=== PATIENT | female | born 1940 | race Two or more races ===

== ENCOUNTER 2019-10-17 16:41 | Inpatient (IN) | payer MEDICARE ==
[2019-10-17] MEDS ORDERED: SODIUM CHLORIDE 0.9% 1,000 ML IV STA (16:43)
[2019-10-17] MEDS ORDERED: IPRATROPIUM-ALBUTEROL 3 ML NEB INHALATION STA ×2 (16:43→21:17)
--- NOTE | 2019-10-17 16:49 | ED ---
SOB HPI - General Stated Complaint: FALLS Time Seen by Provider: 10/17/19 16:41 Source: patient, EMS, RN notes reviewed, old records reviewed Mode of arrival: EMS - History of Present Illness Initial Comments: This is a 70-year-old female who is hard of hearing who is brought in by EMS after her fifth fall in the last 24 hours. She states her left leg gives out on her. She was seen at [facility] earlier today and diagnosed with sciatica. She also is had upper airway congestion and complains of shortness of breath. She is hard of hearing and a poor historian. She does have a history of hypertension. She denies COPD and asthma or emphysema. She denies any pain at this time. No other modifying factors MD Complaint: shortness of breath - Related Data Home Medications Medication Instructions Recorded Confirmed Metoprolol Succinate (ER) [Toprol 50 mg PO BID 10/17/19 10/17/19 Xl] amLODIPine BESYLATE/BENAZEPRIL 1 cap PO DAILY 10/17/19 10/17/19 [amLODIPine BESYLATE/BENAZEPRIL 5-20 MG] Allergies Allergy/AdvReac Type Severity Reaction Status Date / Time No Known Allergies Allergy Verified 10/17/19 17:58 Review of Systems ROS Statement: Those systems with pertinent positive or pertinent negative responses have been documented in the HPI. ROS Other: All systems not noted in ROS Statement are negative. General Exam - General Exam Comments Initial Comments: This is a well-developed sec appearing female who is awake alert oriented General appearance: alert, anxious Head exam: Present: atraumatic, normocephalic, normal inspection Eye exam: Present: normal appearance, PERRL, EOMI. Absent: scleral icterus, conjunctival injection, periorbital swelling ENT exam: Present: mucous membranes dry, other (She is edentulous) Neck exam: Present: normal inspection, full ROM, other (No stridor JVD or bruits ). Absent: tenderness, meningismus, lymphadenopathy Respiratory exam: Present: wheezes, decreased breath sounds. Absent: respiratory distress, rales, rhonchi, stridor Cardiovascular Exam: Present: regular rate, normal rhythm, normal heart sounds. Absent: systolic murmur, diastolic murmur, rubs, gallop, clicks GI/Abdominal exam: Present: soft, normal bowel sounds. Absent: distended, tenderness, guarding, rebound, rigid Rectal exam: Present: heme (+) stool, black stool Extremities exam: Present: full ROM, normal capillary refill, other (All full abrasion seen to both upper and lower extremities). Absent: tenderness, pedal edema, joint swelling, calf tenderness Back exam: Present: normal inspection Neurological exam: Present: alert, oriented X3, CN II-XII intact Psychiatric exam: Present: normal affect, normal mood Skin exam: Present: warm, dry, normal color. Absent: rash Course Vital Signs 10/17/19 10/17/19 10/17/19 16:44 17:11 17:22 Temperature 97.6 F Pulse Rate 62 61 70 Respiratory 20 Rate Blood Pressure 114/38 O2 Sat by Pulse 91 L Oximetry 10/17/19 10/17/19 17:55 18:00 Temperature Pulse Rate 69 68 Respiratory 26 H 20 Rate Blood Pressure 102/46 102/46 O2 Sat by Pulse 96 92 L Oximetry - Reevaluation(s) Reevaluation #1: 10/17/19 19:59 I did reevaluate patient multiple occasions and did discuss findings with her . Patient is a smoker and turned out she does drink at least 5 bottles of beer every day. I did discuss the findings including the anemia and heme positive stools with the patient's . She is also hyponatremic. Reevaluation #2: 10/17/19 20:02 Of note the patient's breathing did improve after the nebulizer. Medical Decision Making - Medical Decision Making I did discuss [employer] the patient and family as well as Dr. Nunn, Dr. Cox and Dr. Solano. The patient will be admitted to the intensive care unit patient will have normal saline at 75 mL an hour with a repeat sodium level at 10 PM tonight. Is as per Dr. Solano. Additionally patient will receive IV transfusion and consultation by GI. Patient is currently hemodynamically stable. - Lab Data Result diagrams: 10/17/19 16:57 10/17/19 16:57 Lab Results 10/17/19 10/17/19 10/17/19 Range/Units 16:54 16:57 16:57 WBC 14.1 H (3.8-10.6) k/uL RBC 2.10 L (3.80-5.40) m/uL Hgb 6.3 L* (11.4-16.0) gm/dL Hct 19.3 L* (34.0-46.0) % MCV 92.0 (80.0-100.0) fL MCH 29.4 (25.0-35.0) pg MCHC 32.0 (31.0-37.0) g/dL RDW 13.5 (11.5-15.5) % Plt Count 508 H (150-450) k/uL Neutrophils % (Manual) 89 % Lymphocytes % (Manual) 5 % Monocytes % (Manual) 6 % Neutrophils # (Manual) 12.55 H (1.3-7.7) k/uL Lymphocytes # (Manual) 0.71 L (1.0-4.8) k/uL Monocytes # (Manual) 0.85 (0-1.0) k/uL Nucleated RBCs 1 H (0-0) /100 WBC Manual Slide Review Performed Polychromasia Present Hypochromasia Moderate Poikilocytosis Slight PT (9.0-12.0) sec INR (<1.2) APTT (22.0-30.0) sec D-Dimer (<0.60) mg/L FEU Sodium 117 L* (137-145) mmol/L Potassium 5.2 H (3.5-5.1) mmol/L Chloride 89 L (98-107) mmol/L Carbon Dioxide 11 L (22-30) mmol/L Anion Gap 17 mmol/L BUN 21 H (7-17) mg/dL Creatinine 0.95 (0.52-1.04) mg/dL Est GFR (CKD-EPI)AfAm 67 (>60 ml/min/1.73 sqM) Est GFR (CKD-EPI)NonAf 58 (>60 ml/min/1.73 sqM) Glucose 68 L (74-99) mg/dL Calcium 8.9 (8.4-10.2) mg/dL Magnesium 2.2 (1.6-2.3) mg/dL Total Bilirubin 1.4 H (0.2-1.3) mg/dL AST 56 H (14-36) U/L ALT 20 (9-52) U/L Alkaline Phosphatase 38 (38-126) U/L Creatine Kinase 725 H (30-135) U/L Troponin I (0.000-0.034) ng/mL NT-Pro-B Natriuret Pep pg/mL Total Protein 5.7 L (6.3-8.2) g/dL Albumin 3.5 (3.5-5.0) g/dL Stool Occult Blood (Negative) Blood Type A Positive Blood Type Recheck No Previous Record Bld Type Recheck Status CABO Indicated Antibody Screen NEGATIVE Spec Expiration Date 10/20/2019235310/17/19 10/17/19 10/17/19 Range/Units 16:57 16:57 16:57 WBC (3.8-10.6) k/uL RBC (3.80-5.40) m/uL Hgb (11.4-16.0) gm/dL Hct (34.0-46.0) % MCV (80.0-100.0) fL MCH (25.0-35.0) pg MCHC (31.0-37.0) g/dL RDW (11.5-15.5) % Plt Count (150-450) k/uL Neutrophils % (Manual) % Lymphocytes % (Manual) % Monocytes % (Manual) % Neutrophils # (Manual) (1.3-7.7) k/uL Lymphocytes # (Manual) (1.0-4.8) k/uL Monocytes # (Manual) (0-1.0) k/uL Nucleated RBCs (0-0) /100 WBC Manual Slide Review Polychromasia Hypochromasia Poikilocytosis PT 13.6 H (9.0-12.0) sec INR 1.3 H (<1.2) APTT 25.2 (22.0-30.0) sec D-Dimer 0.98 H (<0.60) mg/L FEU Sodium (137-145) mmol/L Potassium (3.5-5.1) mmol/L Chloride (98-107) mmol/L Carbon Dioxide (22-30) mmol/L Anion Gap mmol/L BUN (7-17) mg/dL Creatinine (0.52-1.04) mg/dL Est GFR (CKD-EPI)AfAm (>60 ml/min/1.73 sqM) Est GFR (CKD-EPI)NonAf (>60 ml/min/1.73 sqM) Glucose (74-99) mg/dL Calcium (8.4-10.2) mg/dL Magnesium (1.6-2.3) mg/dL Total Bilirubin (0.2-1.3) mg/dL AST (14-36) U/L ALT (9-52) U/L Alkaline Phosphatase (38-126) U/L Creatine Kinase (30-135) U/L Troponin I 0.199 H* (0.000-0.034) ng/mL NT-Pro-B Natriuret Pep 8960 pg/mL Total Protein (6.3-8.2) g/dL Albumin (3.5-5.0) g/dL Stool Occult Blood (Negative) Blood Type Blood Type Recheck Bld Type Recheck Status Antibody Screen Spec Expiration Date 10/17/19 Range/Units 17:54 WBC (3.8-10.6) k/uL RBC (3.80-5.40) m/uL Hgb (11.4-16.0) gm/dL Hct (34.0-46.0) % MCV (80.0-100.0) fL MCH (25.0-35.0) pg MCHC (31.0-37.0) g/dL RDW (11.5-15.5) % Plt Count (150-450) k/uL Neutrophils % (Manual) % Lymphocytes % (Manual) % Monocytes % (Manual) % Neutrophils # (Manual) (1.3-7.7) k/uL Lymphocytes # (Manual) (1.0-4.8) k/uL Monocytes # (Manual) (0-1.0) k/uL Nucleated RBCs (0-0) /100 WBC Manual Slide Review Polychromasia Hypochromasia Poikilocytosis PT (9.0-12.0) sec INR (<1.2) APTT (22.0-30.0) sec D-Dimer (<0.60) mg/L FEU Sodium (137-145) mmol/L Potassium (3.5-5.1) mmol/L Chloride (98-107) mmol/L Carbon Dioxide (22-30) mmol/L Anion Gap mmol/L BUN (7-17) mg/dL Creatinine (0.52-1.04) mg/dL Est GFR (CKD-EPI)AfAm (>60 ml/min/1.73 sqM) Est GFR (CKD-EPI)NonAf (>60 ml/min/1.73 sqM) Glucose (74-99) mg/dL Calcium (8.4-10.2) mg/dL Magnesium (1.6-2.3) mg/dL Total Bilirubin (0.2-1.3) mg/dL AST (14-36) U/L ALT (9-52) U/L Alkaline Phosphatase (38-126) U/L Creatine Kinase (30-135) U/L Troponin I (0.000-0.034) ng/mL NT-Pro-B Natriuret Pep pg/mL Total Protein (6.3-8.2) g/dL Albumin (3.5-5.0) g/dL Stool Occult Blood Positive H (Negative) Blood Type Blood Type Recheck Bld Type Recheck Status Antibody Screen Spec Expiration Date Critical Care Time Critical Care Time: Yes Critical Care Time: 45 minutes of critical care time includes initial presentation with history physical labs x-rays review charting from [facility]. Multiple reevaluation of the patient. Discussed with the patient's and the pa tient regarding the findings discussion with multiple physicians admission orders and documentation of the above. Disposition Clinical Impression: Acute GI bleeding, Hyponatremia, Elevated troponin, Elevated brain natriuretic peptide (BNP) level, Failure to thrive Disposition: ADMITTED IP TO THIS HOSP Condition: Serious Referrals: None,Stated [REFERRING] - 1-2 days
[2019-10-17 17:19] LABS: Hypochromasia Moderate; MCH 29.4 pg (25.0-35.0); Mean Platelet Volume 6.1; Platelet Count 508 k/uL (150-450); Poikilocytosis Slight; RDW 13.5 % (11.5-15.5)
[2019-10-17 17:25] LABS: HCT 19.3 % (34.0-46.0); HGB 6.3 gm/dL (11.4-16.0)
[2019-10-17 17:27] LABS: Albumin 3.5 g/dL (3.5-5.0); Calcium 8.9 mg/dL (8.4-10.2); INR 1.3 (<1.2); Magnesium 2.2 mg/dL (1.6-2.3); Partial Thromboplastin Time 25.2 sec (22.0-30.0); Potassium 5.2 mmol/L (3.5-5.1); Prothrombin Time 13.6 sec (9.0-12.0); Total Bilirubin 1.4 mg/dL (0.2-1.3); Total Protein 5.7 g/dL (6.3-8.2)
[2019-10-17 17:32] LABS: D-Dimer 0.98 mg/L FEU (<0.60)
[2019-10-17 17:35] LABS: Lymphocytes # (M) 0.71 k/uL (1.0-4.8); Monocytes # (M) 0.85 k/uL (0-1.0); Neutrophils # (M) 12.55 k/uL (1.3-7.7); Neutrophils % (M) 89 %; Nucleated Red Blood Cells 1 /100 WBC (0-0); Polychromasia Present; Total Cells Counted 200; WBC 14.1 k/uL (3.8-10.6)
--- NOTE | 2019-10-17 17:41 | XR ---
EXAMINATION TYPE: XR chest 2V DATE OF EXAM: 10/17/2019 COMPARISON: NONE HISTORY: Pain after frequent falls. TECHNIQUE: Frontal and lateral views of the chest are obtained. FINDINGS: There is chronic parenchymal changes bilaterally and elevated left hemidiaphragm without s uspicious focal air space opacity, pleural effusion, or pneumothorax seen. The cardiac silhouette si ze is enlarged with atherosclerotic and ectatic aorta. The osseous structures are demineralized. Hi gh riding humeral heads bilaterally suggest chronic rotator cuff tears. Multilevel spurring and disc space narrowing in the thoracic spine is present. IMPRESSION: Chronic changes and cardiomegaly without acute pulmonary process.
--- NOTE | 2019-10-17 17:44 | XR ---
EXAMINATION TYPE: XR pelvis AP view DATE OF EXAM: 10/17/2019 CLINICAL HISTORY: Pain after fall. TECHNIQUE: A single AP view of the pelvis is obtained. COMPARISON: None. FINDINGS: Demineralization is present. There is no acute fracture/dislocation evident in the pelvis. The sacroiliac joints appear symmetric and felt within normal limits. [id number] axial joint s pace loss both hips greater than right hip is present. Vascular calcification iliac arteries extendin g into groin femoral branches bilaterally is present. IMPRESSION: There is no acute fracture or dislocation in the pelvis.
[2019-10-17] MEDS ORDERED: NALOXONE 0.4 MG/ML 1 ML VIAL IV PRN (20:28)
[2019-10-17] MEDS ORDERED: SODIUM CHLORIDE 0.9% 1,000 ML IV SCH (20:30)
[2019-10-17] MEDS ORDERED: NICOTINE 21MG/24HR PATCH TRANSDERM STA (20:35)
--- NOTE | 2019-10-17 20:37 | ED ---
Medical Decision Making - Lab Data Result diagrams: 10/17/19 16:57 10/17/19 16:57 Lab Results 10/17/19 10/17/19 10/17/19 Range/Units 16:54 16:57 16:57 WBC 14.1 H (3.8-10.6) k/uL RBC 2.10 L (3.80-5.40) m/uL Hgb 6.3 L* (11.4-16.0) gm/dL Hct 19.3 L* (34.0-46.0) % MCV 92.0 (80.0-100.0) fL MCH 29.4 (25.0-35.0) pg MCHC 32.0 (31.0-37.0) g/dL RDW 13.5 (11.5-15.5) % Plt Count 508 H (150-450) k/uL Neutrophils % (Manual) 89 % Lymphocytes % (Manual) 5 % Monocytes % (Manual) 6 % Neutrophils # (Manual) 12.55 H (1.3-7.7) k/uL Lymphocytes # (Manual) 0.71 L (1.0-4.8) k/uL Monocytes # (Manual) 0.85 (0-1.0) k/uL Nucleated RBCs 1 H (0-0) /100 WBC Manual Slide Review Performed Polychromasia Present Hypochromasia Moderate Poikilocytosis Slight PT (9.0-12.0) sec INR (<1.2) APTT (22.0-30.0) sec D-Dimer (<0.60) mg/L FEU Sodium 117 L* (137-145) mmol/L Potassium 5.2 H (3.5-5.1) mmol/L Chloride 89 L (98-107) mmol/L Carbon Dioxide 11 L (22-30) mmol/L Anion Gap 17 mmol/L BUN 21 H (7-17) mg/dL Creatinine 0.95 (0.52-1.04) mg/dL Est GFR (CKD-EPI)AfAm 67 (>60 ml/min/1.73 sqM) Est GFR (CKD-EPI)NonAf 58 (>60 ml/min/1.73 sqM) Glucose 68 L (74-99) mg/dL Calcium 8.9 (8.4-10.2) mg/dL Magnesium 2.2 (1.6-2.3) mg/dL Total Bilirubin 1.4 H (0.2-1.3) mg/dL AST 56 H (14-36) U/L ALT 20 (9-52) U/L Alkaline Phosphatase 38 (38-126) U/L Creatine Kinase 725 H (30-135) U/L Troponin I (0.000-0.034) ng/mL NT-Pro-B Natriuret Pep pg/mL Total Protein 5.7 L (6.3-8.2) g/dL Albumin 3.5 (3.5-5.0) g/dL Stool Occult Blood (Negative) Blood Type A Positive Blood Type Confirm Blood Type Recheck No Previous Record Bld Type Recheck Status CABO Indicated Antibody Screen NEGATIVE Crossmatch See Detail Spec Expiration Date 10/20/2019235310/17/19 10/17/19 10/17/19 Range/Units 16:57 16:57 16:57 WBC (3.8-10.6) k/uL RBC (3.80-5.40) m/uL Hgb (11.4-16.0) gm/dL Hct (34.0-46.0) % MCV (80.0-100.0) fL MCH (25.0-35.0) pg MCHC (31.0-37.0) g/dL RDW (11.5-15.5) % Plt Count (150-450) k/uL Neutrophils % (Manual) % Lymphocytes % (Manual) % Monocytes % (Manual) % Neutrophils # (Manual) (1.3-7.7) k/uL Lymphocytes # (Manual) (1.0-4.8) k/uL Monocytes # (Manual) (0-1.0) k/uL Nucleated RBCs (0-0) /100 WBC Manual Slide Review Polychromasia Hypochromasia Poikilocytosis PT 13.6 H (9.0-12.0) sec INR 1.3 H (<1.2) APTT 25.2 (22.0-30.0) sec D-Dimer 0.98 H (<0.60) mg/L FEU Sodium (137-145) mmol/L Potassium (3.5-5.1) mmol/L Chloride (98-107) mmol/L Carbon Dioxide (22-30) mmol/L Anion Gap mmol/L BUN (7-17) mg/dL Creatinine (0.52-1.04) mg/dL Est GFR (CKD-EPI)AfAm (>60 ml/min/1.73 sqM) Est GFR (CKD-EPI)NonAf (>60 ml/min/1.73 sqM) Glucose (74-99) mg/dL Calcium (8.4-10.2) mg/dL Magnesium (1.6-2.3) mg/dL Total Bilirubin (0.2-1.3) mg/dL AST (14-36) U/L ALT (9-52) U/L Alkaline Phosphatase (38-126) U/L Creatine Kinase (30-135) U/L Troponin I 0.199 H* (0.000-0.034) ng/mL NT-Pro-B Natriuret Pep 8960 pg/mL Total Protein (6.3-8.2) g/dL Albumin (3.5-5.0) g/dL Stool Occult Blood (Negative) Blood Type Blood Type Confirm Blood Type Recheck Bld Type Recheck Status Antibody Screen Crossmatch Spec Expiration Date 10/17/19 10/17/19 Range/Units 17:54 19:22 WBC (3.8-10.6) k/uL RBC (3.80-5.40) m/uL Hgb (11.4-16.0) gm/dL Hct (34.0-46.0) % MCV (80.0-100.0) fL MCH (25.0-35.0) pg MCHC (31.0-37.0) g/dL RDW (11.5-15.5) % Plt Count (150-450) k/uL Neutrophils % (Manual) % Lymphocytes % (Manual) % Monocytes % (Manual) % Neutrophils # (Manual) (1.3-7.7) k/uL Lymphocytes # (Manual) (1.0-4.8) k/uL Monocytes # (Manual) (0-1.0) k/uL Nucleated RBCs (0-0) /100 WBC Manual Slide Review Polychromasia Hypochromasia Poikilocytosis PT (9.0-12.0) sec INR (<1.2) APTT (22.0-30.0) sec D-Dimer (<0.60) mg/L FEU Sodium (137-145) mmol/L Potassium (3.5-5.1) mmol/L Chloride (98-107) mmol/L Carbon Dioxide (22-30) mmol/L Anion Gap mmol/L BUN (7-17) mg/dL Creatinine (0.52-1.04) mg/dL Est GFR (CKD-EPI)AfAm (>60 ml/min/1.73 sqM) Est GFR (CKD-EPI)NonAf (>60 ml/min/1.73 sqM) Glucose (74-99) mg/dL Calcium (8.4-10.2) mg/dL Magnesium (1.6-2.3) mg/dL Total Bilirubin (0.2-1.3) mg/dL AST (14-36) U/L ALT (9-52) U/L Alkaline Phosphatase (38-126) U/L Creatine Kinase (30-135) U/L Troponin I (0.000-0.034) ng/mL NT-Pro-B Natriuret Pep pg/mL Total Protein (6.3-8.2) g/dL Albumin (3.5-5.0) g/dL Stool Occult Blood Positive H (Negative) Blood Type Blood Type Confirm A Positive Blood Type Recheck Bld Type Recheck Status Antibody Screen Crossmatch Spec Expiration Date Disposition Clinical Impression: Acute GI bleeding, Hyponatremia, Elevated troponin, Elevated brain natriuretic peptide (BNP) level, Failure to thrive, Bronchospasm, Tobacco abuse, Alcohol abuse Disposition: ADMITTED IP TO THIS [facility] Condition: Serious Referrals: None,Stated [REFERRING] - 1-2 days Procedures - [place] Protocol (Time Out) Nurse: Betsy Avery
[2019-10-17] MEDS ORDERED: ACETAMINOPHEN TAB 325 MG TAB PO STA (20:43)
[2019-10-17] MEDS ORDERED: THIAMINE 100 MG/ML 2 ML VIAL IM STA (20:45)
[2019-10-17] MEDS ORDERED: SODIUM CHLORIDE 0.9% 1,000 ML with MVI, ADULT NO.4 WITH VIT K 10 ML, THIAMINE 100 MG, F... IV ONE ×4 (21:00)
[2019-10-17] MEDS ORDERED: FUROSEMIDE 10 MG/ML 4 ML VIAL IV STA (21:21)
[2019-10-17 21:34] LABS: Glucose,Whole Blood 70 mg/dL (75-99)
[2019-10-17 21:49] LABS: Appearance,Urine Cloudy (Clear); Bacteria,Urine Occasional /hpf; Bilirubin,Urine Negative (Negative); Blood,Urine Small (Negative); Color,Urine Yellow; Glucose,Urine (UA) Negative (Negative); Hyaline Casts,Urine 14 /lpf (0-2); Ketones,Urine Trace (Negative); Leukocyte Esterase,Urine Large (Negative); Mucus,Urine Rare /hpf; Nitrite,Urine Negative (Negative); PH, Urine 5.5 (5.0-8.0); Protein,Urine Trace (Negative); RBC,Urine 9 /hpf (0-5); Squamous Epithelial Cell,Urine 10 /hpf (0-4); Urobilinogen,Urine <2.0 mg/dL (<2.0); WBC,Urine 151 /hpf (0-5)
[2019-10-17 22:06] LABS: Glucose,Whole Blood 68 mg/dL (75-99)
[2019-10-17] MEDS ORDERED: DEXTROSE 10 % IN WATER 250 ML IV ONE (22:28)
[2019-10-17] MEDS: INSULIN ASPART (NovoLOG) 100 UNIT/ML VIAL SQ SCH (22:31)
[2019-10-17] MEDS: PANTOPRAZOLE 40 MG/10 ML VIAL IV SCH (23:01)
[2019-10-17 23:24] LABS: Glucose,Whole Blood 147 mg/dL (75-99)
[2019-10-17] MEDS: IPRATROPIUM-ALBUTEROL 3 ML NEB INHALATION SCH (23:34)
[2019-10-18] MEDS: IPRATROPIUM-ALBUTEROL 3 ML NEB INHALATION SCH ×5 (03:18→20:03)
[2019-10-18] MEDS: LORazepam 2 MG/ML INJ IV PRN ×5 (04:19→19:47)
[2019-10-18 04:50] LABS: Basophils % (A) 0 %; Eosinophils # (A) 0.1 k/uL (0-0.7); Eosinophils % (A) 1 %; HCT 26.1 % (34.0-46.0); Hypochromasia Slight; Lymphocytes # (A) 0.9 k/uL (1.0-4.8); Lymphocytes % (A) 7 %; MCH 30.6 pg (25.0-35.0); MCHC 34.2 g/dL (31.0-37.0); MCV 89.3 fL (80.0-100.0); Mean Platelet Volume 6.6; Monocytes # (A) 0.9 k/uL (0-1.0); Monocytes % (A) 8 %; Neutrophils % (A) 83 %; Platelet Count 360 k/uL (150-450); Poikilocytosis Slight; RBC 2.92 m/uL (3.80-5.40); RDW 13.5 % (11.5-15.5); WBC 12.1 k/uL (3.8-10.6)
[2019-10-18 05:05] LABS: African American GFR (CKD) >90 (>60 ml/min/1.73 sqM); Anion Gap 10 mmol/L; Blood Urea Nitrogen 19 mg/dL (7-17); Carbon Dioxide 15 mmol/L (22-30); Chloride 95 mmol/L (98-107); Glucose 77 mg/dL (74-99); Non-African American GFR(CKD) 79 (>60 ml/min/1.73 sqM); Potassium 4.1 mmol/L (3.5-5.1); Sodium 120 mmol/L (137-145)
[2019-10-18 05:41] LABS: HGB 8.9 gm/dL (11.4-16.0)
[2019-10-18] MEDS ORDERED: DEXTROSE 10 % IN WATER 250 ML IV ONE ×2 (06:55→07:57)
[2019-10-18] MEDS: INSULIN ASPART (NovoLOG) 100 UNIT/ML VIAL SQ SCH ×4 (07:08→20:20)
[2019-10-18 08:08] LABS: Glucose,Whole Blood 67 mg/dL (75-99)
[2019-10-18] MEDS: PANTOPRAZOLE 40 MG/10 ML VIAL IV SCH ×2 (08:46→19:47)
[2019-10-18] MEDS ORDERED: RX INFO: IV CONTRAST WAS GIVEN 1 EACH MISC MISCELLANE PRN (09:26)
[2019-10-18] MEDS ORDERED: HEPARIN SODIUM,PORCINE 5,000 UNIT/ML 1 ML VIAL SQ SCH (09:45)
--- NOTE | 2019-10-18 09:45 | P.CNPUL ---
History of Present Illness Consult date: 10/18/19 Chief complaint: Altered mentation, frequent falls History of present illness: Is a 70-year-old female patient who is currently confused. The patient came in to the emergency department yesterday because of altered mentation and recurrent falls. Apparently she has been falling and she fell at least 5 times yesterday. She initially went to [facility] and she was discharged home without having any labs done. HIDA time she came to our emergency department, the labs are quite abnormal and she had a sodium level of 117 with a potassium level of 5.2 and a chloride of 89 and a serum bicarb of 17 with an anion gap of 17. Creatinine was stable at 0.9. Her initial hemoglobin was at 6.3 and she had guaiac positive stool. Her coags showed an INR of 1.3 with a PT of 15.6. The patient had a chest x-ray that showed some tortuous aorta yet by radiologist opinion and interpretation, the findings were negative and no further workup was done and the patient was admitted to the intensive care unit. Currently she is awake and she is restless in bed. She is moving all 4 extremities. She seems to be poorly maintained. She is on a normal saline infusion at the rate of 75 an hour. She received a total of 2 units of packed RBC and the sodium level is up to 120. She admits to drink beer and order of 5 bottles on a daily basis. There may be a history of alcoholism. She is a smoker and she smokes 5-10 cigarettes a day. On examination she is quite bronchospastic and wheezy and she has a congested cough. She is currently on oxygen at 6 L per minute nasal cannula with a pulse ox of 94%. Cardiac rhythm is sinus. EKG showed a normal sinus rhythm and some ST segment changes limited and T-wave inversions over the lateral leads. Troponins were slightly abnormal with one lives of 0.19, 0.3 and 0.5 respectively 3. CPK level was at 725 at a time of admission. She has a Jarquin catheter in place. Urine output is in order of 100 mL an hour. On examination, the patient has multiple abrasions of the skin in various parts of her body. She also has a surgical scar over the lip probably related to a previous resection of a skin cancer. The past medical history is not known. The past surgical is not known. She is on a blood pressure medication including metoprolol and amlodipine on outpatient basis. Review of Systems ROS unobtainable: due to mental status Past Medical History Past Medical History: Hypertension History of Any Multi-Drug Resistant Organisms: None Reported Past Surgical History: No Surgical Hx Reported Past Anesthesia/Blood Transfusion Reactions: No Reported Reaction Past Psychological History: No Psychological Hx Reported Smoking Status: Current every day smoker Past Alcohol Use History: Daily Past Drug Use History: None Reported Additional History: Unable to obtain any family history Medications and Allergies Home Medications Medication Instructions Recorded Confirmed Type Metoprolol Succinate (ER) [Toprol 50 mg PO BID 10/17/19 10/17/19 History Xl] amLODIPine BESYLATE/BENAZEPRIL 1 cap PO DAILY 10/17/19 10/17/19 History [amLODIPine BESYLATE/BENAZEPRIL 5-20 MG] Allergies Allergy/AdvReac Type Severity Reaction Status Date / Time No Known Allergies Allergy Verified 10/17/19 17:58 Physical Exam Vitals: Vital Signs Temp Pulse Resp BP Pulse Ox 10/18/19 09:00 90 17 135/66 10/18/19 08:00 97.8 F 77 23 96/61 92 L 10/18/19 07:35 72 10/18/19 07:27 66 10/18/19 07:00 70 16 103/65 96 10/18/19 06:00 68 14 107/80 94 L 10/18/19 05:00 70 19 98/45 95 10/18/19 04:00 98.0 F 75 18 99/60 98 10/18/19 03:35 72 10/18/19 03:19 63 10/18/19 03:00 68 18 90/53 95 10/18/19 02:00 60 16 94/68 96 10/18/19 01:00 70 20 101/48 96 10/18/19 00:47 97.8 F 70 18 101/48 98 10/18/19 00:00 98.0 F 67 18 99/79 96 10/17/19 23:49 61 10/17/19 23:35 98.0 F 66 18 99/79 10/17/19 23:34 64 10/17/19 23:05 98.3 F 64 18 97/46 99 10/17/19 23:00 98.3 F 67 20 97/46 99 10/17/19 22:55 98.3 F 64 20 80/55 10/17/19 22:47 98.3 F 66 20 80/55 10/17/19 22:38 98.0 F 68 20 107/53 95 10/17/19 22:00 98.0 F 68 20 107/50 98 10/17/19 21:14 98.2 F 69 22 107/70 97 10/17/19 20:44 98.4 F 66 20 96/48 94 L 10/17/19 20:34 99.1 F 75 20 87/51 92 L 10/17/19 18:00 68 20 102/46 92 L 10/17/19 17:55 69 26 H 102/46 96 10/17/19 17:22 70 10/17/19 17:11 61 10/17/19 16:44 97.6 F 62 20 114/38 91 L Intake and Output 10/17/19 10/18/19 10/18/19 22:59 06:59 14:59 Intake Total 310 1255 110 Output Total 50 575 500 Balance 260 680 -390 Intake: IV 40 0.9 normal saline at KVO 40 Intake, IV Titration 945 70 Amount Dextrose 10 % in Water 250 250 ml @ 999 mls/hr IV ONCE ONE Rx#:[id number] Sodium Chloride 0.9% 1, 620 70 000 ml @ 70 mls/hr IV . [id number] ONE with Mvi, Adult No.4 with Vit K 10 ml with Thiamine 100 mg with Folic Acid 1 mg Rx#: [id number] Sodium Chloride 0.9% 1, 75 000 ml @ 75 mls/hr IV . [id number] [facility] Rx#:[id number] Blood Product 310 310 As-1 Unit 310 [id number] As-1 Unit 0 310 [id number] Output: Urine 50 575 500 Other: Voiding Method Bedpan # Voids 1 Weight 53.524 kg 55.3 kg Gen. appearance she is a bit lethargic restless in bed, follows some simple commands. She is unable to hold a conversation and she is able to say a few sentences. She is obviously confused and encephalopathic at this point in time. Head exam was generally normal. There was no scleral icterus or corneal arcus. Mucous membranes were moist. Neck was supple and positive jugular venous distension, thyromegaly, or carotid bruits. Carotids were easily palpable bilaterally. There was no adenopathy. The patient has a scar over her lower lip related to a previous surgical resection of skin cancer. Lung sounds are diminished and the patient has scattered expiratory wheezing throughout the lung ramirez and prolongation of expiration phase of breathing. Cardiac exam revealed the PMI to be normally situated and sized. The rhythm was regular and no extrasystoles were noted during several minutes of auscultation. The first and second heart sounds were normal and physiologic splitting of the second heart sound was noted. There were no murmurs, rubs, clicks, or gallops. Abdominal exam revealed normal bowel sounds. The abdomen was soft, non-tender, and without masses, organomegaly, or appreciable enlargement of the abdominal aorta. Extremities show dry skin. She has obvious arthritic changes in her fingers. She has skin abrasions yet here no 1 or sores or lesions and there is no evidence of any cellulitis in lower extremities bilaterally. Neurologically, the patient is encephalopathic. No focal neurological deficits. Pupils around 4 mm in size and they are reactive to light. No facial asymmetry. She is withdrawing to painful stimulation. She follows simple commands. She is unable to do more Activity. She is alert and oriented 1. Results - Laboratory Findings CBC and BMP: 10/18/19 04:35 10/18/19 04:39 PT/INR, D-dimer PT 13.6 sec (9.0-12.0) H 10/17/19 16:57 INR 1.3 (<1.2) H 10/17/19 16:57 D-Dimer 0.98 mg/L FEU (<0.60) H 10/17/19 16:57 Abnormal lab findings: Abnormal Labs 10/17/19 10/17/19 10/17/19 16:54 16:57 16:57 WBC 14.1 H RBC 2.10 L Hgb 6.3 L* Hct 19.3 L* Plt Count 508 H Neutrophils # Neutrophils # (Manual) 12.55 H Lymphocytes # Lymphocytes # (Manual) 0.71 L Nucleated RBCs 1 H PT INR D-Dimer Sodium 117 L* Potassium 5.2 H Chloride 89 L Carbon Dioxide 11 L BUN 21 H Glucose 68 L POC Glucose (mg/dL) Calcium Total Bilirubin 1.4 H AST 56 H Creatine Kinase 725 H Troponin I Total Protein 5.7 L Urine Appearance Urine Protein Urine Ketones Urine Blood Ur Leukocyte Esterase Urine RBC Urine WBC Urine WBC Clumps Ur Squamous Epith Cells Urine Bacteria Hyaline Casts Urine Mucus Stool Occult Blood Crossmatch See Detail 10/17/19 10/17/19 10/17/19 16:57 16:57 17:54 WBC RBC Hgb Hct Plt Count Neutrophils # Neutrophils # (Manual) Lymphocytes # Lymphocytes # (Manual) Nucleated RBCs PT 13.6 H INR 1.3 H D-Dimer 0.98 H Sodium Potassium Chloride Carbon Dioxide BUN Glucose POC Glucose (mg/dL) Calcium Total Bilirubin AST Creatine Kinase Troponin I 0.199 H* Total Protein Urine Appearance Urine Protein Urine Ketones Urine Blood Ur Leukocyte Esterase Urine RBC Urine WBC Urine WBC Clumps Ur Squamous Epith Cells Urine Bacteria Hyaline Casts Urine Mucus Stool Occult Blood Positive H Crossmatch 10/17/19 10/17/19 10/17/19 21:07 21:33 21:54 WBC RBC Hgb Hct Plt Count Neutrophils # Neutrophils # (Manual) Lymphocytes # Lymphocytes # (Manual) Nucleated RBCs PT INR D-Dimer Sodium Potassium Chloride Carbon Dioxide BUN Glucose POC Glucose (mg/dL) 70 L 68 L Calcium Total Bilirubin AST Creatine Kinase Troponin I Total Protein Urine Appearance Cloudy H Urine Protein Trace H Urine Ketones Trace H Urine Blood Small H Ur Leukocyte Esterase Large H Urine RBC 9 H Urine WBC 151 H Urine WBC Clumps Moderate H Ur Squamous Epith Cells 10 H Urine Bacteria Occasional H Hyaline Casts 14 H Urine Mucus Rare H Stool Occult Blood Crossmatch 10/17/19 10/17/19 10/17/19 23:00 23:47 23:47 WBC RBC Hgb Hct Plt Count Neutrophils # Neutrophils # (Manual) Lymphocytes # Lymphocytes # (Manual) Nucleated RBCs PT INR D-Dimer Sodium 118 L* Potassium Chloride Carbon Dioxide BUN Glucose POC Glucose (mg/dL) 147 H Calcium Total Bilirubin AST Creatine Kinase Troponin I 0.320 H* Total Protein Urine Appearance Urine Protein Urine Ketones Urine Blood Ur Leukocyte Esterase Urine RBC Urine WBC Urine WBC Clumps Ur Squamous Epith Cells Urine Bacteria Hyaline Casts Urine Mucus Stool Occult Blood Crossmatch 10/18/19 10/18/19 10/18/19 04:35 04:39 04:39 WBC 12.1 H RBC 2.92 L Hgb 8.9 L D Hct 26.1 L Plt Count Neutrophils # 10.0 H Neutrophils # (Manual) Lymphocytes # 0.9 L Lymphocytes # (Manual) Nucleated RBCs PT INR D-Dimer Sodium 120 L Potassium Chloride 95 L Carbon Dioxide 15 L BUN 19 H Glucose POC Glucose (mg/dL) Calcium 8.0 L Total Bilirubin AST Creatine Kinase Troponin I 0.573 H* Total Protein Urine Appearance Urine Protein Urine Ketones Urine Blood Ur Leukocyte Esterase Urine RBC Urine WBC Urine WBC Clumps Ur Squamous Epith Cells Urine Bacteria Hyaline Casts Urine Mucus Stool Occult Blood Crossmatch 10/18/19 07:55 WBC RBC Hgb Hct Plt Count Neutrophils # Neutrophils # (Manual) Lymphocytes # Lymphocytes # (Manual) Nucleated RBCs PT INR D-Dimer Sodium Potassium Chloride Carbon Dioxide BUN Glucose POC Glucose (mg/dL) 67 L Calcium Total Bilirubin AST Creatine Kinase Troponin I Total Protein Urine Appearance Urine Protein Urine Ketones Urine Blood Ur Leukocyte Esterase Urine RBC Urine WBC Urine WBC Clumps Ur Squamous Epith Cells Urine Bacteria Hyaline Casts Urine Mucus Stool Occult Blood Crossmatch - Diagnostic Findings Chest x-ray: image reviewed Assessment and Plan Plan: 1 altered mentation currently under investigation. The patient has presented emergency department with frequent falls and hyponatremia and severe anemia. The patient currently is hemodynamically stable. Sodium level is improved and and it's up to 120. Nevertheless, she remains to be altered and encephalopathic. Rule out underlying hepatitic encephalopathy. Rule out delirium tremens/alcohol withdrawal syndrome. A computed tomography scan of the brain will be needed further to investigate and workup for altered mentation 2 hyponatremia, likely acute. This is a hypochloremic hyponatremia. Consider due to excessive beer drinking. SIDH is felt to be less likely. This needs to be further investigated. The findings on the case. Currently on normal saline at the rate of 75 mL's an hour 3 recurrent falls 4 GI bleeding with a drop in hemoglobin down to 6.3 with positive occult stool. Correlation profile is within normal. Platelet count is within normal limits. Consider an upper GI bleeding and this is to be further investigated. The patient got transferred into the left units of packed RBCs. 5 troponin leak with some nonspecific EKG changes involving the lateral leads, considered underlying coronary artery disease 6 consider congestion heart failure with an elevated proBNP level and positive JVDs 7 COPD 8 alcoholism 9 skin chronic smoking 10 poor performance and functional status and poor medical follow-up without any much medical information available at this point in time Plan Seen IV fluids at 75 mL an hour. Obtain serum osmolality. Urine osmolality. Urine sodium. Further workup with CAT scan images will be needed regarding her recurrent falls. We'll obtain a CAT scan of the head no contrast, CAT scan of the chest abdomen and pelvis with contrast. She is a bit restless and she may need some Ativan if she becomes agitated during these imaging. The patient will need monitoring of her hemoglobin. She got transfused with a total of 2 units of packed RBC. Consult GI. Correlation profile is within normal. The put the patient IV Protonix. Monitor for any further signs of GI bleeding. The patient will also need a cardiac evaluation regarding her abnormal EKG and troponin. Obtain an echocardiogram, consider underlying CHF. She has history of alcoholism. Put the patient on CIWA protocol with Ativan. Put the patient underwent a right seems [id number] regarding her COPD. Heparin subcu for DVT prophylaxis. Aspiration precautions. Cardiology consultation. GI consultation. Nephrology consultation. Keep in ICU for now. Obtain further information from the family in the hospital once they arrived to the hospital. Obtain records from her primary care physician. We'll continue to follow. She'll be kept in ICU for now.
[2019-10-18 10:12] LABS: Ammonia <9 umol/L (<30); Lactic Acid, Venous 1.4 mmol/L (0.7-2.0)
[2019-10-18] MEDS: SODIUM CHLORIDE 0.9% 1,000 ML IV SCH (10:57)
--- NOTE | 2019-10-18 11:01 | CT ---
EXAMINATION TYPE: CT brain wo con DATE OF EXAM: 10/18/2019 COMPARISON: None HISTORY: altered mental status CT DLP: [address] of the brain was performed. The ventricles, basal cisterns and sulci overlying the cerebral convexities demonstrate mild enlargem ent. There is no evidence for intracranial hemorrhage or sulcal effacement. There is decreased attenuation about the periventricular white matter and deep white matter of both c erebral hemispheres, compatible with chronic small vessel ischemia. Differential diagnosis does inclu de demyelination. No mass effects are seen.No midline shift. Osseous calvarium is intact. If symptoms persist consider MRI. IMPRESSION: 1. Age related atrophic and chronic small vessel ischemic change without acute intracranial process s een at this time.
--- NOTE | 2019-10-18 11:17 | CT ---
EXAMINATION TYPE: CT ChestAbdPelvis w con DATE OF EXAM: 10/18/2019 COMPARISON: None HISTORY: mass?, falls CT DLP: 972.4 mGycm CONTRAST: CT scan of the chest, abdomen and pelvis is performed without Oral Contrast and with IV Contrast, pat ient injected with 100 mL of Isovue 300. CT Chest: LUNGS: The lungs are clear and free of infiltrate or atelectasis. No pulmonary nodule or mass is det ected. Small left-sided pleural effusion and mild upper lobe emphysematous change. MEDIASTINUM: Thoracic aorta is of normal caliber. The heart is not enlarged. No evidence for media stinal mass or adenopathy. HILAR STRUCTURES: No evidence for mass. No hilar adenopathy is appreciated. OTHER: Bilateral shoulder joint effusions noted. CONTRAST CT ABDOMEN AND PELVIS FINDINGS: LIVER/GB: No calcified gallstones. No space occupying hepatic lesion. Biliary tree is of normal ca liber. PANCREAS: No inflammation. No distinct mass. SPLEEN: No splenic enlargement. No lesion seen. ADRENALS: No nodule. No thickening. KIDNEYS/BLADDER: No hydronephrosis. No nephrolithiasis. Bilateral renal cystic changes seen. BOWEL: Normal appendix. Normal bowel caliber. No inflammation. GENITAL ORGANS: No gross abnormality. LYMPH NODES: No greater than 1cm abdominal or pelvic lymph nodes are appreciated. AORTA: No significant abnormality. OSSEOUS STRUCTURES: No significant abnormality is seen. OTHER: Anasarca changes identified. IMPRESSION: 1. Anasarca changes identified with Subcutaneous fluid noted. 2.Small left-sided pleural effusion and mild upper lobe emphysematous change.
[2019-10-18 11:40] LABS: African American GFR (CKD) >90 (>60 ml/min/1.73 sqM); Anion Gap 9 mmol/L; Blood Urea Nitrogen 16 mg/dL (7-17); Calcium 7.8 mg/dL (8.4-10.2); Carbon Dioxide 17 mmol/L (22-30); Chloride 95 mmol/L (98-107); Glucose 86 mg/dL (74-99); Non-African American GFR(CKD) 84 (>60 ml/min/1.73 sqM); Potassium 3.5 mmol/L (3.5-5.1); Sodium 121 mmol/L (137-145)
[2019-10-18] MEDS ORDERED: Potassium Replacement Protocol 1 EACH MISC MISCELLANE PRN (11:46)
--- NOTE | 2019-10-18 12:11 | P.NPCON ---
History of Present Illness - Reason for Consult hyponatremia - History of Present Illness Reason for consultation: Hyponatremia History of present illness: Patient is a 78-year-old female seen in renal consultation for hyponatremia. Patient's currently resting in bed and is quite lethargic. Patient's is present at bedside. Patient presented to the hospital due to frequent falls. According to the she never lost consciousness. Patient fell as her legs gave out. According to the oral intake has been fair. She is not on any thiazide diuretics. Patient does drink about 4 cans of beer daily. No vomiting or diarrhea. Hemodynamically she has been stable. Not on any vasop ressors. Patient's hemoglobin was noted to be low at 6.3 and she did receive blood transmission. Her sodium level was 117 for which she does receive normal saline bolus and is currently maintained on normal saline at 75 mL an hour. Sodium level has been gradually coming up. Most recent from 11 AM this morning was 121. Urine output is good. GFR is at baseline. Brain CT revealed chronic changes without any acute process. Vital signs are stable. General: The patient appeared well nourished and normally developed. Lethargic. HEENT: Head exam is unremarkable. Neck is without jugular venous distension. LUNGS: Lungs are clear to auscultation and percussion. Breath sounds decreased. HEART: Rate and Rhythm are regular. First and second heart sounds normal. No murmurs, rubs or gallops. ABDOMEN: Abdominal exam reveals normal bowel sounds. Non-tender and non- distended. No evidence of peritonitis. EXTREMITITES: No clubbing, cyanosis, or edema. Past Medical History Past Medical History: Hypertension History of Any Multi-Drug Resistant Organisms: None Reported Past Surgical History: No Surgical Hx Reported Past Anesthesia/Blood Transfusion Reactions: No Reported Reaction Past Psychological History: No Psychological Hx Reported Smoking Status: Current every day smoker Past Alcohol Use History: Daily Past Drug Use History: None Reported Medications and Allergies Home Medications Medication Instructions Recorded Confirmed Type Metoprolol Succinate (ER) [Toprol 50 mg PO BID 10/17/19 10/17/19 History Xl] amLODIPine BESYLATE/BENAZEPRIL 1 cap PO DAILY 10/17/19 10/17/19 History [amLODIPine BESYLATE/BENAZEPRIL 5-20 MG] Allergies Allergy/AdvReac Type Severity Reaction Status Date / Time No Known Allergies Allergy Verified 10/17/19 17:58 Physical Exam Vitals: Vital Signs Temp Pulse Resp BP Pulse Ox 10/18/19 11:21 88 10/18/19 11:09 88 10/18/19 11:00 88 16 106/39 93 L 10/18/19 10:00 92 17 101/54 92 L 10/18/19 09:00 90 17 135/66 10/18/19 08:00 97.8 F 77 23 96/61 92 L 10/18/19 07:35 72 10/18/19 07:27 66 10/18/19 07:00 70 16 103/65 96 10/18/19 06:00 68 14 107/80 94 L 10/18/19 05:00 70 19 98/45 95 10/18/19 04:00 98.0 F 75 18 99/60 98 10/18/19 03:35 72 10/18/19 03:19 63 10/18/19 03:00 68 18 90/53 95 10/18/19 02:00 60 16 94/68 96 10/18/19 01:00 70 20 101/48 96 10/18/19 00:47 97.8 F 70 18 101/48 98 10/18/19 00:00 98.0 F 67 18 99/79 96 10/17/19 23:49 61 10/17/19 23:35 98.0 F 66 18 99/79 10/17/19 23:34 64 10/17/19 23:05 98.3 F 64 18 97/46 99 10/17/19 23:00 98.3 F 67 20 97/46 99 10/17/19 22:55 98.3 F 64 20 80/55 10/17/19 22:47 98.3 F 66 20 80/55 10/17/19 22:38 98.0 F 68 20 107/53 95 10/17/19 22:00 98.0 F 68 20 107/50 98 10/17/19 21:14 98.2 F 69 22 107/70 97 10/17/19 20:44 98.4 F 66 20 96/48 94 L 10/17/19 20:34 99.1 F 75 20 87/51 92 L 10/17/19 18:00 68 20 102/46 92 L 10/17/19 17:55 69 26 H 102/46 96 10/17/19 17:22 70 10/17/19 17:11 61 10/17/19 16:44 97.6 F 62 20 114/38 91 L Intake and Output 10/17/19 10/18/19 10/18/19 22:59 06:59 14:59 Intake Total 310 1255 260 Output Total 50 575 700 Balance 260 680 -440 Intake: IV 190 0.9 normal saline at KVO 40 Sodium Chloride 0.9% 1, 150 000 ml @ 75 mls/hr IV . [id number] [facility] Rx#:[id number] Intake, IV Titration 945 70 Amount Dextrose 10 % in Water 250 250 ml @ 999 mls/hr IV ONCE ONE Rx#:[id number] Sodium Chloride 0.9% 1, 620 70 000 ml @ 70 mls/hr IV . [id number] ONE with Mvi, Adult No.4 with Vit K 10 ml with Thiamine 100 mg with Folic Acid 1 mg Rx#: [id number] Sodium Chloride 0.9% 1, 75 000 ml @ 75 mls/hr IV . [id number] [facility] Rx#:[id number] Blood Product 310 310 Rc As-1 Unit 310 [id number] Rc As-1 Unit 0 310 [id number] Output: Urine 50 575 700 Other: Voiding Method Bedpan Indwelling Catheter # Voids 1 Weight 53.524 kg 55.3 kg Results - Lab Results Most recent lab results Calcium 7.8 mg/dL (8.4-10.2) L 10/18/19 11:09 Magnesium 2.2 mg/dL (1.6-2.3) 10/17/19 16:57 10/18/19 04:35 10/18/19 11:09 Assessment and Plan Plan: Assessment: 1. Hypovolemic hyponatremia improving with normal saline. Also underlying poor solute intake and beer potomania. Urine osmolality 388. Gradually improving with normal saline. 2. Metabolic acidosis, initially with high anion gap. Improving. This can be from ketoacidosis due to chronic alcohol use. 3. Acute GI bleed status post blood transfusion. Hemoglobin 8.9 this morning. GI consulted. 4. Frequent falls which can be from hyponatremia. Further workup pending. 5. Benign hypertension. Currently on the lower side. 6. Mild hypokalemia from poor oral intake. Magnesium normal. Being replaced. Plan: Maintain normal saline at 75 mL an hour. Follow-up urine sodium. Follow-up echocardiogram. Check TSH and cortisol level. Repeat sodium level at 5 PM today. Avoid rapid correction of hyponatremia. Thank you for the consultation. I will continue to follow patient with you during her hospital stay.
[2019-10-18 12:14] LABS: Glucose,Whole Blood 67 mg/dL (75-99)
--- NOTE | 2019-10-18 13:01 | ECHOF ---
Referral Reason:chf MEASUREMENTS -------- HEIGHT: 160.0 cm WEIGHT: 54.9 kg BP: 106/39 IVSd: 1.7 cm (0.6 - 1.1) LVIDd: 3.2 cm (3.9 - 5.3) LVPWd: 1.5 cm (0.6 - 1.1) EDV(Teich): 40 ml IVSs: 2.0 cm LVIDs: 2.2 cm LVPWs: 1.7 cm %IVS Thck: 20 % ESV(Teich): 16 ml EF(Teich): 60 % %FS: 31 % SV(Teich): 24 ml RVIDd: 3.5 cm (< 3.3) RA Diam: 3.4 cm LALs A4C: 5.4 cm LAAs A4C: 19.8 cm LAESV A-L A4C: 62 ml LAESV MOD A4C: 58 ml LALs A2C: 5.6 cm LAAs A2C: 19.8 cm LAESV A-L A2C: 59 ml LAESV MOD A2C: 56 ml LAESV(A-L): 62 ml LAESV Index (A-L): 39.46 ml/m MV E Romulo: 1.21 m/s MV DecT: 101 ms MV Dec [place]: 11.9 m/s MV A Romulo: 1.38 m/s MV E/A Ratio: 0.88 MV PHT: 29 ms MV PHT: 46 ms MVA By PHT: 4.8 cm MV Vmax: 1.74 m/s MV Vmean: 1.33 m/s MV maxP.17 mmHg MV meanP.58 mmHg MV VTI: 33.2 cm LVOT Vmax: 1.42 m/s LVOT maxP.09 mmHg AV Vmax: 2.40 m/s AV maxP.17 mmHg AV Vmax: 2.70 m/s AV Vmean: 1.94 m/s AV maxP.20 mmHg AV meanP.44 mmHg AV Env.Ti: 291 ms AV VTI: 56.3 cm AR Vmax: 4.03 m/s AR maxP.85 mmHg AR PHT: 401 ms AR Dec Time: 1383 ms AR Dec [place]: 2.9 m/s FINDINGS -------- Sinus rhythm. This was a technically difficult study with suboptimal parasternal views. Pt. not compliant. The left ventricular size is normal. There is moderate concentric left ventricular hypertrophy. T here is normal global left ventricular contractility. Overall left ventricular systolic function is normal with, an EF between 55 - 60 %. Left ventricular fillimg pressure cannot be estimated due to severe mitral annular calcification. The right ventricle is mildly enlarged. LA is moderately dilated 34-39 ml/m2 The right atrial size is normal. Interatrial and interventricular septum intact. The aortic valve was not well visualized. There is moderate aortic regurgitation. There is mild a ortic stenosis present. Peak/mean gradient across the Aortic Valve is 29.20mmHg / 16.44mmHg. Severe mitral annular calcification present. Mild mitral stenosis. The tricuspid valve was not well visualized. Unable to estimate RVSP due to inadequate TR jet spect ral doppler profile. The pulmonic valve was not well visualized. Aortic root not visualized IVC Not well visulized. There is no pericardial effusion. CONCLUSIONS -------- 1. Sinus rhythm. 2. This was a technically difficult study with suboptimal parasternal views. 3. Pt. not compliant. 4. The left ventricular size is normal. 5. There is moderate concentric left ventricular hypertrophy. 6. There is normal global left ventricular contractility. 7. Overall left ventricular systolic function is normal with, an EF between 55 - 60 %. 8. Left ventricular fillimg pressure cannot be estimated due to severe mitral annular calcification. 9. The right ventricle is mildly enlarged. 10. LA is moderately dilated 34-39 ml/m2 11. The right atrial size is normal. 12. Interatrial and interventricular septum intact. 13. The aortic valve was not well visualized. 14. There is moderate aortic regurgitation. 15. There is mild aortic stenosis present. 16. Peak/mean gradient across the Aortic Valve is 29.20mmHg / 16.44mmHg. 17. Severe mitral annular calcification present. 18. Mild mitral stenosis. 19. The tricuspid valve was not well visualized. 20. Unable to estimate RVSP due to inadequate TR jet spectral doppler profile. 21. The pulmonic valve was not well visualized. 22. Aortic root not visualized 23. IVC Not well visulized. 24. There is no pericardial effusion. AIRPLANE NAVIGATOR: Steff Rodriguez, EBENCS
[2019-10-18] MEDS: POTASSIUM CHLORIDE 10 MEQ in WATER FOR INJECTION 1 100ML.BAG IVPB SCH ×4 (14:48→19:23)
[2019-10-18 16:47] LABS: Glucose,Whole Blood 88 mg/dL (75-99)
[2019-10-18] MEDS ORDERED: THIAMINE 100 MG TAB PO SCH (17:30)
[2019-10-18 17:37] LABS: African American GFR (CKD) >90 (>60 ml/min/1.73 sqM); Anion Gap 9 mmol/L; Blood Urea Nitrogen 13 mg/dL (7-17); Calcium 8.2 mg/dL (8.4-10.2); Carbon Dioxide 16 mmol/L (22-30); Chloride 97 mmol/L (98-107); Glucose 87 mg/dL (74-99); Non-African American GFR(CKD) 87 (>60 ml/min/1.73 sqM); Sodium 122 mmol/L (137-145)
--- NOTE | 2019-10-18 18:10 | P.HPIM ---
History of Present Illness H&P Date: 10/18/19 Chief Complaint: Frequent falls and altered mental status changes Mrs. Millan is a 78-year-old female with a past medical history of hypertension brought into the emergency department for frequent falls and altered mental status changes. Currently the patient is in the ICU and is confused so most of the history is taken from the family members were at the bedside. Patient has been having frequent falls at least 5-6 times in the past 4 days. Initially she was taken to [facility] few days back and she was discharged home. Her noticed that she has been having frequent falls and also feeling fatigued so he called the EMS who brought her to the hospital. In the ER patient had blood work done showing hemoglobin of 6.3 and sodium of 118. Her troponins are elevated at 0.320 and her urine analysis was positive for large leukocyte esterase and WBC clumps. She also had a chest x-ray and an x-ray of the pelvis- no acute changes and no fracture. Patient was started on IV fluids given 2 units of PRBCs and admitted to the ICU. In the ICU patient had CT of the brain - no acute cranial process and also CT of the chest and abdomen- anasarca and small left-sided pleural effusion and mild upper lobe emphysematous changes. Patient's past medical history significant for hypertension and is a current smoker. She also drinks 3-4 beers every day. The only outpatient medications that she takes her metoprolol and amlodipine. Review of Systems REVIEW OF SYSTEMS: Could not be done as the patient is confused. Past Medical History Past Medical History: Hypertension History of Any Multi-Drug Resistant Organisms: None Reported Past Surgical History: No Surgical Hx Reported Past Anesthesia/Blood Transfusion Reactions: No Reported Reaction Past Psychological History: No Psychological Hx Reported Smoking Status: Current every day smoker Past Alcohol Use History: Daily Past Drug Use History: None Reported Medications and Allergies Home Medications Medication Instructions Recorded Confirmed Type Metoprolol Succinate (ER) [Toprol 50 mg PO BID 10/17/19 10/17/19 History Xl] amLODIPine BESYLATE/BENAZEPRIL 1 cap PO DAILY 10/17/19 10/17/19 History [amLODIPine BESYLATE/BENAZEPRIL 5-20 MG] Allergies Allergy/AdvReac Type Severity Reaction Status Date / Time No Known Allergies Allergy Verified 10/17/19 17:58 Physical Exam Vitals: Vital Signs Temp Pulse Resp BP Pulse Ox 10/18/19 16:00 97.6 F 88 19 98/52 91 L 10/18/19 15:11 88 10/18/19 15:00 93 20 106/58 92 L 10/18/19 14:59 86 10/18/19 14:00 86 18 95/38 92 L 10/18/19 13:00 101 H 21 98/56 93 L 10/18/19 12:00 97.7 F 99 22 110/70 90 L 10/18/19 11:21 88 10/18/19 11:09 88 10/18/19 11:00 88 16 106/39 93 L 10/18/19 10:00 92 17 101/54 92 L 10/18/19 09:00 90 17 135/66 10/18/19 08:00 97.8 F 77 23 96/61 92 L 10/18/19 07:35 72 10/18/19 07:27 66 10/18/19 07:00 70 16 103/65 96 10/18/19 06:00 68 14 107/80 94 L 10/18/19 05:00 70 19 98/45 95 10/18/19 04:00 98.0 F 75 18 99/60 98 10/18/19 03:35 72 10/18/19 03:19 63 10/18/19 03:00 68 18 90/53 95 10/18/19 02:00 60 16 94/68 96 10/18/19 01:00 70 20 101/48 96 10/18/19 00:47 97.8 F 70 18 101/48 98 10/18/19 00:00 98.0 F 67 18 99/79 96 10/17/19 23:49 61 10/17/19 23:35 98.0 F 66 18 99/79 10/17/19 23:34 64 10/17/19 23:05 98.3 F 64 18 97/46 99 10/17/19 23:00 98.3 F 67 20 97/46 99 10/17/19 22:55 98.3 F 64 20 80/55 10/17/19 22:47 98.3 F 66 20 80/55 10/17/19 22:38 98.0 F 68 20 107/53 95 10/17/19 22:00 98.0 F 68 20 107/50 98 10/17/19 21:14 98.2 F 69 22 107/70 97 10/17/19 20:44 98.4 F 66 20 96/48 94 L 10/17/19 20:34 99.1 F 75 20 87/51 92 L 10/17/19 18:00 68 20 102/46 92 L 10/17/19 17:55 69 26 H 102/46 96 Intake and Output 10/18/19 10/18/19 10/18/19 06:59 14:59 22:59 Intake Total 1255 485 350 Output Total 575 890 120 Balance 680 -405 230 Intake: IV 415 350 0.9 normal saline at KVO 40 Potassium Chloride 10 meq 200 In Water For Injection 1 100ml.bag @ 100 mls/hr IVPB Q1HR [facility] Rx#: [id number] Sodium Chloride 0.9% 1, 375 150 000 ml @ 75 mls/hr IV . [id number] [facility] Rx#:[id number] Intake, IV Titration 945 70 Amount Dextrose 10 % in Water 250 250 ml @ 999 mls/hr IV ONCE ONE Rx#:[id number] Sodium Chloride 0.9% 1, 620 70 000 ml @ 70 mls/hr IV . [id number] ONE with Mvi, Adult No.4 with Vit K 10 ml with Thiamine 100 mg with Folic Acid 1 mg Rx#: [id number] Sodium Chloride 0.9% 1, 75 000 ml @ 75 mls/hr IV . [id number] [facility] Rx#:[id number] Blood Product 310 Rc As-1 Unit 310 [id number] Output: Urine 575 890 120 Other: Voiding Method Bedpan Indwelling Catheter # Voids 1 Weight 55.3 kg GEN. APPEARANCE: No acute distress. But confused and trying to get out of the bed. HEAD EXAM: atraumatic, normocephalic, normal inspection EYE EXAM: Mild pallor. No icterus. ENT EXAM: Oral mucosa is dry NECK EXAM: Neck is supple. RESPIRATORY EXAM: Decreased breath sounds in all lung ramirez. Few crackles at the lower lung bases. CARDIOVASCULAR EXAM: Tachycardia. S1-S2 heard. GI/ABDOMINAL EXAM: soft, normal bowel sounds. Nontender. No guarding or rigidity. EXTREMITIES EXAM: No edema. NEUROLOGICAL EXAM: Patient is awake. She is confused. Moving all 4 extremitie s. PSYCHIATRIC EXAM: Agitated SKIN EXAM: Multiple operations seen all over body Results CBC & Chem 7: 10/18/19 04:35 10/18/19 16:54 Labs: Abnormal Lab Results - Last 24 Hours (Table) 10/17/19 10/17/19 10/17/19 Range/Units 16:54 16:57 16:57 WBC (3.8-10.6) k/uL RBC (3.80-5.40) m/uL Hgb 6.3 L* (11.4-16.0) gm/dL Hct 19.3 L* (34.0-46.0) % Neutrophils # (1.3-7.7) k/uL Lymphocytes # (1.0-4.8) k/uL Sodium 117 L* (137-145) mmol/L Potassium 5.2 H (3.5-5.1) mmol/L Chloride 89 L (98-107) mmol/L Carbon Dioxide 11 L (22-30) mmol/L BUN 21 H (7-17) mg/dL Glucose 68 L (74-99) mg/dL POC Glucose (mg/dL) (75-99) mg/dL Osmolality (280-301) mosm/kg Calcium (8.4-10.2) mg/dL Total Bilirubin 1.4 H (0.2-1.3) mg/dL AST 56 H (14-36) U/L Creatine Kinase 725 H (30-135) U/L Troponin I (0.000-0.034) ng/mL Total Protein 5.7 L (6.3-8.2) g/dL Urine Appearance (Clear) Urine Protein (Negative) Urine Ketones (Negative) Urine Blood (Negative) Ur Leukocyte Esterase (Negative) Urine RBC (0-5) /hpf Urine WBC (0-5) /hpf Urine WBC Clumps (None) /hpf Ur Squamous Epith Cells (0-4) /hpf Urine Bacteria (None) /hpf Hyaline Casts (0-2) /lpf Urine Mucus (None) /hpf Stool Occult Blood (Negative) Crossmatch See Detail 10/17/19 10/17/19 10/17/19 Range/Units 16:57 17:54 21:07 WBC (3.8-10.6) k/uL RBC (3.80-5.40) m/uL Hgb (11.4-16.0) gm/dL Hct (34.0-46.0) % Neutrophils # (1.3-7.7) k/uL Lymphocytes # (1.0-4.8) k/uL Sodium (137-145) mmol/L Potassium (3.5-5.1) mmol/L Chloride (98-107) mmol/L Carbon Dioxide (22-30) mmol/L BUN (7-17) mg/dL Glucose (74-99) mg/dL POC Glucose (mg/dL) (75-99) mg/dL Osmolality (280-301) mosm/kg Calcium (8.4-10.2) mg/dL Total Bilirubin (0.2-1.3) mg/dL AST (14-36) U/L Creatine Kinase (30-135) U/L Troponin I 0.199 H* (0.000-0.034) ng/mL Total Protein (6.3-8.2) g/dL Urine Appearance Cloudy H (Clear) Urine Protein Trace H (Negative) Urine Ketones Trace H (Negative) Urine Blood Small H (Negative) Ur Leukocyte Esterase Large H (Negative) Urine RBC 9 H (0-5) /hpf Urine WBC 151 H (0-5) /hpf Urine WBC Clumps Moderate H (None) /hpf Ur Squamous Epith Cells 10 H (0-4) /hpf Urine Bacteria Occasional H (None) /hpf Hyaline Casts 14 H (0-2) /lpf Urine Mucus Rare H (None) /hpf Stool Occult Blood Positive H (Negative) Crossmatch 10/17/19 10/17/19 10/17/19 Range/Units 21:33 21:54 23:00 WBC (3.8-10.6) k/uL RBC (3.80-5.40) m/uL Hgb (11.4-16.0) gm/dL Hct (34.0-46.0) % Neutrophils # (1.3-7.7) k/uL Lymphocytes # (1.0-4.8) k/uL Sodium (137-145) mmol/L Potassium (3.5-5.1) mmol/L Chloride (98-107) mmol/L Carbon Dioxide (22-30) mmol/L BUN (7-17) mg/dL Glucose (74-99) mg/dL POC Glucose (mg/dL) 70 L 68 L 147 H (75-99) mg/dL Osmolality (280-301) mosm/kg Calcium (8.4-10.2) mg/dL Total Bilirubin (0.2-1.3) mg/dL AST (14-36) U/L Creatine Kinase (30-135) U/L Troponin I (0.000-0.034) ng/mL Total Protein (6.3-8.2) g/dL Urine Appearance (Clear) Urine Protein (Negative) Urine Ketones (Negative) Urine Blood (Negative) Ur Leukocyte Esterase (Negative) Urine RBC (0-5) /hpf Urine WBC (0-5) /hpf Urine WBC Clumps (None) /hpf Ur Squamous Epith Cells (0-4) /hpf Urine Bacteria (None) /hpf Hyaline Casts (0-2) /lpf Urine Mucus (None) /hpf Stool Occult Blood (Negative) Crossmatch 10/17/19 10/17/19 10/18/19 Range/Units 23:47 23:47 04:35 WBC 12.1 H (3.8-10.6) k/uL RBC 2.92 L (3.80-5.40) m/uL Hgb 8.9 L D (11.4-16.0) gm/dL Hct 26.1 L (34.0-46.0) % Neutrophils # 10.0 H (1.3-7.7) k/uL Lymphocytes # 0.9 L (1.0-4.8) k/uL Sodium 118 L* (137-145) mmol/L Potassium (3.5-5.1) mmol/L Chloride (98-107) mmol/L Carbon Dioxide (22-30) mmol/L BUN (7-17) mg/dL Glucose (74-99) mg/dL POC Glucose (mg/dL) (75-99) mg/dL Osmolality (280-301) mosm/kg Calcium (8.4-10.2) mg/dL Total Bilirubin (0.2-1.3) mg/dL AST (14-36) U/L Creatine Kinase (30-135) U/L Troponin I 0.320 H* (0.000-0.034) ng/mL Total Protein (6.3-8.2) g/dL Urine Appearance (Clear) Urine Protein (Negative) Urine Ketones (Negative) Urine Blood (Negative) Ur Leukocyte Esterase (Negative) Urine RBC (0-5) /hpf Urine WBC (0-5) /hpf Urine WBC Clumps (None) /hpf Ur Squamous Epith Cells (0-4) /hpf Urine Bacteria (None) /hpf Hyaline Casts (0-2) /lpf Urine Mucus (None) /hpf Stool Occult Blood (Negative) Crossmatch 10/18/19 10/18/19 10/18/19 Range/Units 04:39 04:39 04:39 WBC (3.8-10.6) k/uL RBC (3.80-5.40) m/uL Hgb (11.4-16.0) gm/dL Hct (34.0-46.0) % Neutrophils # (1.3-7.7) k/uL Lymphocytes # (1.0-4.8) k/uL Sodium 120 L (137-145) mmol/L Potassium (3.5-5.1) mmol/L Chloride 95 L (98-107) mmol/L Carbon Dioxide 15 L (22-30) mmol/L BUN 19 H (7-17) mg/dL Glucose (74-99) mg/dL POC Glucose (mg/dL) (75-99) mg/dL Osmolality 256 L (280-301) mosm/kg Calcium 8.0 L (8.4-10.2) mg/dL Total Bilirubin (0.2-1.3) mg/dL AST (14-36) U/L Creatine Kinase (30-135) U/L Troponin I 0.573 H* (0.000-0.034) ng/mL Total Protein (6.3-8.2) g/dL Urine Appearance (Clear) Urine Protein (Negative) Urine Ketones (Negative) Urine Blood (Negative) Ur Leukocyte Esterase (Negative) Urine RBC (0-5) /hpf Urine WBC (0-5) /hpf Urine WBC Clumps (None) /hpf Ur Squamous Epith Cells (0-4) /hpf Urine Bacteria (None) /hpf Hyaline Casts (0-2) /lpf Urine Mucus (None) /hpf Stool Occult Blood (Negative) Crossmatch 10/18/19 10/18/19 10/18/19 Range/Units 07:55 11:09 12:02 WBC (3.8-10.6) k/uL RBC (3.80-5.40) m/uL Hgb (11.4-16.0) gm/dL Hct (34.0-46.0) % Neutrophils # (1.3-7.7) k/uL Lymphocytes # (1.0-4.8) k/uL Sodium 121 L (137-145) mmol/L Potassium (3.5-5.1) mmol/L Chloride 95 L (98-107) mmol/L Carbon Dioxide 17 L (22-30) mmol/L BUN (7-17) mg/dL Glucose (74-99) mg/dL POC Glucose (mg/dL) 67 L 67 L (75-99) mg/dL Osmolality (280-301) mosm/kg Calcium 7.8 L (8.4-10.2) mg/dL Total Bilirubin (0.2-1.3) mg/dL AST (14-36) U/L Creatine Kinase (30-135) U/L Troponin I (0.000-0.034) ng/mL Total Protein (6.3-8.2) g/dL Urine Appearance (Clear) Urine Protein (Negative) Urine Ketones (Negative) Urine Blood (Negative) Ur Leukocyte Esterase (Negative) Urine RBC (0-5) /hpf Urine WBC (0-5) /hpf Urine WBC Clumps (None) /hpf Ur Squamous Epith Cells (0-4) /hpf Urine Bacteria (None) /hpf Hyaline Casts (0-2) /lpf Urine Mucus (None) /hpf Stool Occult Blood (Negative) Crossmatch 10/18/19 Range/Units 16:54 WBC (3.8-10.6) k/uL RBC (3.80-5.40) m/uL Hgb (11.4-16.0) gm/dL Hct (34.0-46.0) % Neutrophils # (1.3-7.7) k/uL Lymphocytes # (1.0-4.8) k/uL Sodium 122 L (137-145) mmol/L Potassium (3.5-5.1) mmol/L Chloride 97 L (98-107) mmol/L Carbon Dioxide 16 L (22-30) mmol/L BUN (7-17) mg/dL Glucose (74-99) mg/dL POC Glucose (mg/dL) (75-99) mg/dL Osmolality (280-301) mosm/kg Calcium 8.2 L (8.4-10.2) mg/dL Total Bilirubin (0.2-1.3) mg/dL AST (14-36) U/L Creatine Kinase (30-135) U/L Troponin I (0.000-0.034) ng/mL Total Protein (6.3-8.2) g/dL Urine Appearance (Clear) Urine Protein (Negative) Urine Ketones (Negative) Urine Blood (Negative) Ur Leukocyte Esterase (Negative) Urine RBC (0-5) /hpf Urine WBC (0-5) /hpf Urine WBC Clumps (None) /hpf Ur Squamous Epith Cells (0-4) /hpf Urine Bacteria (None) /hpf Hyaline Casts (0-2) /lpf Urine Mucus (None) /hpf Stool Occult Blood (Negative) Crossmatch Microbiology - Last 24 Hours (Table) 10/17/19 21:07 Urine Culture - Preliminary Urine,Voided Thrombosis Risk Factor Assmnt - Choose All That Apply Any of the Below Risk Factors Present?: No Other Risk Factors: No Thrombosis Risk Factor Assessment Level: Very Low Risk Assessment and Plan Assessment: ASSESSMENT Metabolic Encephalopathy Hypovolemic hyponatremia Possible UTI Elevated troponins Anemia-? GI bleed Frequent falls ? CHF COPD Alcohol abuse Hypertension PLAN: Patient has been getting IV fluids at 75 mL/h and her sodium is slowly trending up. Could be hypovolemic hyponatremia. Patient received a dose of ceftriaxone in the ED for possible UTI. Urine cultures are pending currently. Patient received 2 units of PRBCs and hemoglobin is 8.9. Patient is put on CIWA scale for history of alcohol dependence. Patient has FOBT positive, possible GI. She is on IV Protonix. Patient has mildly elevated troponins, will order an echocardiogram. Multiple consultants including pulmonary, nephrology, GI and cardiology have been consulted. Overall prognosis is poor. Further recommendations to follow depending on the progress of the patient.
--- NOTE | 2019-10-18 19:23 | CONS ---
CONSULTATION Ayde is a 78-year-old lady with history of hypertension who is brought to the hospital with symptoms of not feeling well and recurrent falls at home. She was. She is also quite confused. The symptoms started on Saturday, the day after Thanksgiving. She had an initial fall and had laceration of the head and apparently was evaluated in the emergency room at [facility]. She has had further falls at home and the ended up bringing the patient to the hospital here and she got admitted. The patient did not have any chest pain or difficulty in breathing. She had troponins that were mildly elevated. We have been consulted for the same. An EKG shows sinus rhythm with inferolateral ST-T wave changes suggestive of ischemia. The patient has profound hyponatremia and was also anemic with a hemoglobin of 6.3 on her initial presentation and has since been transfused. PAST MEDICAL HISTORY: Significant for hypertension. MEDICATIONS: Include Lotrel and Toprol-XL. ALLERGIES: There are no known drug allergies. FAMILY HISTORY: Negative for premature coronary artery disease. SOCIAL HISTORY: Negative for smoking. REVIEW OF SYSTEMS: I am unable to obtain from the patient who appears confused. EXAM: Heart rate is 88 beats, blood pressure is 106/39 and respiratory rate is 18. Chest exam reveals diminished air entry with occasional rhonchi. Heart exam reveals first and second heart sounds. No gallop. No murmur. Abdomen is soft. Exam of the extremities did not reveal any edema. Peripheral pulses are palpable. An echocardiogram shows preserved LV systolic function. ASSESSMENT: 1. Elevated troponin probably related to supply demand mismatch in a patient with gastrointestinal bleed. 2. Hyponatremia. 3. Gastrointestinal bleed. 4. History of alcoholism. PLAN: Patient does not require any further evaluation for the elevated troponin. We will follow her through this hospitalization. When medically she is better we will consider an outpatient stress test. MMODL / IJN: [id number] /
[2019-10-18] MEDS: methylPREDNISolone SOD SUCCI 125 MG/2 ML VIAL IV SCH (19:49)
[2019-10-18 20:16] LABS: Glucose,Whole Blood 103 mg/dL (75-99)
--- NOTE | 2019-10-18 20:22 | P.CONS ---
History of Present Illness - Reason for Consult Consult date: 10/18/19 Anemia Requesting physician: Gilda Matson - Chief Complaint Altered mental status - History of Present Illness 78-year-old female with medical history significant for hypertension, daily alcohol use, nicotine abuse who presented to the hospital due to altered mental status. The patient is seen lying in bed with her bedside and history has been taken in conversation with the patient and her and on review of the electronic medical record. The patient has been having frequent falls and was brought to the emergency department for further evaluation. The patient had multiple laboratory abnormalities including severe hyponatremia with a sodium of 118, elevated troponins and lactic acid and a positive urinalysis for WBCs and leukocyte esterase. Currently she is seen in the ICU. The patient was also found to be anemic on presentation with a hemoglobin of 6.3 with stool positive for occult blood. The patient and the there've been no signs or symptoms of GI bleeding. There denying any nausea, vomiting, hematemesis, coffee-ground emesis, constipation, diarrhea, or blood per rectum. The patient's is unsure about prior endoscopic evaluations. The patient does drink approximately 3-4 beers per day. Review of Systems ROS unobtainable: due to mental status (Majority of history is taken from the patient has been and review of system could not be obtained due to her current mental status.) Past Medical History Past Medical History: Hypertension History of Any Multi-Drug Resistant Organisms: None Reported Past Surgical History: No Surgical Hx Reported Past Anesthesia/Blood Transfusion Reactions: No Reported Reaction Past Psychological History: No Psychological Hx Reported Smoking Status: Current every day smoker Past Alcohol Use History: Daily Past Drug Use History: None Reported Additional History: Family history: Reviewed and noncontributory to current medical presentation. Medications and Allergies Home Medications Medication Instructions Recorded Confirmed Type Metoprolol Succinate (ER) [Toprol 50 mg PO BID 10/17/19 10/17/19 History Xl] amLODIPine BESYLATE/BENAZEPRIL 1 cap PO DAILY 10/17/19 10/17/19 History [amLODIPine BESYLATE/BENAZEPRIL 5-20 MG] Allergies Allergy/AdvReac Type Severity Reaction Status Date / Time No Known Allergies Allergy Verified 10/17/19 17:58 Physical Exam Vitals: Vital Signs Temp Pulse Resp BP Pulse Ox 10/18/19 09:00 90 17 135/66 10/18/19 08:00 97.8 F 77 23 96/61 92 L 10/18/19 07:35 72 10/18/19 07:27 66 10/18/19 07:00 70 16 103/65 96 10/18/19 06:00 68 14 107/80 94 L 10/18/19 05:00 70 19 98/45 95 10/18/19 04:00 98.0 F 75 18 99/60 98 10/18/19 03:35 72 10/18/19 03:19 63 10/18/19 03:00 68 18 90/53 95 10/18/19 02:00 60 16 94/68 96 10/18/19 01:00 70 20 101/48 96 10/18/19 00:47 97.8 F 70 18 101/48 98 10/18/19 00:00 98.0 F 67 18 99/79 96 10/17/19 23:49 61 10/17/19 23:35 98.0 F 66 18 99/79 10/17/19 23:34 64 10/17/19 23:05 98.3 F 64 18 97/46 99 10/17/19 23:00 98.3 F 67 20 97/46 99 10/17/19 22:55 98.3 F 64 20 80/55 10/17/19 22:47 98.3 F 66 20 80/55 10/17/19 22:38 98.0 F 68 20 107/53 95 10/17/19 22:00 98.0 F 68 20 107/50 98 10/17/19 21:14 98.2 F 69 22 107/70 97 10/17/19 20:44 98.4 F 66 20 96/48 94 L 10/17/19 20:34 99.1 F 75 20 87/51 92 L 10/17/19 18:00 68 20 102/46 92 L 10/17/19 17:55 69 26 H 102/46 96 10/17/19 17:22 70 10/17/19 17:11 61 10/17/19 16:44 97.6 F 62 20 114/38 91 L Intake and Output 10/17/19 10/18/19 10/18/19 22:59 06:59 14:59 Intake Total 310 1255 110 Output Total 50 575 500 Balance 260 680 -390 Intake: IV 40 0.9 normal saline at KVO 40 Intake, IV Titration 945 70 Amount Dextrose 10 % in Water 250 250 ml @ 999 mls/hr IV ONCE ONE Rx#:[id number] Sodium Chloride 0.9% 1, 620 70 000 ml @ 70 mls/hr IV . [id number] ONE with Mvi, Adult No.4 with Vit K 10 ml with Thiamine 100 mg with Folic Acid 1 mg Rx#: [id number] Sodium Chloride 0.9% 1, 75 000 ml @ 75 mls/hr IV . [id number] [facility] Rx#:[id number] Blood Product 310 310 Rc As-1 Unit 310 [id number] Rc As-1 Unit 0 310 [id number] Output: Urine 50 575 500 Other: Voiding Method Bedpan # Voids 1 Weight 53.524 kg 55.3 kg On physical examination, patient appears comfortable in no apparent distress. HEAD: Normocephalic, atraumatic. EYES: No scleral icterus. No conjunctival injection. MOUTH: No lesions, tongue midline. NECK: Trachea midline, no gross abnormalities. CHEST: Decreased air entry in all lung ramirez. HEART: Regular rate and rhythm. ABDOMEN: Soft. Bowel sounds are positive. No organomegaly. No guarding or rigidity. EXTREMITIES: No pedal edema. SKIN: No rashes, no jaundice. NEUROLOGIC: Arousable but not oriented. Results CBC & Chem 7: 10/18/19 04:35 10/18/19 16:54 Labs: Abnormal Lab Results - Last 24 Hours (Table) 10/17/19 10/17/19 10/17/19 Range/Units 16:54 16:57 16:57 WBC 14.1 H (3.8-10.6) k/uL RBC 2.10 L (3.80-5.40) m/uL Hgb 6.3 L* (11.4-16.0) gm/dL Hct 19.3 L* (34.0-46.0) % Plt Count 508 H (150-450) k/uL Neutrophils # (1.3-7.7) k/uL Neutrophils # (Manual) 12.55 H (1.3-7.7) k/uL Lymphocytes # (1.0-4.8) k/uL Lymphocytes # (Manual) 0.71 L (1.0-4.8) k/uL Nucleated RBCs 1 H (0-0) /100 WBC PT (9.0-12.0) sec INR (<1.2) D-Dimer (<0.60) mg/L FEU Sodium 117 L* (137-145) mmol/L Potassium 5.2 H (3.5-5.1) mmol/L Chloride 89 L (98-107) mmol/L Carbon Dioxide 11 L (22-30) mmol/L BUN 21 H (7-17) mg/dL Glucose 68 L (74-99) mg/dL POC Glucose (mg/dL) (75-99) mg/dL Calcium (8.4-10.2) mg/dL Total Bilirubin 1.4 H (0.2-1.3) mg/dL AST 56 H (14-36) U/L Creatine Kinase 725 H (30-135) U/L Troponin I (0.000-0.034) ng/mL Total Protein 5.7 L (6.3-8.2) g/dL Urine Appearance (Clear) Urine Protein (Negative) Urine Ketones (Negative) Urine Blood (Negative) Ur Leukocyte Esterase (Negative) Urine RBC (0-5) /hpf Urine WBC (0-5) /hpf Urine WBC Clumps (None) /hpf Ur Squamous Epith Cells (0-4) /hpf Urine Bacteria (None) /hpf Hyaline Casts (0-2) /lpf Urine Mucus (None) /hpf Stool Occult Blood (Negative) Crossmatch See Detail 10/17/19 10/17/19 10/17/19 Range/Units 16:57 16:57 17:54 WBC (3.8-10.6) k/uL RBC (3.80-5.40) m/uL Hgb (11.4-16.0) gm/dL Hct (34.0-46.0) % Plt Count (150-450) k/uL Neutrophils # (1.3-7.7) k/uL Neutrophils # (Manual) (1.3-7.7) k/uL Lymphocytes # (1.0-4.8) k/uL Lymphocytes # (Manual) (1.0-4.8) k/uL Nucleated RBCs (0-0) /100 WBC PT 13.6 H (9.0-12.0) sec INR 1.3 H (<1.2) D-Dimer 0.98 H (<0.60) mg/L FEU Sodium (137-145) mmol/L Potassium (3.5-5.1) mmol/L Chloride (98-107) mmol/L Carbon Dioxide (22-30) mmol/L BUN (7-17) mg/dL Glucose (74-99) mg/dL POC Glucose (mg/dL) (75-99) mg/dL Calcium (8.4-10.2) mg/dL Total Bilirubin (0.2-1.3) mg/dL AST (14-36) U/L Creatine Kinase (30-135) U/L Troponin I 0.199 H* (0.000-0.034) ng/mL Total Protein (6.3-8.2) g/dL Urine Appearance (Clear) Urine Protein (Negative) Urine Ketones (Negative) Urine Blood (Negative) Ur Leukocyte Esterase (Negative) Urine RBC (0-5) /hpf Urine WBC (0-5) /hpf Urine WBC Clumps (None) /hpf Ur Squamous Epith Cells (0-4) /hpf Urine Bacteria (None) /hpf Hyaline Casts (0-2) /lpf Urine Mucus (None) /hpf Stool Occult Blood Positive H (Negative) Crossmatch 10/17/19 10/17/19 10/17/19 Range/Units 21:07 21:33 21:54 WBC (3.8-10.6) k/uL RBC (3.80-5.40) m/uL Hgb (11.4-16.0) gm/dL Hct (34.0-46.0) % Plt Count (150-450) k/uL Neutrophils # (1.3-7.7) k/uL Neutrophils # (Manual) (1.3-7.7) k/uL Lymphocytes # (1.0-4.8) k/uL Lymphocytes # (Manual) (1.0-4.8) k/uL Nucleated RBCs (0-0) /100 WBC PT (9.0-12.0) sec INR (<1.2) D-Dimer (<0.60) mg/L FEU Sodium (137-145) mmol/L Potassium (3.5-5.1) mmol/L Chloride (98-107) mmol/L Carbon Dioxide (22-30) mmol/L BUN (7-17) mg/dL Glucose (74-99) mg/dL POC Glucose (mg/dL) 70 L 68 L (75-99) mg/dL Calcium (8.4-10.2) mg/dL Total Bilirubin (0.2-1.3) mg/dL AST (14-36) U/L Creatine Kinase (30-135) U/L Troponin I (0.000-0.034) ng/mL Total Protein (6.3-8.2) g/dL Urine Appearance Cloudy H (Clear) Urine Protein Trace H (Negative) Urine Ketones Trace H (Negative) Urine Blood Small H (Negative) Ur Leukocyte Esterase Large H (Negative) Urine RBC 9 H (0-5) /hpf Urine WBC 151 H (0-5) /hpf Urine WBC Clumps Moderate H (None) /hpf Ur Squamous Epith Cells 10 H (0-4) /hpf Urine Bacteria Occasional H (None) /hpf Hyaline Casts 14 H (0-2) /lpf Urine Mucus Rare H (None) /hpf Stool Occult Blood (Negative) Crossmatch 10/17/19 10/17/19 10/17/19 Range/Units 23:00 23:47 23:47 WBC (3.8-10.6) k/uL RBC (3.80-5.40) m/uL Hgb (11.4-16.0) gm/dL Hct (34.0-46.0) % Plt Count (150-450) k/uL Neutrophils # (1.3-7.7) k/uL Neutrophils # (Manual) (1.3-7.7) k/uL Lymphocytes # (1.0-4.8) k/uL Lymphocytes # (Manual) (1.0-4.8) k/uL Nucleated RBCs (0-0) /100 WBC PT (9.0-12.0) sec INR (<1.2) D-Dimer (<0.60) mg/L FEU Sodium 118 L* (137-145) mmol/L Potassium (3.5-5.1) mmol/L Chloride (98-107) mmol/L Carbon Dioxide (22-30) mmol/L BUN (7-17) mg/dL Glucose (74-99) mg/dL POC Glucose (mg/dL) 147 H (75-99) mg/dL Calcium (8.4-10.2) mg/dL Total Bilirubin (0.2-1.3) mg/dL AST (14-36) U/L Creatine Kinase (30-135) U/L Troponin I 0.320 H* (0.000-0.034) ng/mL Total Protein (6.3-8.2) g/dL Urine Appearance (Clear) Urine Protein (Negative) Urine Ketones (Negative) Urine Blood (Negative) Ur Leukocyte Esterase (Negative) Urine RBC (0-5) /hpf Urine WBC (0-5) /hpf Urine WBC Clumps (None) /hpf Ur Squamous Epith Cells (0-4) /hpf Urine Bacteria (None) /hpf Hyaline Casts (0-2) /lpf Urine Mucus (None) /hpf Stool Occult Blood (Negative) Crossmatch 10/18/19 10/18/19 10/18/19 Range/Units 04:35 04:39 04:39 WBC 12.1 H (3.8-10.6) k/uL RBC 2.92 L (3.80-5.40) m/uL Hgb 8.9 L D (11.4-16.0) gm/dL Hct 26.1 L (34.0-46.0) % Plt Count (150-450) k/uL Neutrophils # 10.0 H (1.3-7.7) k/uL Neutrophils # (Manual) (1.3-7.7) k/uL Lymphocytes # 0.9 L (1.0-4.8) k/uL Lymphocytes # (Manual) (1.0-4.8) k/uL Nucleated RBCs (0-0) /100 WBC PT (9.0-12.0) sec INR (<1.2) D-Dimer (<0.60) mg/L FEU Sodium 120 L (137-145) mmol/L Potassium (3.5-5.1) mmol/L Chloride 95 L (98-107) mmol/L Carbon Dioxide 15 L (22-30) mmol/L BUN 19 H (7-17) mg/dL Glucose (74-99) mg/dL POC Glucose (mg/dL) (75-99) mg/dL Calcium 8.0 L (8.4-10.2) mg/dL Total Bilirubin (0.2-1.3) mg/dL AST (14-36) U/L Creatine Kinase (30-135) U/L Troponin I 0.573 H* (0.000-0.034) ng/mL Total Protein (6.3-8.2) g/dL Urine Appearance (Clear) Urine Protein (Negative) Urine Ketones (Negative) Urine Blood (Negative) Ur Leukocyte Esterase (Negative) Urine RBC (0-5) /hpf Urine WBC (0-5) /hpf Urine WBC Clumps (None) /hpf Ur Squamous Epith Cells (0-4) /hpf Urine Bacteria (None) /hpf Hyaline Casts (0-2) /lpf Urine Mucus (None) /hpf Stool Occult Blood (Negative) Crossmatch 10/18/19 Range/Units 07:55 WBC (3.8-10.6) k/uL RBC (3.80-5.40) m/uL Hgb (11.4-16.0) gm/dL Hct (34.0-46.0) % Plt Count (150-450) k/uL Neutrophils # (1.3-7.7) k/uL Neutrophils # (Manual) (1.3-7.7) k/uL Lymphocytes # (1.0-4.8) k/uL Lymphocytes # (Manual) (1.0-4.8) k/uL Nucleated RBCs (0-0) /100 WBC PT (9.0-12.0) sec INR (<1.2) D-Dimer (<0.60) mg/L FEU Sodium (137-145) mmol/L Potassium (3.5-5.1) mmol/L Chloride (98-107) mmol/L Carbon Dioxide (22-30) mmol/L BUN (7-17) mg/dL Glucose (74-99) mg/dL POC Glucose (mg/dL) 67 L (75-99) mg/dL Calcium (8.4-10.2) mg/dL Total Bilirubin (0.2-1.3) mg/dL AST (14-36) U/L Creatine Kinase (30-135) U/L Troponin I (0.000-0.034) ng/mL Total Protein (6.3-8.2) g/dL Urine Appearance (Clear) Urine Protein (Negative) Urine Ketones (Negative) Urine Blood (Negative) Ur Leukocyte Esterase (Negative) Urine RBC (0-5) /hpf Urine WBC (0-5) /hpf Urine WBC Clumps (None) /hpf Ur Squamous Epith Cells (0-4) /hpf Urine Bacteria (None) /hpf Hyaline Casts (0-2) /lpf Urine Mucus (None) /hpf Stool Occult Blood (Negative) Crossmatch CT scan - abdomen: report reviewed (Computed tomography scan of the abdomen with findings of anasarca and emphysematous changes of the lungs.) Assessment and Plan (1) Normocytic anemia Narrative/Plan: 78-year-old female presenting for evaluation of altered mental status and mechanical falls. Patient was found to have a normocytic anemia with stool positive for occult blood. History from the patient's is significant for no evidence of GI bleeding prior to presentation with no melena, hematemesis, coffee-ground emesis or change in bowel habits. The patient has been is unsure of her prior endoscopic history. Patient does have a significant history of alcohol use. Anemia likely multifactorial secondary to toxic effects of alcohol, chronic disease however cannot rule out a component of GI bleeding with differential including peptic ulcer disease, gastritis, esophagitis, AVM or other etiology. Current Visit: Yes Status: Acute Code(s): D64.9 - ANEMIA, UNSPECIFIED SNOMED Code(s): 651112029 (2) Positive occult stool blood test Current Visit: Yes Status: Acute Code(s): R19.5 - OTHER FECAL ABNORMALITIES SNOMED Code(s): 55917718 (3) Alcohol abuse Current Visit: Yes Status: Acute Code(s): F10.10 - ALCOHOL ABUSE, UNCOMPLICATED SNOMED Code(s): 71666577 (4) Hyponatremia Current Visit: Yes Status: Acute Code(s): E87.1 - HYPO-OSMOLALITY AND HYPONATREMIA SNOMED Code(s): 61886828 (5) Tobacco abuse Current Visit: Yes Status: Acute Code(s): Z72.0 - TOBACCO USE SNOMED Code(s): 320755795 Plan: Supportive care Okay for diet Continue Protonix 40 mg twice daily Continue to monitor for signs or symptoms GI bleeding Continue to monitor CBC and transfuse as needed Iron studies, folate, vitamin B12 and reticulocyte count ordered Appreciate recommendations from nephrology, supervisor labor gang and medical team Continue correction of sodium No plans for endoscopic evaluation at this time, we'll plan on further evaluation when the patient is stable or if any signs or symptoms of GI bleeding develop Thank you for allowing us to participate in care of the patient we will continue to follow
[2019-10-18] MEDS: THIAMINE 100 MG in SODIUM CHLORIDE 0.9% 50 ML IVPB SCH (20:41)
[2019-10-18] MEDS ORDERED: METOPROLOL TARTRATE 12.5 MG TAB PO SCH (22:45)
[2019-10-18] MEDS ORDERED: HEPARIN SODIUM,PORCINE 5,000 UNIT/ML 1 ML VIAL IV ONE (22:46)
[2019-10-18] MEDS ORDERED: ASPIRIN 300 MG SUPP RECTAL ONE (23:00)
[2019-10-18 23:27] LABS: Basophils % (A) 0 %; Eosinophils # (A) 0.1 k/uL (0-0.7); Eosinophils % (A) 1 %; HCT 26.5 % (34.0-46.0); HGB 8.7 gm/dL (11.4-16.0); Hypochromasia Slight; Lymphocytes # (A) 0.3 k/uL (1.0-4.8); Lymphocytes % (A) 2 %; MCH 29.7 pg (25.0-35.0); MCV 90.1 fL (80.0-100.0); Mean Platelet Volume 6.6; Monocytes # (A) 0.4 k/uL (0-1.0); Monocytes % (A) 3 %; Neutrophils # (A) 11.3 k/uL (1.3-7.7); Neutrophils % (A) 94 %; Platelet Count 407 k/uL (150-450); Poikilocytosis Moderate; RBC 2.94 m/uL (3.80-5.40); RDW 14.2 % (11.5-15.5)
[2019-10-18 23:47] LABS: INR 1.1 (<1.2); Partial Thromboplastin Time 25.5 sec (22.0-30.0); Prothrombin Time 11.7 sec (9.0-12.0)
[2019-10-18 23:51] LABS: Allen Test Performed? Yes
[2019-10-18 23:59] LABS: ABG Base Excess -9.9 mmol/L; ABG HCO3 15 mmol/L (21-25); ABG Oxygen Saturation 97.2 % (94-97); ABG PCO2 23 mmHg (35-45); ABG PH 7.41 (7.35-7.45); ABG PO2 119 mmHg (83-108); ABG TCO2 15 mmol/L (19-24)
[2019-10-19] MEDS: SODIUM CHLORIDE 0.9% 1,000 ML IV SCH ×2 (00:11→12:36)
[2019-10-19] MEDS: IPRATROPIUM-ALBUTEROL 3 ML NEB INHALATION SCH ×7 (00:37→23:29)
[2019-10-19 00:47] LABS: Glucose,Whole Blood 94 mg/dL (75-99)
[2019-10-19] MEDS: methylPREDNISolone SOD SUCCI 125 MG/2 ML VIAL IV SCH ×4 (00:54→17:02)
[2019-10-19] MEDS: INSULIN ASPART (NovoLOG) 100 UNIT/ML VIAL SQ SCH ×6 (00:54→20:16)
[2019-10-19 03:50] LABS: Glucose,Whole Blood 142 mg/dL (75-99)
[2019-10-19 05:26] LABS: Basophils % (A) 0 %; Eosinophils # (A) 0.1 k/uL (0-0.7); Eosinophils % (A) 1 %; HCT 24.7 % (34.0-46.0); HGB 8.3 gm/dL (11.4-16.0); Hypochromasia Moderate; Lymphocytes # (A) 0.3 k/uL (1.0-4.8); Lymphocytes % (A) 2 %; MCH 30.1 pg (25.0-35.0); MCHC 33.6 g/dL (31.0-37.0); MCV 89.7 fL (80.0-100.0); Mean Platelet Volume 6.3; Monocytes # (A) 0.2 k/uL (0-1.0); Monocytes % (A) 2 %; Neutrophils # (A) 11.3 k/uL (1.3-7.7); Neutrophils % (A) 95 %; Platelet Count 402 k/uL (150-450); Poikilocytosis Moderate; RBC 2.75 m/uL (3.80-5.40); RDW 14.3 % (11.5-15.5); WBC 11.9 k/uL (3.8-10.6)
[2019-10-19] MEDS: HEPARIN SODIUM,PORCINE 5,000 UNIT/ML 1 ML VIAL IV PRN (05:48)
[2019-10-19 06:36] LABS: ALT 42 U/L (9-52); AST 100 U/L (14-36); African American GFR (CKD) >90 (>60 ml/min/1.73 sqM); Albumin 2.9 g/dL (3.5-5.0); Alkaline Phosphatase 70 U/L (38-126); Anion Gap 12 mmol/L; Blood Urea Nitrogen 11 mg/dL (7-17); Calcium 8.4 mg/dL (8.4-10.2); Carbon Dioxide 15 mmol/L (22-30); Chloride 99 mmol/L (98-107); Glucose 124 mg/dL (74-99); Non-African American GFR(CKD) 87 (>60 ml/min/1.73 sqM); Potassium 4.3 mmol/L (3.5-5.1); Sodium 126 mmol/L (137-145); Total Bilirubin 1.7 mg/dL (0.2-1.3); Total Protein 5.1 g/dL (6.3-8.2)
[2019-10-19 06:53] LABS: Glucose,Whole Blood 46 mg/dL (75-99)
[2019-10-19 06:53] LABS: Glucose,Whole Blood 42 mg/dL (75-99)
[2019-10-19 08:07] LABS: Glucose,Whole Blood 134 mg/dL (75-99)
[2019-10-19] MEDS: ATORVASTATIN 40 MG TAB PO SCH (08:34)
[2019-10-19] MEDS: METOPROLOL TARTRATE 5 MG/5 ML VIAL IVP SCH ×2 (08:37→20:58)
[2019-10-19] MEDS: LORazepam 2 MG/ML INJ IV PRN ×2 (08:37→20:58)
[2019-10-19] MEDS: ASPIRIN 300 MG SUPP RECTAL SCH (08:38)
[2019-10-19] MEDS: PANTOPRAZOLE 40 MG/10 ML VIAL IV SCH ×2 (08:38→20:57)
[2019-10-19] MEDS: THIAMINE 100 MG in SODIUM CHLORIDE 0.9% 50 ML IVPB SCH ×2 (09:07→20:57)
--- NOTE | 2019-10-19 09:12 | XR ---
EXAMINATION TYPE: XR chest 1V portable DATE OF EXAM: 10/19/2019 CLINICAL HISTORY: Difficulty breathing progress study. Abnormal lung sounds. TECHNIQUE: Single AP portable semiupright view of the chest is obtained. COMPARISON: Chest x-ray from [address] from one day earlier. FINDINGS: There is chronic emphysematous and parenchymal changes bilaterally with increasing or deve loping right basilar opacity. Patient remains rotated to right of midline. Underlying scoliosis is ag ain seen. Cardiac silhouette size remains mildly enlarged with atherosclerotic and ectatic thoracic a akshat. IMPRESSION: Chronic emphysematous and parenchymal changes and cardiomegaly with developing right basi lar acute infiltrate and/or atelectasis noted.
--- NOTE | 2019-10-19 09:13 | PN ---
PROGRESS NOTE Mrs. Millan is a 78-year-old female who presented with evidence of progressive fatigue, change in mental status, falling down and was noted to be severely anemic. She had mild elevation of troponin and her EKG changes yesterday were consistent with an acute inferior myocardial infarction. She remains confused. Hemodynamically, her blood pressure is stable. There is no evidence of tachycardia or bradycardia. She has history of chronic alcoholism and hyponatremia. She was started yesterday on IV heparin because of the EKG changes. Her echocardiogram performed on presentation revealed ejection fraction 55%-60% with mild aortic stenosis and moderate aortic regurgitation. She continues to be at this time on the IV heparin, aspirin 81 mg daily, metoprolol tartrate 12.5 mg twice a day. PHYSICAL EXAMINATION: Blood pressure running in the high 90s to low 100s with a heart rate in the 90s, lungs decreased air exchange, no wheezes. HEART: Regular rate and rhythm, S1, S2. No S3 with systolic ejection murmur, 2/6 at the base. ABDOMEN: Soft, nontender. EXTREMITIES: No significant edema. LAB DATA: Revealed hemoglobin of 8.3, white blood cell of 11.9, BUN and creatinine 11 and 0.62, potassium 4.3. Her sodium is up to 126, it was 117 on presentation. Her EKG is consistent with an acute inferior myocardial infarction with ST-segment depression on the lateral precordial leads. Her chest x-ray shows no acute infiltrate. IMPRESSION: 1. Acute coronary artery syndrome with evidence of inferior myocardial infarction. 2. Severe anemia with gastrointestinal bleeding. 3. Hyponatremia. 4. Alcoholism. 5. Chronic obstructive lung disease. RECOMMENDATION: From the cardiac standpoint, patient is not a candidate for aggressive cardiac workup at this time in view of her overall status. I will continue her dose of beta yoli. Will follow blood pressure. I will add statin to her regimen. The prognosis remains guarded. Will follow her renal function and hemoglobin very closely in view of the IV heparin. Depending on her progress, further recommendation will be made. MMODL / IJN: [id number] /
--- NOTE | 2019-10-19 10:28 | P.PN ---
Subjective Progress Note Date: 10/19/19 Principal diagnosis: altered mental status and possible acute metabolic encephalopathy Is a 70-year-old female patient who is currently confused. The patient came in to the emergency department yesterday because of altered mentation and recurrent falls. Apparently she has been falling and she fell at least 5 times yesterday. She initially went to [facility] and she was discharged home without having any labs done. HIDA time she came to our emergency department, the labs are quite abnormal and she had a sodium level of 117 with a potassium level of 5.2 and a chloride of 89 and a serum bicarb of 17 with an anion gap of 17. Creatinine was stable at 0.9. Her initial hemoglobin was at 6.3 and she had guaiac positive stool. Her coags showed an INR of 1.3 with a PT of 15.6. The patient had a chest x-ray that showed some tortuous aorta yet by radiologist opinion and interpretation, the findings were negative and no further workup was done and the patient was admitted to the intensive care unit. Currently she is awake and she is restless in bed. She is moving all 4 extremities. She seems to be poorly maintained. She is on a normal saline infusion at the rate of 75 an hour. She received a total of 2 units of packed RBC and the sodium level is up to 120. She admits to drink beer and order of 5 bottles on a daily basis. There may be a history of alcoholism. She is a smoker and she smokes 5-10 cigarettes a day. On examination she is quite bronchospastic and wheezy and she has a congested cough. She is currently on oxygen at 6 L per minute nasal cannula with a pulse ox of 94%. Cardiac rhythm is sinus. EKG showed a normal sinus rhythm and some ST segment changes limited and T-wave inversions over the lateral leads. Troponins were slightly abnormal with one lives of 0.19, 0.3 and 0.5 respectively 3. CPK level was at 725 at a time of admission. She has a Jarquin catheter in place. Urine output is in order of 100 mL an hour. On examination, the patient has multiple abrasions of the skin in various parts of her body. She also has a surgical scar over the lip probably related to a previous resection of a skin cancer. The past medical history is not known. The past surgical is not known. She is on a blood pressure medication including metoprolol and amlodipine on outpatient basis. Patient was reevaluated today on 10/19/2019, patient remains in the ICU, still quite lethargic, arousable only with deep painful stimuli, she had intermittent episodes of agitations and restlessness requiring Ativan. She just received a dose of Ativan earlier just before I came in to evaluate the patient.her sodium is up to 126. Her CBC showed a hemoglobin of 8.3.bicarb remains a bit low at 15 however her renal profile is normal.yesterday, patient had some EKG changes suggestive of acute coronary syndrome, and she was placed on heparin. Cardiology did not feel that the patient was a candidate for cardiac catheterization. Hence I recommended mostly maximal medical therapy. Her echocardiogram showed good LV function but it also showed moderate aortic regurgitation and mild aortic stenosis.chest x-ray this morning showed mostly right basilar atelectasis,chronic parenchymal changes, cardiomegaly, cannot totally rule out possible early right lower lobe infiltrate, but felt to be less likely. Objective - Vital Signs Vital signs: Vital Signs Temp 97.4 F L 10/19/19 08:00 Pulse 75 10/19/19 10:00 Resp 16 10/19/19 10:00 BP 86/50 10/19/19 10:00 Pulse Ox 97 10/19/19 10:00 Intake & Output 10/18/19 10/19/19 10/19/19 18:59 06:59 18:59 Intake Total 1085 1563.268 275 Output Total 1085 438 80 Balance 0 1125.268 195 Weight 57.2 kg Intake: IV 1015 1525 275 0.9 normal saline at KVO 40 Potassium Chloride 10 meq 300 In Water For Injection 1 100ml.bag @ 100 mls/hr IVPB Q1HR [facility] Rx#: [id number] Sodium Chloride 0.9% 1, 675 1375 225 000 ml @ 75 mls/hr IV . [id number] [facility] Rx#:[id number] Thiamine 100 mg In Sodium 100 50 Chloride 0.9% 50 ml @ 100 mls/hr IVPB Q12HR [facility] Rx#:[id number] cefTRIAXone 1 gm In 50 Sodium Chloride 0.9% 50 ml @ 100 mls/hr IVPB Q24H [facility] Rx#:[id number] Intake, IV Titration 70 38.268 Amount Heparin Sod,Pork in 0.45% 38.268 NaCl 25,000 unit In 0.45 % NaCl 1 250ml.bag @ 12 UNITS/KG/HR 6.636 mls/hr IV .Q24H [facility] Rx#: [id number] Sodium Chloride 0.9% 1, 70 000 ml @ 70 mls/hr IV . [id number] ONE with Mvi, Adult No.4 with Vit K 10 ml with Thiamine 100 mg with Folic Acid 1 mg Rx#: [id number] Output: Urine 1085 438 80 Other: Voiding Method Indwelling Catheter Indwelling Catheter Indwelling Catheter # Voids 1 - Exam Physical Exam: Revealed a 78-year-old female, in no distress, comfortable, sedated, lethargic,opens eyes with deep painful stimuli Obviously encephalopathic head: Atraumatic, normocephalic, patient is on oxygen at 6 L/m. HEENT:[Neck is supple.] [No neck masses.] [No thyromegaly.] [No JVD.]PERRLA, EOMI, moist mucous membranes. No icterus. Scar over left lower lip, related to old surgical resection of skin cancer. Chest: [diminished breath sounds at the bases, minimal crackles at the bases, wheezing noted on forced expiratory maneuver.] Cardiac Exam: [Normal S1 and S2, no S3 gallop, 2/6 systolic murmur thought the precordium. Abdomen: [Soft, nontender, no megaly, no rebound, no guarding, normal bowel sounds.] Extremities: [No clubbing, no edema, no cyanosis.] Neurological Exam:lethargic, arousable but encephalopathic, patient responds only to deep painful stimuli. Pupils equally reactive to light. No facial asymmetry. Withdraws to painful stimuli. Does not follow any simple instructions. Psychiatric: Cannot be assessed, Skin: No rashes. Lymphatics: No lymphadenopathy. - Labs CBC & Chem 7: 10/19/19 04:46 10/19/19 04:46 Labs: Abnormal Lab Results - Last 24 Hours (Table) 10/18/19 10/18/19 10/18/19 Range/Units 04:39 06:52 06:53 WBC (3.8-10.6) k/uL RBC (3.80-5.40) m/uL Hgb (11.4-16.0) gm/dL Hct (34.0-46.0) % Neutrophils # (1.3-7.7) k/uL Lymphocytes # (1.0-4.8) k/uL Retic Count (0.5-2.0) % APTT (22.0-30.0) sec ABG pCO2 (35-45) mmHg ABG pO2 (83-108) mmHg ABG HCO3 (21-25) mmol/L ABG Total CO2 (19-24) mmol/L ABG O2 Saturation (94-97) % Sodium (137-145) mmol/L Chloride (98-107) mmol/L Carbon Dioxide (22-30) mmol/L Glucose (74-99) mg/dL POC Glucose (mg/dL) 42 L 46 L (75-99) mg/dL Osmolality 256 L (280-301) mosm/kg Calcium (8.4-10.2) mg/dL Total Bilirubin (0.2-1.3) mg/dL AST (14-36) U/L Total Protein (6.3-8.2) g/dL Albumin (3.5-5.0) g/dL 10/18/19 10/18/19 10/18/19 Range/Units 11:09 12:02 16:54 WBC (3.8-10.6) k/uL RBC (3.80-5.40) m/uL Hgb (11.4-16.0) gm/dL Hct (34.0-46.0) % Neutrophils # (1.3-7.7) k/uL Lymphocytes # (1.0-4.8) k/uL Retic Count (0.5-2.0) % APTT (22.0-30.0) sec ABG pCO2 (35-45) mmHg ABG pO2 (83-108) mmHg ABG HCO3 (21-25) mmol/L ABG Total CO2 (19-24) mmol/L ABG O2 Saturation (94-97) % Sodium 121 L 122 L (137-145) mmol/L Chloride 95 L 97 L (98-107) mmol/L Carbon Dioxide 17 L 16 L (22-30) mmol/L Glucose (74-99) mg/dL POC Glucose (mg/dL) 67 L (75-99) mg/dL Osmolality (280-301) mosm/kg Calcium 7.8 L 8.2 L (8.4-10.2) mg/dL Total Bilirubin (0.2-1.3) mg/dL AST (14-36) U/L Total Protein (6.3-8.2) g/dL Albumin (3.5-5.0) g/dL 10/18/19 10/18/19 10/18/19 Range/Units 20:05 23:04 23:49 WBC 12.0 H (3.8-10.6) k/uL RBC 2.94 L (3.80-5.40) m/uL Hgb 8.7 L (11.4-16.0) gm/dL Hct 26.5 L (34.0-46.0) % Neutrophils # 11.3 H (1.3-7.7) k/uL Lymphocytes # 0.3 L (1.0-4.8) k/uL Retic Count (0.5-2.0) % APTT (22.0-30.0) sec ABG pCO2 23 L (35-45) mmHg ABG pO2 119 H (83-108) mmHg ABG HCO3 15 L (21-25) mmol/L ABG Total CO2 15 L (19-24) mmol/L ABG O2 Saturation 97.2 H (94-97) % Sodium (137-145) mmol/L Chloride (98-107) mmol/L Carbon Dioxide (22-30) mmol/L Glucose (74-99) mg/dL POC Glucose (mg/dL) 103 H (75-99) mg/dL Osmolality (280-301) mosm/kg Calcium (8.4-10.2) mg/dL Total Bilirubin (0.2-1.3) mg/dL AST (14-36) U/L Total Protein (6.3-8.2) g/dL Albumin (3.5-5.0) g/dL 10/19/19 10/19/19 10/19/19 Range/Units 03:38 04:46 04:46 WBC 11.9 H (3.8-10.6) k/uL RBC 2.75 L (3.80-5.40) m/uL Hgb 8.3 L (11.4-16.0) gm/dL Hct 24.7 L (34.0-46.0) % Neutrophils # 11.3 H (1.3-7.7) k/uL Lymphocytes # 0.3 L (1.0-4.8) k/uL Retic Count 5.0 H (0.5-2.0) % APTT (22.0-30.0) sec ABG pCO2 (35-45) mmHg ABG pO2 (83-108) mmHg ABG HCO3 (21-25) mmol/L ABG Total CO2 (19-24) mmol/L ABG O2 Saturation (94-97) % Sodium 126 L (137-145) mmol/L Chloride (98-107) mmol/L Carbon Dioxide 15 L (22-30) mmol/L Glucose 124 H (74-99) mg/dL POC Glucose (mg/dL) 142 H (75-99) mg/dL Osmolality (280-301) mosm/kg Calcium (8.4-10.2) mg/dL Total Bilirubin 1.7 H (0.2-1.3) mg/dL AST 100 H (14-36) U/L Total Protein 5.1 L (6.3-8.2) g/dL Albumin 2.9 L (3.5-5.0) g/dL 10/19/19 10/19/19 Range/Units 04:46 07:51 WBC (3.8-10.6) k/uL RBC (3.80-5.40) m/uL Hgb (11.4-16.0) gm/dL Hct (34.0-46.0) % Neutrophils # (1.3-7.7) k/uL Lymphocytes # (1.0-4.8) k/uL Retic Count (0.5-2.0) % APTT 41.0 H (22.0-30.0) sec ABG pCO2 (35-45) mmHg ABG pO2 (83-108) mmHg ABG HCO3 (21-25) mmol/L ABG Total CO2 (19-24) mmol/L ABG O2 Saturation (94-97) % Sodium (137-145) mmol/L Chloride (98-107) mmol/L Carbon Dioxide (22-30) mmol/L Glucose (74-99) mg/dL POC Glucose (mg/dL) 134 H (75-99) mg/dL Osmolality (280-301) mosm/kg Calcium (8.4-10.2) mg/dL Total Bilirubin (0.2-1.3) mg/dL AST (14-36) U/L Total Protein (6.3-8.2) g/dL Albumin (3.5-5.0) g/dL Microbiology - Last 24 Hours (Table) 10/17/19 21:07 Urine Culture - Preliminary Urine,Voided Assessment and Plan Assessment: impression: 1 altered mental status most likely secondary to acute metabolic encephalopathy. Her sodium is improving, but her mental status is basically the same. Patient did present with low sodium, possible hepatic encephalopathy, positive alcohol withdrawal syndrome. CT of the brain was nondiagnostic/negative. 2 acute hyponatremia, most likely secondary to excessive beer drinking, doubt SIADH. Continue normal saline at 75 ML's per hour. 3 acute GI bleeding, most likely upper GI in nature, this will eventually require further investigation. Patient received a total of 2 units of packed RBCs since admission, her hemoglobin today is 8.3. 4 acute coronary syndrome, patient will remain on heparin, agree with cardiology patient is not a candidate for cardiac catheterization or aggressive cardiac management. 5 history of alcoholism 6 acute exacerbation of COPD 7 poor performance and functional status secondary to her multiple medical problems as noted above. 8 recurrent falls secondary to metabolic encephalopathy. Recommendation: Continue to monitor the patient in the ICU Continue IV fluid at 75 ML per hour using 0.9 normal saline. Continue to monitor daily electrolytes and monitor sodium. Continue bronchodilators. Continue to monitor hemoglobin and transfuse for hemoglobin below 7. And the GI to follow. Continue IV Protonix. Continue heparin for her acute coronary syndrome. Continue aspiration precautions. Patient remains critically ill, and no plans to transfer the patient out of the ICU at this point. Continue alcohol withdrawal protocol. We'll continue to follow closely. Time with Patient: Less than 30
[2019-10-19 12:03] LABS: Glucose,Whole Blood 123 mg/dL (75-99)
[2019-10-19 13:01] LABS: Ferritin 70.6 ng/mL (10.0-291.0)
[2019-10-19 13:03] LABS: Folate, Serum 9.5 ng/mL
[2019-10-19 13:09] LABS: % Iron Saturation 3.78 (12.00-45.00); Iron 11 ug/dL (50-170); Total Iron Binding Capacity 291 ug/dL (228-460)
--- NOTE | 2019-10-19 13:37 | P.PN ---
Subjective Patient is seen in follow-up for hyponatremia. Sodium level is gradually improving. It is up to 126 this morning. Patient's currently sleeping. She just received a dose of Ativan. She's been quite agitated. Vital signs are stable. General: The patient appeared well nourished and normally developed. Lethargic. HEENT: Head exam is unremarkable. Neck is without jugular venous distension. LUNGS: Lungs are clear to auscultation and percussion. Breath sounds decreased. HEART: Rate and Rhythm are regular. First and second heart sounds normal. No murmurs, rubs or gallops. ABDOMEN: Abdominal exam reveals normal bowel sounds. Non-tender and non- distended. No evidence of peritonitis. EXTREMITITES: No clubbing, cyanosis, or edema. Objective - Vital Signs Vital signs: Vital Signs Temp 97.5 F L 10/19/19 12:00 Pulse 104 H 10/19/19 13:00 Resp 14 10/19/19 13:00 BP 99/76 10/19/19 13:00 Pulse Ox 97 10/19/19 13:00 Intake & Output 10/18/19 10/19/19 10/19/19 18:59 06:59 18:59 Intake Total 1085 1563.268 556.775 Output Total 1085 438 182 Balance 0 1125.268 374.775 Weight 57.2 kg Intake: IV 1015 1525 500 0.9 normal saline at KVO 40 Potassium Chloride 10 meq 300 In Water For Injection 1 100ml.bag @ 100 mls/hr IVPB Q1HR [facility] Rx#: [id number] Sodium Chloride 0.9% 1, 675 1375 450 000 ml @ 75 mls/hr IV . [id number] [facility] Rx#:[id number] Thiamine 100 mg In Sodium 100 50 Chloride 0.9% 50 ml @ 100 mls/hr IVPB Q12HR [facility] Rx#:[id number] cefTRIAXone 1 gm In 50 Sodium Chloride 0.9% 50 ml @ 100 mls/hr IVPB Q24H [facility] Rx#:[id number] Intake, IV Titration 70 38.268 56.775 Amount Heparin Sod,Pork in 0.45% 38.268 56.775 NaCl 25,000 unit In 0.45 % NaCl 1 250ml.bag @ 12 UNITS/KG/HR 6.636 mls/hr IV .Q24H [facility] Rx#: [id number] Sodium Chloride 0.9% 1, 70 000 ml @ 70 mls/hr IV . [id number] ONE with Mvi, Adult No.4 with Vit K 10 ml with Thiamine 100 mg with Folic Acid 1 mg Rx#: [id number] Output: Urine 1085 438 182 Other: Voiding Method Indwelling Catheter Indwelling Catheter Indwelling Catheter # Voids 1 - Labs CBC & Chem 7: 10/19/19 04:46 10/19/19 04:46 Labs: Abnormal Lab Results - Last 24 Hours (Table) 10/18/19 10/18/19 10/18/19 Range/Units 06:52 06:53 16:54 WBC (3.8-10.6) k/uL RBC (3.80-5.40) m/uL Hgb (11.4-16.0) gm/dL Hct (34.0-46.0) % Neutrophils # (1.3-7.7) k/uL Lymphocytes # (1.0-4.8) k/uL Retic Count (0.5-2.0) % APTT (22.0-30.0) sec ABG pCO2 (35-45) mmHg ABG pO2 (83-108) mmHg ABG HCO3 (21-25) mmol/L ABG Total CO2 (19-24) mmol/L ABG O2 Saturation (94-97) % Sodium 122 L (137-145) mmol/L Chloride 97 L (98-107) mmol/L Carbon Dioxide 16 L (22-30) mmol/L Glucose (74-99) mg/dL POC Glucose (mg/dL) 42 L 46 L (75-99) mg/dL Calcium 8.2 L (8.4-10.2) mg/dL Iron (50-170) ug/dL % Saturation (12.00-45.00) Total Bilirubin (0.2-1.3) mg/dL AST (14-36) U/L Total Protein (6.3-8.2) g/dL Albumin (3.5-5.0) g/dL 10/18/19 10/18/19 10/18/19 Range/Units 20:05 23:04 23:49 WBC 12.0 H (3.8-10.6) k/uL RBC 2.94 L (3.80-5.40) m/uL Hgb 8.7 L (11.4-16.0) gm/dL Hct 26.5 L (34.0-46.0) % Neutrophils # 11.3 H (1.3-7.7) k/uL Lymphocytes # 0.3 L (1.0-4.8) k/uL Retic Count (0.5-2.0) % APTT (22.0-30.0) sec ABG pCO2 23 L (35-45) mmHg ABG pO2 119 H (83-108) mmHg ABG HCO3 15 L (21-25) mmol/L ABG Total CO2 15 L (19-24) mmol/L ABG O2 Saturation 97.2 H (94-97) % Sodium (137-145) mmol/L Chloride (98-107) mmol/L Carbon Dioxide (22-30) mmol/L Glucose (74-99) mg/dL POC Glucose (mg/dL) 103 H (75-99) mg/dL Calcium (8.4-10.2) mg/dL Iron (50-170) ug/dL % Saturation (12.00-45.00) Total Bilirubin (0.2-1.3) mg/dL AST (14-36) U/L Total Protein (6.3-8.2) g/dL Albumin (3.5-5.0) g/dL 10/19/19 10/19/19 10/19/19 Range/Units 03:38 04:46 04:46 WBC 11.9 H (3.8-10.6) k/uL RBC 2.75 L (3.80-5.40) m/uL Hgb 8.3 L (11.4-16.0) gm/dL Hct 24.7 L (34.0-46.0) % Neutrophils # 11.3 H (1.3-7.7) k/uL Lymphocytes # 0.3 L (1.0-4.8) k/uL Retic Count 5.0 H (0.5-2.0) % APTT (22.0-30.0) sec ABG pCO2 (35-45) mmHg ABG pO2 (83-108) mmHg ABG HCO3 (21-25) mmol/L ABG Total CO2 (19-24) mmol/L ABG O2 Saturation (94-97) % Sodium 126 L (137-145) mmol/L Chloride (98-107) mmol/L Carbon Dioxide 15 L (22-30) mmol/L Glucose 124 H (74-99) mg/dL POC Glucose (mg/dL) 142 H (75-99) mg/dL Calcium (8.4-10.2) mg/dL Iron 11 L (50-170) ug/dL % Saturation 3.78 L (12.00-45.00) Total Bilirubin 1.7 H (0.2-1.3) mg/dL AST 100 H (14-36) U/L Total Protein 5.1 L (6.3-8.2) g/dL Albumin 2.9 L (3.5-5.0) g/dL 10/19/19 10/19/19 10/19/19 Range/Units 04:46 07:51 11:52 WBC (3.8-10.6) k/uL RBC (3.80-5.40) m/uL Hgb (11.4-16.0) gm/dL Hct (34.0-46.0) % Neutrophils # (1.3-7.7) k/uL Lymphocytes # (1.0-4.8) k/uL Retic Count (0.5-2.0) % APTT 41.0 H (22.0-30.0) sec ABG pCO2 (35-45) mmHg ABG pO2 (83-108) mmHg ABG HCO3 (21-25) mmol/L ABG Total CO2 (19-24) mmol/L ABG O2 Saturation (94-97) % Sodium (137-145) mmol/L Chloride (98-107) mmol/L Carbon Dioxide (22-30) mmol/L Glucose (74-99) mg/dL POC Glucose (mg/dL) 134 H 123 H (75-99) mg/dL Calcium (8.4-10.2) mg/dL Iron (50-170) ug/dL % Saturation (12.00-45.00) Total Bilirubin (0.2-1.3) mg/dL AST (14-36) U/L Total Protein (6.3-8.2) g/dL Albumin (3.5-5.0) g/dL 10/19/19 Range/Units 12:18 WBC (3.8-10.6) k/uL RBC (3.80-5.40) m/uL Hgb (11.4-16.0) gm/dL Hct (34.0-46.0) % Neutrophils # (1.3-7.7) k/uL Lymphocytes # (1.0-4.8) k/uL Retic Count (0.5-2.0) % APTT 119.8 H* (22.0-30.0) sec ABG pCO2 (35-45) mmHg ABG pO2 (83-108) mmHg ABG HCO3 (21-25) mmol/L ABG Total CO2 (19-24) mmol/L ABG O2 Saturation (94-97) % Sodium (137-145) mmol/L Chloride (98-107) mmol/L Carbon Dioxide (22-30) mmol/L Glucose (74-99) mg/dL POC Glucose (mg/dL) (75-99) mg/dL Calcium (8.4-10.2) mg/dL Iron (50-170) ug/dL % Saturation (12.00-45.00) Total Bilirubin (0.2-1.3) mg/dL AST (14-36) U/L Total Protein (6.3-8.2) g/dL Albumin (3.5-5.0) g/dL Microbiology - Last 24 Hours (Table) 10/17/19 21:07 Urine Culture - Preliminary Urine,Voided Assessment and Plan Plan: Assessment: 1. Hypovolemic hyponatremia improving with normal saline. Also underlying poor solute intake and beer potomania. Urine osmolality 388. Gradually improving with normal saline. TSH and cortisol normal. 2. Metabolic acidosis, initially with high anion gap. This can be from ketoacidosis due to chronic alcohol use. Also component of non-gap acidosis from IV fluids. 3. Acute GI bleed status post blood transfusion. Hemoglobin 8.3 this morning. GI following. Severe iron deficiency noted. 4. Frequent falls which can be from hyponatremia. 5. Benign hypertension. Currently on the lower side. 6. Mild hypokalemia from poor oral intake. Magnesium normal. Status post replacement. Better. 7. Moderate aortic regurgitation. 8. Chronic alcohol abuse. 9. Acute coronary syndrome maintained on heparin drip. Cardiology following. Plan: Switch IV fluids to bicarb drip at 75 mL an hour for 24 hours. Maintain CIWA protocol. Repeat electrolytes in the morning. IV iron 3 doses. First dose today.
[2019-10-19] MEDS ORDERED: SODIUM FERRIC GLUCONAT-SUCROSE 125 MG in SODIUM CHLORIDE 0.9% 100 ML IVPB SCH (14:00)
[2019-10-19] MEDS: DEXTROSE 5% IN WATER 1,000 ML with SODIUM BICARB (1 MEQ/ML) 150 ML IV SCH (14:20)
[2019-10-19 15:35] LABS: Glucose,Whole Blood 127 mg/dL (75-99)
--- NOTE | 2019-10-19 15:56 | PN ---
PROGRESS NOTE DATE OF DICTATION: 10/19/2019 The patient is a 78-year-old pleasant white female admitted to the hospital with altered mental status and hyponatremia. Also she was noted to have a hemoglobin of 6.3 g/dL and hence was seen by Dr. Izaguirre in consultation yesterday. She received 2 units of blood transfusion. Hemoglobin today is 8.3 g/dL. Last night she was noted to have some chest pain and EKG changes consistent with acute LA. Cardiology is following the patient closely. She was started on IV heparin. No signs of active GI bleed as per the nursing staff. The patient is somewhat lethargic. On physical examination, she appears comfortable. VITAL SIGNS: Blood pressure 94/66, pulse rate 99, temperature 97.5. HEENT EXAMINATION: Unremarkable. Conjunctivae pink. Sclerae anicteric. Oral cavity no lesions. NECK: No JVD or lymph node enlargement. CHEST: Clear to auscultation. HEART: Regular rate and rhythm. ABDOMEN: Soft. Bowel sounds are positive. No organomegaly. EXTREMITIES: No pedal edema. SKIN: No rashes. NEUROLOGIC: She is very confused and lethargic. Labs from today show WBC 11.9, hemoglobin 8.3, platelets normal. APTT is 119. Sodium is 128. BUN is 11, creatinine 0.62. Iron 11, TIBC 291, iron saturation 3.7% and ferritin is 70. Stool occult blood was positive. IMPRESSION: 1. Acute myocardial infarction, on IV heparin. Cardiology is following the patient. 2. Severe symptomatic anemia with a hemoglobin of 6.3, consistent with iron deficiency anemia. Clinically no evidence of active bleeding. No prior history of EGD or colonoscopy as per the patient's family who is at the bedside. 3. Severe hyponatremia with altered mental status. Nephrology is following the patient. Sodium is gradually improving. Today is 127. RECOMMENDATIONS: 1. Continue with symptomatic and supportive care. 2. Monitor CBC on a daily basis. 3. Continue with IV heparin. 4. Will consider EGD and colonoscopy either during this hospitalization or on an outpatient basis based on the clinical course over the next few days. 5. Continue with IV Protonix 40 mg daily. We will follow with you closely. Thank you for this consultation. MMODL / IJN: [id number] /
[2019-10-19] MEDS ORDERED: SODIUM CHLORIDE 0.9% 1,000 ML IV ONE ×2 (16:56→21:57)
--- NOTE | 2019-10-19 17:54 | P.PN ---
Subjective Progress Note Date: 10/19/19 Chief Complaint: Frequent falls and altered mental status changes Mrs. Millan is a 78-year-old female with a past medical history of hypertension brought into the emergency department for frequent falls and altered mental status changes. Currently the patient is in the ICU and is confused so most of the history is taken from the family members were at the bedside. Patient has been having frequent falls at least 5-6 times in the past 4 days. Initially she was taken to [facility] few days back and she was discharged home. Her noticed that she has been having frequent falls and also feeling fatigued so he called the EMS who brought her to the hospital. In the ER patient had blood work done showing hemoglobin of 6.3 and sodium of 118. Her troponins are elevated at 0.320 and her urine analysis was positive for large leukocyte esterase and WBC clumps. She also had a chest x-ray and an x-ray of the pelvis- no acute changes and no fracture. Patient was started on IV fluids given 2 units of PRBCs and admitted to the ICU. In the ICU patient had CT of the brain - no acute cranial process and also CT of the chest and abdomen- anasarca and small left-sided pleural effusion and mild upper lobe emphysematous changes. Patient's past medical history significant for hypertension and is a current smoker. She also drinks 3-4 beers every day. The only outpatient medications that she takes her metoprolol and amlodipine. 10/19/2019 recently received Ativan for agitation, currently sleeping. Sodium improving, 126.Bicarb 15,IV fluids changed to bicarb drip as per nephrology. Status post 2 units of packed RBCs yesterday with current hemoglobin 8.3.no signs of active bleeding reported.receiving IV iron. Last night patient developed chest pain accompanied by EKG changes. Patient is not a candidate for cardiac catheterization/maintained on IV heparin drip as per cardiology.Echo reporting normal LV function, EF 55-60%,moderately dilated LA, moderate aortic regurgitation.vital signs stable, maintaining O2 sats in the high 90s on 3 L na baljit cannula. Chest x-ray reporting chronic emphysematous and parenchymal changes,cardiomegaly with developing right basilar acute infiltrate and/or atelectasis. Objective - Vital Signs Vital signs: Vital Signs Temp 97.4 F L 10/19/19 08:00 Pulse 92 10/19/19 11:00 Resp 12 10/19/19 11:00 BP 98/74 10/19/19 11:00 Pulse Ox 96 10/19/19 11:00 Intake & Output 10/18/19 10/19/19 10/19/19 18:59 06:59 18:59 Intake Total 1085 1563.268 350 Output Total 1085 438 107 Balance 0 1125.268 243 Weight 57.2 kg Intake: IV 1015 1525 350 0.9 normal saline at KVO 40 Potassium Chloride 10 meq 300 In Water For Injection 1 100ml.bag @ 100 mls/hr IVPB Q1HR [facility] Rx#: [id number] Sodium Chloride 0.9% 1, 675 1375 300 000 ml @ 75 mls/hr IV . [id number] [facility] Rx#:[id number] Thiamine 100 mg In Sodium 100 50 Chloride 0.9% 50 ml @ 100 mls/hr IVPB Q12HR [facility] Rx#:[id number] cefTRIAXone 1 gm In 50 Sodium Chloride 0.9% 50 ml @ 100 mls/hr IVPB Q24H [facility] Rx#:[id number] Intake, IV Titration 70 38.268 Amount Heparin Sod,Pork in 0.45% 38.268 NaCl 25,000 unit In 0.45 % NaCl 1 250ml.bag @ 12 UNITS/KG/HR 6.636 mls/hr IV .Q24H [facility] Rx#: [id number] Sodium Chloride 0.9% 1, 70 000 ml @ 70 mls/hr IV . [id number] ONE with Mvi, Adult No.4 with Vit K 10 ml with Thiamine 100 mg with Folic Acid 1 mg Rx#: [id number] Output: Urine 1085 438 107 Other: Voiding Method Indwelling Catheter Indwelling Catheter Indwelling Catheter # Voids 1 - Exam GEN. APPEARANCE: recently received Ativan, sedated, HEAD EXAM: atraumatic, normocephalic, normal inspection EYE EXAM: Mild pallor. No icterus. ENT EXAM: Oral mucosa is dry NECK EXAM: Neck is supple. RESPIRATORY EXAM: Decreased breath sounds in all lung ramirez. Few crackles at the lower lung bases.expiratory wheezing CARDIOVASCULAR EXAM: Tachycardia. S1-S2 heard.systolic murmur GI/ABDOMINAL EXAM: soft, normal bowel sounds. Nontender. No guarding or rigidity. EXTREMITIES EXAM: No edema. NEUROLOGICAL EXAM: unable to assess at this time as patient recently sedated on Ativan,withdrawals to noxious stimuli PSYCHIATRIC EXAM: unable to assess SKIN EXAM: Multiple operations seen all over body - Labs CBC & Chem 7: 10/19/19 04:46 10/19/19 04:46 Labs: Abnormal Lab Results - Last 24 Hours (Table) 10/18/19 10/18/19 10/18/19 Range/Units 06:52 06:53 11:09 WBC (3.8-10.6) k/uL RBC (3.80-5.40) m/uL Hgb (11.4-16.0) gm/dL Hct (34.0-46.0) % Neutrophils # (1.3-7.7) k/uL Lymphocytes # (1.0-4.8) k/uL Retic Count (0.5-2.0) % APTT (22.0-30.0) sec ABG pCO2 (35-45) mmHg ABG pO2 (83-108) mmHg ABG HCO3 (21-25) mmol/L ABG Total CO2 (19-24) mmol/L ABG O2 Saturation (94-97) % Sodium 121 L (137-145) mmol/L Chloride 95 L (98-107) mmol/L Carbon Dioxide 17 L (22-30) mmol/L Glucose (74-99) mg/dL POC Glucose (mg/dL) 42 L 46 L (75-99) mg/dL Calcium 7.8 L (8.4-10.2) mg/dL Total Bilirubin (0.2-1.3) mg/dL AST (14-36) U/L Total Protein (6.3-8.2) g/dL Albumin (3.5-5.0) g/dL 10/18/19 10/18/19 10/18/19 Range/Units 12:02 16:54 20:05 WBC (3.8-10.6) k/uL RBC (3.80-5.40) m/uL Hgb (11.4-16.0) gm/dL Hct (34.0-46.0) % Neutrophils # (1.3-7.7) k/uL Lymphocytes # (1.0-4.8) k/uL Retic Count (0.5-2.0) % APTT (22.0-30.0) sec ABG pCO2 (35-45) mmHg ABG pO2 (83-108) mmHg ABG HCO3 (21-25) mmol/L ABG Total CO2 (19-24) mmol/L ABG O2 Saturation (94-97) % Sodium 122 L (137-145) mmol/L Chloride 97 L (98-107) mmol/L Carbon Dioxide 16 L (22-30) mmol/L Glucose (74-99) mg/dL POC Glucose (mg/dL) 67 L 103 H (75-99) mg/dL Calcium 8.2 L (8.4-10.2) mg/dL Total Bilirubin (0.2-1.3) mg/dL AST (14-36) U/L Total Protein (6.3-8.2) g/dL Albumin (3.5-5.0) g/dL 10/18/19 10/18/19 10/19/19 Range/Units 23:04 23:49 03:38 WBC 12.0 H (3.8-10.6) k/uL RBC 2.94 L (3.80-5.40) m/uL Hgb 8.7 L (11.4-16.0) gm/dL Hct 26.5 L (34.0-46.0) % Neutrophils # 11.3 H (1.3-7.7) k/uL Lymphocytes # 0.3 L (1.0-4.8) k/uL Retic Count (0.5-2.0) % APTT (22.0-30.0) sec ABG pCO2 23 L (35-45) mmHg ABG pO2 119 H (83-108) mmHg ABG HCO3 15 L (21-25) mmol/L ABG Total CO2 15 L (19-24) mmol/L ABG O2 Saturation 97.2 H (94-97) % Sodium (137-145) mmol/L Chloride (98-107) mmol/L Carbon Dioxide (22-30) mmol/L Glucose (74-99) mg/dL POC Glucose (mg/dL) 142 H (75-99) mg/dL Calcium (8.4-10.2) mg/dL Total Bilirubin (0.2-1.3) mg/dL AST (14-36) U/L Total Protein (6.3-8.2) g/dL Albumin (3.5-5.0) g/dL 10/19/19 10/19/19 10/19/19 Range/Units 04:46 04:46 04:46 WBC 11.9 H (3.8-10.6) k/uL RBC 2.75 L (3.80-5.40) m/uL Hgb 8.3 L (11.4-16.0) gm/dL Hct 24.7 L (34.0-46.0) % Neutrophils # 11.3 H (1.3-7.7) k/uL Lymphocytes # 0.3 L (1.0-4.8) k/uL Retic Count 5.0 H (0.5-2.0) % APTT 41.0 H (22.0-30.0) sec ABG pCO2 (35-45) mmHg ABG pO2 (83-108) mmHg ABG HCO3 (21-25) mmol/L ABG Total CO2 (19-24) mmol/L ABG O2 Saturation (94-97) % Sodium 126 L (137-145) mmol/L Chloride (98-107) mmol/L Carbon Dioxide 15 L (22-30) mmol/L Glucose 124 H (74-99) mg/dL POC Glucose (mg/dL) (75-99) mg/dL Calcium (8.4-10.2) mg/dL Total Bilirubin 1.7 H (0.2-1.3) mg/dL AST 100 H (14-36) U/L Total Protein 5.1 L (6.3-8.2) g/dL Albumin 2.9 L (3.5-5.0) g/dL 10/19/19 Range/Units 07:51 WBC (3.8-10.6) k/uL RBC (3.80-5.40) m/uL Hgb (11.4-16.0) gm/dL Hct (34.0-46.0) % Neutrophils # (1.3-7.7) k/uL Lymphocytes # (1.0-4.8) k/uL Retic Count (0.5-2.0) % APTT (22.0-30.0) sec ABG pCO2 (35-45) mmHg ABG pO2 (83-108) mmHg ABG HCO3 (21-25) mmol/L ABG Total CO2 (19-24) mmol/L ABG O2 Saturation (94-97) % Sodium (137-145) mmol/L Chloride (98-107) mmol/L Carbon Dioxide (22-30) mmol/L Glucose (74-99) mg/dL POC Glucose (mg/dL) 134 H (75-99) mg/dL Calcium (8.4-10.2) mg/dL Total Bilirubin (0.2-1.3) mg/dL AST (14-36) U/L Total Protein (6.3-8.2) g/dL Albumin (3.5-5.0) g/dL Microbiology - Last 24 Hours (Table) 10/17/19 21:07 Urine Culture - Preliminary Urine,Voided Assessment and Plan Assessment: Acute MO acute Metabolic Encephalopathy,multifactorial secondary to infection,electrolyte imbalance, EtOH abuse,possible alcohol withdrawal,possiblehepatic encephalopa thy. Hypovolemic hyponatremiasecondary to alcohol abuse acute UTI with gram-negative bacilli Elevated troponins acute GI bleed suspect upper GI,status post 2 units packed RBCs,further workup pending Frequent falls acute COPD exacerbation chronic Alcohol abuse Hypertension plan: Continue on current medication regime ,monitoring and symptomatic treatment. Maintain CIWA protocol,PPI,nebulized bronchodilators. strict aspiration precautions.Continue on Heparin drip as per cardiology.further GI workup pending.close monitoring of hemoglobin with repeat labs ordered for a.m. follow closely with multiple consults.prognosis guarded given multiple complex medical issues. The impression and plan of care has been dictated as directed. : I performed a history and examination of this patient, discussed the same with the dictator. I agree with the dictator's note ,documented as a scribe. Any additional findings or plans will be noted.
[2019-10-19] MEDS: NOREPINEPHRINE 4 MG in SODIUM CHLORIDE 0.9% 250 ML IV SCH (17:58)
--- NOTE | 2019-10-19 18:54 | XR ---
EXAMINATION TYPE: XR chest 1V portable DATE OF EXAM: 10/19/2019 COMPARISON: 10/19/2019 HISTORY: Shortness of breath TECHNIQUE: Single frontal view of the chest is obtained. FINDINGS: Skinfold overlies the right hemithorax. Lung markings are seen beyond the skinfold. Patchy right infrahilar airspace disease is seen. There is no focal air space opacity, pleural effusion, or pneumothorax seen. The cardiac silhouette size is upper limits of normal. The osseous structures are intact. Diffuse osseous demineralization noted. IMPRESSION: Similar right infrahilar airspace disease that may represent developing pneumonia or ate lectasis.
[2019-10-19 20:16] LABS: Glucose,Whole Blood 132 mg/dL (75-99)
[2019-10-19 20:20] LABS: African American GFR (CKD) >90 (>60 ml/min/1.73 sqM); Anion Gap 13 mmol/L; Basophils % (A) 0 %; Blood Urea Nitrogen 11 mg/dL (7-17); Calcium 8.1 mg/dL (8.4-10.2); Carbon Dioxide 12 mmol/L (22-30); Chloride 103 mmol/L (98-107); Eosinophils # (A) 0.1 k/uL (0-0.7); Eosinophils % (A) 1 %; Glucose 145 mg/dL (74-99); HCT 36.9 % (34.0-46.0); Hypochromasia Marked; Lymphocytes # (A) 0.6 k/uL (1.0-4.8); Lymphocytes % (A) 3 %; MCH 29.4 pg (25.0-35.0); MCHC 31.5 g/dL (31.0-37.0); MCV 93.5 fL (80.0-100.0); Mean Platelet Volume 6.2; Monocytes # (A) 0.8 k/uL (0-1.0); Monocytes % (A) 4 %; Neutrophils % (A) 93 %; Non-African American GFR(CKD) 87 (>60 ml/min/1.73 sqM); Platelet Count 546 k/uL (150-450); Poikilocytosis Moderate; Potassium 4.7 mmol/L (3.5-5.1); RBC 3.94 m/uL (3.80-5.40); RDW 14.6 % (11.5-15.5); Sodium 128 mmol/L (137-145); WBC 21.5 k/uL (3.8-10.6)
[2019-10-19 20:21] LABS: HGB 11.6 gm/dL (11.4-16.0)
[2019-10-19] MEDS: HEPARIN SOD,PORK IN 0.45% NACL 25,000 UNIT in 0.45% NACL 1 250ML.BAG IV SCH ×2 (23:00)
[2019-10-20] MEDS: INSULIN ASPART (NovoLOG) 100 UNIT/ML VIAL SQ SCH ×6 (00:06→20:00)
[2019-10-20 00:07] LABS: Glucose,Whole Blood 92 mg/dL (75-99)
[2019-10-20] MEDS: methylPREDNISolone SOD SUCCI 125 MG/2 ML VIAL IV SCH ×4 (00:10→18:20)
[2019-10-20] MEDS: NOREPINEPHRINE 4 MG in SODIUM CHLORIDE 0.9% 250 ML IV SCH ×2 (00:31→07:01)
[2019-10-20] MEDS: IPRATROPIUM-ALBUTEROL 3 ML NEB INHALATION SCH ×6 (03:22→23:28)
[2019-10-20 04:11] LABS: Glucose,Whole Blood 149 mg/dL (75-99)
[2019-10-20 05:07] LABS: HCT 34.2 % (34.0-46.0); HGB 11.2 gm/dL (11.4-16.0); Hypochromasia Moderate; MCH 29.9 pg (25.0-35.0); MCHC 32.8 g/dL (31.0-37.0); MCV 91.2 fL (80.0-100.0); Mean Platelet Volume 7.4; Platelet Count 524 k/uL (150-450); Poikilocytosis Moderate; RBC 3.75 m/uL (3.80-5.40); RDW 14.7 % (11.5-15.5)
[2019-10-20 05:19] LABS: ALT 44 U/L (9-52); AST 109 U/L (14-36); African American GFR (CKD) >90 (>60 ml/min/1.73 sqM); Albumin 2.7 g/dL (3.5-5.0); Alkaline Phosphatase 56 U/L (38-126); Anion Gap 13 mmol/L; Blood Urea Nitrogen 12 mg/dL (7-17); Calcium 8.1 mg/dL (8.4-10.2); Carbon Dioxide 15 mmol/L (22-30); Chloride 105 mmol/L (98-107); Glucose 163 mg/dL (74-99); Non-African American GFR(CKD) 86 (>60 ml/min/1.73 sqM); Potassium 3.7 mmol/L (3.5-5.1); Sodium 133 mmol/L (137-145); Total Bilirubin 0.9 mg/dL (0.2-1.3); Total Protein 4.9 g/dL (6.3-8.2)
[2019-10-20 05:47] LABS: Anisocytosis (M) Present; Band Neutrophils % 7 %; Lymphocytes # (M) 0.52 k/uL (1.0-4.8); Monocytes # (M) 0.78 k/uL (0-1.0); Neutrophils % (M) 89 %; Nucleated Red Blood Cells 1 /100 WBC (0-0); Total Cells Counted 200
[2019-10-20 05:48] LABS: Large Platelets Present; Polychromasia Present
[2019-10-20] MEDS: HEPARIN SODIUM,PORCINE 5,000 UNIT/ML 1 ML VIAL IV PRN (05:51)
[2019-10-20] MEDS: DEXTROSE 5% IN WATER 1,000 ML with SODIUM BICARB (1 MEQ/ML) 150 ML IV SCH ×2 (05:58→21:03)
[2019-10-20] MEDS: POTASSIUM CHLORIDE 10 MEQ in WATER FOR INJECTION 1 100ML.BAG IVPB SCH ×2 (06:00→07:04)
[2019-10-20] MEDS: SODIUM CHLORIDE 0.9% 150 ML with VASOPRESSIN 60 UNIT IV SCH ×2 (08:16)
[2019-10-20] MEDS: PANTOPRAZOLE 40 MG/10 ML VIAL IV SCH ×2 (08:17→21:03)
[2019-10-20] MEDS: ASPIRIN 300 MG SUPP RECTAL SCH (08:18)
[2019-10-20] MEDS: ATORVASTATIN 40 MG TAB PO SCH (08:19)
[2019-10-20] MEDS: METOPROLOL TARTRATE 5 MG/5 ML VIAL IVP SCH ×2 (08:19→21:03)
[2019-10-20 08:21] LABS: Glucose,Whole Blood 225 mg/dL (75-99)
[2019-10-20] MEDS: SODIUM FERRIC GLUCONAT-SUCROSE 125 MG in SODIUM CHLORIDE 0.9% 100 ML IVPB SCH (08:21)
--- NOTE | 2019-10-20 08:47 | PN ---
PROGRESS NOTE Mrs. Millan is a 78-year-old female who presented with GI bleeding and evidence of acute coronary syndrome. She had evidence of myocardial infarction with ST-segment elevation inferiorly. She is confused, not following verbal command. Unable to take p.o. If her blood pressure is stable. She continues to be on her IV heparin. She is receiving IV metoprolol. She has no evidence of ventricular ectopic activity. PHYSICAL EXAMINATION: Blood pressure is 112/60 with a heart in the 80s. LUNGS: Clear anteriorly. HEART: Regular rate and rhythm, S1, S2. No S3 with a systolic ejection murmur, no diastolic murmur, no rub. ABDOMEN: Soft, nontender, positive bowel sounds. EXTREMITIES: No edema. Chest x-ray shows possible infiltrate in the right lower lobe. If versus recollect this. LAB DATA: Labs data revealed a hemoglobin of 11.2, BUN and creatinine 12 and 0.65, potassium 3.7. Her sodium is up to 133. White blood cell of 26,000. On presentation her hemoglobin was 6.3. IMPRESSION: 1. Acute gastrointestinal bleeding, stabilizing. No acute bleeding at this time. 2. Evidence of acute myocardial infarction, not a candidate for aggressive workup in view of her overall status. 3. History of chronic alcoholism and hyponatremia, improving. 4. History of chronic obstructive lung disease. RECOMMENDATION: From the cardiac standpoint, I will continue the heparin for 24 hours and stop it tomorrow. The patient's nutritional status will be addressed by Dr. Hahn. The prognosis remains guarded. The patient is not a good candidate for aggressive cardiac workup in view of her overall status. When she is able to take p.o., I will switch her to oral beta yoli. MMODL / IJN: [id number] /
--- NOTE | 2019-10-20 08:55 | XR ---
EXAMINATION TYPE: XR chest 1V DATE OF EXAM: 10/20/2019 CLINICAL HISTORY: Difficulty breathing progress study. TECHNIQUE: Single AP portable semiupright view of the chest is obtained. COMPARISON: Chest x-ray from one day earlier and older studies. FINDINGS: There is chronic emphysematous and parenchymal changes bilaterally with persistent worseni ng right basilar opacity. Patient remains rotated to right of midline. Underlying scoliosis is again seen. Cardiac silhouette size remains mildly enlarged with atherosclerotic and ectatic thoracic aorta . Advanced bilateral shoulder degenerative change redemonstrated. IMPRESSION: Overall stable findings, mild cardiomegaly with worsening right lower lung acute infilt rate and/or atelectasis and suspected new small right pleural effusion.
[2019-10-20] MEDS ORDERED: FUROSEMIDE 10 MG/ML 4 ML VIAL IV STA (10:29)
[2019-10-20] MEDS: THIAMINE 100 MG in SODIUM CHLORIDE 0.9% 50 ML IVPB SCH ×2 (11:16→21:03)
--- NOTE | 2019-10-20 11:24 | P.PN ---
Subjective Progress Note Date: 10/20/19 Principal diagnosis: altered mental status and possible acute metabolic encephalopathy Is a 70-year-old female patient who is currently confused. The patient came in to the emergency department yesterday because of altered mentation and recurrent falls. Apparently she has been falling and she fell at least 5 times yesterday. She initially went to [facility] and she was discharged home without having any labs done. HIDA time she came to our emergency department, the labs are quite abnormal and she had a sodium level of 117 with a potassium level of 5.2 and a chloride of 89 and a serum bicarb of 17 with an anion gap of 17. Creatinine was stable at 0.9. Her initial hemoglobin was at 6.3 and she had guaiac positive stool. Her coags showed an INR of 1.3 with a PT of 15.6. The patient had a chest x-ray that showed some tortuous aorta yet by radiologist opinion and interpretation, the findings were negative and no further workup was done and the patient was admitted to the intensive care unit. Currently she is awake and she is restless in bed. She is moving all 4 extremities. She seems to be poorly maintained. She is on a normal saline infusion at the rate of 75 an hour. She received a total of 2 units of packed RBC and the sodium level is up to 120. She admits to drink beer and order of 5 bottles on a daily basis. There may be a history of alcoholism. She is a smoker and she smokes 5-10 cigarettes a day. On examination she is quite bronchospastic and wheezy and she has a congested cough. She is currently on oxygen at 6 L per minute nasal cannula with a pulse ox of 94%. Cardiac rhythm is sinus. EKG showed a normal sinus rhythm and some ST segment changes limited and T-wave inversions over the lateral leads. Troponins were slightly abnormal with one lives of 0.19, 0.3 and 0.5 respectively 3. CPK level was at 725 at a time of admission. She has a Jarquin catheter in place. Urine output is in order of 100 mL an hour. On examination, the patient has multiple abrasions of the skin in various parts of her body. She also has a surgical scar over the lip probably related to a previous resection of a skin cancer. The past medical history is not known. The past surgical is not known. She is on a blood pressure medication including metoprolol and amlodipine on outpatient basis. Patient was reevaluated today on 10/19/2019, patient remains in the ICU, still quite lethargic, arousable only with deep painful stimuli, she had intermittent episodes of agitations and restlessness requiring Ativan. She just received a dose of Ativan earlier just before I came in to evaluate the patient.her sodium is up to 126. Her CBC showed a hemoglobin of 8.3.bicarb remains a bit low at 15 however her renal profile is normal.yesterday, patient had some EKG changes suggestive of acute coronary syndrome, and she was placed on heparin. Cardiology did not feel that the patient was a candidate for cardiac catheterization. Hence I recommended mostly maximal medical therapy. Her echocardiogram showed good LV function but it also showed moderate aortic regurgitation and mild aortic stenosis.chest x-ray this morning showed mostly right basilar atelectasis,chronic parenchymal changes, cardiomegaly, cannot totally rule out possible early right lower lobe infiltrate, but felt to be less likely. Reevaluated today on 10/20/2019, patient remains in the ICU, her urine output is extremely poor, anywhere between 5-20 mL per hour. Patient received significant amount of fluid boluses last night. And her urine output is still poor. Hence I have recommended Lasix to be given today. Patient remains lethargic, extremely difficult to arouse. Patient received Ativan 1 last night. She remains on norepinephrine at 0.14 mcg/kg/m, remains on bicarb drip, remains on heparin drip, she is on 3 L of oxygen via nasal cannula. Blood pressure remains marginal requiring norepinephrine. Chest x-ray showed cardiomegaly, large right lower lobe atelectasis and possibly some small right-sided pleural effusion. Doubt pneumonia. WBC count today is 26 hemoglobin is 11.2. PTT is not therapeutic. Electrolytes were noted bicarb remains low at 15 BUN is 12 creatinine 0.65. Objective - Vital Signs Vital signs: Vital Signs Temp 97.8 F 10/20/19 08:00 Pulse 105 H 10/20/19 10:15 Resp 13 10/20/19 10:15 BP 108/49 10/20/19 10:15 Pulse Ox 96 10/20/19 09:30 Intake & Output 10/19/19 10/20/19 10/20/19 18:59 06:59 18:59 Intake Total 2050.809 1756.074 440 Output Total 317 170 68 Balance 2987.800 6114.074 372 Weight 60.2 kg Intake: IV 1975 1210 440 0.9 normal saline at KVO 110 40 Dextrose 5% in Water 1, 150 900 300 000 ml @ 75 mls/hr IV . [id number] [facility] with Sodium Bicarb (1 Meq/ml) 150 ml Rx#:[id number] Potassium Chloride 10 meq 100 100 In Water For Injection 1 100ml.bag @ 100 mls/hr IVPB Q1HR [facility] Rx#: [id number] Sodium Chloride 0.9% 1, 675 000 ml @ 75 mls/hr IV . [id number] [facility] Rx#:[id number] Sodium Chloride 0.9% 1, 1000 000 ml @ 999 mls/hr IV . Q1H1M [facility] Rx#:[id number] Sodium Ferric Gluconat- 100 Sucrose 125 mg In Sodium Chloride 0.9% 100 ml @ 100 mls/hr IVPB Q24H [facility] Rx#:[id number] Thiamine 100 mg In Sodium 50 50 Chloride 0.9% 50 ml @ 100 mls/hr IVPB Q12HR [facility] Rx#:[id number] cefTRIAXone 1 gm In 50 Sodium Chloride 0.9% 50 ml @ 100 mls/hr IVPB Q24H [facility] Rx#:[id number] Intake, IV Titration 75.809 546.074 Amount Heparin Sod,Pork in 0.45% 56.775 74.176 NaCl 25,000 unit In 0.45 % NaCl 1 250ml.bag @ 12 UNITS/KG/HR 6.636 mls/hr IV .Q24H [facility] Rx#: [id number] Norepinephrine 4 mg In 19.034 471.898 Sodium Chloride 0.9% 250 ml @ 0.05 MCG/KG/MIN 10. 897 mls/hr IV .[id number] [facility] Rx#:[id number] Output: Urine 317 170 68 Other: Voiding Method Indwelling Catheter Indwelling Catheter Indwelling Catheter - Exam Physical Exam: Revealed a 78-year-old female, lethargic,opens eyes with deep painful stimuli head: Atraumatic, normocephalic, patient is on oxygen at 4 L/m. HEENT:[Neck is supple.] [No neck masses.] [No thyromegaly.] [No JVD.]PERRLA, E MARGARET, moist mucous membranes. No icterus. Scar over left lower lip, related to old surgical resection of skin cancer. Chest: [diminished breath sounds at the bases, minimal crackles at the bases, wheezing noted on forced expiratory maneuver.] Cardiac Exam: [Normal S1 and S2, no S3 gallop, 2/6 systolic murmur thought the precordium. Abdomen: [Soft, nontender, no megaly, no rebound, no guarding, normal bowel sounds.] Extremities: [No clubbing, no edema, no cyanosis.] Neurological Exam:lethargic, arousable but encephalopathic, patient responds only to deep painful stimuli. Pupils equally reactive to light. No facial asymmetry. Withdraws to painful stimuli. Does not follow any simple instr uctions. Psychiatric: Cannot be assessed, Skin: No rashes. Lymphatics: No lymphadenopathy. - Labs CBC & Chem 7: 10/20/19 04:17 10/20/19 04:17 Labs: Abnormal Lab Results - Last 24 Hours (Table) 10/19/19 10/19/19 10/19/19 Range/Units 04:46 11:52 12:18 WBC (3.8-10.6) k/uL RBC (3.80-5.40) m/uL Hgb (11.4-16.0) gm/dL Plt Count (150-450) k/uL Neutrophils # (1.3-7.7) k/uL Neutrophils # (Manual) (1.3-7.7) k/uL Lymphocytes # (1.0-4.8) k/uL Lymphocytes # (Manual) (1.0-4.8) k/uL Nucleated RBCs (0-0) /100 WBC APTT 119.8 H* (22.0-30.0) sec Sodium (137-145) mmol/L Carbon Dioxide (22-30) mmol/L Glucose (74-99) mg/dL POC Glucose (mg/dL) 123 H (75-99) mg/dL Calcium (8.4-10.2) mg/dL Iron 11 L (50-170) ug/dL % Saturation 3.78 L (12.00-45.00) AST (14-36) U/L Total Protein (6.3-8.2) g/dL Albumin (3.5-5.0) g/dL 10/19/19 10/19/19 10/19/19 Range/Units 15:24 20:00 20:00 WBC 21.5 H (3.8-10.6) k/uL RBC (3.80-5.40) m/uL Hgb (11.4-16.0) gm/dL Plt Count 546 H (150-450) k/uL Neutrophils # 20.0 H (1.3-7.7) k/uL Neutrophils # (Manual) (1.3-7.7) k/uL Lymphocytes # 0.6 L (1.0-4.8) k/uL Lymphocytes # (Manual) (1.0-4.8) k/uL Nucleated RBCs (0-0) /100 WBC APTT 106.3 H* (22.0-30.0) sec Sodium (137-145) mmol/L Carbon Dioxide (22-30) mmol/L Glucose (74-99) mg/dL POC Glucose (mg/dL) 127 H (75-99) mg/dL Calcium (8.4-10.2) mg/dL Iron (50-170) ug/dL % Saturation (12.00-45.00) AST (14-36) U/L Total Protein (6.3-8.2) g/dL Albumin (3.5-5.0) g/dL 10/19/19 10/19/19 10/20/19 Range/Units 20:00 20:04 04:00 WBC (3.8-10.6) k/uL RBC (3.80-5.40) m/uL Hgb (11.4-16.0) gm/dL Plt Count (150-450) k/uL Neutrophils # (1.3-7.7) k/uL Neutrophils # (Manual) (1.3-7.7) k/uL Lymphocytes # (1.0-4.8) k/uL Lymphocytes # (Manual) (1.0-4.8) k/uL Nucleated RBCs (0-0) /100 WBC APTT (22.0-30.0) sec Sodium 128 L (137-145) mmol/L Carbon Dioxide 12 L (22-30) mmol/L Glucose 145 H (74-99) mg/dL POC Glucose (mg/dL) 132 H 149 H (75-99) mg/dL Calcium 8.1 L (8.4-10.2) mg/dL Iron (50-170) ug/dL % Saturation (12.00-45.00) AST (14-36) U/L Total Protein (6.3-8.2) g/dL Albumin (3.5-5.0) g/dL 10/20/19 10/20/19 10/20/19 Range/Units 04:17 04:17 04:17 WBC 26.0 H (3.8-10.6) k/uL RBC 3.75 L (3.80-5.40) m/uL Hgb 11.2 L (11.4-16.0) gm/dL Plt Count 524 H (150-450) k/uL Neutrophils # (1.3-7.7) k/uL Neutrophils # (Manual) 24.90 H (1.3-7.7) k/uL Lymphocytes # (1.0-4.8) k/uL Lymphocytes # (Manual) 0.52 L (1.0-4.8) k/uL Nucleated RBCs 1 H (0-0) /100 WBC APTT 30.4 H (22.0-30.0) sec Sodium 133 L (137-145) mmol/L Carbon Dioxide 15 L (22-30) mmol/L Glucose 163 H (74-99) mg/dL POC Glucose (mg/dL) (75-99) mg/dL Calcium 8.1 L (8.4-10.2) mg/dL Iron (50-170) ug/dL % Saturation (12.00-45.00) AST 109 H (14-36) U/L Total Protein 4.9 L (6.3-8.2) g/dL Albumin 2.7 L (3.5-5.0) g/dL 10/20/19 Range/Units 08:09 WBC (3.8-10.6) k/uL RBC (3.80-5.40) m/uL Hgb (11.4-16.0) gm/dL Plt Count (150-450) k/uL Neutrophils # (1.3-7.7) k/uL Neutrophils # (Manual) (1.3-7.7) k/uL Lymphocytes # (1.0-4.8) k/uL Lymphocytes # (Manual) (1.0-4.8) k/uL Nucleated RBCs (0-0) /100 WBC APTT (22.0-30.0) sec Sodium (137-145) mmol/L Carbon Dioxide (22-30) mmol/L Glucose (74-99) mg/dL POC Glucose (mg/dL) 225 H (75-99) mg/dL Calcium (8.4-10.2) mg/dL Iron (50-170) ug/dL % Saturation (12.00-45.00) AST (14-36) U/L Total Protein (6.3-8.2) g/dL Albumin (3.5-5.0) g/dL Microbiology - Last 24 Hours (Table) 10/17/19 21:07 Urine Culture - Preliminary Urine,Voided Gram Neg Bacilli Assessment and Plan Assessment: impression: 1 altered mental status most likely secondary to acute metabolic encephalopathy. Her sodium is improving, but her mental status is basically the same. Patient did present with low sodium, possible hepatic encephalopathy, positive alcohol withdrawal syndrome. CT of the brain was nondiagnostic/negative. 2 acute hyponatremia, most likely secondary to excessive beer drinking, doubt SIADH. Resolved. 3 acute GI bleeding, most likely upper GI in nature, this will eventually require further investigation. Patient received a total of 2 units of packed RBCs since admission, her hemoglobin today is 11.2 today 4 acute coronary syndrome, patient will remain on heparin, agree with cardiology patient is not a candidate for cardiac catheterization or aggressive cardiac management. 5 history of alcoholism 6 acute exacerbation of COPD 7 poor performance and functional status secondary to her multiple medical problems as noted above. 8 recurrent falls secondary to metabolic encephalopathy. 9 oliguria , exact etiology is not clear, could be related to hypotension, although the patient has been on norepinephrine all along, will try the patient on a challenge dose of Lasix. 40 mg IV push 1 per Recommendation: Continue to monitor the patient in the ICU Continue IV fluid at 75 ML per hour using 0.9 normal saline. Continue sodium bicarb Continue to monitor daily electrolytes and monitor sodium. Continue bronchodilators. Continue to monitor hemoglobin and transfuse as needed for hemoglobin lower than 7. Continue IV Protonix. Continue heparin for her acute coronary syndrome. Continue aspiration precautions. Patient remains critically ill, and no plans to transfer the patient out of the ICU at this point. Continue alcohol withdrawal protocol. We'll continue to follow closely. Time with Patient: Less than 30
[2019-10-20 12:16] LABS: Glucose,Whole Blood 117 mg/dL (75-99)
--- NOTE | 2019-10-20 12:36 | CDI ---
Documentation Clarification Form Date: 10/20/2019 12:26:03 PM From: Vidya DobbinsHargroveCONSTANTINE freeman, CCDS Admit Date: 10/17/2019 8:36:00 PM Patient Name: Ayde Millan Visit Number: [id number] Discharge Date: ATTENTION: The Clinical Documentation Specialists (CDI) and [facility] Coding Staff appreciate your assistance in clarifying documentation. Please respond to the clarification below the line at the bottom and electronically sign. The CDI & [facility] Coding staff will review the response and follow-up if needed. Please note: Queries are made part of the Legal Health Record. If you have any questions, please contact the author of this message via ITS. Dr. Maged Ann: Per the 10/18 History & Physical: " ? CHF." Per the 10/18 Pulmonary/Critical Care consult: "Obtain an echocardiogram, consider underlying CHF." History/Risk Factors: Hypertension, Frequent falls, Smoker, Drinks alcohol daily. Clinical Indicators: Presented with altered mental status changes & having frequent falls. Hgb low at 6.3, Na 118, troponins elevated 0.320 & UA positive. VS on admission: T 97.6, P 62, R 20 - 26^, BP 114/38, PO 91 RA. BNP: 8960 Echocardiogram Results 10/18: Systolic function normal w/EF 55-60%, Moderate AR, mild aortic stenosis, Mild mitral stenosis. No Pericardial effusion. RAD: CT brain: negative. CT chest 7 abdomen: Anasarca & small left side pleural effusion & mild upper lobe emphysematous changes. Treatment: IV fluids, 2 units PRBCs, INH Albuteraol, O2 4Lnc, IV fluid 100 - 75, IV Ativan, IM Thiamine, CIWA protocol, IV Lasix started 10/17, IV Rocephin, IV Dextrose/water, admitted to ICU. In your professional opinion, can you please clarify the acuity and type of CHF if known? CHF is ruled out CHF is ruled in: o Diastolic Heart Failure: o Acute o Chronic o Acute on Chronic Unable to Determine Other, please specify (Last Revision: February 2018) MTDD
[2019-10-20] MEDS ORDERED: LIDOCAINE 1% INJ 10MG/ML (20 ML MDV) SQ ONE (14:42)
[2019-10-20] MEDS: LORazepam 2 MG/ML INJ IV PRN ×2 (14:47→22:26)
--- NOTE | 2019-10-20 15:24 | XR ---
EXAMINATION TYPE: XR chest 1V confirm line [facility] DATE OF EXAM: 10/20/2019 COMPARISON: 10/20/2019 HISTORY: PICC line TECHNIQUE: Single frontal view of the chest is obtained. FINDINGS: Left-sided PICC line seen with the tip overlying the cavoatrial junction. Diffuse intersti tial pattern seen with prominence the right hilum. Bilateral consolidation and pleural effusion. Arth ropathy of the shoulders. Biapical pleural thickening. No pneumothorax. Degenerative change of the sp ine. IMPRESSION: 1. Diffuse pleural-parenchymal changes are stable correlate for CHF versus pneumonia. 2. PICC line appears in good position.
--- NOTE | 2019-10-20 15:30 | P.PN ---
Subjective Progress Note Date: 10/20/19 Chief Complaint: Frequent falls and altered mental status changes Mrs. Millan is a 78-year-old female with a past medical history of hypertension brought into the emergency department for frequent falls and altered mental status changes. Currently the patient is in the ICU and is confused so most of the history is taken from the family members were at the bedside. Patient has been having frequent falls at least 5-6 times in the past 4 days. Initially she was taken to [facility] few days back and she was discharged home. Her noticed that she has been having frequent falls and also feeling fatigued so he called the EMS who brought her to the hospital. In the ER patient had blood work done showing hemoglobin of 6.3 and sodium of 118. Her troponins are elevated at 0.320 and her urine analysis was positive for large leukocyte esterase and WBC clumps. She also had a chest x-ray and an x-ray of the pelvis- no acute changes and no fracture. Patient was started on IV fluids given 2 units of PRBCs and admitted to the ICU. In the ICU patient had CT of the brain - no acute cranial process and also CT of the chest and abdomen- anasarca and small left-sided pleural effusion and mild upper lobe emphysematous changes. Patient's past medical history significant for hypertension and is a current smoker. She also drinks 3-4 beers every day. The only outpatient medications that she takes her metoprolol and amlodipine. 10/19/2019 recently received Ativan for agitation, currently sleeping. Sodium improving, 126.Bicarb 15,IV fluids changed to bicarb drip as per nephrology. Status post 2 units of packed RBCs yesterday with current hemoglobin 8.3.no signs of active bleeding reported.receiving IV iron. Last night patient developed chest pain accompanied by EKG changes. Patient is not a candidate for cardiac catheterization/maintained on IV heparin drip as per cardiology.Echo reporting normal LV function, EF 55-60%,moderately dilated LA, moderate aortic regurgitation.vital signs stable, maintaining O2 sats in the high 90s on 3 L na baljit cannula. Chest x-ray reporting chronic emphysematous and parenchymal changes,cardiomegaly with developing right basilar acute infiltrate and/or atelectasis. 10/20/2019 Maintained on Levophed, bicarb and heparin drip. Bicarb 15. Required multiple fluid boluses throughout the night, urine output remains marginal. Received a dose of Lasix IV push this morning. Sedated. Chest x-ray reporting stable mild cardiomegaly, worsening right lower lung acute infiltrate and/or atelectasis and suspected new small right pleural effusion. Maintaining O2 sats in the 90s on 3 L nasal canula. Afebrile, WBC 26. Hemoglobin 11.2. Objective - Vital Signs Vital signs: Vital Signs Temp 97.8 F 10/20/19 08:00 Pulse 105 H 10/20/19 10:15 Resp 13 10/20/19 10:15 BP 108/49 10/20/19 10:15 Pulse Ox 96 10/20/19 09:30 Intake & Output 10/19/19 10/20/19 10/20/19 18:59 06:59 18:59 Intake Total 2050.809 1756.074 440 Output Total 317 170 68 Balance 2840.727 0169.074 372 Weight 60.2 kg Intake: IV 1975 1210 440 0.9 normal saline at KVO 110 40 Dextrose 5% in Water 1, 150 900 300 000 ml @ 75 mls/hr IV . [id number] [facility] with Sodium Bicarb (1 Meq/ml) 150 ml Rx#:[id number] Potassium Chloride 10 meq 100 100 In Water For Injection 1 100ml.bag @ 100 mls/hr IVPB Q1HR [facility] Rx#: [id number] Sodium Chloride 0.9% 1, 675 000 ml @ 75 mls/hr IV . [id number] [facility] Rx#:[id number] Sodium Chloride 0.9% 1, 1000 000 ml @ 999 mls/hr IV . Q1H1M ONE Rx#:[id number] Sodium Ferric Gluconat- 100 Sucrose 125 mg In Sodium Chloride 0.9% 100 ml @ 100 mls/hr IVPB Q24H [facility] Rx#:[id number] Thiamine 100 mg In Sodium 50 50 Chloride 0.9% 50 ml @ 100 mls/hr IVPB Q12HR [facility] Rx#:[id number] cefTRIAXone 1 gm In 50 Sodium Chloride 0.9% 50 ml @ 100 mls/hr IVPB Q24H [facility] Rx#:[id number] Intake, IV Titration 75.809 546.074 Amount Heparin Sod,Pork in 0.45% 56.775 74.176 NaCl 25,000 unit In 0.45 % NaCl 1 250ml.bag @ 12 UNITS/KG/HR 6.636 mls/hr IV .Q24H [facility] Rx#: [id number] Norepinephrine 4 mg In 19.034 471.898 Sodium Chloride 0.9% 250 ml @ 0.05 MCG/KG/MIN 10. 897 mls/hr IV .[id number] [facility] Rx#:[id number] Output: Urine 317 170 68 Other: Voiding Method Indwelling Catheter Indwelling Catheter Indwelling Catheter - Exam GEN. APPEARANCE: Sedated, opens eyes to noxious stimuli HEAD EXAM: atraumatic, normocephalic, normal inspection EYE EXAM: Mild pallor. No icterus. ENT EXAM: Oral mucosa is dry NECK EXAM: Neck is supple. RESPIRATORY EXAM: Decreased breath sounds in all lung ramirez. Fine crackles at the lower lung bases.expiratory wheezing CARDIOVASCULAR EXAM: Tachycardia. S1-S2 heard.systolic murmur GI/ABDOMINAL EXAM: soft, normal bowel sounds. Nontender. No guarding or rigidity. EXTREMITIES EXAM: No edema. NEUROLOGICAL EXAM: unable to assess at this time as patient recently sedated on Ativan,withdrawals to noxious stimuli SKIN: No rashes. - Labs CBC & Chem 7: 10/20/19 04:17 10/20/19 04:17 Labs: Abnormal Lab Results - Last 24 Hours (Table) 10/19/19 10/19/19 10/19/19 Range/Units 04:46 11:52 12:18 WBC (3.8-10.6) k/uL RBC (3.80-5.40) m/uL Hgb (11.4-16.0) gm/dL Plt Count (150-450) k/uL Neutrophils # (1.3-7.7) k/uL Neutrophils # (Manual) (1.3-7.7) k/uL Lymphocytes # (1.0-4.8) k/uL Lymphocytes # (Manual) (1.0-4.8) k/uL Nucleated RBCs (0-0) /100 WBC APTT 119.8 H* (22.0-30.0) sec Sodium (137-145) mmol/L Carbon Dioxide (22-30) mmol/L Glucose (74-99) mg/dL POC Glucose (mg/dL) 123 H (75-99) mg/dL Calcium (8.4-10.2) mg/dL Iron 11 L (50-170) ug/dL % Saturation 3.78 L (12.00-45.00) AST (14-36) U/L Total Protein (6.3-8.2) g/dL Albumin (3.5-5.0) g/dL 10/19/19 10/19/19 10/19/19 Range/Units 15:24 20:00 20:00 WBC 21.5 H (3.8-10.6) k/uL RBC (3.80-5.40) m/uL Hgb (11.4-16.0) gm/dL Plt Count 546 H (150-450) k/uL Neutrophils # 20.0 H (1.3-7.7) k/uL Neutrophils # (Manual) (1.3-7.7) k/uL Lymphocytes # 0.6 L (1.0-4.8) k/uL Lymphocytes # (Manual) (1.0-4.8) k/uL Nucleated RBCs (0-0) /100 WBC APTT 106.3 H* (22.0-30.0) sec Sodium (137-145) mmol/L Carbon Dioxide (22-30) mmol/L Glucose (74-99) mg/dL POC Glucose (mg/dL) 127 H (75-99) mg/dL Calcium (8.4-10.2) mg/dL Iron (50-170) ug/dL % Saturation (12.00-45.00) AST (14-36) U/L Total Protein (6.3-8.2) g/dL Albumin (3.5-5.0) g/dL 10/19/19 10/19/19 10/20/19 Range/Units 20:00 20:04 04:00 WBC (3.8-10.6) k/uL RBC (3.80-5.40) m/uL Hgb (11.4-16.0) gm/dL Plt Count (150-450) k/uL Neutrophils # (1.3-7.7) k/uL Neutrophils # (Manual) (1.3-7.7) k/uL Lymphocytes # (1.0-4.8) k/uL Lymphocytes # (Manual) (1.0-4.8) k/uL Nucleated RBCs (0-0) /100 WBC APTT (22.0-30.0) sec Sodium 128 L (137-145) mmol/L Carbon Dioxide 12 L (22-30) mmol/L Glucose 145 H (74-99) mg/dL POC Glucose (mg/dL) 132 H 149 H (75-99) mg/dL Calcium 8.1 L (8.4-10.2) mg/dL Iron (50-170) ug/dL % Saturation (12.00-45.00) AST (14-36) U/L Total Protein (6.3-8.2) g/dL Albumin (3.5-5.0) g/dL 10/20/19 10/20/19 10/20/19 Range/Units 04:17 04:17 04:17 WBC 26.0 H (3.8-10.6) k/uL RBC 3.75 L (3.80-5.40) m/uL Hgb 11.2 L (11.4-16.0) gm/dL Plt Count 524 H (150-450) k/uL Neutrophils # (1.3-7.7) k/uL Neutrophils # (Manual) 24.90 H (1.3-7.7) k/uL Lymphocytes # (1.0-4.8) k/uL Lymphocytes # (Manual) 0.52 L (1.0-4.8) k/uL Nucleated RBCs 1 H (0-0) /100 WBC APTT 30.4 H (22.0-30.0) sec Sodium 133 L (137-145) mmol/L Carbon Dioxide 15 L (22-30) mmol/L Glucose 163 H (74-99) mg/dL POC Glucose (mg/dL) (75-99) mg/dL Calcium 8.1 L (8.4-10.2) mg/dL Iron (50-170) ug/dL % Saturation (12.00-45.00) AST 109 H (14-36) U/L Total Protein 4.9 L (6.3-8.2) g/dL Albumin 2.7 L (3.5-5.0) g/dL 10/20/19 Range/Units 08:09 WBC (3.8-10.6) k/uL RBC (3.80-5.40) m/uL Hgb (11.4-16.0) gm/dL Plt Count (150-450) k/uL Neutrophils # (1.3-7.7) k/uL Neutrophils # (Manual) (1.3-7.7) k/uL Lymphocytes # (1.0-4.8) k/uL Lymphocytes # (Manual) (1.0-4.8) k/uL Nucleated RBCs (0-0) /100 WBC APTT (22.0-30.0) sec Sodium (137-145) mmol/L Carbon Dioxide (22-30) mmol/L Glucose (74-99) mg/dL POC Glucose (mg/dL) 225 H (75-99) mg/dL Calcium (8.4-10.2) mg/dL Iron (50-170) ug/dL % Saturation (12.00-45.00) AST (14-36) U/L Total Protein (6.3-8.2) g/dL Albumin (3.5-5.0) g/dL Microbiology - Last 24 Hours (Table) 10/17/19 21:07 Urine Culture - Preliminary Urine,Voided Gram Neg Bacilli Assessment and Plan Assessment: Acute OR acute Metabolic Encephalopathy,multifactorial secondary to infection,electrolyte imbalance, EtOH abuse,possible alcohol withdrawal,possible hepatic encephalopathy. Hypovolemic hyponatremiasecondary to alcohol abuse acute UTI with gram-negative bacilli Elevated troponins acute GI bleed suspect upper GI,status post 2 units packed RBCs,further workup pending Frequent falls acute COPD exacerbation chronic Alcohol abuse Hypertension, history of Hypotension, pressor dependent plan: Continue on current medication regime ,monitoring and symptomatic treatment. IV fluid hydration, bicarbonate and heparin drips. Maintain CIWA protocol,PPI,nebulized bronchodilators. Strict aspiration precautions.Close monitoring of hemoglobin with repeat labs ordered for a.m. Prognosis guarded given multiple complex medical issues. The impression and plan of care has been dictated as directed. : I performed a history and examination of this patient, discussed the same with the dictator. I agree with the dictator's note ,documented as a scribe. Any additional findings or plans will be noted.
--- NOTE | 2019-10-20 15:36 | IR ---
PICC LINE PLACEMENT: HISTORY: Infection requiring long-term antibiotic therapy PROCEDURE: Ultrasound guidance of PICC line placement. BOOSTER OPERATOR: Dr. Juan. COMPLICATIONS: None ANESTHESIA: 1. 1% Lidocaine locally. FINDINGS/TECHNIQUE: The procedure was explained to the patient. The risks, complications, benefits and alternatives were discussed and any questions were answered. Informed consent was obtained. The patient was placed supine on the fluoroscopic table and prepped and draped in the usual sterile fas ion. Utilizing a 21 gauge needle and sonographic guidance, access in the left basilic vein was achi eved and there is placement of a 0.018 guidewire. The vein is patent. A 5-F. sheath was placed over the guidewire. The guidewire and dilator were removed and a 5-F. Double lumen PICC line was placed through the sheath with the chest x-ray confirming the tip at the level of the SVC. The sheath was r emoved, the catheter was flushed and sutured into position. The patient was stable throughout the pr ocedure and remained stable upon discharge from the Department of Radiology. The vein puncture was patent under ultrasound. A chakraborty scale image was obtained to document patency of the vein punctured. All elements of the maximal barrier technique were utilized. IMPRESSION: 1. Successful PICC line placement under ultrasound performed bedside within the ICU.
[2019-10-20 16:18] LABS: Glucose,Whole Blood 160 mg/dL (75-99)
--- NOTE | 2019-10-20 18:44 | PN ---
PROGRESS NOTE DATE OF DICTATION: 10/20/2019 The patient is a 78-year-old pleasant white female admitted to the hospital with altered mental status and recurrent falls. While in the hospital was noted to have acute VT and on the EKG was noted to have ST changes. She was started on IV heparin yesterday. The patient continues to remain on IV heparin. As per the nursing staff, she had a small amount of dark stool noted this morning. No obvious signs of bleeding. The patient continues to remain somewhat lethargic, not able to respond or communicate. As per the nursing staff, she had decreased urinary output through the night and is presently getting fluid boluses. She also received some Ativan because of some agitation yesterday. PHYSICAL EXAMINATION: She is very lethargic. VITAL SIGNS: Stable. Blood pressure is 132/86, pulse rate 108, temperature 98. HEENT examination unremarkable. Conjunctivae pink. Sclerae anicteric. Oral cavity no lesions. NECK: No JVD or lymph node enlargement. CHEST: Clear to auscultation. HEART: Regular rate and rhythm. ABDOMEN: Soft. It was non-tender, non-distended. Bowel sounds are positive. EXTREMITIES: No pedal edema. NEUROLOGIC: Very lethargic. LABS: Labs done today show WBC 26, hemoglobin 11.2, platelets normal. At the time of admission, hemoglobin was 6.3. PTT was more than 200. Basic metabolic panel is within normal limits. Troponin 0.5. IMPRESSION: 1. Severe symptomatic anemia with a hemoglobin of 6.3 g/dL and Hemoccult-positive stool. She has intermittent dark-colored stools. Presently remains on IV heparin for acute VT, but no significant active bleeding. She received 2 units of blood transfusion. Hemoglobin is 11.2 g/dL and stable. 2. Acute myocardial infarction, on IV heparin. Cardiology following the patient closely and they plan to continue with conservative management. 3. Altered mental status. CT of the brain was negative. Possible metabolic encephalopathy. 4. Hyponatremia, which is gradually improving. 5. History of alcohol abuse. RECOMMENDATIONS: Monitor CBC daily. Continue Protonix 40 mg daily. Transfuse if hemoglobin is less than 7. No plans for any endoscopic intervention at the present time. Will consider this once the overall mental status improves. Thank you for this consultation. MMODL / IJN: [id number] /
[2019-10-20 19:28] LABS: Hepatitis A Antibody IgM Non-Reactive (Non-Reactive); Hepatitis B Core IgM Non-Reactive (Non-Reactive); Hepatitis B Surface Antigen Non-Reactive (Non-Reactive); Hepatitis C IgG Antibody Non-Reactive (Non-Reactive)
--- NOTE | 2019-10-20 19:50 | PN ---
PROGRESS NOTE Patient is seen for followup for hyponatremia. Her sodium has improved to 133. The hyponatremia is mainly hypovolemic. Sodium was 128 yesterday. On examination this morning, blood pressure was 118/50, heart rate 105 per minute. Patient is afebrile. EXAMINATION OF THE HEART: S1 and S2. EXAMINATION OF LUNGS: Decreased breath sounds at bases. ABDOMEN: Soft, non-tender. Examination of lower extremities shows no significant edema. Labs show sodium 133, potassium 3.7, chloride 105. CO2 is 15, BUN 12, creatinine 0.65. ASSESSMENT: 1. Hypovolemic hyponatremia, currently improved. Continue with the current IV fluids. Patient is maintained on a bicarb drip. 2. Iron deficiency, maintained on IV iron. 3. Metabolic acidosis, maintained on bicarb drip, initially with high anion gap. No ongoing diarrhea noted. 4. History of frequent falls. 5. Chronic alcohol abuse. 6. Acute coronary syndrome, maintained on heparin drip. PLAN: Continue with the bicarb drip for now. Repeat labs in a.m. Continue with IV iron for 3 days. Repeat labs in a.m. MMODL / IJN: [id number] /
[2019-10-20 20:04] LABS: Glucose,Whole Blood 194 mg/dL (75-99)
[2019-10-20] MEDS: HEPARIN SOD,PORK IN 0.45% NACL 25,000 UNIT in 0.45% NACL 1 250ML.BAG IV SCH (21:51)
[2019-10-21] MEDS: INSULIN ASPART (NovoLOG) 100 UNIT/ML VIAL SQ SCH ×6 (00:19→19:39)
[2019-10-21] MEDS: methylPREDNISolone SOD SUCCI 125 MG/2 ML VIAL IV SCH ×4 (00:19→17:32)
[2019-10-21 00:28] LABS: Glucose,Whole Blood 218 mg/dL (75-99)
[2019-10-21] MEDS: LORazepam 2 MG/ML INJ IV PRN ×2 (01:10→23:19)
[2019-10-21] MEDS: NOREPINEPHRINE 4 MG in SODIUM CHLORIDE 0.9% 250 ML IV SCH ×2 (03:04→22:42)
[2019-10-21] MEDS: IPRATROPIUM-ALBUTEROL 3 ML NEB INHALATION SCH ×5 (03:26→19:52)
[2019-10-21 04:21] LABS: Glucose,Whole Blood 171 mg/dL (75-99)
[2019-10-21 05:07] LABS: Basophils % (A) 0 %; Eosinophils # (A) 0.1 k/uL (0-0.7); Eosinophils % (A) 0 %; HCT 26.4 % (34.0-46.0); Hypochromasia Moderate; Lymphocytes # (A) 0.3 k/uL (1.0-4.8); Lymphocytes % (A) 2 %; MCH 28.7 pg (25.0-35.0); MCHC 32.2 g/dL (31.0-37.0); MCV 89.3 fL (80.0-100.0); Mean Platelet Volume 6.4; Monocytes # (A) 0.7 k/uL (0-1.0); Monocytes % (A) 4 %; Neutrophils # (A) 16.1 k/uL (1.3-7.7); Neutrophils % (A) 93 %; Platelet Count 425 k/uL (150-450); Poikilocytosis Moderate; RBC 2.95 m/uL (3.80-5.40); RDW 15.3 % (11.5-15.5); WBC 17.3 k/uL (3.8-10.6)
[2019-10-21 05:08] LABS: HGB 8.5 gm/dL (11.4-16.0)
[2019-10-21 05:25] LABS: ALT 47 U/L (9-52); AST 61 U/L (14-36); African American GFR (CKD) >90 (>60 ml/min/1.73 sqM); Albumin 2.7 g/dL (3.5-5.0); Alkaline Phosphatase 37 U/L (38-126); Anion Gap 8 mmol/L; Blood Urea Nitrogen 9 mg/dL (7-17); Carbon Dioxide 24 mmol/L (22-30); Chloride 100 mmol/L (98-107); Glucose 155 mg/dL (74-99); Non-African American GFR(CKD) >90 (>60 ml/min/1.73 sqM); Sodium 132 mmol/L (137-145); Total Bilirubin 0.8 mg/dL (0.2-1.3); Total Protein 4.4 g/dL (6.3-8.2)
[2019-10-21] MEDS: POTASSIUM CHLORIDE 20 MEQ in WATER FOR INJECTION 1 100ML.BAG IVPB SCH ×2 (05:43→08:16)
--- NOTE | 2019-10-21 07:25 | XR ---
EXAMINATION TYPE: XR chest 1V DATE OF EXAM: 10/21/2019 COMPARISON: 10/20/2019 HISTORY: Pneumonia. Follow-up exam. TECHNIQUE: Single frontal view of the chest is obtained. FINDINGS: Right basilar airspace disease is similar as well as a trace right pleural effusion. Left- sided PICC is unchanged. Haziness over the left costophrenic angle likely relates to atelectasis. Ski nfold over the right lung apex. Cardiomediastinal silhouette is enlarged. Diffuse osseous demineraliz ation is seen. IMPRESSION: Similar right basilar opacity and trace pleural effusion with new left basilar atelectas is.
--- NOTE | 2019-10-21 07:58 | PN ---
PROGRESS NOTE Mrs. Millan is a 78-year-old female with a history of cough who presented with progressive worsening of mental status, episode of GI bleeding and had evidence of ST- segment elevation myocardial infarction in the inferior wall. She continued to be confused, not following verbal command, somnolent and pulling her IVs. There is no evidence of malignant arrhythmia. Her blood pressure is better. There is no significant ventricular ectopic activity. She continued to be on the IV heparin. She has a prior history of alcohol abuse. She continues to be on the IV heparin, aspirin 81 mg daily, Lipitor 40 mg daily, metoprolol tartrate 5 mg IV q.12 hours. PHYSICAL EXAMINATION: Blood pressure 111/50 with a heart rate in the 70s to 90s. LUNGS: Clear. HEART: Regular rate and rhythm. S1, S2. No S3. No rub with a systolic murmur. ABDOMEN: Soft, nontender. EXTREMITIES: No edema. LAB DATA: Revealed hemoglobin of 8.5, white blood cell of 17.3. BUN and creatinine 9 and 0.55, potassium 3.0, total protein is 4.4. Her chest x-ray revealed a minimal pleural effusion. IMPRESSION: 1. Acute GI bleeding with a hemoglobin down to the 6.3. 2. Acute myocardial infarction. 3. Confusion with change in mental status and history of alcoholism with possible metabolic encephalopathy. 4. Chronic obstructive pulmonary disease. 5. Hyponitremia, improving gradually. RECOMMENDATION: I will stop her IV heparin at this time. Continue the rest of her medical regimen. Continue to wean her IV norepinephrine. Unfortunately, the prognosis is quite guarded. When she is able to take p.o., then I will switch her to oral beta yoli. MMODL / IJN: [id number] /
[2019-10-21 08:15] LABS: Glucose,Whole Blood 179 mg/dL (75-99)
[2019-10-21] MEDS: SODIUM CHLORIDE 0.9% 150 ML with VASOPRESSIN 60 UNIT IV SCH ×4 (08:15→19:21)
[2019-10-21] MEDS: THIAMINE 100 MG in SODIUM CHLORIDE 0.9% 50 ML IVPB SCH ×2 (08:16→20:14)
[2019-10-21] MEDS: ASPIRIN 300 MG SUPP RECTAL SCH (08:16)
[2019-10-21] MEDS: ATORVASTATIN 40 MG TAB PO SCH (08:17)
[2019-10-21] MEDS: PANTOPRAZOLE 40 MG/10 ML VIAL IV SCH ×2 (08:17→19:50)
[2019-10-21] MEDS: METOPROLOL TARTRATE 5 MG/5 ML VIAL IVP SCH ×2 (08:17→19:50)
[2019-10-21] MEDS ORDERED: FUROSEMIDE 10 MG/ML 2 ML VIAL IV ONE (09:05)
[2019-10-21] MEDS: SODIUM FERRIC GLUCONAT-SUCROSE 125 MG in SODIUM CHLORIDE 0.9% 100 ML IVPB SCH (09:24)
--- NOTE | 2019-10-21 11:37 | P.PN ---
Subjective Progress Note Date: 10/21/19 Principal diagnosis: altered mental status and possible acute metabolic encephalopathy Is a 70-year-old female patient who is currently confused. The patient came in to the emergency department yesterday because of altered mentation and recurrent falls. Apparently she has been falling and she fell at least 5 times yesterday. She initially went to [facility] and she was discharged home without having any labs done. HIDA time she came to our emergency department, the labs are quite abnormal and she had a sodium level of 117 with a potassium level of 5.2 and a chloride of 89 and a serum bicarb of 17 with an anion gap of 17. Creatinine was stable at 0.9. Her initial hemoglobin was at 6.3 and she had guaiac positive stool. Her coags showed an INR of 1.3 with a PT of 15.6. The patient had a chest x-ray that showed some tortuous aorta yet by radiologist opinion and interpretation, the findings were negative and no further workup was done and the patient was admitted to the intensive care unit. Currently she is awake and she is restless in bed. She is moving all 4 extremities. She seems to be poorly maintained. She is on a normal saline infusion at the rate of 75 an hour. She received a total of 2 units of packed RBC and the sodium level is up to 120. She admits to drink beer and order of 5 bottles on a daily basis. There may be a history of alcoholism. She is a smoker and she smokes 5-10 cigarettes a day. On examination she is quite bronchospastic and wheezy and she has a congested cough. She is currently on oxygen at 6 L per minute nasal cannula with a pulse ox of 94%. Cardiac rhythm is sinus. EKG showed a normal sinus rhythm and some ST segment changes limited and T-wave inversions over the lateral leads. Troponins were slightly abnormal with one lives of 0.19, 0.3 and 0.5 respectively 3. CPK level was at 725 at a time of admission. She has a Jarquin catheter in place. Urine output is in order of 100 mL an hour. On examination, the patient has multiple abrasions of the skin in various parts of her body. She also has a surgical scar over the lip probably related to a previous resection of a skin cancer. The past medical history is not known. The past surgical is not known. She is on a blood pressure medication including metoprolol and amlodipine on outpatient basis. Patient was reevaluated today on 10/19/2019, patient remains in the ICU, still quite lethargic, arousable only with deep painful stimuli, she had intermittent episodes of agitations and restlessness requiring Ativan. She just received a dose of Ativan earlier just before I came in to evaluate the patient.her sodium is up to 126. Her CBC showed a hemoglobin of 8.3.bicarb remains a bit low at 15 however her renal profile is normal.yesterday, patient had some EKG changes suggestive of acute coronary syndrome, and she was placed on heparin. Cardiology did not feel that the patient was a candidate for cardiac catheterization. Hence I recommended mostly maximal medical therapy. Her echocardiogram showed good LV function but it also showed moderate aortic regurgitation and mild aortic stenosis.chest x-ray this morning showed mostly right basilar atelectasis,chronic parenchymal changes, cardiomegaly, cannot totally rule out possible early right lower lobe infiltrate, but felt to be less likely. Reevaluated today on 10/20/2019, patient remains in the ICU, her urine output is extremely poor, anywhere between 5-20 mL per hour. Patient received significant amount of fluid boluses last night. And her urine output is still poor. Hence I have recommended Lasix to be given today. Patient remains lethargic, extremely difficult to arouse. Patient received Ativan 1 last night. She remains on norepinephrine at 0.14 mcg/kg/m, remains on bicarb drip, remains on heparin drip, she is on 3 L of oxygen via nasal cannula. Blood pressure remains marginal requiring norepinephrine. Chest x-ray showed cardiomegaly, large right lower lobe atelectasis and possibly some small right-sided pleural effusion. Doubt pneumonia. WBC count today is 26 hemoglobin is 11.2. PTT is not therapeutic. Electrolytes were noted bicarb remains low at 15 BUN is 12 creatinine 0.65. Reevaluated today on 10/21/2019, patient remains in the ICU, same mental status, remains quite obtunded, difficult to arouse, could barely open her eyes with he painful stimuli. Family is at bedside, and they were updated again on her condition. A continues to have norepinephrine at 0.08 mcg/kg/m, she is on bicarb drip which I will cut down and possibly discontinue the next 24 hours. Remains on heparin drip. She is on few liters nasal cannula. Urine output is marginal, hence she will be given a dose of Lasix. Chest x-ray continues to show right basilar opacity and trace of pleural effusion with left basilar atelectasis. has not made up his mind regarding CODE STATUS at this point, hence the patient remains full code at present. Cardiology is planning to stop heparin and to continue other medical management. Objective - Vital Signs Vital signs: Vital Signs Temp 98.0 F 10/21/19 08:00 Pulse 105 H 10/21/19 10:00 Resp 20 10/21/19 10:00 BP 109/64 10/21/19 10:00 Pulse Ox 93 L 10/21/19 10:00 Intake & Output 10/20/19 10/21/19 10/21/19 18:59 06:59 18:59 Intake Total 5460.840 7692.208 330 Output Total 1773 435 270 Balance -796.413 1078.208 60 Weight 60.5 kg Intake: IV 1205 1170 330 0.9 normal saline at KVO 130 220 80 Dextrose 5% in Water 1, 975 750 150 000 ml @ 25 mls/hr IV . Q24H [facility] with Sodium Bicarb (1 Meq/ml) 150 ml Rx#:[id number] Potassium Chloride 10 meq 100 In Water For Injection 1 100ml.bag @ 100 mls/hr IVPB Q1HR [facility] Rx#: [id number] Potassium Chloride 20 meq 100 100 In Water For Injection 1 100ml.bag @ 50 mls/hr IVPB Q2H [facility] Rx#: [id number] Thiamine 100 mg In Sodium 50 Chloride 0.9% 50 ml @ 100 mls/hr IVPB Q12HR [facility] Rx#:[id number] cefTRIAXone 1 gm In 50 Sodium Chloride 0.9% 50 ml @ 100 mls/hr IVPB Q24H [facility] Rx#:[id number] Intake, IV Titration 40.249 281.208 Amount Heparin Sod,Pork in 0.45% 40.249 27.208 NaCl 25,000 unit In 0.45 % NaCl 1 250ml.bag @ 12 UNITS/KG/HR 6.636 mls/hr IV .Q24H [facility] Rx#: [id number] Norepinephrine 4 mg In 254 Sodium Chloride 0.9% 250 ml @ 0.05 MCG/KG/MIN 10. 897 mls/hr IV .[id number] [facility] Rx#:[id number] Output: Urine 1773 435 270 Other: Voiding Method Indwelling Catheter Indwelling Catheter Indwelling Catheter - Exam Physical Exam: Revealed a 78-year-old female, obtunded opens eyes only to deep painful stimuli. head: Atraumatic, normocephalic, patient is on oxygen at 3 L/m HEENT:[Neck is supple.] [No neck masses.] [No thyromegaly.] [No JVD.]PERRLA, EOMI, moist mucous membranes. No icterus. Scar over left lower lip, related to old surgical resection of skin cancer. Chest: [diminished breath sounds at the bases, minimal crackles at the bases, wheezing noted on forced expiratory maneuver.] Cardiac Exam: [Normal S1 and S2, no S3 gallop, 2/6 systolic murmur thought the precordium. Abdomen: [Soft, nontender, no megaly, no rebound, no guarding, normal bowel sounds.] Extremities: [No clubbing, no edema, no cyanosis.] Neurological Exam: Opens eyes only to deep painful stimuli. Psychiatric: Cannot be assessed, Skin: No rashes. Lymphatics: No lymphadenopathy. - Labs CBC & Chem 7: 10/21/19 04:41 10/21/19 04:41 Labs: Abnormal Lab Results - Last 24 Hours (Table) 10/20/19 10/20/19 10/20/19 Range/Units 10:49 12:05 16:06 WBC (3.8-10.6) k/uL RBC (3.80-5.40) m/uL Hgb (11.4-16.0) gm/dL Hct (34.0-46.0) % Neutrophils # (1.3-7.7) k/uL Lymphocytes # (1.0-4.8) k/uL APTT >200.0 H* (22.0-30.0) sec Sodium (137-145) mmol/L Potassium (3.5-5.1) mmol/L Glucose (74-99) mg/dL POC Glucose (mg/dL) 117 H 160 H (75-99) mg/dL Calcium (8.4-10.2) mg/dL AST (14-36) U/L Alkaline Phosphatase (38-126) U/L Total Protein (6.3-8.2) g/dL Albumin (3.5-5.0) g/dL 10/20/19 10/20/19 10/21/19 Range/Units 19:52 22:26 00:17 WBC (3.8-10.6) k/uL RBC (3.80-5.40) m/uL Hgb (11.4-16.0) gm/dL Hct (34.0-46.0) % Neutrophils # (1.3-7.7) k/uL Lymphocytes # (1.0-4.8) k/uL APTT 33.8 H (22.0-30.0) sec Sodium (137-145) mmol/L Potassium (3.5-5.1) mmol/L Glucose (74-99) mg/dL POC Glucose (mg/dL) 194 H 218 H (75-99) mg/dL Calcium (8.4-10.2) mg/dL AST (14-36) U/L Alkaline Phosphatase (38-126) U/L Total Protein (6.3-8.2) g/dL Albumin (3.5-5.0) g/dL 10/21/19 10/21/19 10/21/19 Range/Units 04:09 04:41 04:41 WBC 17.3 H (3.8-10.6) k/uL RBC 2.95 L (3.80-5.40) m/uL Hgb 8.5 L D (11.4-16.0) gm/dL Hct 26.4 L (34.0-46.0) % Neutrophils # 16.1 H (1.3-7.7) k/uL Lymphocytes # 0.3 L (1.0-4.8) k/uL APTT (22.0-30.0) sec Sodium 132 L (137-145) mmol/L Potassium 3.0 L (3.5-5.1) mmol/L Glucose 155 H (74-99) mg/dL POC Glucose (mg/dL) 171 H (75-99) mg/dL Calcium 8.0 L (8.4-10.2) mg/dL AST 61 H (14-36) U/L Alkaline Phosphatase 37 L (38-126) U/L Total Protein 4.4 L (6.3-8.2) g/dL Albumin 2.7 L (3.5-5.0) g/dL 10/21/19 10/21/19 Range/Units 04:41 08:03 WBC (3.8-10.6) k/uL RBC (3.80-5.40) m/uL Hgb (11.4-16.0) gm/dL Hct (34.0-46.0) % Neutrophils # (1.3-7.7) k/uL Lymphocytes # (1.0-4.8) k/uL APTT 55.1 H (22.0-30.0) sec Sodium (137-145) mmol/L Potassium (3.5-5.1) mmol/L Glucose (74-99) mg/dL POC Glucose (mg/dL) 179 H (75-99) mg/dL Calcium (8.4-10.2) mg/dL AST (14-36) U/L Alkaline Phosphatase (38-126) U/L Total Protein (6.3-8.2) g/dL Albumin (3.5-5.0) g/dL Microbiology - Last 24 Hours (Table) 10/17/19 21:07 Urine Culture - Final Urine,Voided Escherichia coli Assessment and Plan Assessment: impression: 1 altered mental status most likely secondary to acute metabolic encephalopathy. 2 acute hyponatremia, resolved. 3 acute GI bleeding, most likely upper GI in nature, this will eventually require further investigation. Patient received a total of 2 units of packed RBCs since admission, her hemoglobin today is 11.2 today. No active bleeding at present. 4 acute coronary syndrome, being addressed by cardiology, planning to stop her heparin. 5 history of alcoholism 6 acute exacerbation of COPD 7 poor performance and functional status secondary to her multiple medical problems as noted above. 8 recurrent falls secondary to metabolic encephalopathy. 9 oliguria , exact etiology is not clear, could be related to hypotension, Lasix will be given again today. Her urine output seems to be marginal but much improved compared to the last few days. Recommendation: Continue to monitor the patient in the ICU Continue IV fluid at 75 ML per hour using 0.9 normal saline. Consider stopping sodium bicarb, the dose will be cut down significantly to 25 ML per hour. Continue to monitor daily electrolytes and monitor sodium. Continue bronchodilators. Continue to monitor hemoglobin and transfuse as needed for hemoglobin lower than 7. Continue IV Protonix. Heparin to be addressed by cardiology accordingly. Continue aspiration precautions. Patient remains critically ill, and no plans to transfer the patient out of the ICU at this point. Continue alcohol withdrawal protocol. Discussed her condition with her family at bedside including her , he is still undecided about her CODE STATUS, but he will let us know when he makes up his mind. In the meantime the patient remains full code. Time with Patient: Less than 30
[2019-10-21] MEDS: SODIUM CHLORIDE 0.9% 1,000 ML IV SCH ×2 (11:58→22:42)
[2019-10-21 12:19] LABS: Glucose,Whole Blood 134 mg/dL (75-99)
--- NOTE | 2019-10-21 12:37 | P.PN ---
Subjective Progress Note Date: 10/21/19 Chief Complaint: Frequent falls and altered mental status changes Mrs. Millan is a 78-year-old female with a past medical history of hypertension brought into the emergency department for frequent falls and altered mental status changes. Currently the patient is in the ICU and is confused so most of the history is taken from the family members were at the bedside. Patient has been having frequent falls at least 5-6 times in the past 4 days. Initially she was taken to [facility] few days back and she was discharged home. Her noticed that she has been having frequent falls and also feeling fatigued so he called the EMS who brought her to the hospital. In the ER patient had blood work done showing hemoglobin of 6.3 and sodium of 118. Her troponins are elevated at 0.320 and her urine analysis was positive for large leukocyte esterase and WBC clumps. She also had a chest x-ray and an x-ray of the pelvis- no acute changes and no fracture. Patient was started on IV fluids given 2 units of PRBCs and admitted to the ICU. In the ICU patient had CT of the brain - no acute cranial process and also CT of the chest and abdomen- anasarca and small left-sided pleural effusion and mild upper lobe emphysematous changes. Patient's past medical history significant for hypertension and is a current smoker. She also drinks 3-4 beers every day. The only outpatient medications that she takes her metoprolol and amlodipine. 10/19/2019 recently received Ativan for agitation, currently sleeping. Sodium improving, 126.Bicarb 15,IV fluids changed to bicarb drip as per nephrology. Status post 2 units of packed RBCs yesterday with current hemoglobin 8.3.no signs of active bleeding reported.receiving IV iron. Last night patient developed chest pain accompanied by EKG changes. Patient is not a candidate for cardiac catheterization/maintained on IV heparin drip as per cardiology.Echo reporting normal LV function, EF 55-60%,moderately dilated LA, moderate aortic regurgitation.vital signs stable, maintaining O2 sats in the high 90s on 3 L na baljit cannula. Chest x-ray reporting chronic emphysematous and parenchymal changes,cardiomegaly with developing right basilar acute infiltrate and/or atelectasis. 10/20/2019 Maintained on Levophed, bicarb and heparin drip. Bicarb 15. Required multiple fluid boluses throughout the night, urine output remains marginal. Received a dose of Lasix IV push this morning. Sedated. Chest x-ray reporting stable mild cardiomegaly, worsening right lower lung acute infiltrate and/or atelectasis and suspected new small right pleural effusion. Maintaining O2 sats in the 90s on 3 L nasal canula. Afebrile, WBC 26. Hemoglobin 11.2. 10/21/2019 remains on Levophed, bicarbonate and heparin drips. Urine output remains marginal. Chest x-ray reporting similar right basilar opacity with trace pleural effusion and new left basilar atelectasis. Lethargic. Discussed with significant other, Preston and niece CODE STATUS, as patient is currently a full code. discussing CODE STATUS further with family. Hemoglobin decreased, 8.5. No signs/symptoms of active bleeding currently. Sodium 132, potassium 3. Objective - Vital Signs Vital signs: Vital Signs Temp 98.0 F 10/21/19 08:00 Pulse 74 10/21/19 11:46 Resp 18 10/21/19 11:30 BP 111/48 10/21/19 11:30 Pulse Ox 93 L 10/21/19 11:30 Intake & Output 10/20/19 10/21/19 10/21/19 18:59 06:59 18:59 Intake Total 1419.391 8260.208 375 Output Total 1773 435 555 Balance -851.718 9966.208 -180 Weight 60.5 kg Intake: IV 1205 1170 375 0.9 normal saline at KVO 130 220 100 Dextrose 5% in Water 1, 975 750 175 000 ml @ 25 mls/hr IV . Q24H [facility] with Sodium Bicarb (1 Meq/ml) 150 ml Rx#:[id number] Potassium Chloride 10 meq 100 In Water For Injection 1 100ml.bag @ 100 mls/hr IVPB Q1HR [facility] Rx#: [id number] Potassium Chloride 20 meq 100 100 In Water For Injection 1 100ml.bag @ 50 mls/hr IVPB Q2H [facility] Rx#: [id number] Thiamine 100 mg In Sodium 50 Chloride 0.9% 50 ml @ 100 mls/hr IVPB Q12HR [facility] Rx#:[id number] cefTRIAXone 1 gm In 50 Sodium Chloride 0.9% 50 ml @ 100 mls/hr IVPB Q24H [facility] Rx#:[id number] Intake, IV Titration 40.249 281.208 Amount Heparin Sod,Pork in 0.45% 40.249 27.208 NaCl 25,000 unit In 0.45 % NaCl 1 250ml.bag @ 12 UNITS/KG/HR 6.636 mls/hr IV .Q24H [facility] Rx#: [id number] Norepinephrine 4 mg In 254 Sodium Chloride 0.9% 250 ml @ 0.05 MCG/KG/MIN 10. 897 mls/hr IV .[id number] [facility] Rx#:[id number] Output: Urine 1773 435 555 Other: Voiding Method Indwelling Catheter Indwelling Catheter Indwelling Catheter - Exam GEN. APPEARANCE: Lethargic, opens eyes to noxious stimuli HEAD EXAM: atraumatic, normocephalic, normal inspection EYE EXAM: Mild pallor. No icterus. ENT EXAM: Oral mucosa is dry NECK EXAM: Neck is supple. RESPIRATORY EXAM: Decreased breath sounds in all lung ramirez. Fine crackles at the lower lung bases.expiratory wheezing CARDIOVASCULAR EXAM: Regular S1-S2 heard.systolic murmur GI/ABDOMINAL EXAM: soft, normal bowel sounds. Nontender. No guarding or rigidity. EXTREMITIES EXAM: No edema, no clubbing, no cyanosis NEUROLOGICAL EXAM: unable to assess at this time, patient lethargic, obtunded, opens eyes and withdrawals to noxious stimuli SKIN: No rashes. - Labs CBC & Chem 7: 10/21/19 04:41 10/21/19 04:41 Labs: Abnormal Lab Results - Last 24 Hours (Table) 10/20/19 10/20/19 10/20/19 Range/Units 10:49 12:05 16:06 WBC (3.8-10.6) k/uL RBC (3.80-5.40) m/uL Hgb (11.4-16.0) gm/dL Hct (34.0-46.0) % Neutrophils # (1.3-7.7) k/uL Lymphocytes # (1.0-4.8) k/uL APTT >200.0 H* (22.0-30.0) sec Sodium (137-145) mmol/L Potassium (3.5-5.1) mmol/L Glucose (74-99) mg/dL POC Glucose (mg/dL) 117 H 160 H (75-99) mg/dL Calcium (8.4-10.2) mg/dL AST (14-36) U/L Alkaline Phosphatase (38-126) U/L Total Protein (6.3-8.2) g/dL Albumin (3.5-5.0) g/dL 10/20/19 10/20/19 10/21/19 Range/Units 19:52 22:26 00:17 WBC (3.8-10.6) k/uL RBC (3.80-5.40) m/uL Hgb (11.4-16.0) gm/dL Hct (34.0-46.0) % Neutrophils # (1.3-7.7) k/uL Lymphocytes # (1.0-4.8) k/uL APTT 33.8 H (22.0-30.0) sec Sodium (137-145) mmol/L Potassium (3.5-5.1) mmol/L Glucose (74-99) mg/dL POC Glucose (mg/dL) 194 H 218 H (75-99) mg/dL Calcium (8.4-10.2) mg/dL AST (14-36) U/L Alkaline Phosphatase (38-126) U/L Total Protein (6.3-8.2) g/dL Albumin (3.5-5.0) g/dL 10/21/19 10/21/19 10/21/19 Range/Units 04:09 04:41 04:41 WBC 17.3 H (3.8-10.6) k/uL RBC 2.95 L (3.80-5.40) m/uL Hgb 8.5 L D (11.4-16.0) gm/dL Hct 26.4 L (34.0-46.0) % Neutrophils # 16.1 H (1.3-7.7) k/uL Lymphocytes # 0.3 L (1.0-4.8) k/uL APTT (22.0-30.0) sec Sodium 132 L (137-145) mmol/L Potassium 3.0 L (3.5-5.1) mmol/L Glucose 155 H (74-99) mg/dL POC Glucose (mg/dL) 171 H (75-99) mg/dL Calcium 8.0 L (8.4-10.2) mg/dL AST 61 H (14-36) U/L Alkaline Phosphatase 37 L (38-126) U/L Total Protein 4.4 L (6.3-8.2) g/dL Albumin 2.7 L (3.5-5.0) g/dL 10/21/19 10/21/19 Range/Units 04:41 08:03 WBC (3.8-10.6) k/uL RBC (3.80-5.40) m/uL Hgb (11.4-16.0) gm/dL Hct (34.0-46.0) % Neutrophils # (1.3-7.7) k/uL Lymphocytes # (1.0-4.8) k/uL APTT 55.1 H (22.0-30.0) sec Sodium (137-145) mmol/L Potassium (3.5-5.1) mmol/L Glucose (74-99) mg/dL POC Glucose (mg/dL) 179 H (75-99) mg/dL Calcium (8.4-10.2) mg/dL AST (14-36) U/L Alkaline Phosphatase (38-126) U/L Total Protein (6.3-8.2) g/dL Albumin (3.5-5.0) g/dL Microbiology - Last 24 Hours (Table) 10/17/19 21:07 Urine Culture - Final Urine,Voided Escherichia coli Assessment and Plan Assessment: Acute STEMI, inferior wall acute Metabolic Encephalopathy,multifactorial secondary to infection,electrolyte imbalance, EtOH abuse,possible alcohol withdrawal,possible hepatic encephalopathy. Hypovolemic hyponatremiasecondary to alcohol abuse acute UTI with gram-negative bacilli Elevated troponins acute GI bleed suspect upper GI,status post 2 units packed RBCs,further workup pending Frequent falls acute COPD exacerbation chronic Alcohol abuse Hypertension, history of Hypotension, pressor dependent Atelectasis plan: Continue on current medication regime ,monitoring and symptomatic treatment. Strict Aspiration precautions. IV fluid hydration, decrease bicarbonate drip. Heparin drip being discontinued as per cardiology. Maintain CIWA protocol,PPI,nebulized bronchodilators. Close monitoring of hemoglobin with repeat labs ordered for a.m. CODE STATUS discussed with and family; wishes to discuss it further with family .maintain supportive care .Prognosis guarded given multiple complex medical issues. The impression and plan of care has been dictated as directed. : I performed a history and examination of this patient, discussed the same with the dictator. I agree with the dictator's note ,documented as a scribe. Any additional findings or plans will be noted.
--- NOTE | 2019-10-21 15:57 | PN ---
PROGRESS NOTE Patient is seen for followup for hyponatremia. Her serum sodium level has improved. It is staying at 132 to 133 mEq/L. Patient was maintained on bicarb drip, which was discontinued this morning. IV fluid switched to normal saline. Currently patient is resting comfortably. She denies any significant complaints. On examination, blood pressure this afternoon was 122/55, heart rate 72 per minute. She is afebrile. EXAMINATION OF THE HEART: S1 and S2. EXAMINATION OF LUNGS: Decreased breath sounds at bases. ABDOMEN: Soft, non-tender. Examination of lower extremities shows no significant edema. Labs show sodium 132, potassium 3.0, chloride 100. CO2 is 24, BUN 9, creatinine 0.5, hemoglobin 8.5 g/dL. ASSESSMENT: 1. Hypovolemic hyponatremia, now improved. Patient is maintained on normal saline. We can decrease the rate if patient has a fair amount of oral intake. 2. Hypokalemia associated with bicarb drip and decreased oral intake, status post replacement. 3. Generalized debility. 4. Metabolic acidosis, status post bicarb drip, which we will discontinue today. 5. Chronic alcohol abuse. 6. Acute coronary syndrome; being followed by Cardiology; status post IV heparin. 7. Iron deficiency, maintained on IV iron. PLAN: Discontinue bicarb drip. May continue with saline. Can decrease rate to about 50 mL/hour if patient has adequate oral intake. MMODL / IJN: [id number] /
[2019-10-21 16:18] LABS: Glucose,Whole Blood 141 mg/dL (75-99)
[2019-10-21 17:03] LABS: Glucose,Whole Blood 127 mg/dL (75-99)
--- NOTE | 2019-10-21 17:42 | PN ---
PROGRESS NOTE DATE OF DICTATION: 10/21/2019 Patient is a 78-year-old pleasant white female admitted to the hospital with altered mental status and acute coronary syndrome who was seen by Cardiology and was started on IV heparin, which was discontinued this morning. She also had a hemoglobin of 6.3 g/dL at the time of admission to the hospital, received 2 units of blood transfusion, and hemoglobin has been stable since then. She had a couple of episodes of dark-colored stool yesterday but this morning had brown stools. She continues to remain lethargic and unable to arouse easily with verbal stimuli. She is hemodynamically stable. No nausea or vomiting. No new symptoms. PHYSICAL EXAMINATION: Vital signs are stable. Blood pressure was 102/86, pulse rate 87, temperature 98. HEENT examination unremarkable. Conjunctivae pink. Sclerae anicteric. Oral cavity no lesions. NECK: No JVD or lymph node enlargement. CHEST: Clear to auscultation. HEART: Regular rate and rhythm. ABDOMEN: Soft. Bowel sounds are positive. No organomegaly. EXTREMITIES: No pedal edema. NEUROLOGIC: She is arousable with painful stimuli. LABS: WBC 7.3, hemoglobin 8.5, platelets normal. PTT 55. Basic metabolic panel is within normal limits. IMPRESSION: 1. Severe symptomatic anemia with a hemoglobin of 6.3 but clinically no further episodes of active ongoing bleeding, status post 2 units of blood transfusion at the time of admission to the hospital, and hemoglobin remains stable at 9 g/dL. 2. Acute coronary syndrome, being followed by Cardiology. She was on IV heparin drip that was discontinued this morning. She remains stable and the plan is to continue with conservative approach. 3. Altered mental status. Neurology following the patient. Probably related to hyponatremia, but the sodium has been improving through this hospitalization. 4. Acute urinary tract infection, on broad-spectrum antibiotics. 5. History of chronic obstructive pulmonary disease. RECOMMENDATIONS: 1. Continue to monitor her closely. 2. Monitor CBC on a daily basis. 3. Continue Protonix 40 mg once daily. 4. Broad-spectrum antibiotics. 5. Consider tube feeding. Consider NG tube feeds. 6. No plan for any endoscopic intervention at the present time because of her overall medical condition. Will follow with you closely. Thank you for this consultation. MMODL / IJN: [id number] /
[2019-10-21 19:47] LABS: Glucose,Whole Blood 132 mg/dL (75-99)
[2019-10-22] MEDS: INSULIN ASPART (NovoLOG) 100 UNIT/ML VIAL SQ SCH ×7 (00:09→23:53)
[2019-10-22] MEDS: IPRATROPIUM-ALBUTEROL 3 ML NEB INHALATION SCH ×6 (00:10→19:32)
[2019-10-22] MEDS: methylPREDNISolone SOD SUCCI 125 MG/2 ML VIAL IV SCH ×5 (00:13→23:48)
[2019-10-22 00:20] LABS: Glucose,Whole Blood 114 mg/dL (75-99)
[2019-10-22] MEDS ORDERED: FUROSEMIDE 10 MG/ML 4 ML VIAL IV STA (01:08)
[2019-10-22] MEDS: LORazepam 2 MG/ML INJ IV PRN ×4 (02:19→23:46)
[2019-10-22 04:35] LABS: Glucose,Whole Blood 124 mg/dL (75-99)
[2019-10-22 05:40] LABS: Basophils % (A) 0 %; Eosinophils # (A) 0.1 k/uL (0-0.7); Eosinophils % (A) 1 %; HCT 24.2 % (34.0-46.0); Hypochromasia Moderate; Lymphocytes # (A) 0.3 k/uL (1.0-4.8); Lymphocytes % (A) 2 %; MCHC 33.1 g/dL (31.0-37.0); MCV 90.6 fL (80.0-100.0); Mean Platelet Volume 5.8; Monocytes # (A) 0.6 k/uL (0-1.0); Monocytes % (A) 4 %; Neutrophils # (A) 11.9 k/uL (1.3-7.7); Neutrophils % (A) 92 %; Platelet Count 329 k/uL (150-450); Poikilocytosis Moderate; RBC 2.68 m/uL (3.80-5.40); RDW 15.6 % (11.5-15.5); WBC 12.9 k/uL (3.8-10.6)
[2019-10-22 05:48] LABS: African American GFR (CKD) >90 (>60 ml/min/1.73 sqM); Anion Gap 4 mmol/L; Blood Urea Nitrogen 10 mg/dL (7-17); Calcium 8.2 mg/dL (8.4-10.2); Carbon Dioxide 31 mmol/L (22-30); Chloride 98 mmol/L (98-107); Glucose 115 mg/dL (74-99); Non-African American GFR(CKD) 88 (>60 ml/min/1.73 sqM); Sodium 133 mmol/L (137-145)
[2019-10-22] MEDS: POTASSIUM CHLORIDE 20 MEQ in WATER FOR INJECTION 1 100ML.BAG IVPB SCH ×2 (06:09→08:28)
--- NOTE | 2019-10-22 07:49 | XR ---
EXAMINATION TYPE: XR chest 1V portable DATE OF EXAM: 10/22/2019 COMPARISON: 10/21/2019 HISTORY: Shortness of breath TECHNIQUE: Single frontal view of the chest is obtained. FINDINGS: The right basilar opacity surrounding hemidiaphragm is unchanged. Left basilar atelectasis has slightly worsened. Chronic interstitial prominence. Stable left PICC and cardiomegaly. Diffuse o sseous demineralization. No sizable pneumothorax. IMPRESSION: Stable right basilar airspace disease and worsening left basilar atelectasis.
[2019-10-22] MEDS: PANTOPRAZOLE 40 MG/10 ML VIAL IV SCH ×2 (08:27→21:09)
[2019-10-22] MEDS: METOPROLOL TARTRATE 5 MG/5 ML VIAL IVP SCH ×2 (08:27→21:10)
[2019-10-22] MEDS: ASPIRIN 300 MG SUPP RECTAL SCH (08:28)
[2019-10-22] MEDS: SODIUM FERRIC GLUCONAT-SUCROSE 125 MG in SODIUM CHLORIDE 0.9% 100 ML IVPB SCH (08:28)
[2019-10-22] MEDS: ATORVASTATIN 40 MG TAB PO SCH (08:47)
--- NOTE | 2019-10-22 09:04 | PN ---
PROGRESS NOTE Mrs. Millan is a 78-year-old female with known history of chronic tobacco use and history of chronic alcohol intake who presented with a severe anemia and GI bleeding and had evidence of an acute inferior myocardial infarction. She continues to be inappropriate, not answering verbal commands. She is sleepy. Pulling her IVs. There is no documented ventricular ectopic activity. There are no new changes in her status. I discussed her case at length today with her niece and discussed with her the guarded prognosis. The patient is DNR at this time. She continues to be NPO because of the inability to be compliant with swallowing and the concern about aspiration. She is off the IV heparin and was continued on the aspirin rectally, Lipitor 40 mg daily, metoprolol tartrate 5 mg IV q.12 hours. PHYSICAL EXAMINATION: Blood pressure 119/60 with a heart rate in the 80s to low 100s. LUNGS: Clear anteriorly. HEART: S1, S2 with a systolic murmur. No diastolic murmur. No rub. ABDOMEN: Soft. Positive bowel sounds. No organomegaly. EXTREMITIES: No edema. LAB DATA: Revealed hemoglobin of 8. BUN and creatinine of 10 and 0.59. Her sodium is 133, potassium is 3.0. IMPRESSION: 1. Acute inferior myocardial infarction, treated conservatively in view of the mental status. 2. Acute gastrointestinal bleeding. 3. Metabolic encephalopathy with chronic alcoholism. 4. Hyponatremia, improving. 5. Chronic obstructive lung disease with chronic tobacco use. RECOMMENDATIONS: Her overall prognosis is quite poor. I discussed with the niece the situation. I discussed with her the issue of feeding and she will discuss it further with the rest of the family to make further decisions. The patient is unable to take p.o. and may require a feeding tube. MMODL / IJN: [id number] /
--- NOTE | 2019-10-22 10:37 | P.PN ---
Subjective Patient is seen in follow-up for hyponatremia. Sodium level is gradually improving - 133 this morning. Patient remains confused and agitated. Not a reliable historian. Family present at bedside. On low-dose Levophed. Vital signs are stable. General: The patient appeared well nourished and normally developed. Lethargic. HEENT: Head exam is unremarkable. Neck is without jugular venous distension. LUNGS: Lungs are clear to auscultation and percussion. Breath sounds decreased. HEART: Rate and Rhythm are regular. First and second heart sounds normal. No murmurs, rubs or gallops. ABDOMEN: Abdominal exam reveals normal bowel sounds. Non-tender and non- distended. No evidence of peritonitis. EXTREMITITES: No clubbing, cyanosis, or edema. Objective - Vital Signs Vital signs: Vital Signs Temp 97.8 F 10/22/19 08:00 Pulse 74 10/22/19 09:00 Resp 45 H 10/22/19 09:00 BP 121/63 10/22/19 09:00 Pulse Ox 93 L 10/22/19 09:00 Intake & Output 10/21/19 10/22/19 10/22/19 18:59 06:59 18:59 Intake Total 1085 1179 525 Output Total 920 1375 275 Balance 165 -196 250 Weight 60.2 kg 60.5 kg Intake: IV 1085 925 525 0.9 normal saline at KVO 160 Dextrose 5% in Water 1, 300 000 ml @ 25 mls/hr IV . Q24H [facility] with Sodium Bicarb (1 Meq/ml) 150 ml Rx#:[id number] Potassium Chloride 20 meq 100 100 In Water For Injection 1 100ml.bag @ 50 mls/hr IVPB Q2H [facility] Rx#: [id number] Potassium Chloride 20 meq 100 In Water For Injection 1 100ml.bag @ 50 mls/hr IVPB Q2H [facility] Rx#: [id number] Sodium Chloride 0.9% 1, 525 825 225 000 ml @ 75 mls/hr IV . [id number] [facility] Rx#:[id number] Sodium Ferric Gluconat- 100 Sucrose 125 mg In Sodium Chloride 0.9% 100 ml @ 100 mls/hr IVPB Q24HR [facility] Rx#:[id number] Thiamine 100 mg In Sodium 100 Chloride 0.9% 50 ml @ 100 mls/hr IVPB Q12HR [facility] Rx#:[id number] Intake, IV Titration 254 Amount Norepinephrine 4 mg In 254 Sodium Chloride 0.9% 250 ml @ 0.05 MCG/KG/MIN 10. 897 mls/hr IV .[id number] [facility] Rx#:[id number] Output: Urine 920 1375 275 Other: Voiding Method Indwelling Catheter Indwelling Catheter Indwelling Catheter - Labs CBC & Chem 7: 10/22/19 05:14 10/22/19 05:14 Labs: Abnormal Lab Results - Last 24 Hours (Table) 10/21/19 10/21/19 10/21/19 Range/Units 12:08 16:06 16:52 WBC (3.8-10.6) k/uL RBC (3.80-5.40) m/uL Hgb (11.4-16.0) gm/dL Hct (34.0-46.0) % RDW (11.5-15.5) % Neutrophils # (1.3-7.7) k/uL Lymphocytes # (1.0-4.8) k/uL Sodium (137-145) mmol/L Potassium (3.5-5.1) mmol/L Carbon Dioxide (22-30) mmol/L Glucose (74-99) mg/dL POC Glucose (mg/dL) 134 H 141 H 127 H (75-99) mg/dL Calcium (8.4-10.2) mg/dL 10/21/19 10/22/19 10/22/19 Range/Units 19:36 00:08 04:15 WBC (3.8-10.6) k/uL RBC (3.80-5.40) m/uL Hgb (11.4-16.0) gm/dL Hct (34.0-46.0) % RDW (11.5-15.5) % Neutrophils # (1.3-7.7) k/uL Lymphocytes # (1.0-4.8) k/uL Sodium (137-145) mmol/L Potassium (3.5-5.1) mmol/L Carbon Dioxide (22-30) mmol/L Glucose (74-99) mg/dL POC Glucose (mg/dL) 132 H 114 H 124 H (75-99) mg/dL Calcium (8.4-10.2) mg/dL 12/05/19 12/05/19 Range/Units 05:14 05:14 WBC 12.9 H (3.8-10.6) k/uL RBC 2.68 L (3.80-5.40) m/uL Hgb 8.0 L (11.4-16.0) gm/dL Hct 24.2 L (34.0-46.0) % RDW 15.6 H (11.5-15.5) % Neutrophils # 11.9 H (1.3-7.7) k/uL Lymphocytes # 0.3 L (1.0-4.8) k/uL Sodium 133 L (137-145) mmol/L Potassium 3.0 L (3.5-5.1) mmol/L Carbon Dioxide 31 H (22-30) mmol/L Glucose 115 H (74-99) mg/dL POC Glucose (mg/dL) (75-99) mg/dL Calcium 8.2 L (8.4-10.2) mg/dL Assessment and Plan Plan: Assessment: 1. Hypovolemic hyponatremia improving with normal saline. Sodium level 133 this morning. TSH and cortisol normal. 2. Metabolic acidosis, initially with high anion gap. This can be from ketoacidosis due to chronic alcohol use. Also component of non-gap acidosis from IV fluids. Resolved. 3. Acute GI bleed status post blood transfusion. Hemoglobin 8.0 this morning. GI following. Status post IV iron. 4. Frequent falls which can be from hyponatremia. 5. Benign hypertension. Currently on the lower side. 6. Hypokalemia from poor oral intake and diuretics. 7. Moderate aortic regurgitation. 8. Chronic alcohol abuse. 9. Acute coronary syndrome status post heparin drip. Cardiology following. 10. UTI with urine culture positive for E. coli maintained on antibiotics. Plan: Decrease rate of normal saline to 50 mL an hour. Also started on Lasix 20 mg IV once daily today. Potassium being replaced. Tube feeding to be started today. Patient remains at high risk for aspiration.
[2019-10-22] MEDS ORDERED: Magnesium Replacement Protocol 1 EACH MISC MISCELLANE PRN (11:48)
[2019-10-22] MEDS: ENOXAPARIN 40 MG/0.4 ML SYRINGE SQ SCH (12:11)
[2019-10-22 12:12] LABS: Glucose,Whole Blood 119 mg/dL (75-99)
[2019-10-22] MEDS: FUROSEMIDE 10 MG/ML 2 ML VIAL IV SCH (12:14)
--- NOTE | 2019-10-22 12:16 | P.PN ---
Subjective Progress Note Date: 10/22/19 Principal diagnosis: altered mental status and possible acute metabolic encephalopathy Is a 70-year-old female patient who is currently confused. The patient came in to the emergency department yesterday because of altered mentation and recurrent falls. Apparently she has been falling and she fell at least 5 times yesterday. She initially went to [facility] and she was discharged home without having any labs done. HIDA time she came to our emergency department, the labs are quite abnormal and she had a sodium level of 117 with a potassium level of 5.2 and a chloride of 89 and a serum bicarb of 17 with an anion gap of 17. Creatinine was stable at 0.9. Her initial hemoglobin was at 6.3 and she had guaiac positive stool. Her coags showed an INR of 1.3 with a PT of 15.6. The patient had a chest x-ray that showed some tortuous aorta yet by radiologist opinion and interpretation, the findings were negative and no further workup was done and the patient was admitted to the intensive care unit. Currently she is awake and she is restless in bed. She is moving all 4 extremities. She seems to be poorly maintained. She is on a normal saline infusion at the rate of 75 an hour. She received a total of 2 units of packed RBC and the sodium level is up to 120. She admits to drink beer and order of 5 bottles on a daily basis. There may be a history of alcoholism. She is a smoker and she smokes 5-10 cigarettes a day. On examination she is quite bronchospastic and wheezy and she has a congested cough. She is currently on oxygen at 6 L per minute nasal cannula with a pulse ox of 94%. Cardiac rhythm is sinus. EKG showed a normal sinus rhythm and some ST segment changes limited and T-wave inversions over the lateral leads. Troponins were slightly abnormal with one lives of 0.19, 0.3 and 0.5 respectively 3. CPK level was at 725 at a time of admission. She has a Jarquin catheter in place. Urine output is in order of 100 mL an hour. On examination, the patient has multiple abrasions of the skin in various parts of her body. She also has a surgical scar over the lip probably related to a previous resection of a skin cancer. The past medical history is not known. The past surgical is not known. She is on a blood pressure medication including metoprolol and amlodipine on outpatient basis. Patient was reevaluated today on 10/19/2019, patient remains in the ICU, still quite lethargic, arousable only with deep painful stimuli, she had intermittent episodes of agitations and restlessness requiring Ativan. She just received a dose of Ativan earlier just before I came in to evaluate the patient.her sodium is up to 126. Her CBC showed a hemoglobin of 8.3.bicarb remains a bit low at 15 however her renal profile is normal.yesterday, patient had some EKG changes suggestive of acute coronary syndrome, and she was placed on heparin. Cardiology did not feel that the patient was a candidate for cardiac catheterization. Hence I recommended mostly maximal medical therapy. Her echocardiogram showed good LV function but it also showed moderate aortic regurgitation and mild aortic stenosis.chest x-ray this morning showed mostly right basilar atelectasis,chronic parenchymal changes, cardiomegaly, cannot totally rule out possible early right lower lobe infiltrate, but felt to be less likely. Reevaluated today on 10/20/2019, patient remains in the ICU, her urine output is extremely poor, anywhere between 5-20 mL per hour. Patient received significant amount of fluid boluses last night. And her urine output is still poor. Hence I have recommended Lasix to be given today. Patient remains lethargic, extremely difficult to arouse. Patient received Ativan 1 last night. She remains on norepinephrine at 0.14 mcg/kg/m, remains on bicarb drip, remains on heparin drip, she is on 3 L of oxygen via nasal cannula. Blood pressure remains marginal requiring norepinephrine. Chest x-ray showed cardiomegaly, large right lower lobe atelectasis and possibly some small right-sided pleural effusion. Doubt pneumonia. WBC count today is 26 hemoglobin is 11.2. PTT is not therapeutic. Electrolytes were noted bicarb remains low at 15 BUN is 12 creatinine 0.65. Reevaluated today on 10/21/2019, patient remains in the ICU, same mental status, remains quite obtunded, difficult to arouse, could barely open her eyes with he painful stimuli. Family is at bedside, and they were updated again on her condition. A continues to have norepinephrine at 0.08 mcg/kg/m, she is on bicarb drip which I will cut down and possibly discontinue the next 24 hours. Remains on heparin drip. She is on few liters nasal cannula. Urine output is marginal, hence she will be given a dose of Lasix. Chest x-ray continues to show right basilar opacity and trace of pleural effusion with left basilar atelectasis. has not made up his mind regarding CODE STATUS at this point, hence the patient remains full code at present. Cardiology is planning to stop heparin and to continue other medical management. Reevaluated today on 10/22/2019, remains in the ICU, not much of a change manager the last few days. Remains obtunded, monos with deep painful stimuli, but does not open eyes. Patient is off norepinephrine, she is hemodynamically stable, her urine output seems to be adequate, and her chest x-ray showed possible mild interstitial edema, hence another dose of Lasix will be given today. Patient is off the bicarb drip. And she is off the heparin drip. Not much of a neurological improvement noted over the last 24 hours. Objective - Vital Signs Vital signs: Vital Signs Temp 97.8 F 10/22/19 08:00 Pulse 74 10/22/19 09:00 Resp 45 H 10/22/19 09:00 BP 121/63 10/22/19 09:00 Pulse Ox 93 L 10/22/19 09:00 Intake & Output 10/21/19 10/22/19 10/22/19 18:59 06:59 18:59 Intake Total 1085 1179 525 Output Total 920 1375 275 Balance 165 -196 250 Weight 60.2 kg 60.5 kg Intake: IV 1085 925 525 0.9 normal saline at KVO 160 Dextrose 5% in Water 1, 300 000 ml @ 25 mls/hr IV . Q24H [facility] with Sodium Bicarb (1 Meq/ml) 150 ml Rx#:[id number] Potassium Chloride 20 meq 100 100 In Water For Injection 1 100ml.bag @ 50 mls/hr IVPB Q2H [facility] Rx#: [id number] Potassium Chloride 20 meq 100 In Water For Injection 1 100ml.bag @ 50 mls/hr IVPB Q2H [facility] Rx#: [id number] Sodium Chloride 0.9% 1, 525 825 225 000 ml @ 75 mls/hr IV . [id number] [facility] Rx#:[id number] Sodium Ferric Gluconat- 100 Sucrose 125 mg In Sodium Chloride 0.9% 100 ml @ 100 mls/hr IVPB Q24HR [facility] Rx#:[id number] Thiamine 100 mg In Sodium 100 Chloride 0.9% 50 ml @ 100 mls/hr IVPB Q12HR [facility] Rx#:[id number] Intake, IV Titration 254 Amount Norepinephrine 4 mg In 254 Sodium Chloride 0.9% 250 ml @ 0.05 MCG/KG/MIN 10. 897 mls/hr IV .[id number] [facility] Rx#:[id number] Output: Urine 920 1375 275 Other: Voiding Method Indwelling Catheter Indwelling Catheter Indwelling Catheter - Exam Physical Exam: Revealed a 78-year-old female, obtunded tries to open eyes on deep painful stimuli but doesn't fully open done. head: Atraumatic, normocephalic, patient is on oxygen at 3 L/m HEENT:[Neck is supple.] [No neck masses.] [No thyromegaly.] [No JVD.]PERRLA, EOMI, moist mucous membranes. No icterus. Scar over left lower lip, related to old surgical resection of skin cancer. Chest: [diminished breath sounds at the bases, minimal crackles at the bases, wheezing noted on forced expiratory maneuver.] Cardiac Exam: [Normal S1 and S2, no S3 gallop, 2/6 systolic murmur thought the precordium. Abdomen: [Soft, nontender, no megaly, no rebound, no guarding, normal bowel s ounds.] Extremities: [No clubbing, no edema, no cyanosis.] Neurological Exam: Tries to open eyes on deep painful stimuli otherwise she doesn't Psychiatric: Cannot be assessed, Skin: No rashes. Lymphatics: No lymphadenopathy. - Labs CBC & Chem 7: 10/22/19 05:14 10/22/19 05:14 Labs: Abnormal Lab Results - Last 24 Hours (Table) 10/21/19 10/21/19 10/21/19 Range/Units 12:08 16:06 16:52 WBC (3.8-10.6) k/uL RBC (3.80-5.40) m/uL Hgb (11.4-16.0) gm/dL Hct (34.0-46.0) % RDW (11.5-15.5) % Neutrophils # (1.3-7.7) k/uL Lymphocytes # (1.0-4.8) k/uL Sodium (137-145) mmol/L Potassium (3.5-5.1) mmol/L Carbon Dioxide (22-30) mmol/L Glucose (74-99) mg/dL POC Glucose (mg/dL) 134 H 141 H 127 H (75-99) mg/dL Calcium (8.4-10.2) mg/dL 10/21/19 10/22/19 10/22/19 Range/Units 19:36 00:08 04:15 WBC (3.8-10.6) k/uL RBC (3.80-5.40) m/uL Hgb (11.4-16.0) gm/dL Hct (34.0-46.0) % RDW (11.5-15.5) % Neutrophils # (1.3-7.7) k/uL Lymphocytes # (1.0-4.8) k/uL Sodium (137-145) mmol/L Potassium (3.5-5.1) mmol/L Carbon Dioxide (22-30) mmol/L Glucose (74-99) mg/dL POC Glucose (mg/dL) 132 H 114 H 124 H (75-99) mg/dL Calcium (8.4-10.2) mg/dL 10/22/19 10/22/19 Range/Units 05:14 05:14 WBC 12.9 H (3.8-10.6) k/uL RBC 2.68 L (3.80-5.40) m/uL Hgb 8.0 L (11.4-16.0) gm/dL Hct 24.2 L (34.0-46.0) % RDW 15.6 H (11.5-15.5) % Neutrophils # 11.9 H (1.3-7.7) k/uL Lymphocytes # 0.3 L (1.0-4.8) k/uL Sodium 133 L (137-145) mmol/L Potassium 3.0 L (3.5-5.1) mmol/L Carbon Dioxide 31 H (22-30) mmol/L Glucose 115 H (74-99) mg/dL POC Glucose (mg/dL) (75-99) mg/dL Calcium 8.2 L (8.4-10.2) mg/dL Assessment and Plan Assessment: impression: 1 altered mental status most likely secondary to acute metabolic encephalopathy. 2 acute hyponatremia, resolved. 3 acute GI bleeding, most likely upper GI in nature, this will eventually require further investigation. Patient received a total of 2 units of packed RBCs since admission, her hemoglobin today is 8.0. 4 acute coronary syndrome, being addressed by cardiology, off heparin. 5 history of alcoholism 6 acute exacerbation of COPD 7 poor performance and functional status secondary to her multiple medical problems as noted above. 8 recurrent falls secondary to metabolic encephalopathy. 9 oliguria , resolved. Recommendation: Continue to monitor the patient in the ICU Continue IV fluid at 75 ML per hour using 0.9 normal saline. Continue to monitor daily electrolytes and monitor sodium. Continue bronchodilators. Continue to monitor hemoglobin and transfuse as needed for hemoglobin lower than 7. Continue IV Protonix. DVT prophylaxis with subcu Lovenox. Patient is off IV heparin. Continue aspiration precautions. Will recommend nasogastric tube placement and enteral feeding today.. Continue alcohol withdrawal protocol. CODE STATUS has been changed to DO NOT RESUSCITATE. Will initiate a neurological consultation regarding her mental status. And her encephalopathy Time with Patient: Less than 30
[2019-10-22] MEDS: SODIUM CHLORIDE 0.9% 1,000 ML IV SCH (12:19)
--- NOTE | 2019-10-22 12:36 | P.PN ---
Subjective Progress Note Date: 10/22/19 Chief Complaint: Frequent falls and altered mental status changes Mrs. Millan is a 78-year-old female with a past medical history of hypertension brought into the emergency department for frequent falls and altered mental status changes. Currently the patient is in the ICU and is confused so most of the history is taken from the family members were at the bedside. Patient has been having frequent falls at least 5-6 times in the past 4 days. Initially she was taken to [facility] few days back and she was discharged home. Her noticed that she has been having frequent falls and also feeling fatigued so he called the EMS who brought her to the hospital. In the ER patient had blood work done showing hemoglobin of 6.3 and sodium of 118. Her troponins are elevated at 0.320 and her urine analysis was positive for large leukocyte esterase and WBC clumps. She also had a chest x-ray and an x-ray of the pelvis- no acute changes and no fracture. Patient was started on IV fluids given 2 units of PRBCs and admitted to the ICU. In the ICU patient had CT of the brain - no acute cranial process and also CT of the chest and abdomen- anasarca and small left-sided pleural effusion and mild upper lobe emphysematous changes. Patient's past medical history significant for hypertension and is a current smoker. She also drinks 3-4 beers every day. The only outpatient medications that she takes her metoprolol and amlodipine. 10/19/2019 recently received Ativan for agitation, currently sleeping. Sodium improving, 126.Bicarb 15,IV fluids changed to bicarb drip as per nephrology. Status post 2 units of packed RBCs yesterday with current hemoglobin 8.3.no signs of active bleeding reported.receiving IV iron. Last night patient developed chest pain accompanied by EKG changes. Patient is not a candidate for cardiac catheterization/maintained on IV heparin drip as per cardiology.Echo reporting normal LV function, EF 55-60%,moderately dilated LA, moderate aortic regurgitation.vital signs stable, maintaining O2 sats in the high 90s on 3 L na baljit cannula. Chest x-ray reporting chronic emphysematous and parenchymal changes,cardiomegaly with developing right basilar acute infiltrate and/or atelectasis. 10/20/2019 Maintained on Levophed, bicarb and heparin drip. Bicarb 15. Required multiple fluid boluses throughout the night, urine output remains marginal. Received a dose of Lasix IV push this morning. Sedated. Chest x-ray reporting stable mild cardiomegaly, worsening right lower lung acute infiltrate and/or atelectasis and suspected new small right pleural effusion. Maintaining O2 sats in the 90s on 3 L nasal canula. Afebrile, WBC 26. Hemoglobin 11.2. 10/21/2019 remains on Levophed, bicarbonate and heparin drips. Urine output remains marginal. Chest x-ray reporting similar right basilar opacity with trace pleural effusion and new left basilar atelectasis. Lethargic. Discussed with significant other, Preston and niece CODE STATUS, as patient is currently a full code. discussing CODE STATUS further with family. Hemoglobin decreased, 8.5. No signs/symptoms of active bleeding currently. Sodium 132, potassium 3. 10/22/19 CODE STATUS changed yesterday per spouse to no code, no CPR, no intubation. Bicarb drip discontinued. Levophed weaned off last night, improving urine output-currently reported at 50-70 MLS per hour. Last Ativan administered at 0700. Patient obtunded, confused, agitated, picking and pulling at things, not following commands-neurology consulted. O2 requirements increased, currently requiring 10 L nasal cannula to maintain O2 sats in the 90s. Chest x-ray reporting stable right basilar airspace disease with worsening left basilar atelectasis. Afebrile, WBC decreased to 12.9. Hemoglobin 8. Potassium 3. Sodium improving, 133. Objective - Vital Signs Vital signs: Vital Signs Temp 97.8 F 10/22/19 08:00 Pulse 74 10/22/19 09:00 Resp 45 H 10/22/19 09:00 BP 121/63 10/22/19 09:00 Pulse Ox 93 L 10/22/19 09:00 Intake & Output 10/21/19 10/22/19 10/22/19 18:59 06:59 18:59 Intake Total 1085 1179 525 Output Total 920 1375 275 Balance 165 -196 250 Weight 60.2 kg 60.5 kg Intake: IV 1085 925 525 0.9 normal saline at KVO 160 Dextrose 5% in Water 1, 300 000 ml @ 25 mls/hr IV . Q24H [facility] with Sodium Bicarb (1 Meq/ml) 150 ml Rx#:[id number] Potassium Chloride 20 meq 100 100 In Water For Injection 1 100ml.bag @ 50 mls/hr IVPB Q2H [facility] Rx#: [id number] Potassium Chloride 20 meq 100 In Water For Injection 1 100ml.bag @ 50 mls/hr IVPB Q2H [facility] Rx#: [id number] Sodium Chloride 0.9% 1, 525 825 225 000 ml @ 75 mls/hr IV . [id number] [facility] Rx#:[id number] Sodium Ferric Gluconat- 100 Sucrose 125 mg In Sodium Chloride 0.9% 100 ml @ 100 mls/hr IVPB Q24HR [facility] Rx#:[id number] Thiamine 100 mg In Sodium 100 Chloride 0.9% 50 ml @ 100 mls/hr IVPB Q12HR [facility] Rx#:[id number] Intake, IV Titration 254 Amount Norepinephrine 4 mg In 254 Sodium Chloride 0.9% 250 ml @ 0.05 MCG/KG/MIN 10. 897 mls/hr IV .[id number] [facility] Rx#:[id number] Output: Urine 920 1375 275 Other: Voiding Method Indwelling Catheter Indwelling Catheter Indwelling Catheter - Exam GEN. APPEARANCE: Obtunded, not following commands, picking and pulling at anything/everything HEAD EXAM: atraumatic, normocephalic, EYE EXAM: Mild pallor. No icterus. ENT EXAM: Oral mucosa is dry NECK EXAM: Neck is supple. RESPIRATORY EXAM: Decreased breath sounds in all lung ramirez. Fine crackles at the lower lung bases.fine expiratory wheezing. CARDIOVASCULAR EXAM: Regular S1-S2 heard.systolic murmur GI/ABDOMINAL EXAM: soft, normal bowel sounds. Nontender. No guarding or rigidity. EXTREMITIES EXAM: No edema, no clubbing, no cyanosis NEUROLOGICAL EXAM: unable to assess at this time, patient lethargic, obtunded, attempts to open eyes, minimally to noxious stimuli, attempts to withdraw and moans SKIN: No rashes. - Labs CBC & Chem 7: 10/22/19 05:14 10/22/19 05:14 Labs: Abnormal Lab Results - Last 24 Hours (Table) 10/21/19 10/21/19 10/21/19 Range/Units 12:08 16:06 16:52 WBC (3.8-10.6) k/uL RBC (3.80-5.40) m/uL Hgb (11.4-16.0) gm/dL Hct (34.0-46.0) % RDW (11.5-15.5) % Neutrophils # (1.3-7.7) k/uL Lymphocytes # (1.0-4.8) k/uL Sodium (137-145) mmol/L Potassium (3.5-5.1) mmol/L Carbon Dioxide (22-30) mmol/L Glucose (74-99) mg/dL POC Glucose (mg/dL) 134 H 141 H 127 H (75-99) mg/dL Calcium (8.4-10.2) mg/dL 10/21/19 10/22/19 10/22/19 Range/Units 19:36 00:08 04:15 WBC (3.8-10.6) k/uL RBC (3.80-5.40) m/uL Hgb (11.4-16.0) gm/dL Hct (34.0-46.0) % RDW (11.5-15.5) % Neutrophils # (1.3-7.7) k/uL Lymphocytes # (1.0-4.8) k/uL Sodium (137-145) mmol/L Potassium (3.5-5.1) mmol/L Carbon Dioxide (22-30) mmol/L Glucose (74-99) mg/dL POC Glucose (mg/dL) 132 H 114 H 124 H (75-99) mg/dL Calcium (8.4-10.2) mg/dL 10/22/19 10/22/19 Range/Units 05:14 05:14 WBC 12.9 H (3.8-10.6) k/uL RBC 2.68 L (3.80-5.40) m/uL Hgb 8.0 L (11.4-16.0) gm/dL Hct 24.2 L (34.0-46.0) % RDW 15.6 H (11.5-15.5) % Neutrophils # 11.9 H (1.3-7.7) k/uL Lymphocytes # 0.3 L (1.0-4.8) k/uL Sodium 133 L (137-145) mmol/L Potassium 3.0 L (3.5-5.1) mmol/L Carbon Dioxide 31 H (22-30) mmol/L Glucose 115 H (74-99) mg/dL POC Glucose (mg/dL) (75-99) mg/dL Calcium 8.2 L (8.4-10.2) mg/dL Assessment and Plan Assessment: Acute STEMI, inferior wall acute Metabolic Encephalopathy,multifactorial secondary to infection,electrolyte imbalance, EtOH abuse,possible alcohol withdrawal,possible hepatic encephalopathy. Hypovolemic hyponatremia secondary to alcohol abuse, resolved acute UTI with E. coli Elevated troponins acute GI bleed suspect upper GI,status post 2 units packed RBCs,further workup pending Frequent falls acute COPD exacerbation chronic Alcohol abuse Hypertension, history of Hypotension, pressor dependent Atelectasis Hypokalemia No code, no CPR, no intubation. plan: Continue on current medication regime ,monitoring and symptomatic treatme nt. Potassium replacement as per protocol. Magnesium level added, pending. IV push Lasix added to med regime as per nephrology. Nutrition discussed ; tube feeding to be initiated today.Strict Aspiration precautions. Maintain CIWA protocol,PPI,nebulized bronchodilators. Close monitoring of hemoglobin with repeat labs ordered for a.m. Neurology consulted. Family at bedside, updated with plan of care discussed; verbalized understanding of, and agreement with. Prognosis guarded given multiple complex medical issues. The impression and plan of care has been dictated as directed. : I performed a history and examination of this patient, discussed the same with the dictator. I agree with the dictator's note ,documented as a scribe. Any additional findings or plans will be noted.
[2019-10-22 12:58] LABS: Magnesium 2.1 mg/dL (1.6-2.3); Potassium 3.9 mmol/L (3.5-5.1)
--- NOTE | 2019-10-22 13:48 | XR ---
EXAMINATION TYPE: XR chest 1V portable DATE OF EXAM: 10/22/2019 COMPARISON: 10/22/19 HISTORY: Nasogastric tube placement. TECHNIQUE: Single frontal view of the chest is obtained. FINDINGS: Left-sided PICC terminates in the cavoatrial junction, appropriately placed. Enteric tube has been inserted with its distal tip beyond the gastroesophageal junction and beyond the end of the film. Fenestrated portion is also be on the gastroesophageal junction. There is diffuse osseous demin eralization. Interstitial edema is seen as there are Christiano-B lines. Small right pleural effusion and right basilar airspace disease is unchanged. Questionable nodular density in the right upper lung la terally likely represents overlapping structures as this was not seen on the prior earlier the same d ate. IMPRESSION: Appropriately inserted enteric tube. Redemonstration of unchanged fluid overload.
[2019-10-22] MEDS: THIAMINE 100 MG in SODIUM CHLORIDE 0.9% 50 ML IVPB SCH ×2 (14:59→21:10)
--- NOTE | 2019-10-22 20:16 | P.CNNES ---
History of Present Illness Consult date: 10/22/19 Reason for Consult: AMS Chief complaint: AMS History of Present Illness: HISTORY OF PRESENT ILLNESS: Thank you for allowing me to evaluate Ms. Ayde Millan. Ms. Millan is a 78 year-old woman with PMHx of HTN, largely undoctored, who presented to [facility] on 10/17/19 for SOB, consulting Neurology for AMS. During hospitalization, patient was found to be anemic and hyponatremic, patient was transfused. Patient also had elevated troponins. Patient did not undergo any GI endoscopy or cardiac cath because patient was too unstable. Initially, as patient had been altered since admission, etiology was directed to possibly patient's EtOH abuse history and patient having EtOH withdrawal s ymptoms. Patient has only gotten 2 doses of Ativan since admission, however, as patient's CIWA scores were low. Family state that patient was able to cook, balance checks and do most daily activities on her own before she was admitted. PAST MEDICAL HISTORY: HTN (but patient rarely went to see a doctor) PAST SURGICAL HISTORY: None reported HOME MEDICATIONS: amlodipine, metoprolol INPATIENT MEDICATIONS: Ativan PRN, protonix, CTX, duoneb, insulin sliding scale, methylprednisolone, thiamine, aspirin, metoprolol, ALLERGIES: NKDA SOCIAL HISTORY: Current smoker, Drinks 5-6 cans of beer daily. Per , patient never had any EtOH withdrawal symptoms in her life. PHYSICAL EXAMINATION: VITAL SIGNS: T 97.8 HR 107 RR 20 BP 109/82 O2 sat 96% with 10L of O2 via NC GEN.: eyes are closely shut, grimaces and moves all 4 extremities to noxious stimuli but never opens her eyes HEENT: NCAT, sclera without icterus NECK: Supple SKIN AND EXTREMITIES: Warm to touch, no edema NEURO: MENTAL STATUS: CRANIAL NERVES II THROUGH XII: II: Pupils are equal and reactive to light symmetrically. VII. No clear facial asymmetry. MOTOR/SENSORY: Patient keeps her arms flexed. Moves all 4 extremities spontaneously and withdraws to noxious stimuli REFLEXES: unable to get reflexes of UEs due to patient keeping her arms flexed firmly. b/l LE 1+. Toes are downgoing. No clonus. Neal's is absent COORDINATION/GAIT: deferred DIAGNOSTIC TESTING: LABORATORY: WBC 12.9 hemoglobin 8.0 (6.3->8.9->11.2->8.0) platelet 329 sodium 133 (117->122->128->133) potassium 3.0 chloride 98 bicarb 31 BUN 10 creatinine 0.59 TSH 2.530 Ammonia <9 IMAGING: CT head without contrast 10/18/2019: Age-related atrophic chronic small vessel ischemic changes without acute intracranial process at this time. ASSESSMENT: 78 year-old woman with PMHx of HTN, largely undoctored, who presented to [facility] on 10/17/19 for SOB, consulting Neurology for AMS. During hospitalization, patient was found to be anemic and hyponatremic, patient was transfused. Patient also had elevated troponins. Patient did not undergo any GI endoscopy or cardiac cath because patient was too unstable. Patient also with fluid in lungs, leukocytosis which is improving, difficulty with urine output which has improved. At this time, etiology of AMS most likely metabolic and patient may need time to improve neurologically. However, seizure, stroke (as patient was anemic) are all possible etiologies as well at this time. Patient with no obvious EtOH withdrawal symptoms other than tachycardia, which patient has many reasons for having it. Patient is a daily drinker, and patient has only gotten 2 doses of Ativan since admission (~5 days) but other EtOH withdrawal symptoms would have manifested themselves by now. RECOMMENDATIONS: 1. Routine EEG 2. Please obtain MRI brain w/o contrast when patient stable 3. Labs: Vitamin B12 4. Neurology will continue to follow Past Medical History Past Medical History: Hypertension History of Any Multi-Drug Resistant Organisms: None Reported Past Surgical History: No Surgical Hx Reported Past Anesthesia/Blood Transfusion Reactions: No Reported Reaction Past Psychological History: No Psychological Hx Reported Smoking Status: Current every day smoker Past Alcohol Use History: Daily Past Drug Use History: None Reported Medications and Allergies Home Medications Medication Instructions Recorded Confirmed Type Metoprolol Succinate (ER) [Toprol 50 mg PO BID 10/17/19 10/17/19 History Xl] amLODIPine BESYLATE/BENAZEPRIL 1 cap PO DAILY 10/17/19 10/17/19 History [amLODIPine BESYLATE/BENAZEPRIL 5-20 MG] Allergies Allergy/AdvReac Type Severity Reaction Status Date / Time No Known Allergies Allergy Verified 10/17/19 17:58 Physical Examination - Vital Signs Vital Signs: Vital Signs Temp Pulse Resp BP Pulse Ox 10/22/19 09:00 74 45 H 121/63 93 L 10/22/19 08:51 74 10/22/19 08:35 109 H 10/22/19 08:00 97.8 F 107 H 20 109/82 96 10/22/19 07:00 109 H 18 119/67 95 10/22/19 06:00 86 10 L 107/51 95 10/22/19 05:00 105 H 17 115/67 95 10/22/19 04:00 97.9 F 104 H 20 117/59 97 10/22/19 03:00 107 H 13 90/58 94 L 10/22/19 02:00 118 H 22 98/74 10/22/19 01:45 117 H 21 91 L 10/22/19 01:30 126 H 21 98/74 91 L 10/22/19 01:15 122 H 21 92 L 10/22/19 01:00 120 H 11 L 113/79 92 L 10/22/19 00:45 121 H 21 113/79 92 L 10/22/19 00:30 118 H 12 113/79 94 L 10/22/19 00:20 108 H 10/22/19 00:17 115 H 18 94 L 10/22/19 00:15 115 H 17 113/79 93 L 10/22/19 00:10 112 H 10/22/19 00:01 98.2 F 117 H 14 98/73 92 L 10/21/19 23:45 117 H 25 H 90 L 10/21/19 23:30 122 H 17 90 L 10/21/19 23:15 116 H 15 98/73 90 L 10/21/19 23:00 98 12 119/67 90 L 10/21/19 22:45 116 H 15 90 L 10/21/19 22:30 117 H 18 117/56 93 L 10/21/19 22:15 114 H 12 118/63 91 L 10/21/19 22:00 118 H 14 119/71 92 L 10/21/19 21:45 120 H 21 116/86 92 L 10/21/19 21:30 93 21 114/60 91 L 10/21/19 21:15 114 H 12 108/77 90 L 10/21/19 21:00 118 H 10 L 107/57 88 L 10/21/19 20:45 116 H 24 102/77 91 L 10/21/19 20:30 80 20 105/60 91 L 10/21/19 20:15 93 13 142/71 93 L 10/21/19 20:03 98 10/21/19 20:00 98.2 F 97 23 133/57 96 10/21/19 19:55 84 10/21/19 19:45 96 18 125/60 92 L 10/21/19 19:30 110 H 15 124/72 90 L 10/21/19 19:15 118 H 17 123/55 90 L 10/21/19 19:00 113 H 16 108/54 90 L 10/21/19 18:45 99 17 89/72 92 L 10/21/19 18:30 105 H 19 113/64 92 L 10/21/19 18:15 91 18 122/57 92 L 10/21/19 18:00 87 23 114/70 92 L 10/21/19 17:45 88 34 H 107/60 91 L 10/21/19 17:30 111 H 15 101/65 92 L 10/21/19 17:15 93 19 103/70 92 L 10/21/19 17:00 97 21 109/86 92 L 10/21/19 16:45 93 16 128/65 92 L 10/21/19 16:30 96 26 H 128/65 92 L 10/21/19 16:18 80 10/21/19 16:15 100 14 121/54 95 10/21/19 16:05 84 10/21/19 16:00 97.8 F 74 13 104/59 95 10/21/19 15:45 85 16 113/57 91 L 10/21/19 15:30 77 17 124/51 92 L 10/21/19 15:15 72 10 L 122/54 94 L 10/21/19 15:00 80 11 L 115/58 94 L 10/21/19 14:45 78 11 L 114/56 94 L 10/21/19 14:30 82 11 L 105/49 92 L 10/21/19 14:15 77 10 L 113/51 92 L 10/21/19 14:00 87 13 102/49 91 L 10/21/19 13:45 82 14 105/52 91 L 10/21/19 13:30 102 H 11 L 117/40 93 L 10/21/19 13:15 72 11 L 122/55 92 L 10/21/19 13:00 90 15 109/51 94 L 10/21/19 12:45 79 12 104/55 93 L 10/21/19 12:30 80 12 93 L 10/21/19 12:15 89 25 H 110/61 94 L Intake and Output 10/21/19 10/22/19 10/22/19 22:59 06:59 14:59 Intake Total 1004 600 525 Output Total 335 1255 275 Balance 669 -655 250 Intake: IV 750 600 525 Dextrose 5% in Water 1, 50 000 ml @ 25 mls/hr IV . Q24H [facility] with Sodium Bicarb (1 Meq/ml) 150 ml Rx#:[id number] Potassium Chloride 20 meq 100 In Water For Injection 1 100ml.bag @ 50 mls/hr IVPB Q2H [facility] Rx#: [id number] Potassium Chloride 20 meq 100 In Water For Injection 1 100ml.bag @ 50 mls/hr IVPB Q2H [facility] Rx#: [id number] Sodium Chloride 0.9% 1, 600 600 225 000 ml @ 75 mls/hr IV . [id number] [facility] Rx#:[id number] Sodium Ferric Gluconat- 100 Sucrose 125 mg In Sodium Chloride 0.9% 100 ml @ 100 mls/hr IVPB Q24HR [facility] Rx#:[id number] Thiamine 100 mg In Sodium 100 Chloride 0.9% 50 ml @ 100 mls/hr IVPB Q12HR [facility] Rx#:[id number] Intake, IV Titration 254 Amount Norepinephrine 4 mg In 254 Sodium Chloride 0.9% 250 ml @ 0.05 MCG/KG/MIN 10. 897 mls/hr IV .[id number] [facility] Rx#:[id number] Output: Urine 335 1255 275 Other: Voiding Method Indwelling Catheter Indwelling Catheter Indwelling Catheter Weight 60.2 kg 60.5 kg Results - Laboratory Findings CBC and BMP: 10/22/19 05:14 10/22/19 12:19 Abnormal Lab Findings: Abnormal Labs 10/17/19 10/17/19 10/17/19 16:54 16:57 16:57 WBC 14.1 H RBC 2.10 L Hgb 6.3 L* Hct 19.3 L* RDW Plt Count 508 H Neutrophils # Neutrophils # (Manual) 12.55 H Lymphocytes # Lymphocytes # (Manual) 0.71 L Nucleated RBCs 1 H Retic Count PT INR APTT D-Dimer ABG pCO2 ABG pO2 ABG HCO3 ABG Total CO2 ABG O2 Saturation Sodium 117 L* Potassium 5.2 H Chloride 89 L Carbon Dioxide 11 L BUN 21 H Glucose 68 L POC Glucose (mg/dL) Osmolality Calcium Iron % Saturation Total Bilirubin 1.4 H AST 56 H Alkaline Phosphatase Creatine Kinase 725 H Troponin I Total Protein 5.7 L Albumin Urine Appearance Urine Protein Urine Ketones Urine Blood Ur Leukocyte Esterase Urine RBC Urine WBC Urine WBC Clumps Ur Squamous Epith Cells Urine Bacteria Hyaline Casts Urine Mucus Stool Occult Blood Crossmatch See Detail 10/17/19 10/17/19 10/17/19 16:57 16:57 17:54 WBC RBC Hgb Hct RDW Plt Count Neutrophils # Neutrophils # (Manual) Lymphocytes # Lymphocytes # (Manual) Nucleated RBCs Retic Count PT 13.6 H INR 1.3 H APTT D-Dimer 0.98 H ABG pCO2 ABG pO2 ABG HCO3 ABG Total CO2 ABG O2 Saturation Sodium Potassium Chloride Carbon Dioxide BUN Glucose POC Glucose (mg/dL) Osmolality Calcium Iron % Saturation Total Bilirubin AST Alkaline Phosphatase Creatine Kinase Troponin I 0.199 H* Total Protein Albumin Urine Appearance Urine Protein Urine Ketones Urine Blood Ur Leukocyte Esterase Urine RBC Urine WBC Urine WBC Clumps Ur Squamous Epith Cells Urine Bacteria Hyaline Casts Urine Mucus Stool Occult Blood Positive H Crossmatch 10/17/19 10/17/19 10/17/19 21:07 21:33 21:54 WBC RBC Hgb Hct RDW Plt Count Neutrophils # Neutrophils # (Manual) Lymphocytes # Lymphocytes # (Manual) Nucleated RBCs Retic Count PT INR APTT D-Dimer ABG pCO2 ABG pO2 ABG HCO3 ABG Total CO2 ABG O2 Saturation Sodium Potassium Chloride Carbon Dioxide BUN Glucose POC Glucose (mg/dL) 70 L 68 L Osmolality Calcium Iron % Saturation Total Bilirubin AST Alkaline Phosphatase Creatine Kinase Troponin I Total Protein Albumin Urine Appearance Cloudy H Urine Protein Trace H Urine Ketones Trace H Urine Blood Small H Ur Leukocyte Esterase Large H Urine RBC 9 H Urine WBC 151 H Urine WBC Clumps Moderate H Ur Squamous Epith Cells 10 H Urine Bacteria Occasional H Hyaline Casts 14 H Urine Mucus Rare H Stool Occult Blood Crossmatch 10/17/19 10/17/19 10/17/19 23:00 23:47 23:47 WBC RBC Hgb Hct RDW Plt Count Neutrophils # Neutrophils # (Manual) Lymphocytes # Lymphocytes # (Manual) Nucleated RBCs Retic Count PT INR APTT D-Dimer ABG pCO2 ABG pO2 ABG HCO3 ABG Total CO2 ABG O2 Saturation Sodium 118 L* Potassium Chloride Carbon Dioxide BUN Glucose POC Glucose (mg/dL) 147 H Osmolality Calcium Iron % Saturation Total Bilirubin AST Alkaline Phosphatase Creatine Kinase Troponin I 0.320 H* Total Protein Albumin Urine Appearance Urine Protein Urine Ketones Urine Blood Ur Leukocyte Esterase Urine RBC Urine WBC Urine WBC Clumps Ur Squamous Epith Cells Urine Bacteria Hyaline Casts Urine Mucus Stool Occult Blood Crossmatch 10/18/19 10/18/19 10/18/19 04:35 04:39 04:39 WBC 12.1 H RBC 2.92 L Hgb 8.9 L D Hct 26.1 L RDW Plt Count Neutrophils # 10.0 H Neutrophils # (Manual) Lymphocytes # 0.9 L Lymphocytes # (Manual) Nucleated RBCs Retic Count PT INR APTT D-Dimer ABG pCO2 ABG pO2 ABG HCO3 ABG Total CO2 ABG O2 Saturation Sodium 120 L Potassium Chloride 95 L Carbon Dioxide 15 L BUN 19 H Glucose POC Glucose (mg/dL) Osmolality Calcium 8.0 L Iron % Saturation Total Bilirubin AST Alkaline Phosphatase Creatine Kinase Troponin I 0.573 H* Total Protein Albumin Urine Appearance Urine Protein Urine Ketones Urine Blood Ur Leukocyte Esterase Urine RBC Urine WBC Urine WBC Clumps Ur Squamous Epith Cells Urine Bacteria Hyaline Casts Urine Mucus Stool Occult Blood Crossmatch 10/18/19 10/18/19 10/18/19 04:39 06:52 06:53 WBC RBC Hgb Hct RDW Plt Count Neutrophils # Neutrophils # (Manual) Lymphocytes # Lymphocytes # (Manual) Nucleated RBCs Retic Count PT INR APTT D-Dimer ABG pCO2 ABG pO2 ABG HCO3 ABG Total CO2 ABG O2 Saturation Sodium Potassium Chloride Carbon Dioxide BUN Glucose POC Glucose (mg/dL) 42 L 46 L Osmolality 256 L Calcium Iron % Saturation Total Bilirubin AST Alkaline Phosphatase Creatine Kinase Troponin I Total Protein Albumin Urine Appearance Urine Protein Urine Ketones Urine Blood Ur Leukocyte Esterase Urine RBC Urine WBC Urine WBC Clumps Ur Squamous Epith Cells Urine Bacteria Hyaline Casts Urine Mucus Stool Occult Blood Crossmatch 10/18/19 10/18/19 10/18/19 07:55 11:09 12:02 WBC RBC Hgb Hct RDW Plt Count Neutrophils # Neutrophils # (Manual) Lymphocytes # Lymphocytes # (Manual) Nucleated RBCs Retic Count PT INR APTT D-Dimer ABG pCO2 ABG pO2 ABG HCO3 ABG Total CO2 ABG O2 Saturation Sodium 121 L Potassium Chloride 95 L Carbon Dioxide 17 L BUN Glucose POC Glucose (mg/dL) 67 L 67 L Osmolality Calcium 7.8 L Iron % Saturation Total Bilirubin AST Alkaline Phosphatase Creatine Kinase Troponin I Total Protein Albumin Urine Appearance Urine Protein Urine Ketones Urine Blood Ur Leukocyte Esterase Urine RBC Urine WBC Urine WBC Clumps Ur Squamous Epith Cells Urine Bacteria Hyaline Casts Urine Mucus Stool Occult Blood Crossmatch 10/18/19 10/18/19 10/18/19 16:54 20:05 23:04 WBC 12.0 H RBC 2.94 L Hgb 8.7 L Hct 26.5 L RDW Plt Count Neutrophils # 11.3 H Neutrophils # (Manual) Lymphocytes # 0.3 L Lymphocytes # (Manual) Nucleated RBCs Retic Count PT INR APTT D-Dimer ABG pCO2 ABG pO2 ABG HCO3 ABG Total CO2 ABG O2 Saturation Sodium 122 L Potassium Chloride 97 L Carbon Dioxide 16 L BUN Glucose POC Glucose (mg/dL) 103 H Osmolality Calcium 8.2 L Iron % Saturation Total Bilirubin AST Alkaline Phosphatase Creatine Kinase Troponin I Total Protein Albumin Urine Appearance Urine Protein Urine Ketones Urine Blood Ur Leukocyte Esterase Urine RBC Urine WBC Urine WBC Clumps Ur Squamous Epith Cells Urine Bacteria Hyaline Casts Urine Mucus Stool Occult Blood Crossmatch 10/18/19 10/19/19 10/19/19 23:49 03:38 04:46 WBC RBC Hgb Hct RDW Plt Count Neutrophils # Neutrophils # (Manual) Lymphocytes # Lymphocytes # (Manual) Nucleated RBCs Retic Count PT INR APTT D-Dimer ABG pCO2 23 L ABG pO2 119 H ABG HCO3 15 L ABG Total CO2 15 L ABG O2 Saturation 97.2 H Sodium 126 L Potassium Chloride Carbon Dioxide 15 L BUN Glucose 124 H POC Glucose (mg/dL) 142 H Osmolality Calcium Iron 11 L % Saturation 3.78 L Total Bilirubin 1.7 H AST 100 H Alkaline Phosphatase Creatine Kinase Troponin I Total Protein 5.1 L Albumin 2.9 L Urine Appearance Urine Protein Urine Ketones Urine Blood Ur Leukocyte Esterase Urine RBC Urine WBC Urine WBC Clumps Ur Squamous Epith Cells Urine Bacteria Hyaline Casts Urine Mucus Stool Occult Blood Crossmatch 10/19/19 10/19/19 10/19/19 04:46 04:46 07:51 WBC 11.9 H RBC 2.75 L Hgb 8.3 L Hct 24.7 L RDW Plt Count Neutrophils # 11.3 H Neutrophils # (Manual) Lymphocytes # 0.3 L Lymphocytes # (Manual) Nucleated RBCs Retic Count 5.0 H PT INR APTT 41.0 H D-Dimer ABG pCO2 ABG pO2 ABG HCO3 ABG Total CO2 ABG O2 Saturation Sodium Potassium Chloride Carbon Dioxide BUN Glucose POC Glucose (mg/dL) 134 H Osmolality Calcium Iron % Saturation Total Bilirubin AST Alkaline Phosphatase Creatine Kinase Troponin I Total Protein Albumin Urine Appearance Urine Protein Urine Ketones Urine Blood Ur Leukocyte Esterase Urine RBC Urine WBC Urine WBC Clumps Ur Squamous Epith Cells Urine Bacteria Hyaline Casts Urine Mucus Stool Occult Blood Crossmatch 10/19/19 10/19/19 10/19/19 11:52 12:18 15:24 WBC RBC Hgb Hct RDW Plt Count Neutrophils # Neutrophils # (Manual) Lymphocytes # Lymphocytes # (Manual) Nucleated RBCs Retic Count PT INR APTT 119.8 H* D-Dimer ABG pCO2 ABG pO2 ABG HCO3 ABG Total CO2 ABG O2 Saturation Sodium Potassium Chloride Carbon Dioxide BUN Glucose POC Glucose (mg/dL) 123 H 127 H Osmolality Calcium Iron % Saturation Total Bilirubin AST Alkaline Phosphatase Creatine Kinase Troponin I Total Protein Albumin Urine Appearance Urine Protein Urine Ketones Urine Blood Ur Leukocyte Esterase Urine RBC Urine WBC Urine WBC Clumps Ur Squamous Epith Cells Urine Bacteria Hyaline Casts Urine Mucus Stool Occult Blood Crossmatch 10/19/19 10/19/19 10/19/19 20:00 20:00 20:00 WBC 21.5 H RBC Hgb Hct RDW Plt Count 546 H Neutrophils # 20.0 H Neutrophils # (Manual) Lymphocytes # 0.6 L Lymphocytes # (Manual) Nucleated RBCs Retic Count PT INR APTT 106.3 H* D-Dimer ABG pCO2 ABG pO2 ABG HCO3 ABG Total CO2 ABG O2 Saturation Sodium 128 L Potassium Chloride Carbon Dioxide 12 L BUN Glucose 145 H POC Glucose (mg/dL) Osmolality Calcium 8.1 L Iron % Saturation Total Bilirubin AST Alkaline Phosphatase Creatine Kinase Troponin I Total Protein Albumin Urine Appearance Urine Protein Urine Ketones Urine Blood Ur Leukocyte Esterase Urine RBC Urine WBC Urine WBC Clumps Ur Squamous Epith Cells Urine Bacteria Hyaline Casts Urine Mucus Stool Occult Blood Crossmatch 10/19/19 10/20/19 10/20/19 20:04 04:00 04:17 WBC 26.0 H RBC 3.75 L Hgb 11.2 L Hct RDW Plt Count 524 H Neutrophils # Neutrophils # (Manual) 24.90 H Lymphocytes # Lymphocytes # (Manual) 0.52 L Nucleated RBCs 1 H Retic Count PT INR APTT D-Dimer ABG pCO2 ABG pO2 ABG HCO3 ABG Total CO2 ABG O2 Saturation Sodium Potassium Chloride Carbon Dioxide BUN Glucose POC Glucose (mg/dL) 132 H 149 H Osmolality Calcium Iron % Saturation Total Bilirubin AST Alkaline Phosphatase Creatine Kinase Troponin I Total Protein Albumin Urine Appearance Urine Protein Urine Ketones Urine Blood Ur Leukocyte Esterase Urine RBC Urine WBC Urine WBC Clumps Ur Squamous Epith Cells Urine Bacteria Hyaline Casts Urine Mucus Stool Occult Blood Crossmatch 10/20/19 10/20/19 10/20/19 04:17 04:17 08:09 WBC RBC Hgb Hct RDW Plt Count Neutrophils # Neutrophils # (Manual) Lymphocytes # Lymphocytes # (Manual) Nucleated RBCs Retic Count PT INR APTT 30.4 H D-Dimer ABG pCO2 ABG pO2 ABG HCO3 ABG Total CO2 ABG O2 Saturation Sodium 133 L Potassium Chloride Carbon Dioxide 15 L BUN Glucose 163 H POC Glucose (mg/dL) 225 H Osmolality Calcium 8.1 L Iron % Saturation Total Bilirubin AST 109 H Alkaline Phosphatase Creatine Kinase Troponin I Total Protein 4.9 L Albumin 2.7 L Urine Appearance Urine Protein Urine Ketones Urine Blood Ur Leukocyte Esterase Urine RBC Urine WBC Urine WBC Clumps Ur Squamous Epith Cells Urine Bacteria Hyaline Casts Urine Mucus Stool Occult Blood Crossmatch 10/20/19 10/20/19 10/20/19 10:49 12:05 16:06 WBC RBC Hgb Hct RDW Plt Count Neutrophils # Neutrophils # (Manual) Lymphocytes # Lymphocytes # (Manual) Nucleated RBCs Retic Count PT INR APTT >200.0 H* D-Dimer ABG pCO2 ABG pO2 ABG HCO3 ABG Total CO2 ABG O2 Saturation Sodium Potassium Chloride Carbon Dioxide BUN Glucose POC Glucose (mg/dL) 117 H 160 H Osmolality Calcium Iron % Saturation Total Bilirubin AST Alkaline Phosphatase Creatine Kinase Troponin I Total Protein Albumin Urine Appearance Urine Protein Urine Ketones Urine Blood Ur Leukocyte Esterase Urine RBC Urine WBC Urine WBC Clumps Ur Squamous Epith Cells Urine Bacteria Hyaline Casts Urine Mucus Stool Occult Blood Crossmatch 10/20/19 10/20/19 10/21/19 19:52 22:26 00:17 WBC RBC Hgb Hct RDW Plt Count Neutrophils # Neutrophils # (Manual) Lymphocytes # Lymphocytes # (Manual) Nucleated RBCs Retic Count PT INR APTT 33.8 H D-Dimer ABG pCO2 ABG pO2 ABG HCO3 ABG Total CO2 ABG O2 Saturation Sodium Potassium Chloride Carbon Dioxide BUN Glucose POC Glucose (mg/dL) 194 H 218 H Osmolality Calcium Iron % Saturation Total Bilirubin AST Alkaline Phosphatase Creatine Kinase Troponin I Total Protein Albumin Urine Appearance Urine Protein Urine Ketones Urine Blood Ur Leukocyte Esterase Urine RBC Urine WBC Urine WBC Clumps Ur Squamous Epith Cells Urine Bacteria Hyaline Casts Urine Mucus Stool Occult Blood Crossmatch 10/21/19 10/21/19 10/21/19 04:09 04:41 04:41 WBC 17.3 H RBC 2.95 L Hgb 8.5 L D Hct 26.4 L RDW Plt Count Neutrophils # 16.1 H Neutrophils # (Manual) Lymphocytes # 0.3 L Lymphocytes # (Manual) Nucleated RBCs Retic Count PT INR APTT D-Dimer ABG pCO2 ABG pO2 ABG HCO3 ABG Total CO2 ABG O2 Saturation Sodium 132 L Potassium 3.0 L Chloride Carbon Dioxide BUN Glucose 155 H POC Glucose (mg/dL) 171 H Osmolality Calcium 8.0 L Iron % Saturation Total Bilirubin AST 61 H Alkaline Phosphatase 37 L Creatine Kinase Troponin I Total Protein 4.4 L Albumin 2.7 L Urine Appearance Urine Protein Urine Ketones Urine Blood Ur Leukocyte Esterase Urine RBC Urine WBC Urine WBC Clumps Ur Squamous Epith Cells Urine Bacteria Hyaline Casts Urine Mucus Stool Occult Blood Crossmatch 10/21/19 10/21/19 10/21/19 04:41 08:03 12:08 WBC RBC Hgb Hct RDW Plt Count Neutrophils # Neutrophils # (Manual) Lymphocytes # Lymphocytes # (Manual) Nucleated RBCs Retic Count PT INR APTT 55.1 H D-Dimer ABG pCO2 ABG pO2 ABG HCO3 ABG Total CO2 ABG O2 Saturation Sodium Potassium Chloride Carbon Dioxide BUN Glucose POC Glucose (mg/dL) 179 H 134 H Osmolality Calcium Iron % Saturation Total Bilirubin AST Alkaline Phosphatase Creatine Kinase Troponin I Total Protein Albumin Urine Appearance Urine Protein Urine Ketones Urine Blood Ur Leukocyte Esterase Urine RBC Urine WBC Urine WBC Clumps Ur Squamous Epith Cells Urine Bacteria Hyaline Casts Urine Mucus Stool Occult Blood Crossmatch 10/21/19 10/21/19 10/21/19 16:06 16:52 19:36 WBC RBC Hgb Hct RDW Plt Count Neutrophils # Neutrophils # (Manual) Lymphocytes # Lymphocytes # (Manual) Nucleated RBCs Retic Count PT INR APTT D-Dimer ABG pCO2 ABG pO2 ABG HCO3 ABG Total CO2 ABG O2 Saturation Sodium Potassium Chloride Carbon Dioxide BUN Glucose POC Glucose (mg/dL) 141 H 127 H 132 H Osmolality Calcium Iron % Saturation Total Bilirubin AST Alkaline Phosphatase Creatine Kinase Troponin I Total Protein Albumin Urine Appearance Urine Protein Urine Ketones Urine Blood Ur Leukocyte Esterase Urine RBC Urine WBC Urine WBC Clumps Ur Squamous Epith Cells Urine Bacteria Hyaline Casts Urine Mucus Stool Occult Blood Crossmatch 10/22/19 10/22/19 10/22/19 00:08 04:15 05:14 WBC RBC Hgb Hct RDW Plt Count Neutrophils # Neutrophils # (Manual) Lymphocytes # Lymphocytes # (Manual) Nucleated RBCs Retic Count PT INR APTT D-Dimer ABG pCO2 ABG pO2 ABG HCO3 ABG Total CO2 ABG O2 Saturation Sodium 133 L Potassium 3.0 L Chloride Carbon Dioxide 31 H BUN Glucose 115 H POC Glucose (mg/dL) 114 H 124 H Osmolality Calcium 8.2 L Iron % Saturation Total Bilirubin AST Alkaline Phosphatase Creatine Kinase Troponin I Total Protein Albumin Urine Appearance Urine Protein Urine Ketones Urine Blood Ur Leukocyte Esterase Urine RBC Urine WBC Urine WBC Clumps Ur Squamous Epith Cells Urine Bacteria Hyaline Casts Urine Mucus Stool Occult Blood Crossmatch 10/22/19 05:14 WBC 12.9 H RBC 2.68 L Hgb 8.0 L Hct 24.2 L RDW 15.6 H Plt Count Neutrophils # 11.9 H Neutrophils # (Manual) Lymphocytes # 0.3 L Lymphocytes # (Manual) Nucleated RBCs Retic Count PT INR APTT D-Dimer ABG pCO2 ABG pO2 ABG HCO3 ABG Total CO2 ABG O2 Saturation Sodium Potassium Chloride Carbon Dioxide BUN Glucose POC Glucose (mg/dL) Osmolality Calcium Iron % Saturation Total Bilirubin AST Alkaline Phosphatase Creatine Kinase Troponin I Total Protein Albumin Urine Appearance Urine Protein Urine Ketones Urine Blood Ur Leukocyte Esterase Urine RBC Urine WBC Urine WBC Clumps Ur Squamous Epith Cells Urine Bacteria Hyaline Casts Urine Mucus Stool Occult Blood Crossmatch
[2019-10-22] MEDS: POTASSIUM CHLORIDE 10 MEQ in WATER FOR INJECTION 1 100ML.BAG IVPB SCH ×2 (21:09→23:17)
[2019-10-22 21:14] LABS: Glucose,Whole Blood 112 mg/dL (75-99)
--- NOTE | 2019-10-22 22:01 | PN ---
PROGRESS NOTE DATE OF SERVICE: 10/22/2019 The patient is a 78-year-old pleasant white female admitted to hospital with severe symptomatic anemia and acute coronary syndrome, was started on IV heparin and which was discontinued yesterday. Patient remained stable, however, mental status has not significantly improved. She is very lethargic, arousable to painful stimuli. No acute events noted overnight. PHYSICAL EXAMINATION: She appears comfortable, no apparent distress. Vital signs stable. Blood pressure is 119/71, pulse is 114, temperature 98.4. HEENT examination unremarkable. Conjunctivae pink. Sclerae anicteric. Oral cavity no lesions. NECK: No JVD or lymph node enlargement. CHEST: Clear to auscultation. HEART: Regular rate and rhythm. ABDOMEN: Soft. Bowel sounds are positive. No organomegaly. EXTREMITIES: No pedal edema. SKIN no rashes. NEUROLOGIC: Alert and oriented x3. No focal deficits. LABS: WBC 12.9, hemoglobin 8, platelets 329, BUN 10, creatinine 0.5. IMPRESSION: 1. Altered mental status, possible metabolic encephalopathy, being monitored closely. She had an EEG done an hour ago, results are still pending. 2. Anemia, severe symptomatic anemia status post 2 units of PRBC transfusion. Hemoglobin presently remains stable. No evidence of active bleeding. 3. Acute coronary syndrome. Cardiology following the patient closely being managed medically. RECOMMENDATIONS: 1. Monitor hemoglobin on a daily basis. 2. Continue Protonix daily. 3. No plans for any endoscopic intervention at the present time. 4. Agree with NG tube feeds. 5. We will follow with you closely. MMODL / IJN: [id number] /
[2019-10-22] MEDS: SODIUM CHLORIDE 0.9% 150 ML with VASOPRESSIN 60 UNIT IV SCH ×2 (23:10)
--- NOTE | 2019-10-22 23:45 | EEG ---
ELECTROENCEPHALOGRAM REPORT DATE OF PROCEDURE: 10/22/2019 ELECTROENCEPHALOGRAM (EEG) REPORT: TECHNIQUE: A routine 18-channel EEG was performed with video using the 10/20 international electrode placement system. HISTORY: Acute GI bleed, anemia, falls. Please note that per test engineering technician annotation, the patient was constantly moving throughout the test. STUDY DURATION: 21 minutes. FINDINGS: Please note that quality of the study was extremely limited due to the presence of potentially constant muscle artifact. In the rare portions of the recording with somewhat relatively less artifact, background frequencies were seen in the unsustained 7 to 8 Hz range. ACTIVATION: Hyperventilation: Not performed. Photic stimulation: No driving seen. Sleep: None. ABNORMALITIES: In the rare portions of the recording with relatively less artifact, diffuse 4 to 6 Hz theta range slowing was seen. IMPRESSION: Severely limited study. Occasional diffuse theta range slowing was seen which is not epileptiform in nature. These findings suggest mild diffuse cerebral dysfunction. No seizures were recorded. No definitive epileptiform activity was present. If clinical concern remains for a seizure disorder, would suggest a repeat study. MMODL / IJN: [id number] / [facility]
[2019-10-23 00:04] LABS: Glucose,Whole Blood 142 mg/dL (75-99)
[2019-10-23] MEDS: IPRATROPIUM-ALBUTEROL 3 ML NEB INHALATION SCH ×6 (00:39→19:10)
[2019-10-23] MEDS: LORazepam 2 MG/ML INJ IV PRN ×2 (01:09→10:01)
--- NOTE | 2019-10-23 01:31 | XR ---
EXAMINATION TYPE: XR chest 1V portable DATE OF EXAM: 10/23/2019 COMPARISON: 10/22/2019 HISTORY: Check tube placement TECHNIQUE: Single frontal view of the chest is obtained. FINDINGS: There is nasogastric tube in the tip appears to be in the lower esophagus at the T9 level. There is pulmonary interstitial and alveolar edema. There is blunting of costophrenic angles. There is left central venous catheter with the tip in the superior vena cava. IMPRESSION: NG tube is in the lower esophagus. There is patchy pulmonary edema unchanged. This could be congestive heart failure.
[2019-10-23 05:01] LABS: Anisocytosis Slight; HCT 22.1 % (34.0-46.0); HGB 7.1 gm/dL (11.4-16.0); Hypochromasia Marked; MCH 30.4 pg (25.0-35.0); MCHC 32.2 g/dL (31.0-37.0); MCV 94.3 fL (80.0-100.0); Mean Platelet Volume 8.5; Platelet Count 223 k/uL (150-450); Poikilocytosis Moderate; RBC 2.35 m/uL (3.80-5.40); RDW 16.1 % (11.5-15.5); WBC 10.9 k/uL (3.8-10.6)
[2019-10-23] MEDS: INSULIN ASPART (NovoLOG) 100 UNIT/ML VIAL SQ SCH ×3 (05:32→17:30)
[2019-10-23] MEDS: methylPREDNISolone SOD SUCCI 125 MG/2 ML VIAL IV SCH ×3 (05:33→17:35)
[2019-10-23 05:40] LABS: Glucose,Whole Blood 139 mg/dL (75-99)
[2019-10-23 06:03] LABS: African American GFR (CKD) >90 (>60 ml/min/1.73 sqM); Anion Gap 5 mmol/L; Blood Urea Nitrogen 25 mg/dL (7-17); Calcium 8.1 mg/dL (8.4-10.2); Carbon Dioxide 30 mmol/L (22-30); Chloride 104 mmol/L (98-107); Glucose 128 mg/dL (74-99); Non-African American GFR(CKD) 87 (>60 ml/min/1.73 sqM); Potassium 3.6 mmol/L (3.5-5.1); Sodium 139 mmol/L (137-145)
[2019-10-23] MEDS ORDERED: POTASSIUM BICARBONATE/CIT AC 20 MEQ TABLET.EFF NG-TUBE SCH (07:00)
[2019-10-23] MEDS: SODIUM CHLORIDE 0.9% 1,000 ML IV SCH (07:04)
[2019-10-23] MEDS: ATORVASTATIN 40 MG TAB PO SCH (09:09)
[2019-10-23] MEDS: ENOXAPARIN 40 MG/0.4 ML SYRINGE SQ SCH (09:09)
[2019-10-23] MEDS: METOPROLOL TARTRATE 25 MG TAB PO SCH ×3 (09:09→21:08)
[2019-10-23] MEDS: FUROSEMIDE 10 MG/ML 2 ML VIAL IV SCH (09:09)
[2019-10-23] MEDS: ASPIRIN 81 MG PO SCH (09:09)
[2019-10-23] MEDS: PANTOPRAZOLE 40 MG/10 ML VIAL IV SCH ×2 (09:12→21:08)
[2019-10-23] MEDS: THIAMINE 100 MG in SODIUM CHLORIDE 0.9% 50 ML IVPB SCH ×2 (09:28→21:08)
[2019-10-23 09:45] VITALS: BMI 23.3
--- NOTE | 2019-10-23 09:54 | PN ---
PROGRESS NOTE Mrs. Millan is a 78-year-old female who presented with change in status and evidence of a metabolic encephalopathy. She had evidence of myocardial infarction in the inferior wall put treated conservatively because of her mental status. She continues to be not responsive to verbal command. She is in appropriate hemodynamically. Her heart rate has sinus tachycardia. Her blood pressure has been stable. She is on no pressors. She was started on tube feeding yesterday. She was evaluated by the Neurological Service yesterday. She continues to be at this time on aspirin once a day, Lipitor 40 mg daily, Lasix 20 mg IV daily, and metoprolol tartrate 5 mg q.12 hours intravenously. PHYSICAL EXAMINATION: Blood pressure 110/70 with a heart rate in 90s to 100/ LUNGS: No wheezes. HEART: Tachycardic S1, S2. No S3. No rub appreciated. ABDOMEN: Soft, positive bowel sounds, no organomegaly. EXTREMITIES: No edema. LAB DATA: Revealed BUN and creatinine 25 and 0.62. Hemoglobin of 7.1. Chest x-ray shows no new infiltrate. IMPRESSION: 1. Severe metabolic encephalopathy without significant improvement. 2. Gastrointestinal bleeding. 3. Recent inferior myocardial infarction during this admission, treated conservatively. 4. History of alcoholism. 5. History of chronic obstructive pulmonary disease. RECOMMENDATION: Will switch her to beta yoli through the NG tube. Continue supportive care. Unfortunately, the prognosis remains quite poor since there is no improvement in her neurological status. I have discussed those finding with her niece at length. Will see her on an as-needed basis. Please feel free to call us for any question. MMODL / IJN: [id number] /
--- NOTE | 2019-10-23 10:40 | CDI ---
Documentation Clarification Form Date: 10/23/2019 10:23:54 AM From: Vidya DobbinsHargroveCONSTANTINE freeman, CCDS Admit Date: 10/17/2019 8:36:00 PM Patient Name: Ayde Millan Visit Number: [id number] Discharge Date: ATTENTION: The Clinical Documentation Specialists (CDI) and [facility] Coding Staff appreciate your assistance in clarifying documentation. Please respond to the clarification below the line at the bottom and electronically sign. The CDI & [facility] Coding staff will review the response and follow-up if needed. Please note: Queries are made part of the Legal Health Record. If you have any questions, please contact the author of this message via ITS. Dr. Harvinder Elizabeth: Per the documentation beginning on 10/20: "Required multiple fluid boluses throughout the night, urine output remains marginal." Per nephrology, the patient is diagnosed with hypovolemic hyponatremia & metabolic acidosis. Patient history/risk factors: Frequent falls, smoker, COPD, alcohol abuse & hypertension. Clinical Indicators: Presented with altered mental status & having frequent falls. Diagnosed with Metabolic encephalopathy, possible alcohol withdrawal, Hypovolemic hyponatremia, possible UTI, elevated troponins, anemia & possible GI bleed & possible CHF. Admission Vitals: R 20 - 26^, PO 91 RA - 4Lnc VS on 10/20: P 107^, R 11-28, BP 96/46, PO 94 3Lnc LABs on 10/20: WBC 26.0^, Hgb 11.2 (status post transfusion), Pl Ct 524^, Neut 24.90^, Na 133*, Glucose 163^. Urine culture 10/17 positive for E Coli RAD: CXR112/17, 10/20: Chronic emphysematous & parenchymal changes & cardiomegaly with developing right basilar acute infiltrate and/or atelectasis noted. Treatment: INH Albuterol, IV fluid rate 100, IV Ativan x3, IV Lasix, IV Rocephin, IV Dextrose/Water bolus on 10/18, IV Kcl, IV fluid bolus on 10/19, admit to ICU. In your professional opinion, can you please specify the type of shock if known? Septic Shock, please specify if Sepsis is also present: o Suspected or known causative organism o Any associated organ failure Cardiogenic Shock o Cause Hypovolemic Shock o Cause Other, please specify Unable to determine (Last Revision: August 2017) MTDD
--- NOTE | 2019-10-23 11:50 | MR ---
EXAMINATION TYPE: MR brain wo con DATE OF EXAM: 10/23/2019 COMPARISON: NONE HISTORY: AMS, recent hx of severe anemia TECHNIQUE: T1-weighted sagittal, T2, FLAIR, and diffusion axial, and T2 coronal coronal views of the brain are submitted. FINDINGS: There is small focal 4 mm area of increased signal on diffusion within the left parietal white matter compatible with acute ischemia. No mass effect. Moderate generalized degenerative change noted there is diffuse white matter changes. Findings were immediately called to the patient's nurse in the ICU. Craniocervical junction maintained. Sella turcica has a normal appearance. No cerebellopontine angle mass. There is CSF prominence along the C1 vertebral body on the right whic h is only partially included and nonspecific. Dedicated MRI of the cervical spine is recommended. Punctate areas of abnormal signal involving the basal ganglia and thalamus likely in the basis of rem ote lacunar infarcts. Nondescript signal seen posteriorly along the inner table of the calvarium woul d require contrast for further assessment. IMPRESSION: 1. Small focal punctate 4 mm left parietal white matter acute ischemic focus with no evidence of mass effect. 2. Rather sizable area of abnormal signal adjacent to the C1 and C2 vertebral bodies on the right whi ch appear to be fluid signal on T2. This is only partially included and a dedicated MRI of the cervic al spine is recommended. Although this could represent a large nerve root sleeve diverticulum more ag gressive etiologies not excluded. 3. Moderate degenerative change and extensive nonspecific white matter findings most typical remote m icrovascular ischemia.
--- NOTE | 2019-10-23 12:46 | P.PN ---
Subjective Progress Note Date: 10/23/19 Principal diagnosis: altered mental status and possible acute metabolic encephalopathy Is a 70-year-old female patient who is currently confused. The patient came in to the emergency department yesterday because of altered mentation and recurrent falls. Apparently she has been falling and she fell at least 5 times yesterday. She initially went to [facility] and she was discharged home without having any labs done. HIDA time she came to our emergency department, the labs are quite abnormal and she had a sodium level of 117 with a potassium level of 5.2 and a chloride of 89 and a serum bicarb of 17 with an anion gap of 17. Creatinine was stable at 0.9. Her initial hemoglobin was at 6.3 and she had guaiac positive stool. Her coags showed an INR of 1.3 with a PT of 15.6. The patient had a chest x-ray that showed some tortuous aorta yet by radiologist opinion and interpretation, the findings were negative and no further workup was done and the patient was admitted to the intensive care unit. Currently she is awake and she is restless in bed. She is moving all 4 extremities. She seems to be poorly maintained. She is on a normal saline infusion at the rate of 75 an hour. She received a total of 2 units of packed RBC and the sodium level is up to 120. She admits to drink beer and order of 5 bottles on a daily basis. There may be a history of alcoholism. She is a smoker and she smokes 5-10 cigarettes a day. On examination she is quite bronchospastic and wheezy and she has a congested cough. She is currently on oxygen at 6 L per minute nasal cannula with a pulse ox of 94%. Cardiac rhythm is sinus. EKG showed a normal sinus rhythm and some ST segment changes limited and T-wave inversions over the lateral leads. Troponins were slightly abnormal with one lives of 0.19, 0.3 and 0.5 respectively 3. CPK level was at 725 at a time of admission. She has a Jarquin catheter in place. Urine output is in order of 100 mL an hour. On examination, the patient has multiple abrasions of the skin in various parts of her body. She also has a surgical scar over the lip probably related to a previous resection of a skin cancer. The past medical history is not known. The past surgical is not known. She is on a blood pressure medication including metoprolol and amlodipine on outpatient basis. Patient was reevaluated today on 10/19/2019, patient remains in the ICU, still quite lethargic, arousable only with deep painful stimuli, she had intermittent episodes of agitations and restlessness requiring Ativan. She just received a dose of Ativan earlier just before I came in to evaluate the patient.her sodium is up to 126. Her CBC showed a hemoglobin of 8.3.bicarb remains a bit low at 15 however her renal profile is normal.yesterday, patient had some EKG changes suggestive of acute coronary syndrome, and she was placed on heparin. Cardiology did not feel that the patient was a candidate for cardiac catheterization. Hence I recommended mostly maximal medical therapy. Her echocardiogram showed good LV function but it also showed moderate aortic regurgitation and mild aortic stenosis.chest x-ray this morning showed mostly right basilar atelectasis,chronic parenchymal changes, cardiomegaly, cannot totally rule out possible early right lower lobe infiltrate, but felt to be less likely. Reevaluated today on 10/20/2019, patient remains in the ICU, her urine output is extremely poor, anywhere between 5-20 mL per hour. Patient received significant amount of fluid boluses last night. And her urine output is still poor. Hence I have recommended Lasix to be given today. Patient remains lethargic, extremely difficult to arouse. Patient received Ativan 1 last night. She remains on norepinephrine at 0.14 mcg/kg/m, remains on bicarb drip, remains on heparin drip, she is on 3 L of oxygen via nasal cannula. Blood pressure remains marginal requiring norepinephrine. Chest x-ray showed cardiomegaly, large right lower lobe atelectasis and possibly some small right-sided pleural effusion. Doubt pneumonia. WBC count today is 26 hemoglobin is 11.2. PTT is not therapeutic. Electrolytes were noted bicarb remains low at 15 BUN is 12 creatinine 0.65. Reevaluated today on 10/21/2019, patient remains in the ICU, same mental status, remains quite obtunded, difficult to arouse, could barely open her eyes with he painful stimuli. Family is at bedside, and they were updated again on her condition. A continues to have norepinephrine at 0.08 mcg/kg/m, she is on bicarb drip which I will cut down and possibly discontinue the next 24 hours. Remains on heparin drip. She is on few liters nasal cannula. Urine output is marginal, hence she will be given a dose of Lasix. Chest x-ray continues to show right basilar opacity and trace of pleural effusion with left basilar atelectasis. has not made up his mind regarding CODE STATUS at this point, hence the patient remains full code at present. Cardiology is planning to stop heparin and to continue other medical management. Reevaluated today on 10/22/2019, remains in the ICU, not much of a overhead foreman the last few days. Remains obtunded, monos with deep painful stimuli, but does not open eyes. Patient is off norepinephrine, she is hemodynamically stable, her urine output seems to be adequate, and her chest x-ray showed possible mild interstitial edema, hence another dose of Lasix will be given today. Patient is off the bicarb drip. And she is off the heparin drip. Not much of a neurological improvement noted over the last 24 hours. Reevaluated today on 10/23/2019, remains in the ICU, basically about the same. I have not seen any neurological overhead foreman the last 5 days. Patient is obtunded very difficult to arouse. MRI today showed small focal punctate 4 mm left parietal white matter acute ischemic focus without any evidence of mass effect. It also showed moderate degenerative change with extensive nonspecific white mat ter findings most typical of remote microvascular ischemia. All labs were reviewed today including CBC hemoglobin is 7.1 electrodes are normal renal profile is normal. Objective - Vital Signs Vital signs: Vital Signs Temp 98.0 F 10/23/19 08:00 Pulse 111 H 10/23/19 09:25 Resp 19 10/23/19 09:00 BP 121/62 10/23/19 09:00 Pulse Ox 96 10/23/19 09:20 Intake & Output 10/22/19 10/23/19 10/23/19 18:59 06:59 18:59 Intake Total 1015 1240 340 Output Total 1255 530 130 Balance -240 710 210 Weight 60.5 kg 59.9 kg 59.9 kg Intake: IV 975 1000 200 Potassium Chloride 20 meq 100 In Water For Injection 1 100ml.bag @ 50 mls/hr IVPB Q2H [facility] Rx#: [id number] Potassium Chloride 20 meq 100 200 In Water For Injection 1 100ml.bag @ 50 mls/hr IVPB Q2H [facility] Rx#: [id number] Sodium Chloride 0.9% 1, 675 650 100 000 ml @ 50 mls/hr IV . Q20H [facility] Rx#:[id number] Sodium Ferric Gluconat- 100 Sucrose 125 mg In Sodium Chloride 0.9% 100 ml @ 100 mls/hr IVPB Q24HR [facility] Rx#:[id number] Thiamine 100 mg In Sodium 100 100 Chloride 0.9% 50 ml @ 100 mls/hr IVPB Q12HR [facility] Rx#:[id number] cefTRIAXone 1 gm In 50 Sodium Chloride 0.9% 50 ml @ 100 mls/hr IVPB Q24H [facility] Rx#:[id number] Tube Feeding 10 150 50 Other 30 90 90 Output: Urine 1255 530 130 Other: Voiding Method Indwelling Catheter Indwelling Catheter # Voids 1 - Exam Physical Exam: Revealed a 78-year-old female, obtunded tries to open eyes on deep painful stimuli but doesn't fully open done. head: Atraumatic, normocephalic, patient is on oxygen at 3 L/m HEENT:[Neck is supple.] [No neck masses.] [No thyromegaly.] [No JVD.]PERRLA, EOMI, moist mucous membranes. No icterus. Scar over left lower lip, related to old surgical resection of skin cancer. Chest: [diminished breath sounds at the bases, minimal crackles at the bases, wheezing noted on forced expiratory maneuver.] Cardiac Exam: [Normal S1 and S2, no S3 gallop, 2/6 systolic murmur thought the precordium. Abdomen: [Soft, nontender, no megaly, no rebound, no guarding, normal bowel sounds.] Extremities: [No clubbing, no edema, no cyanosis.] Neurological Exam: Tries to open eyes on deep painful stimuli otherwise she doesn't Psychiatric: Cannot be assessed, Skin: No rashes. Lymphatics: No lymphadenopathy. - Labs CBC & Chem 7: 10/23/19 04:53 10/23/19 04:53 Labs: Abnormal Lab Results - Last 24 Hours (Table) 10/22/19 10/22/19 10/23/19 Range/Units 21:01 23:52 04:53 WBC (3.8-10.6) k/uL RBC (3.80-5.40) m/uL Hgb (11.4-16.0) gm/dL Hct (34.0-46.0) % RDW (11.5-15.5) % BUN 25 H (7-17) mg/dL Glucose 128 H (74-99) mg/dL POC Glucose (mg/dL) 112 H 142 H (75-99) mg/dL Calcium 8.1 L (8.4-10.2) mg/dL 10/23/19 10/23/19 Range/Units 04:53 05:28 WBC 10.9 H (3.8-10.6) k/uL RBC 2.35 L (3.80-5.40) m/uL Hgb 7.1 L (11.4-16.0) gm/dL Hct 22.1 L (34.0-46.0) % RDW 16.1 H (11.5-15.5) % BUN (7-17) mg/dL Glucose (74-99) mg/dL POC Glucose (mg/dL) 139 H (75-99) mg/dL Calcium (8.4-10.2) mg/dL Assessment and Plan Assessment: impression: 1 altered mental status most likely secondary to acute metabolic encephalopathy. 2 acute hyponatremia, resolved. 3 acute GI bleeding, most likely upper GI in nature, this will eventually require further investigation. Patient received a total of 2 units of packed RBCs since admission, her hemoglobin today is 8.0. 4 acute coronary syndrome, being addressed by cardiology, off heparin. 5 history of alcoholism 6 acute exacerbation of COPD 7 poor performance and functional status secondary to her multiple medical problems as noted above. 8 recurrent falls secondary to metabolic encephalopathy. 9 oliguria , resolved. 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 Patient had abnormal MRI. This is being addressed by neurology. Recommendation: Continue to monitor the patient in the ICU Continue to monitor daily electrolytes and monitor sodium. Continue bronchodilators. Continue to monitor hemoglobin and transfuse as needed for hemoglobin lower than 7. Continue IV Protonix. DVT prophylaxis with subcu Lovenox. Patient is off IV heparin. recommend nasogastric tube placement and enteral feeding . Continue alcohol withdrawal protocol. CODE STATUS has been changed to DO NOT RESUSCITATE. Family was updated on her condition today. Time with Patient: Less than 30
--- NOTE | 2019-10-23 13:09 | P.PN ---
Progress Note - Text Progress Note Date: 10/23/19 SUBJECTIVE/INTERVAL EVENTS: No acute overnight events. and niece at bedside. During eval, patient found to have brownish stool. MRI brain w/o contrast done, which showed a small infarct in PHYSICAL EXAMINATION: VITAL SIGNS: T 98.0 HR 116 RR 18 BP 123/83 O2 sat 100% on high flow cannula GEN.: eyes are closely shut, grimaces and moves all 4 extremities to noxious stimuli but never opens her eyes HEENT: NCAT, sclera without icterus NECK: Supple SKIN AND EXTREMITIES: Warm to touch, no edema NEURO: MENTAL STATUS: CRANIAL NERVES II THROUGH XII: II: Pupils are equal and reactive to light symmetrically. VII. No clear facial asymmetry. MOTOR/SENSORY: Patient keeps her arms flexed. Moves all 4 extremities spontaneously and withdraws to noxious stimuli REFLEXES: unable to get reflexes of UEs due to patient keeping her arms flexed firmly. b/l LE 1+. Toes are downgoing. No clonus. Neal's is absent COORDINATION/GAIT: deferred DIAGNOSTIC TESTING: LABORATORY: 10/22/19 WBC 12.9 hemoglobin 8.0 (6.3->8.9->11.2->8.0) platelet 329 sodium 133 (117->122->128->133) potassium 3.0 chloride 98 bicarb 31 BUN 10 creatinine 0.59 TSH 2.530 Ammonia <9 10/23/19: WBC 10.9 hemoglobin 7.1 platelet 223 sodium 139 potassium 3.6 chloride 104 bicarb 30 BUN 95 creatinine 0.62 glucose 128 vitamin B12 639 IMAGING: CT head without contrast 10/18/2019: Age-related atrophic chronic small vessel ischemic changes without acute intracranial process at this time. Routine EEG 10/22/2019: Severely limited study. Occasional diffuse theta range slowing was seen which is not epileptiform in nature. These findings suggest mild diffuse cerebral dysfunction. No seizures were recorded. No definite epileptiform activity was present. There is clinical concern remains for a seizure disorder, will suggest a repeat study. MRI brain without contrast 10/23/2019: Small focal punctate 4 mm left parietal white matter acute ischemic focus with no evidence of mass effect. Sizable areas of abnormal signal adjacent to the C1 and C2 vertebral bodies on the right. Cannot exclude more aggressive etiologies. Moderate degenerative changes and extensive nonspecific white matter findings most typical remote microvascular ischemia. ASSESSMENT: 78 year-old woman with PMHx of HTN, largely undoctored, who presented to [facility] on 10/17/19 for SOB, consulting Neurology for AMS. During hospitalization, patient was found to be anemic and hyponatremic, patient was transfused. Patient also had elevated troponins. Patient did not undergo any GI endoscopy or cardiac cath because patient was too unstable. Patient also with fluid in lungs, leukocytosis which is improving, difficulty with urine output which has improved. At this time, etiology of AMS most likely metabolic and patient may need time to improve neurologically. However, seizure, stroke (as patient was anemic) are all possible etiologies as well at this time. Patient with no obvious EtOH withdrawal symptoms other than tachycardia, which patient has many reasons for having it. Patient is a daily drinker, and patient has only gotten 2 doses of Ativan since admission (~5 days) but other EtOH withdrawal symptoms would have manifested themselves by now. EEG was largely unremarkable but a severely limited study due to muscle artifact. MRI brain w/o contrast showed a punctate acute infarct in the L koo radiata, which would not be the etiology of patient's AMS. Leukocytosis has improved, but all her cell lines went down. Still higher on the differential is metabolic encephalopathy from multiple medical conditions. RECOMMENDATIONS: 1. Will repeat ammonia level 2. Neurology is not available over the weekend in-house. However, feel free to [employer] message me over the weekend if you have any questions or concerns
[2019-10-23 13:16] LABS: Glucose,Whole Blood 104 mg/dL (75-99)
[2019-10-23] MEDS: POTASSIUM BICARBONATE/CIT AC 20 MEQ TABLET.EFF NG-TUBE SCH ×2 (15:00→16:23)
[2019-10-23 16:45] LABS: Anisocytosis Slight; Hypochromasia Marked; MCH 29.2 pg (25.0-35.0); MCV 94.2 fL (80.0-100.0); Macrocytosis Slight; Mean Platelet Volume 6.8; Platelet Count 267 k/uL (150-450); Poikilocytosis Moderate; RBC 2.07 m/uL (3.80-5.40)
[2019-10-23 16:59] LABS: HCT 19.5 % (34.0-46.0); HGB 6.1 gm/dL (11.4-16.0)
--- NOTE | 2019-10-23 17:18 | PN ---
PROGRESS NOTE DATE OF DICTATION: 10/23/2019 Patient is a 78-year-old pleasant white female admitted to the hospital with severe symptomatic anemia and hemoglobin of 6 g/dL, required 2 units of blood transfusion and since then has been stable. She also developed acute KY and is being monitored closely. At present on no anticoagulation. Patient continues to have altered mental status. She still is able to respond to simple verbal stimuli but is not opening her eyes spontaneously. As per the nursing staff, she had some brown, dark-colored stool, but no active GI bleed. PHYSICAL EXAMINATION: She is very sleepy. Opens her eyes with verbal stimuli. VITAL SIGNS: Stable. Blood pressure 118/81, pulse rate 109, and afebrile. HEENT examination unremarkable. Conjunctivae pink. Sclerae anicteric. Oral cavity no lesions. NECK: No JVD or lymph node enlargement. CHEST: Clear to auscultation. HEART: Regular rate and rhythm. ABDOMEN: Benign. Bowel sounds are positive. No organomegaly. EXTREMITIES: No pedal edema. NEUROLOGIC: Very lethargic. LABS: Labs done today show WBC is 10.9, hemoglobin 7.1, platelets normal. Basic metabolic panel is within normal limits. Hemoglobin yesterday was 8.0. IMPRESSION: 1. Severe symptomatic anemia with intermittent dark-colored stools, occasional bright red blood per rectum. Hemodynamically stable. No active ongoing bleeding. She is status post 2 units of PRBC transfusion at the time of admission to the hospital and hemoglobin somewhat stable other than a mild drop over the last 5 days. 2. Altered mental status; possible metabolic encephalopathy; being watched closely. 3. Acute myocardial infarction, being treated conservatively. RECOMMENDATIONS: 1. Continue to monitor hemoglobin on a daily basis. 2. Transfuse if hemoglobin is less than 7. 3. No plans on any endoscopic intervention at the present time, given her overall mental status changes. 4. Will follow with you closely. Thank you for this consultation. MMODL / IJN: [id number] /
[2019-10-23 17:25] LABS: Glucose,Whole Blood 169 mg/dL (75-99)
[2019-10-23] MEDS: SODIUM CHLORIDE 0.9% 150 ML with VASOPRESSIN 60 UNIT IV SCH ×2 (20:05)
[2019-10-23] MEDS ORDERED: FUROSEMIDE 10 MG/ML 4 ML VIAL IV STA (22:29)
[2019-10-24 00:09] LABS: Glucose,Whole Blood 168 mg/dL (75-99)
[2019-10-24] MEDS: methylPREDNISolone SOD SUCCI 125 MG/2 ML VIAL IV SCH ×5 (00:11→23:57)
[2019-10-24] MEDS: INSULIN ASPART (NovoLOG) 100 UNIT/ML VIAL SQ SCH ×5 (00:12→23:56)
[2019-10-24] MEDS: IPRATROPIUM-ALBUTEROL 3 ML NEB INHALATION SCH ×7 (00:28→23:58)
[2019-10-24 02:06] LABS: Anisocytosis Slight; HCT 23.2 % (34.0-46.0); Hypochromasia Slight; MCH 29.9 pg (25.0-35.0); MCHC 32.7 g/dL (31.0-37.0); MCV 91.5 fL (80.0-100.0); Mean Platelet Volume 8.1; Platelet Count 176 k/uL (150-450); Poikilocytosis Moderate; RBC 2.54 m/uL (3.80-5.40); RDW 16.9 % (11.5-15.5); WBC 14.2 k/uL (3.8-10.6)
[2019-10-24 02:10] LABS: HGB 7.6 gm/dL (11.4-16.0)
[2019-10-24 02:11] LABS: African American GFR (CKD) >90 (>60 ml/min/1.73 sqM); Anion Gap 1 mmol/L; Blood Urea Nitrogen 51 mg/dL (7-17); Carbon Dioxide 36 mmol/L (22-30); Chloride 105 mmol/L (98-107); Glucose 150 mg/dL (74-99); Non-African American GFR(CKD) 81 (>60 ml/min/1.73 sqM); Potassium 3.8 mmol/L (3.5-5.1); Sodium 142 mmol/L (137-145)
[2019-10-24] MEDS ORDERED: POTASSIUM BICARBONATE/CIT AC 20 MEQ TABLET.EFF NG-TUBE SCH (03:00)
[2019-10-24] MEDS: SODIUM CHLORIDE 0.9% 1,000 ML IV SCH ×2 (03:05→20:53)
[2019-10-24 06:07] LABS: Calcium 8.1 mg/dL (8.4-10.2); Potassium 4.3 mmol/L (3.5-5.1)
[2019-10-24 06:16] LABS: Glucose,Whole Blood 159 mg/dL (75-99)
--- NOTE | 2019-10-24 06:32 | XR ---
EXAMINATION TYPE: XR chest 1V portable DATE OF EXAM: 10/24/2019 HISTORY: fluid overload status. REFERENCE: Previous study dated 10/23/2019. FINDINGS: The patient is NG tube is been advanced and is now within the stomach. The heart is enlarged. There is bilateral lower lobe infiltrates. There are bilateral effusions. IMPRESSION: 1. SATISFACTORY NG TUBE APPEARANCE. 2. CONTINUING BIBASILAR INFILTRATES. 3. BILATERAL EFFUSIONS.
[2019-10-24 06:33] LABS: Anisocytosis Slight; HCT 21.5 % (34.0-46.0); Hypochromasia Slight; MCH 29.8 pg (25.0-35.0); MCHC 32.5 g/dL (31.0-37.0); MCV 91.8 fL (80.0-100.0); Mean Platelet Volume 7.5; Platelet Count 184 k/uL (150-450); Poikilocytosis Moderate; RBC 2.34 m/uL (3.80-5.40); RDW 17.6 % (11.5-15.5)
[2019-10-24 07:11] LABS: Band Neutrophils % 1 %; Lymphocytes # (M) 1.45 k/uL (1.0-4.8); Neutrophils % (M) 86 %; Nucleated Red Blood Cells 6 /100 WBC (0-0); Total Cells Counted 200; WBC 13.2 k/uL (3.8-10.6)
[2019-10-24] MEDS: ENOXAPARIN 40 MG/0.4 ML SYRINGE SQ SCH (09:51)
--- NOTE | 2019-10-24 10:00 | P.PN ---
Subjective Progress Note Date: 10/24/19 Seen and examined for the follow-up of hyponatremia. Currently high normal sodium of 144. Has NG tube feeds. He at bedside. Nonverbal. Objective - Vital Signs Vital signs: Vital Signs Temp 99.2 F 10/24/19 04:00 Pulse 112 H 10/24/19 07:53 Resp 22 10/24/19 07:00 BP 95/55 10/24/19 07:00 Pulse Ox 99 10/24/19 07:30 Intake & Output 10/23/19 10/24/19 10/24/19 18:59 06:59 18:59 Intake Total 1180 1890 Output Total 975 1614 Balance 205 276 Weight 59.9 kg 59.1 kg Intake: IV 650 700 Sodium Chloride 0.9% 1, 550 600 000 ml @ 50 mls/hr IV . Q20H [facility] Rx#:[id number] Thiamine 100 mg In Sodium 100 50 Chloride 0.9% 50 ml @ 100 mls/hr IVPB Q12HR [facility] Rx#:[id number] cefTRIAXone 1 gm In 50 Sodium Chloride 0.9% 50 ml @ 100 mls/hr IVPB Q24H [facility] Rx#:[id number] Tube Feeding 350 480 Blood Product 0 620 Rc As-1 Unit 0 310 [id number] Rc Pheresis As-3 Unit 310 [id number] Other 180 90 Output: Urine 975 1614 Other: Voiding Method Indwelling Catheter Indwelling Catheter # Bowel Movements 1 - Exam No acute distress S1-S2 heard Decreased breath sounds Abdomen soft No edema - Labs CBC & Chem 7: 10/24/19 06:23 10/24/19 05:17 Labs: Abnormal Lab Results - Last 24 Hours (Table) 10/23/19 10/23/19 10/23/19 Range/Units 13:05 16:35 17:13 WBC 13.0 H (3.8-10.6) k/uL RBC 2.07 L (3.80-5.40) m/uL Hgb 6.1 L* (11.4-16.0) gm/dL Hct 19.5 L* (34.0-46.0) % RDW 17.0 H (11.5-15.5) % Neutrophils # (Manual) (1.3-7.7) k/uL Nucleated RBCs (0-0) /100 WBC Carbon Dioxide (22-30) mmol/L BUN (7-17) mg/dL Glucose (74-99) mg/dL POC Glucose (mg/dL) 104 H (75-99) mg/dL Calcium (8.4-10.2) mg/dL Crossmatch See Detail 10/23/19 10/23/19 10/24/19 Range/Units 17:13 23:58 01:55 WBC 14.2 H (3.8-10.6) k/uL RBC 2.54 L (3.80-5.40) m/uL Hgb 7.6 L D (11.4-16.0) gm/dL Hct 23.2 L (34.0-46.0) % RDW 16.9 H (11.5-15.5) % Neutrophils # (Manual) (1.3-7.7) k/uL Nucleated RBCs (0-0) /100 WBC Carbon Dioxide (22-30) mmol/L BUN (7-17) mg/dL Glucose (74-99) mg/dL POC Glucose (mg/dL) 169 H 168 H (75-99) mg/dL Calcium (8.4-10.2) mg/dL Crossmatch 10/24/19 10/24/19 10/24/19 Range/Units 01:55 05:17 06:05 WBC (3.8-10.6) k/uL RBC (3.80-5.40) m/uL Hgb (11.4-16.0) gm/dL Hct (34.0-46.0) % RDW (11.5-15.5) % Neutrophils # (Manual) (1.3-7.7) k/uL Nucleated RBCs (0-0) /100 WBC Carbon Dioxide 36 H 33 H (22-30) mmol/L BUN 51 H 53 H (7-17) mg/dL Glucose 150 H 150 H (74-99) mg/dL POC Glucose (mg/dL) 159 H (75-99) mg/dL Calcium 8.0 L 8.1 L (8.4-10.2) mg/dL Crossmatch 10/24/19 Range/Units 06:23 WBC 13.2 H (3.8-10.6) k/uL RBC 2.34 L (3.80-5.40) m/uL Hgb 7.0 L (11.4-16.0) gm/dL Hct 21.5 L (34.0-46.0) % RDW 17.6 H (11.5-15.5) % Neutrophils # (Manual) 11.40 H (1.3-7.7) k/uL Nucleated RBCs 6 H (0-0) /100 WBC Carbon Dioxide (22-30) mmol/L BUN (7-17) mg/dL Glucose (74-99) mg/dL POC Glucose (mg/dL) (75-99) mg/dL Calcium (8.4-10.2) mg/dL Crossmatch Assessment and Plan Assessment: #1 hypernatremia suspect to volume depletion. Was hyponatremic initially. #2 metabolic alkalosis #3 GI bleed status post PRBC Plan: #1 increase free water flushes whether to feeds from 30 ML's every 4 hours to 30 ML's every hour. #2 if possible stop IV Lasix. #3 avoid nephrotoxic agents and hypotensive episodes #4 supportive care
[2019-10-24] MEDS: ASPIRIN 81 MG PO SCH (10:02)
[2019-10-24] MEDS: FUROSEMIDE 10 MG/ML 2 ML VIAL IV SCH (10:02)
[2019-10-24] MEDS: PANTOPRAZOLE 40 MG/10 ML VIAL IV SCH ×2 (10:02→20:52)
[2019-10-24] MEDS: ATORVASTATIN 40 MG TAB PO SCH (10:02)
[2019-10-24] MEDS: THIAMINE 100 MG in SODIUM CHLORIDE 0.9% 50 ML IVPB SCH ×2 (10:57→20:52)
[2019-10-24] MEDS: METOPROLOL TARTRATE 25 MG TAB PO SCH ×3 (11:00→20:52)
[2019-10-24 11:02] LABS: Anisocytosis Slight; HCT 20.5 % (34.0-46.0); Hypochromasia Moderate; MCH 30.3 pg (25.0-35.0); MCHC 32.5 g/dL (31.0-37.0); MCV 93.3 fL (80.0-100.0); Macrocytosis Slight; Mean Platelet Volume 8.1; Platelet Count 183 k/uL (150-450); Poikilocytosis Moderate; RDW 18.9 % (11.5-15.5)
--- NOTE | 2019-10-24 11:10 | PN ---
PROGRESS NOTE DATE OF DICTATION: October 24, 2019 Patient is a 78-year-old white female admitted to the hospital about 5 days ago with a symptomatic anemia and hemoglobin is 6, requiring 2 units of PRBC transfusion. She remained stable until yesterday. She was having intermittent dark colored stools. However, yesterday she had several episodes of black tarry stools followed by maroon- colored stools and dropped hemoglobin from 8-6.1 g/dL overnight and received 2 units of blood transfusion. This morning hemoglobin is 7. The patient still continues to have altered mental status. is at the bedside. The patient currently is DNR. PHYSICAL EXAMINATION: Quite sleepy. VITAL SIGNS: Stable. Blood pressure is 195/55, pulse rate 113. HEENT examination unremarkable. Conjunctivae pale. Sclerae anicteric. Oral cavity no lesions. NECK: No JVD or lymph node enlargement. CHEST: Clear to auscultation. HEART: Regular rate and rhythm. ABDOMEN: Soft, it was nontender, nondistended. Bowel sounds are positive. No organomegaly. EXTREMITIES: No pedal edema. SKIN: No rashes. NEURO: She is very lethargic. LABS: From yesterday last night, WBC 13, hemoglobin 6.1, platelets 267. Today hemoglobin is 7 after 2 units of blood transfusion. IMPRESSION: 1. Acute gastrointestinal bleed with multiple episodes of dark tarry stools followed by maroon-colored stools, most likely dealing with an upper gastrointestinal source of bleeding. Her BUN has been elevated at 57, which was normal. Yesterday she received 3 units of PRBC transfusion for hemoglobin of 6.1 and this morning hemoglobin is 7 g/dL. She has an NG tube in place and tube feeds for tube feeding. The patient had a hemoglobin of 6 when she presented to the hospital and also received 2 more units at initial presentation, most likely we are dealing with upper gastrointestinal source of bleeding. 2. Altered mental status. 3. Acute myocardial infarction 5 days ago presently on aspirin and Lovenox. RECOMMENDATIONS: 1. Continue with Protonix 40 mg q.12 hours. 2. Continue aspirin but hold Lovenox. 3. Repeat CBC in 6 hours and transfuse if the hemoglobin is still 7. 4. I had a lengthy discussion with the patient's who was at the bedside and discussed with him regarding endoscopic intervention. The patient currently is a DNR and given the clinical situation and overall guarded prognosis, after discussing the risks, benefits, and complications of procedure, the patient's would like me to proceed with upper endoscopy tomorrow. He understands the risks, benefits, and complications of procedure. Upper endoscopy is scheduled for 9:00 am. In the meantime, we will monitor her CBC on a close basis. Thank you for this consultation. DALTON / OZ: [id number] /
[2019-10-24 11:16] LABS: HGB 6.7 gm/dL (11.4-16.0)
[2019-10-24 11:32] LABS: Eosinophils # (M) 0.15 k/uL (0-0.7); Lymphocytes # (M) 0.59 k/uL (1.0-4.8); Metamyelocytes # (M) 0.15 k/uL (0); Metamyelocytes % 1 %; Monocytes # (M) 0.88 k/uL (0-1.0); Myelocytes # (M) 0.15 k/uL (0); Myelocytes % 1 %; Neutrophils # (M) 12.94 k/uL (1.3-7.7); Neutrophils % (M) 88 %; Nucleated Red Blood Cells 11 /100 WBC (0-0); Total Cells Counted 200; WBC 14.7 k/uL (3.8-10.6)
[2019-10-24 11:33] LABS: Poikilocytosis (M) Present; Polychromasia Present
[2019-10-24 12:17] LABS: Glucose,Whole Blood 109 mg/dL (75-99)
--- NOTE | 2019-10-24 12:47 | P.PN ---
Subjective Progress Note Date: 10/24/19 Principal diagnosis: altered mental status and possible acute metabolic encephalopathy Is a 70-year-old female patient who is currently confused. The patient came in to the emergency department yesterday because of altered mentation and recurrent falls. Apparently she has been falling and she fell at least 5 times yesterday. She initially went to [facility] and she was discharged home without having any labs done. HIDA time she came to our emergency department, the labs are quite abnormal and she had a sodium level of 117 with a potassium level of 5.2 and a chloride of 89 and a serum bicarb of 17 with an anion gap of 17. Creatinine was stable at 0.9. Her initial hemoglobin was at 6.3 and she had guaiac positive stool. Her coags showed an INR of 1.3 with a PT of 15.6. The patient had a chest x-ray that showed some tortuous aorta yet by radiologist opinion and interpretation, the findings were negative and no further workup was done and the patient was admitted to the intensive care unit. Currently she is awake and she is restless in bed. She is moving all 4 extremities. She seems to be poorly maintained. She is on a normal saline infusion at the rate of 75 an hour. She received a total of 2 units of packed RBC and the sodium level is up to 120. She admits to drink beer and order of 5 bottles on a daily basis. There may be a history of alcoholism. She is a smoker and she smokes 5-10 cigarettes a day. On examination she is quite bronchospastic and wheezy and she has a congested cough. She is currently on oxygen at 6 L per minute nasal cannula with a pulse ox of 94%. Cardiac rhythm is sinus. EKG showed a normal sinus rhythm and some ST segment changes limited and T-wave inversions over the lateral leads. Troponins were slightly abnormal with one lives of 0.19, 0.3 and 0.5 respectively 3. CPK level was at 725 at a time of admission. She has a Jarquin catheter in place. Urine output is in order of 100 mL an hour. On examination, the patient has multiple abrasions of the skin in various parts of her body. She also has a surgical scar over the lip probably related to a previous resection of a skin cancer. The past medical history is not known. The past surgical is not known. She is on a blood pressure medication including metoprolol and amlodipine on outpatient basis. Patient was reevaluated today on 10/19/2019, patient remains in the ICU, still quite lethargic, arousable only with deep painful stimuli, she had intermittent episodes of agitations and restlessness requiring Ativan. She just received a dose of Ativan earlier just before I came in to evaluate the patient.her sodium is up to 126. Her CBC showed a hemoglobin of 8.3.bicarb remains a bit low at 15 however her renal profile is normal.yesterday, patient had some EKG changes suggestive of acute coronary syndrome, and she was placed on heparin. Cardiology did not feel that the patient was a candidate for cardiac catheterization. Hence I recommended mostly maximal medical therapy. Her echocardiogram showed good LV function but it also showed moderate aortic regurgitation and mild aortic stenosis.chest x-ray this morning showed mostly right basilar atelectasis,chronic parenchymal changes, cardiomegaly, cannot totally rule out possible early right lower lobe infiltrate, but felt to be less likely. Reevaluated today on 10/20/2019, patient remains in the ICU, her urine output is extremely poor, anywhere between 5-20 mL per hour. Patient received significant amount of fluid boluses last night. And her urine output is still poor. Hence I have recommended Lasix to be given today. Patient remains lethargic, extremely difficult to arouse. Patient received Ativan 1 last night. She remains on norepinephrine at 0.14 mcg/kg/m, remains on bicarb drip, remains on heparin drip, she is on 3 L of oxygen via nasal cannula. Blood pressure remains marginal requiring norepinephrine. Chest x-ray showed cardiomegaly, large right lower lobe atelectasis and possibly some small right-sided pleural effusion. Doubt pneumonia. WBC count today is 26 hemoglobin is 11.2. PTT is not therapeutic. Electrolytes were noted bicarb remains low at 15 BUN is 12 creatinine 0.65. Reevaluated today on 10/21/2019, patient remains in the ICU, same mental status, remains quite obtunded, difficult to arouse, could barely open her eyes with he painful stimuli. Family is at bedside, and they were updated again on her condition. A continues to have norepinephrine at 0.08 mcg/kg/m, she is on bicarb drip which I will cut down and possibly discontinue the next 24 hours. Remains on heparin drip. She is on few liters nasal cannula. Urine output is marginal, hence she will be given a dose of Lasix. Chest x-ray continues to show right basilar opacity and trace of pleural effusion with left basilar atelectasis. has not made up his mind regarding CODE STATUS at this point, hence the patient remains full code at present. Cardiology is planning to stop heparin and to continue other medical management. Reevaluated today on 10/22/2019, remains in the ICU, not much of a exchange teller the last few days. Remains obtunded, monos with deep painful stimuli, but does not open eyes. Patient is off norepinephrine, she is hemodynamically stable, her urine output seems to be adequate, and her chest x-ray showed possible mild interstitial edema, hence another dose of Lasix will be given today. Patient is off the bicarb drip. And she is off the heparin drip. Not much of a neurological improvement noted over the last 24 hours. Reevaluated today on 10/23/2019, remains in the ICU, basically about the same. I have not seen any neurological exchange teller the last 5 days. Patient is obtunded very difficult to arouse. MRI today showed small focal punctate 4 mm left parietal white matter acute ischemic focus without any evidence of mass effect. It also showed moderate degenerative change with extensive nonspecific white mat ter findings most typical of remote microvascular ischemia. All labs were reviewed today including CBC hemoglobin is 7.1 electrodes are normal renal profile is normal. Patient was reevaluated today on 10/24/2019, remains in the ICU, basically about the same. Neurological status is not changing. Remains obtunded, remains difficult to arouse. And yesterday she dropped her hemoglobin, she was given 2 units of packed RBCs, desaturated after the blood transfusion and required high flow FiO2. Then she was given diuretics, and responded well to diuretics. She is back now on 3 L nasal cannula. Hemoglobin again today is 6.7. WBC count is 14.7. Electrolytes are normal BUN is 53 creatinine 0.85. She was seen by gastroenterology today, and concerned about her multiple episodes of dark tarry stools followed by maroon colored stools and she recommended that we continue Protonix 40 mg IV push every 12 hours. Advised to hold Lovenox and continue aspirin. Objective - Vital Signs Vital signs: Vital Signs Temp 99.2 F 10/24/19 04:00 Pulse 120 H 10/24/19 11:23 Resp 22 10/24/19 07:00 BP 95/55 10/24/19 07:00 Pulse Ox 99 10/24/19 07:30 Intake & Output 10/23/19 10/24/19 10/24/19 18:59 06:59 18:59 Intake Total 1180 1890 590 Output Total 975 1614 160 Balance 205 276 430 Weight 59.9 kg 59.1 kg Intake: IV 650 700 400 Sodium Chloride 0.9% 1, 550 600 350 000 ml @ 50 mls/hr IV . Q20H [facility] Rx#:[id number] Thiamine 100 mg In Sodium 100 50 50 Chloride 0.9% 50 ml @ 100 mls/hr IVPB Q12HR [facility] Rx#:[id number] cefTRIAXone 1 gm In 50 Sodium Chloride 0.9% 50 ml @ 100 mls/hr IVPB Q24H [facility] Rx#:[id number] Tube Feeding 350 480 160 Blood Product 0 620 Rc As-1 Unit 0 310 [id number] Rc Pheresis As-3 Unit 310 [id number] Other 180 90 30 Output: Urine 975 1614 160 Other: Voiding Method Indwelling Catheter Indwelling Catheter # Bowel Movements 1 - Exam Physical Exam: Revealed a 78-year-old female, on few liters nasal cannula. head: Atraumatic, normocephalic, HEENT:[Neck is supple.] [No neck masses.] [No thyromegaly.] [No JVD.]PERRLA, EOMI, moist mucous membranes. No icterus. Scar over left lower lip, related to old surgical resection of skin cancer. Chest: [diminished breath sounds at the bases, minimal crackles at the bases, wheezing noted on forced expiratory maneuver.] Cardiac Exam: [Normal S1 and S2, no S3 gallop, 2/6 systolic murmur thought the precordium. Abdomen: [Soft, nontender, no megaly, no rebound, no guarding, normal bowel sounds.] Extremities: [No clubbing, no edema, no cyanosis.] Neurological Exam: Tries to open eyes on deep painful stimuli otherwise she doesn't Psychiatric: Cannot be assessed, Skin: No rashes. Lymphatics: No lymphadenopathy. - Labs CBC & Chem 7: 10/24/19 10:55 10/24/19 05:17 Labs: Abnormal Lab Results - Last 24 Hours (Table) 10/23/19 10/23/19 10/23/19 Range/Units 13:05 16:35 17:13 WBC 13.0 H (3.8-10.6) k/uL RBC 2.07 L (3.80-5.40) m/uL Hgb 6.1 L* (11.4-16.0) gm/dL Hct 19.5 L* (34.0-46.0) % RDW 17.0 H (11.5-15.5) % Neutrophils # (Manual) (1.3-7.7) k/uL Lymphocytes # (Manual) (1.0-4.8) k/uL Metamyelocytes # (Man) (0) k/uL Myelocytes # (Manual) (0) k/uL Nucleated RBCs (0-0) /100 WBC Carbon Dioxide (22-30) mmol/L BUN (7-17) mg/dL Glucose (74-99) mg/dL POC Glucose (mg/dL) 104 H (75-99) mg/dL Calcium (8.4-10.2) mg/dL Crossmatch See Detail 10/23/19 10/23/19 10/24/19 Range/Units 17:13 23:58 01:55 WBC 14.2 H (3.8-10.6) k/uL RBC 2.54 L (3.80-5.40) m/uL Hgb 7.6 L D (11.4-16.0) gm/dL Hct 23.2 L (34.0-46.0) % RDW 16.9 H (11.5-15.5) % Neutrophils # (Manual) (1.3-7.7) k/uL Lymphocytes # (Manual) (1.0-4.8) k/uL Metamyelocytes # (Man) (0) k/uL Myelocytes # (Manual) (0) k/uL Nucleated RBCs (0-0) /100 WBC Carbon Dioxide (22-30) mmol/L BUN (7-17) mg/dL Glucose (74-99) mg/dL POC Glucose (mg/dL) 169 H 168 H (75-99) mg/dL Calcium (8.4-10.2) mg/dL Crossmatch 10/24/19 10/24/19 10/24/19 Range/Units 01:55 05:17 06:05 WBC (3.8-10.6) k/uL RBC (3.80-5.40) m/uL Hgb (11.4-16.0) gm/dL Hct (34.0-46.0) % RDW (11.5-15.5) % Neutrophils # (Manual) (1.3-7.7) k/uL Lymphocytes # (Manual) (1.0-4.8) k/uL Metamyelocytes # (Man) (0) k/uL Myelocytes # (Manual) (0) k/uL Nucleated RBCs (0-0) /100 WBC Carbon Dioxide 36 H 33 H (22-30) mmol/L BUN 51 H 53 H (7-17) mg/dL Glucose 150 H 150 H (74-99) mg/dL POC Glucose (mg/dL) 159 H (75-99) mg/dL Calcium 8.0 L 8.1 L (8.4-10.2) mg/dL Crossmatch 10/24/19 10/24/19 10/24/19 Range/Units 06:23 10:55 12:06 WBC 13.2 H 14.7 H (3.8-10.6) k/uL RBC 2.34 L 2.20 L (3.80-5.40) m/uL Hgb 7.0 L 6.7 L* (11.4-16.0) gm/dL Hct 21.5 L 20.5 L (34.0-46.0) % RDW 17.6 H 18.9 H (11.5-15.5) % Neutrophils # (Manual) 11.40 H 12.94 H (1.3-7.7) k/uL Lymphocytes # (Manual) 0.59 L (1.0-4.8) k/uL Metamyelocytes # (Man) 0.15 H (0) k/uL Myelocytes # (Manual) 0.15 H (0) k/uL Nucleated RBCs 6 H 11 H (0-0) /100 WBC Carbon Dioxide (22-30) mmol/L BUN (7-17) mg/dL Glucose (74-99) mg/dL POC Glucose (mg/dL) 109 H (75-99) mg/dL Calcium (8.4-10.2) mg/dL Crossmatch Assessment and Plan Assessment: impression: 1 altered mental status most likely secondary to acute metabolic encephalopathy. 2 acute hyponatremia, resolved. 3 acute GI bleeding, most likely upper GI in nature, received a total of 6 units of packed RBCs since admission, hemoglobin today is 6.7, will likely require more blood transfusion 4 acute coronary syndrome 5 history of alcoholism 6 acute exacerbation of COPD 7 poor performance and functional status secondary to her multiple medical problems as noted above. 8 recurrent falls secondary to metabolic encephalopathy. 9 oliguria , resolved. 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 Patient had abnormal MRI. This is being addressed by neurology. Recommendation: Continue to monitor the patient in the ICU Continue to monitor daily CBC. And electrolytes as well as renal profile Continue bronchodilators. Continue to monitor hemoglobin and transfuse as needed for hemoglobin lower than 7. Continue IV Protonix. Discontinue Lovenox since the patient is having more episodes of GI bleeding. Continue enteral feeding. Continue alcohol withdrawal protocol. CODE STATUS has been changed to DO NOT RESUSCITATE. was updated on her condition today for Time with Patient: Less than 30
[2019-10-24] MEDS: NOREPINEPHRINE 4 MG in SODIUM CHLORIDE 0.9% 250 ML IV SCH (16:20)
[2019-10-24] MEDS ORDERED: FUROSEMIDE 10 MG/ML 2 ML VIAL IV ONE (16:28)
[2019-10-24 18:03] LABS: Glucose,Whole Blood 184 mg/dL (75-99)
[2019-10-24 18:52] LABS: HCT 31.4 % (34.0-46.0); Hypochromasia Slight; MCH 32.4 pg (25.0-35.0); MCHC 35.7 g/dL (31.0-37.0); MCV 90.9 fL (80.0-100.0); Mean Platelet Volume 9.5; Platelet Count 150 k/uL (150-450); Poikilocytosis Moderate; RBC 3.46 m/uL (3.80-5.40); RDW 15.9 % (11.5-15.5)
[2019-10-24 18:56] LABS: HGB 11.2 gm/dL (11.4-16.0)
--- NOTE | 2019-10-24 19:12 | P.PN ---
Subjective Progress Note Date: 10/24/19 Principal diagnosis: Acute metabolic encephalopathy, acute GI bleed Covering for Dr. Elizabeth over the weekend . Mrs. Millan is a 78-year-old female with a past medical history of hypertension brought into the emergency department for frequent falls and altered mental status changes. Currently the patient is in the ICU and is confused so most of the history is taken from the family members were at the bedside. Patient has been having frequent falls at least 5-6 times in the past 4 days. Initially she was taken to [facility] few days back and she was discharged home. Her noticed that she has been having frequent falls and also feeling fatigued so he called the EMS who brought her to the hospital. In the ER patient had blood work done showing hemoglobin of 6.3 and sodium of 118. Her troponins are elevated at 0.320 and her urine analysis was positive for large leukocyte esterase and WBC clumps. She also had a chest x-ray and an x-ray of the pelvis- no acute changes and no fracture. Patient was started on IV fluids given 2 units of PRBCs and admitted to the ICU. In the ICU patient had CT of the brain - no acute cranial process and also CT of the chest and abdomen- anasarca and small left-sided pleural effusion and mild upper lobe emphysematous changes. On 10/24/2019 - patient still remains in the ICU. Patient received 2 units of PRBCs yesterday for active GI bleed. Patient is a fragment and difficult to arouse. As per the nursing staff report patient had 6-8 bowel movements this morning. Initially they were dark brown in color but now bright maroon in color. Patient has NG tube to suction with brown colored fluid. GI on board and following the patient. Patient is on Protonix IV. Aspirin and Lovenox currently on hold. Patient's CODE STATUS has been changed to NO CODE by family yesterday. Review of systems could not be done as the patient is obtunded. Patient's labs and medications have been reviewed. Active Medications Albuterol/Ipratropium (Duoneb 0.5 Mg-3 Mg/3 Ml Soln) 3 ml INHALATION RT-Q4H [facility] Last Admin: 10/24/19 15:30 Dose: 3 ml Documented by: Atorvastatin Calcium (Lipitor) 40 mg PO DAILY [facility] Last Admin: 10/24/19 10:02 Dose: 40 mg Documented by: Furosemide (Lasix) 20 mg IV DAILY [facility] Last Admin: 10/24/19 10:02 Dose: 20 mg Documented by: Ceftriaxone Sodium 1 gm/ (Sodium Chloride) 50 mls @ 100 mls/hr IVPB Q24H [facility] Last Admin: 10/23/19 22:34 Dose: 100 mls/hr Documented by: Thiamine HCl 100 mg/ Sodium (Chloride) 51 mls @ 100 mls/hr IVPB Q12HR [facility] Last Admin: 10/24/19 10:57 Dose: 100 mls/hr Documented by: Norepinephrine Bitartrate 4 mg (/ Sodium Chloride) 254 mls @ 10.897 mls/hr IV .[id number] [facility]; Protocol Last Admin: 10/24/19 16:20 Dose: Not Given Documented by: Vasopressin 60 unit/ Sodium (Chloride) 153 mls @ 4.59 mls/hr IV .Q24H [facility]; Protocol Last Admin: 10/23/19 20:05 Dose: Not Given Documented by: Sodium Chloride (Saline 0.9%) 1,000 mls @ 50 mls/hr IV .Q20H [facility] Last Admin: 10/24/19 03:05 Dose: 50 mls/hr Documented by: Insulin Aspart (Novolog) 0 unit SQ Q6H [facility]; Protocol Last Admin: 10/24/19 18:14 Dose: 2 unit Documented by: Lorazepam (Ativan) 1 mg IV Q2HR PRN PRN Reason: CIWA 8 or 9 Last Admin: 10/22/19 21:30 Dose: 1 mg Documented by: Lorazepam (Ativan) 1 mg IV Q1HR PRN PRN Reason: CIWA 10 to 15 Last Admin: 10/23/19 10:01 Dose: 1 mg Documented by: Methylprednisolone Sodium Succinate (Solu-Medrol) 60 mg IV Q6HR [facility] Last Admin: 10/24/19 17:47 Dose: 60 mg Documented by: Metoprolol Tartrate (Lopressor) 25 mg PO TID [facility] Last Admin: 10/24/19 16:31 Dose: Not Given Documented by: Miscellaneous Information (Potassium Per Protocol) 1 each MISCELLANE DAILY PRN; Protocol PRN Reason: Per Protocol Miscellaneous Information (Magnesium Per Protocol) 1 each MISCELLANE DAILY PRN; Protocol PRN Reason: Per Protocol Naloxone HCl (Narcan) 0.2 mg IV Q2M PRN PRN Reason: Opioid Reversal Pantoprazole Sodium (Protonix) 40 mg IV BID [facility] Last Admin: 10/24/19 10:02 Dose: 40 mg Documented by: Objective - Vital Signs Vital signs: Vital Signs Temp 98.7 F 10/24/19 18:08 Pulse 117 H 10/24/19 18:08 Resp 22 10/24/19 18:08 BP 100/62 10/24/19 18:08 Pulse Ox 92 L 10/24/19 18:08 Intake & Output 10/23/19 10/24/19 10/24/19 18:59 06:59 18:59 Intake Total 1180 1890 2080 Output Total 975 1614 335 Balance 423 979 9764 Weight 59.9 kg 59.1 kg Intake: IV 650 700 650 Sodium Chloride 0.9% 1, 550 600 600 000 ml @ 50 mls/hr IV . Q20H [facility] Rx#:[id number] Thiamine 100 mg In Sodium 100 50 50 Chloride 0.9% 50 ml @ 100 mls/hr IVPB Q12HR [facility] Rx#:[id number] cefTRIAXone 1 gm In 50 Sodium Chloride 0.9% 50 ml @ 100 mls/hr IVPB Q24H [facility] Rx#:[id number] Tube Feeding 350 480 160 Blood Product 0 620 1240 Rc As-1 Unit 0 310 [id number] Rc Irr As1 Unit 310 [id number] Rc Irr As3 Unit 310 [id number] Rc Pheresis As-3 Unit 310 [id number] Other 180 90 30 Output: Urine 975 1614 335 Other: Voiding Method Indwelling Catheter Indwelling Catheter Indwelling Catheter # Bowel Movements 1 - Exam GEN. APPEARANCE: Obtunded, not following commands, picking and pulling at anything/everything HEAD EXAM: atraumatic, normocephalic, EYE EXAM: Mild pallor. No icterus. NECK EXAM: Neck is supple. RESPIRATORY EXAM: Decreased breath sounds in all lung ramirez. Fine crackles at the lower lung bases.fine expiratory wheezing. CARDIOVASCULAR EXAM: Regular S1-S2 heard.systolic murmur GI/ABDOMINAL EXAM: soft, normal bowel sounds. Nontender. No guarding or rigidity. EXTREMITIES EXAM: No edema, no clubbing, no cyanosis NEUROLOGICAL EXAM: unable to assess at this time, patient lethargic, obtunded - Labs CBC & Chem 7: 10/24/19 18:20 10/24/19 05:17 Labs: Abnormal Lab Results - Last 24 Hours (Table) 10/23/19 10/23/19 10/24/19 Range/Units 17:13 23:58 01:55 WBC 14.2 H (3.8-10.6) k/uL RBC 2.54 L (3.80-5.40) m/uL Hgb 7.6 L D (11.4-16.0) gm/dL Hct 23.2 L (34.0-46.0) % RDW 16.9 H (11.5-15.5) % Neutrophils # (Manual) (1.3-7.7) k/uL Lymphocytes # (Manual) (1.0-4.8) k/uL Metamyelocytes # (Man) (0) k/uL Myelocytes # (Manual) (0) k/uL Nucleated RBCs (0-0) /100 WBC Carbon Dioxide (22-30) mmol/L BUN (7-17) mg/dL Glucose (74-99) mg/dL POC Glucose (mg/dL) 168 H (75-99) mg/dL Calcium (8.4-10.2) mg/dL Crossmatch See Detail 10/24/19 10/24/19 10/24/19 Range/Units 01:55 05:17 06:05 WBC (3.8-10.6) k/uL RBC (3.80-5.40) m/uL Hgb (11.4-16.0) gm/dL Hct (34.0-46.0) % RDW (11.5-15.5) % Neutrophils # (Manual) (1.3-7.7) k/uL Lymphocytes # (Manual) (1.0-4.8) k/uL Metamyelocytes # (Man) (0) k/uL Myelocytes # (Manual) (0) k/uL Nucleated RBCs (0-0) /100 WBC Carbon Dioxide 36 H 33 H (22-30) mmol/L BUN 51 H 53 H (7-17) mg/dL Glucose 150 H 150 H (74-99) mg/dL POC Glucose (mg/dL) 159 H (75-99) mg/dL Calcium 8.0 L 8.1 L (8.4-10.2) mg/dL Crossmatch 10/24/19 10/24/19 10/24/19 Range/Units 06:23 10:55 12:06 WBC 13.2 H 14.7 H (3.8-10.6) k/uL RBC 2.34 L 2.20 L (3.80-5.40) m/uL Hgb 7.0 L 6.7 L* (11.4-16.0) gm/dL Hct 21.5 L 20.5 L (34.0-46.0) % RDW 17.6 H 18.9 H (11.5-15.5) % Neutrophils # (Manual) 11.40 H 12.94 H (1.3-7.7) k/uL Lymphocytes # (Manual) 0.59 L (1.0-4.8) k/uL Metamyelocytes # (Man) 0.15 H (0) k/uL Myelocytes # (Manual) 0.15 H (0) k/uL Nucleated RBCs 6 H 11 H (0-0) /100 WBC Carbon Dioxide (22-30) mmol/L BUN (7-17) mg/dL Glucose (74-99) mg/dL POC Glucose (mg/dL) 109 H (75-99) mg/dL Calcium (8.4-10.2) mg/dL Crossmatch 10/24/19 Range/Units 17:52 WBC (3.8-10.6) k/uL RBC (3.80-5.40) m/uL Hgb (11.4-16.0) gm/dL Hct (34.0-46.0) % RDW (11.5-15.5) % Neutrophils # (Manual) (1.3-7.7) k/uL Lymphocytes # (Manual) (1.0-4.8) k/uL Metamyelocytes # (Man) (0) k/uL Myelocytes # (Manual) (0) k/uL Nucleated RBCs (0-0) /100 WBC Carbon Dioxide (22-30) mmol/L BUN (7-17) mg/dL Glucose (74-99) mg/dL POC Glucose (mg/dL) 184 H (75-99) mg/dL Calcium (8.4-10.2) mg/dL Crossmatch Assessment and Plan Assessment: ASSESSMENT Acute GI bleed Acute ST elevation OH, inferior wall Metabolic Encephalopathy Hypovolemic hyponatremia UTI with E. coli Elevated troponins Anemia-? GI bleed Frequent falls COPD Alcohol abuse Hypertension No CPR PLAN: Patient received 2 units of PRBCs history dental PRBCs this morning. She is active bleeding. So we will monitor H&H every 8 hours and transfuse if below 7. GI Dr. Ann on board and following the patient. Continue with IV Protonix. Lovenox and aspirin on hold. Continue with ceftriaxone for her UTI. Overall prognosis is poor. Patient is no CPR. Further admonitions to follow depending on the progress of the patient.
[2019-10-24 19:23] LABS: Monocytes # (M) 0.89 k/uL (0-1.0); Neutrophils # (M) 14.69 k/uL (1.3-7.7); Neutrophils % (M) 83 %; Nucleated Red Blood Cells 12 /100 WBC (0-0); Total Cells Counted 200; WBC 17.7 k/uL (3.8-10.6)
[2019-10-24] MEDS ORDERED: FUROSEMIDE 10 MG/ML 2 ML VIAL IV STA (21:17)
[2019-10-24] MEDS ORDERED: METOPROLOL TARTRATE 25 MG TAB PO STA (21:17)
[2019-10-24] MEDS: LORazepam 2 MG/ML INJ IV PRN (21:22)
[2019-10-24] MEDS: SODIUM CHLORIDE 0.9% 150 ML with VASOPRESSIN 60 UNIT IV SCH ×2 (23:53)
[2019-10-25 00:02] LABS: Glucose,Whole Blood 146 mg/dL (75-99)
[2019-10-25] MEDS: IPRATROPIUM-ALBUTEROL 3 ML NEB INHALATION SCH ×2 (03:39→07:16)
[2019-10-25 05:36] LABS: Anisocytosis Slight; HCT 28.3 % (34.0-46.0); HGB 9.9 gm/dL (11.4-16.0); Hyperchromasia Slight; Hypochromasia Slight; MCH 31.7 pg (25.0-35.0); MCHC 34.9 g/dL (31.0-37.0); Mean Platelet Volume 10.3; Platelet Count 153 k/uL (150-450); Poikilocytosis Marked; RBC 3.11 m/uL (3.80-5.40); WBC 28.4 k/uL (3.8-10.6)
[2019-10-25 05:50] LABS: Calcium 7.8 mg/dL (8.4-10.2); Potassium 3.5 mmol/L (3.5-5.1)
[2019-10-25 06:14] LABS: Glucose,Whole Blood 157 mg/dL (75-99)
[2019-10-25] MEDS: INSULIN ASPART (NovoLOG) 100 UNIT/ML VIAL SQ SCH ×2 (06:14→09:54)
[2019-10-25] MEDS: methylPREDNISolone SOD SUCCI 125 MG/2 ML VIAL IV SCH ×2 (06:14→09:54)
[2019-10-25] MEDS: POTASSIUM CHLORIDE 20 MEQ in WATER FOR INJECTION 1 100ML.BAG IVPB SCH ×2 (06:58→09:53)
[2019-10-25] MEDS ORDERED: DEXTROSE 5% IN WATER 1,000 ML IV ONE (07:50)
[2019-10-25] MEDS: ATORVASTATIN 40 MG TAB PO SCH (08:08)
[2019-10-25] MEDS: METOPROLOL TARTRATE 25 MG TAB PO SCH (08:08)
[2019-10-25] MEDS: PANTOPRAZOLE 40 MG/10 ML VIAL IV SCH (08:08)
--- NOTE | 2019-10-25 08:40 | P.PN ---
Subjective Progress Note Date: 10/25/19 Seen and examined for the follow-up of hyponatremia. Currently hyponatremic and high flow oxygen because of hypoxia. NG tube obstruction in 2 feet has been stopped. Objective - Vital Signs Vital signs: Vital Signs Temp 99.2 F 10/25/19 04:00 Pulse 111 H 10/25/19 07:31 Resp 20 10/25/19 07:00 BP 93/64 10/25/19 07:00 Pulse Ox 90 L 10/25/19 07:00 Intake & Output 10/24/19 10/25/19 10/25/19 18:59 06:59 18:59 Intake Total 2130 670 100 Output Total 410 670 45 Balance 1720 0 55 Weight 60 kg Intake: IV 700 670 50 Sodium Chloride 0.9% 1, 650 570 50 000 ml @ 50 mls/hr IV . Q20H [facility] Rx#:[id number] Thiamine 100 mg In Sodium 50 50 Chloride 0.9% 50 ml @ 100 mls/hr IVPB Q12HR [facility] Rx#:[id number] cefTRIAXone 1 gm In 50 Sodium Chloride 0.9% 50 ml @ 100 mls/hr IVPB Q24H [facility] Rx#:[id number] Intake, IV Titration 50 Amount Potassium Chloride 20 meq 50 In Water For Injection 1 100ml.bag @ 50 mls/hr IVPB Q2H [facility] Rx#: [id number] Tube Feeding 160 Blood Product 1240 Rc Irr As1 Unit 310 [id number] Rc Irr As3 Unit 310 [id number] Other 30 Output: Urine 410 670 45 Other: Voiding Method Indwelling Catheter Indwelling Catheter # Bowel Movements 1 - Exam No acute distress S1-S2 heard Decreased breath sounds Abdomen soft No edema - Labs CBC & Chem 7: 10/25/19 05:30 10/25/19 05:30 Labs: Abnormal Lab Results - Last 24 Hours (Table) 10/23/19 10/24/19 10/24/19 Range/Units 17:13 10:55 12:06 WBC 14.7 H (3.8-10.6) k/uL RBC 2.20 L (3.80-5.40) m/uL Hgb 6.7 L* (11.4-16.0) gm/dL Hct 20.5 L (34.0-46.0) % RDW 18.9 H (11.5-15.5) % Neutrophils # (Manual) 12.94 H (1.3-7.7) k/uL Lymphocytes # (Manual) 0.59 L (1.0-4.8) k/uL Metamyelocytes # (Man) 0.15 H (0) k/uL Myelocytes # (Manual) 0.15 H (0) k/uL Nucleated RBCs 11 H (0-0) /100 WBC Sodium (137-145) mmol/L Chloride (98-107) mmol/L Carbon Dioxide (22-30) mmol/L BUN (7-17) mg/dL Glucose (74-99) mg/dL POC Glucose (mg/dL) 109 H (75-99) mg/dL Calcium (8.4-10.2) mg/dL Crossmatch See Detail 10/24/19 10/24/19 10/24/19 Range/Units 17:52 18:20 23:50 WBC 17.7 H (3.8-10.6) k/uL RBC 3.46 L (3.80-5.40) m/uL Hgb 11.2 L D (11.4-16.0) gm/dL Hct 31.4 L (34.0-46.0) % RDW 15.9 H (11.5-15.5) % Neutrophils # (Manual) 14.69 H (1.3-7.7) k/uL Lymphocytes # (Manual) (1.0-4.8) k/uL Metamyelocytes # (Man) (0) k/uL Myelocytes # (Manual) (0) k/uL Nucleated RBCs 12 H (0-0) /100 WBC Sodium (137-145) mmol/L Chloride (98-107) mmol/L Carbon Dioxide (22-30) mmol/L BUN (7-17) mg/dL Glucose (74-99) mg/dL POC Glucose (mg/dL) 184 H 146 H (75-99) mg/dL Calcium (8.4-10.2) mg/dL Crossmatch 10/25/19 10/25/19 10/25/19 Range/Units 05:30 05:30 06:03 WBC 28.4 H (3.8-10.6) k/uL RBC 3.11 L (3.80-5.40) m/uL Hgb 9.9 L (11.4-16.0) gm/dL Hct 28.3 L (34.0-46.0) % RDW 17.0 H (11.5-15.5) % Neutrophils # (Manual) (1.3-7.7) k/uL Lymphocytes # (Manual) (1.0-4.8) k/uL Metamyelocytes # (Man) (0) k/uL Myelocytes # (Manual) (0) k/uL Nucleated RBCs (0-0) /100 WBC Sodium 149 H (137-145) mmol/L Chloride 114 H (98-107) mmol/L Carbon Dioxide 34 H (22-30) mmol/L BUN 78 H (7-17) mg/dL Glucose 148 H (74-99) mg/dL POC Glucose (mg/dL) 157 H (75-99) mg/dL Calcium 7.8 L (8.4-10.2) mg/dL Crossmatch Assessment and Plan Assessment: #1 hypernatremia suspect to volume depletion. Was hyponatremic initially. #2 metabolic alkalosis #3 GI bleed status post PRBC #4 hypoxia requiring high flow oxygen Plan: #1 stop Lasix as chest x-ray does not show volume overloaded for the reason for hypoxia. #2 add D5 water at 50 ML's an hour. #3 avoid nephrotoxic agents and hypotensive episodes #4 transfuse to maintain hemoglobin more than 8 #5 appreciate GI input.
[2019-10-25] MEDS: THIAMINE 100 MG in SODIUM CHLORIDE 0.9% 50 ML IVPB SCH (08:46)
[2019-10-25 09:01] VITALS: TEMP 98.5
--- NOTE | 2019-10-25 09:22 | XR ---
EXAMINATION TYPE: XR chest 1V portable DATE OF EXAM: 10/25/2019 HISTORY: increased oxygen demands. REFERENCE: Previous study dated 10/24/2019. FINDINGS: There is a left basilic PICC line in place. Its tip is in the superior vena cava. An NG tub e is present and its tip is in the stomach. Heart size upper limits of normal. There is bibasilar airspace disease. There are bilateral effusions . There is evidence of severe rotator cuff disease. IMPRESSION: NO SIGNIFICANT INTERVAL CHANGE IN THE APPEARANCE OF THE CHEST
[2019-10-25] MEDS ORDERED: MORPHINE SULFATE 2 MG/ML SYRINGE IVP ONE (09:51)
[2019-10-25] MEDS ORDERED: DRY MOUTH SPRAY 44.3 SPRAY/44.3 ML SPRAY MUCOUS MEM PRN (09:51)
[2019-10-25] MEDS: NOREPINEPHRINE 4 MG in SODIUM CHLORIDE 0.9% 250 ML IV SCH (09:54)
[2019-10-25 11:55] LABS: Glucose,Whole Blood 148 mg/dL (75-99)
--- NOTE | 2019-10-25 12:04 | P.PN ---
Subjective Progress Note Date: 10/25/19 Principal diagnosis: altered mental status and possible acute metabolic encephalopathy Is a 70-year-old female patient who is currently confused. The patient came in to the emergency department yesterday because of altered mentation and recurrent falls. Apparently she has been falling and she fell at least 5 times yesterday. She initially went to [facility] and she was discharged home without having any labs done. HIDA time she came to our emergency department, the labs are quite abnormal and she had a sodium level of 117 with a potassium level of 5.2 and a chloride of 89 and a serum bicarb of 17 with an anion gap of 17. Creatinine was stable at 0.9. Her initial hemoglobin was at 6.3 and she had guaiac positive stool. Her coags showed an INR of 1.3 with a PT of 15.6. The patient had a chest x-ray that showed some tortuous aorta yet by radiologist opinion and interpretation, the findings were negative and no further workup was done and the patient was admitted to the intensive care unit. Currently she is awake and she is restless in bed. She is moving all 4 extremities. She seems to be poorly maintained. She is on a normal saline infusion at the rate of 75 an hour. She received a total of 2 units of packed RBC and the sodium level is up to 120. She admits to drink beer and order of 5 bottles on a daily basis. There may be a history of alcoholism. She is a smoker and she smokes 5-10 cigarettes a day. On examination she is quite bronchospastic and wheezy and she has a congested cough. She is currently on oxygen at 6 L per minute nasal cannula with a pulse ox of 94%. Cardiac rhythm is sinus. EKG showed a normal sinus rhythm and some ST segment changes limited and T-wave inversions over the lateral leads. Troponins were slightly abnormal with one lives of 0.19, 0.3 and 0.5 respectively 3. CPK level was at 725 at a time of admission. She has a Jarquin catheter in place. Urine output is in order of 100 mL an hour. On examination, the patient has multiple abrasions of the skin in various parts of her body. She also has a surgical scar over the lip probably related to a previous resection of a skin cancer. The past medical history is not known. The past surgical is not known. She is on a blood pressure medication including metoprolol and amlodipine on outpatient basis. Patient was reevaluated today on 10/19/2019, patient remains in the ICU, still quite lethargic, arousable only with deep painful stimuli, she had intermittent episodes of agitations and restlessness requiring Ativan. She just received a dose of Ativan earlier just before I came in to evaluate the patient.her sodium is up to 126. Her CBC showed a hemoglobin of 8.3.bicarb remains a bit low at 15 however her renal profile is normal.yesterday, patient had some EKG changes suggestive of acute coronary syndrome, and she was placed on heparin. Cardiology did not feel that the patient was a candidate for cardiac catheterization. Hence I recommended mostly maximal medical therapy. Her echocardiogram showed good LV function but it also showed moderate aortic regurgitation and mild aortic stenosis.chest x-ray this morning showed mostly right basilar atelectasis,chronic parenchymal changes, cardiomegaly, cannot totally rule out possible early right lower lobe infiltrate, but felt to be less likely. Reevaluated today on 10/20/2019, patient remains in the ICU, her urine output is extremely poor, anywhere between 5-20 mL per hour. Patient received significant amount of fluid boluses last night. And her urine output is still poor. Hence I have recommended Lasix to be given today. Patient remains lethargic, extremely difficult to arouse. Patient received Ativan 1 last night. She remains on norepinephrine at 0.14 mcg/kg/m, remains on bicarb drip, remains on heparin drip, she is on 3 L of oxygen via nasal cannula. Blood pressure remains marginal requiring norepinephrine. Chest x-ray showed cardiomegaly, large right lower lobe atelectasis and possibly some small right-sided pleural effusion. Doubt pneumonia. WBC count today is 26 hemoglobin is 11.2. PTT is not therapeutic. Electrolytes were noted bicarb remains low at 15 BUN is 12 creatinine 0.65. Reevaluated today on 10/21/2019, patient remains in the ICU, same mental status, remains quite obtunded, difficult to arouse, could barely open her eyes with he painful stimuli. Family is at bedside, and they were updated again on her condition. A continues to have norepinephrine at 0.08 mcg/kg/m, she is on bicarb drip which I will cut down and possibly discontinue the next 24 hours. Remains on heparin drip. She is on few liters nasal cannula. Urine output is marginal, hence she will be given a dose of Lasix. Chest x-ray continues to show right basilar opacity and trace of pleural effusion with left basilar atelectasis. has not made up his mind regarding CODE STATUS at this point, hence the patient remains full code at present. Cardiology is planning to stop heparin and to continue other medical management. Reevaluated today on 10/22/2019, remains in the ICU, not much of a ticket dispenser changer the last few days. Remains obtunded, monos with deep painful stimuli, but does not open eyes. Patient is off norepinephrine, she is hemodynamically stable, her urine output seems to be adequate, and her chest x-ray showed possible mild interstitial edema, hence another dose of Lasix will be given today. Patient is off the bicarb drip. And she is off the heparin drip. Not much of a neurological improvement noted over the last 24 hours. Reevaluated today on 10/23/2019, remains in the ICU, basically about the same. I have not seen any neurological ticket dispenser changer the last 5 days. Patient is obtunded very difficult to arouse. MRI today showed small focal punctate 4 mm left parietal white matter acute ischemic focus without any evidence of mass effect. It also showed moderate degenerative change with extensive nonspecific white mat ter findings most typical of remote microvascular ischemia. All labs were reviewed today including CBC hemoglobin is 7.1 electrodes are normal renal profile is normal. Patient was reevaluated today on 10/24/2019, remains in the ICU, basically about the same. Neurological status is not changing. Remains obtunded, remains difficult to arouse. And yesterday she dropped her hemoglobin, she was given 2 units of packed RBCs, desaturated after the blood transfusion and required high flow FiO2. Then she was given diuretics, and responded well to diuretics. She is back now on 3 L nasal cannula. Hemoglobin again today is 6.7. WBC count is 14.7. Electrolytes are normal BUN is 53 creatinine 0.85. She was seen by gastroenterology today, and concerned about her multiple episodes of dark tarry stools followed by maroon colored stools and she recommended that we continue Protonix 40 mg IV push every 12 hours. Advised to hold Lovenox and continue aspirin. Reevaluated today on 10/25/2019, remains in the ICU, patient has been worsening since yesterday. She is now on high flow airvo, her O2 saturations are marginal. And she has been requiring significant amount of blood transfusions since admission. Patient received a total of 6 units of packed RBCs since admission. Gastroenterology is considering EGD, however her clinical condition has become significantly worse, and the patient will not tolerate EGD and/or colonoscopy. Hemoglobin this morning is 9.9. Chest x-ray is worsening, patient seemed to have developed an extensive left lower lobe airspace disease/pneumonia. Her white count is up to 28.4 her sodium is 149. BUN is 78 creatinine is 0.93. Neurological status is basically about the same, patient is not responding to any stimuli. Even deep painful stimuli. Hence I had a discussion with family at bedside, and now they are agreeable to proceed with comfort care measures. Objective - Vital Signs Vital signs: Vital Signs Temp 98.5 F 10/25/19 08:00 Pulse 109 H 10/25/19 10:00 Resp 19 10/25/19 10:00 BP 98/57 10/25/19 10:00 Pulse Ox 90 L 10/25/19 10:00 Intake & Output 10/24/19 10/25/19 10/25/19 18:59 06:59 18:59 Intake Total 2130 670 300 Output Total 410 670 120 Balance 1720 0 180 Weight 60 kg Intake: IV 700 670 250 Dextrose 5% in Water 1, 100 000 ml @ 50 mls/hr IV . Q20H [facility] Rx#:[id number] Sodium Chloride 0.9% 1, 650 570 100 000 ml @ 50 mls/hr IV . Q20H [facility] Rx#:[id number] Thiamine 100 mg In Sodium 50 50 50 Chloride 0.9% 50 ml @ 100 mls/hr IVPB Q12HR [facility] Rx#:[id number] cefTRIAXone 1 gm In 50 Sodium Chloride 0.9% 50 ml @ 100 mls/hr IVPB Q24H [facility] Rx#:[id number] Intake, IV Titration 50 Amount Potassium Chloride 20 meq 50 In Water For Injection 1 100ml.bag @ 50 mls/hr IVPB Q2H [facility] Rx#: [id number] Tube Feeding 160 Blood Product 1240 Rc Irr As1 Unit 310 [id number] Rc Irr As3 Unit 310 [id number] Other 30 Output: Urine 410 670 120 Other: Voiding Method Indwelling Catheter Indwelling Catheter Indwelling Catheter # Bowel Movements 1 - Exam Physical Exam: Revealed a 78-year-old female, on airvo, high FiO2 and high flow. head: Atraumatic, normocephalic, HEENT:[Neck is supple.] [No neck masses.] [No thyromegaly.] [No JVD.]PERRLA, EOMI, moist mucous membranes. No icterus. Scar over left lower lip, related to old surgical resection of skin cancer. Chest: [diminished breath sounds at the bases, crackles at the bases especially at the left base noted.] Cardiac Exam: [Normal S1 and S2, no S3 gallop, 2/6 systolic murmur thought the precordium. Abdomen: [Soft, nontender, no megaly, no rebound, no guarding, normal bowel sounds.] Extremities: [No clubbing, no edema, no cyanosis.] Neurological Exam: Unresponsive even to deep painful stimuli. Psychiatric: Cannot be assessed, Skin: No rashes. Lymphatics: No lymphadenopathy. - Labs CBC & Chem 7: 10/25/19 05:30 10/25/19 05:30 Labs: Abnormal Lab Results - Last 24 Hours (Table) 10/23/19 10/24/19 10/24/19 Range/Units 17:13 12:06 17:52 WBC (3.8-10.6) k/uL RBC (3.80-5.40) m/uL Hgb (11.4-16.0) gm/dL Hct (34.0-46.0) % RDW (11.5-15.5) % Neutrophils # (Manual) (1.3-7.7) k/uL Nucleated RBCs (0-0) /100 WBC Sodium (137-145) mmol/L Chloride (98-107) mmol/L Carbon Dioxide (22-30) mmol/L BUN (7-17) mg/dL Glucose (74-99) mg/dL POC Glucose (mg/dL) 109 H 184 H (75-99) mg/dL Calcium (8.4-10.2) mg/dL Crossmatch See Detail 10/24/19 10/24/19 10/25/19 Range/Units 18:20 23:50 05:30 WBC 17.7 H 28.4 H (3.8-10.6) k/uL RBC 3.46 L 3.11 L (3.80-5.40) m/uL Hgb 11.2 L D 9.9 L (11.4-16.0) gm/dL Hct 31.4 L 28.3 L (34.0-46.0) % RDW 15.9 H 17.0 H (11.5-15.5) % Neutrophils # (Manual) 14.69 H (1.3-7.7) k/uL Nucleated RBCs 12 H (0-0) /100 WBC Sodium (137-145) mmol/L Chloride (98-107) mmol/L Carbon Dioxide (22-30) mmol/L BUN (7-17) mg/dL Glucose (74-99) mg/dL POC Glucose (mg/dL) 146 H (75-99) mg/dL Calcium (8.4-10.2) mg/dL Crossmatch 10/25/19 10/25/19 10/25/19 Range/Units 05:30 06:03 11:44 WBC (3.8-10.6) k/uL RBC (3.80-5.40) m/uL Hgb (11.4-16.0) gm/dL Hct (34.0-46.0) % RDW (11.5-15.5) % Neutrophils # (Manual) (1.3-7.7) k/uL Nucleated RBCs (0-0) /100 WBC Sodium 149 H (137-145) mmol/L Chloride 114 H (98-107) mmol/L Carbon Dioxide 34 H (22-30) mmol/L BUN 78 H (7-17) mg/dL Glucose 148 H (74-99) mg/dL POC Glucose (mg/dL) 157 H 148 H (75-99) mg/dL Calcium 7.8 L (8.4-10.2) mg/dL Crossmatch Assessment and Plan Assessment: impression: 1 altered mental status most likely secondary to acute metabolic encephalopathy. 2 acute hyponatremia, resolved. 3 acute GI bleeding, most likely upper GI in nature, received a total of 6 units of packed RBCs since admission, 4 acute coronary syndrome 5 history of alcoholism 6 acute exacerbation of COPD 7 poor performance and functional status secondary to her multiple medical problems as noted above. 8 recurrent falls secondary to metabolic encephalopathy. 9 oliguria , resolved. 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 Patient had abnormal MRI. This is being addressed by neurology. 11 strongly suspect acute hospital-acquired left lower lobe pneumonia. Recommendation: Discussed patient's condition with family at bedside, and they seem to be agreeable to proceed with comfort care measures. Nurses will be instructed to pursue comfort care at this point. Overall prognosis is extremely poor, and her clinical condition seems to be deteriorating. Will proceed with comfort care measures. And possibly transferred to a private bed on oncology. Time with Patient: Less than 30
--- NOTE | 2019-10-25 12:16 | PN ---
PROGRESS NOTE DATE OF DICTATION: October 25, 2019 The patient is a 78-year-old pleasant white female admitted to the hospital with severe symptomatic anemia, altered mental status. During the hospitalization, initially had acute MO. She was on IV heparin that was subsequently stopped. She was placed on aspirin and Lovenox. Yesterday morning, she started having significant GI bleed. She had multiple black tarry stools followed by maroon-colored stools. She dropped hemoglobin to 6 g/dL requiring 2 units of blood transfusion. Through the day, she continued to have active bleeding, received another 2 units of PRBC transfusion last night and this morning hemoglobin is 9 g/dL. Patient was seen yesterday and was scheduled for an upper endoscopy today for the active ongoing bleeding. Through the night however, her respiratory status changed and presently on AirVo with 10 L and saturating at 84%. She was seen by anesthesiologist who did not think would be a good candidate for endoscopy intervention because of her pulmonary status. Last night, she had one large episode of very bowel movement. PHYSICAL EXAMINATION: She continues to have altered mental status, not arousable. VITAL SIGNS: Blood pressure 98/57, pulse rate 109, temperature 98.5. HEENT examination unremarkable. Conjunctivae pink. Sclerae anicteric. Oral cavity no lesions. NECK: No JVD or lymph node enlargement. CHEST: Decreased breath sounds bilaterally. HEART: Regular rate and rhythm. ABDOMEN: Soft. Bowel sounds are positive. No organomegaly. EXTREMITIES: No pedal edema. NEURO: Very lethargic. LABORATORY DATA: WBC 28.4, hemoglobin 9.9, platelets normal. Basic metabolic panel showed a BUN of 78 and creatinine of 0.93. IMPRESSION: 1. Acute gastrointestinal bleed, possibly upper but colonic source cannot be excluded. The patient received a total of 4 units of PRBC transfusion in the last 24 hours for active gastrointestinal bleed. She is scheduled for an upper endoscopy this morning. However, given her underlying pulmonary status, anesthesiologist feels it is not safe to proceed with the procedure unless her DNR status is reversed. Hemoglobin today 7.3 g/dL. 2. Acute respiratory distress, presently on O2 at 10 L/minute and barely saturating at 84%. 3. Altered mental status. 4. Acute myocardial infarction, presently Lovenox and aspirin on hold. RECOMMENDATIONS: I had a lengthy discussion with the patient's family who is at the bedside. At this time, we will hold off any endoscopic intervention. Continue to treat her conservatively. Family planning to have a discussion with Dr. Hahn regarding overall prognosis and considering comfort measures at this time. We will await for their final decision. Thank you for this consultation. DALTON / OZ: [id number] /
[2019-10-25 18:12] LABS: Glucose,Whole Blood 161 mg/dL (75-99)
[2019-10-25 19:52] VITALS: BP 102/52; PULSE 126
[2019-10-25] MEDS: MORPHINE SULFATE (100 MG/2 ML) 100 MG in SODIUM CHLORIDE 0.9% 100 ML IV SCH (19:53)
[2019-10-25] MEDS ORDERED: SCOPOLAMINE 1.5MG/72HR PATCH TRANSDERM SCH (21:30)
--- NOTE | 2019-10-25 22:33 | P.PN ---
Subjective Progress Note Date: 10/25/19 Principal diagnosis: Acute metabolic encephalopathy, acute GI bleed Covering for Dr. Elizabeth over the weekend . Mrs. Millan is a 78-year-old female with a past medical history of hypertension brought into the emergency department for frequent falls and altered mental status changes. Currently the patient is in the ICU and is confused so most of the history is taken from the family members were at the bedside. Patient has been having frequent falls at least 5-6 times in the past 4 days. Initially she was taken to [facility] few days back and she was discharged home. Her noticed that she has been having frequent falls and also feeling fatigued so he called the EMS who brought her to the hospital. In the ER patient had blood work done showing hemoglobin of 6.3 and sodium of 118. Her troponins are elevated at 0.320 and her urine analysis was positive for large leukocyte esterase and WBC clumps. She also had a chest x-ray and an x-ray of the pelvis- no acute changes and no fracture. Patient was started on IV fluids given 2 units of PRBCs and admitted to the ICU. In the ICU patient had CT of the brain - no acute cranial process and also CT of the chest and abdomen- anasarca and small left-sided pleural effusion and mild upper lobe emphysematous changes. On 10/24/2019 - patient still remains in the ICU. Patient received 2 units of P RBCs yesterday for active GI bleed. Patient is a fragment and difficult to arouse. As per the nursing staff report patient had 6-8 bowel movements this morning. Initially they were dark brown in color but now bright maroon in color. Patient has NG tube to suction with brown colored fluid. GI on board and following the patient. Patient is on Protonix IV. Aspirin and Lovenox currently on hold. Patient's CODE STATUS has been changed to NO CODE by family yesterday. Review of systems could not be done as the patient is obtunded. On 10/25/2019 -patient still remains in the ICU. She received 6 units of PRBC since admission. Patient still continues to have active GI bleed. GI on board for EGD colonoscopy but patient is very obtunded and would not be a good candidate for the procedure. Patient is obtunded. She is not responding to any kind of stimuli. Her treatment was changed to comfort care measures. Family members at bedside who are agreeable to the plan. Patient appears to be comfortable lying in bed, does not to be appear in pain. Active Medications Dextrose/Water (Dextrose 5%-Water Iv Soln) 1,000 mls @ 20 mls/hr IV .Q24H [facility] Stop: 10/26/19 07:49 Last Admin: 10/25/19 08:03 Dose: 50 mls/hr Documented by: Morphine Sulfate 100 mg/ (Sodium Chloride) 102 mls @ 1.02 mls/hr IV .Q24H [facility]; Protocol Last Admin: 10/25/19 19:53 Dose: Not Given Documented by: Morphine Sulfate (Morphine Sulfate (Inj)) 4 mg IVP Q2HR PRN PRN Reason: Pain/Discomfort Saliva Substitute ([place]outhkote Solution) 2 spray MUCOUS MEM QID PRN PRN Reason: Dry Mouth Scopolamine (Transderm-Scop 1.5mg/72hr Patch) 1 patch TRANSDERM Q72H [facility] Objective - Vital Signs Vital signs: Vital Signs Temp 98.5 F 10/25/19 08:00 Pulse 124 H 10/25/19 17:30 Resp 19 10/25/19 17:30 BP 108/68 10/25/19 17:30 Pulse Ox 85 L 10/25/19 17:30 Intake & Output 10/24/19 10/25/19 10/25/19 18:59 06:59 18:59 Intake Total 2130 670 440 Output Total 410 670 295 Balance 1720 0 145 Weight 60 kg Intake: IV 700 670 390 Dextrose 5% in Water 1, 240 000 ml @ 50 mls/hr IV . Q20H [facility] Rx#:[id number] Sodium Chloride 0.9% 1, 650 570 100 000 ml @ 50 mls/hr IV . Q20H [facility] Rx#:[id number] Thiamine 100 mg In Sodium 50 50 50 Chloride 0.9% 50 ml @ 100 mls/hr IVPB Q12HR [facility] Rx#:[id number] cefTRIAXone 1 gm In 50 Sodium Chloride 0.9% 50 ml @ 100 mls/hr IVPB Q24H [facility] Rx#:[id number] Intake, IV Titration 50 Amount Potassium Chloride 20 meq 50 In Water For Injection 1 100ml.bag @ 50 mls/hr IVPB Q2H [facility] Rx#: [id number] Tube Feeding 160 Blood Product 1240 Rc Irr As1 Unit 310 [id number] Rc Irr As3 Unit 310 [id number] Other 30 Output: Urine 410 670 295 Other: Voiding Method Indwelling Catheter Indwelling Catheter Indwelling Catheter # Bowel Movements 1 - Exam GEN. APPEARANCE: Obtunded, not following commands HEAD EXAM: atraumatic, normocephalic, EYE EXAM: Mild pallor. No icterus. NECK EXAM: Neck is supple. RESPIRATORY EXAM: Decreased breath sounds in all lung ramirez. Fine crackles at the lower lung bases.fine expiratory wheezing. CARDIOVASCULAR EXAM: Regular S1-S2 heard.systolic murmur GI/ABDOMINAL EXAM: soft, normal bowel sounds. Nontender. No guarding or rigidity. EXTREMITIES EXAM: No edema, no clubbing, no cyanosis NEUROLOGICAL EXAM:Obtunded and not responding to any stimulus - Labs CBC & Chem 7: 10/25/19 05:30 10/25/19 05:30 Labs: Abnormal Lab Results - Last 24 Hours (Table) 10/23/19 10/24/19 10/24/19 Range/Units 17:13 17:52 18:20 WBC 17.7 H (3.8-10.6) k/uL RBC 3.46 L (3.80-5.40) m/uL Hgb 11.2 L D (11.4-16.0) gm/dL Hct 31.4 L (34.0-46.0) % RDW 15.9 H (11.5-15.5) % Neutrophils # (Manual) 14.69 H (1.3-7.7) k/uL Nucleated RBCs 12 H (0-0) /100 WBC Sodium (137-145) mmol/L Chloride (98-107) mmol/L Carbon Dioxide (22-30) mmol/L BUN (7-17) mg/dL Glucose (74-99) mg/dL POC Glucose (mg/dL) 184 H (75-99) mg/dL Calcium (8.4-10.2) mg/dL Crossmatch See Detail 10/24/19 10/25/19 10/25/19 Range/Units 23:50 05:30 05:30 WBC 28.4 H (3.8-10.6) k/uL RBC 3.11 L (3.80-5.40) m/uL Hgb 9.9 L (11.4-16.0) gm/dL Hct 28.3 L (34.0-46.0) % RDW 17.0 H (11.5-15.5) % Neutrophils # (Manual) (1.3-7.7) k/uL Nucleated RBCs (0-0) /100 WBC Sodium 149 H (137-145) mmol/L Chloride 114 H (98-107) mmol/L Carbon Dioxide 34 H (22-30) mmol/L BUN 78 H (7-17) mg/dL Glucose 148 H (74-99) mg/dL POC Glucose (mg/dL) 146 H (75-99) mg/dL Calcium 7.8 L (8.4-10.2) mg/dL Crossmatch 10/25/19 10/25/19 Range/Units 06:03 11:44 WBC (3.8-10.6) k/uL RBC (3.80-5.40) m/uL Hgb (11.4-16.0) gm/dL Hct (34.0-46.0) % RDW (11.5-15.5) % Neutrophils # (Manual) (1.3-7.7) k/uL Nucleated RBCs (0-0) /100 WBC Sodium (137-145) mmol/L Chloride (98-107) mmol/L Carbon Dioxide (22-30) mmol/L BUN (7-17) mg/dL Glucose (74-99) mg/dL POC Glucose (mg/dL) 157 H 148 H (75-99) mg/dL Calcium (8.4-10.2) mg/dL Crossmatch Assessment and Plan Assessment: ASSESSMENT Acute GI bleed Acute ST elevation [place], inferior wall Metabolic Encephalopathy Hypovolemic hyponatremia UTI with E. coli Elevated troponins Anemia-? GI bleed Frequent falls COPD Alcohol abuse Hypertension No CPR PLAN: Continue with comfort care measures. Family at bedside and agreeable with the plan.
[2019-10-25] MEDS: MORPHINE SULFATE 4 MG/ML SYRINGE IVP PRN (22:54)
[2019-10-25] MEDS ORDERED: LORazepam 2 MG/ML INJ IV PRN (23:50)
[2019-10-26] MEDS: MORPHINE SULFATE 4 MG/ML SYRINGE IVP PRN (00:46)
[2019-10-26] MEDS: MORPHINE SULFATE (100 MG/2 ML) 100 MG in SODIUM CHLORIDE 0.9% 100 ML IV SCH (01:07)
[2019-10-26 05:21] VITALS: RESP 20
--- NOTE | 2019-10-26 08:32 | CDI ---
Documentation Clarification Form Date: 10/26/2019 8:24:02 AM From: Vidya DobbinsHargroveCONSTANTINE, CCDS Admit Date: 10/17/2019 8:36:00 PM Patient Name: Ayde Millan Visit Number: [id number] Discharge Date: ATTENTION: The Clinical Documentation Specialists (CDI) and [facility] Coding Staff appreciate your assistance in clarifying documentation. Please respond to the clarification below the line at the bottom and electronically sign. The CDI & [facility] Coding staff will review the response and follow-up if needed. Please note: Queries are made part of the Legal Health Record. If you have any questions, please contact the author of this message via ITS. Dr. Harvinder Elizabeth: Per the 10/25 GI progress note: ".Acute respiratory distress, presently on O2 at 10 L/minute and barely saturating at 84%." Per the 10/25 Pulmonary progress note: "remains in the ICU, patient has been worsening since yesterday. She is now on high flow airvo, her O2 saturations are marginal. Chest x-ray is worsening, patient seemed to have developed an extensive left lower lobe airspace disease/pneumonia. Her white count is up to 28.4 her sodium is 149.BUN is 78." History/Risk Factors: Frequent falls, Smoker, COPD, alcohol abuse & Hypertension. Clinical Indicators: Presented with altered mental status & frequent falls, diagnosed with metabolic encephalopathy, possible alcohol withdrawal, hyponatremia, possible UTI, elevated troponins & anemia with possible GI bleed. Current VS: T 98.5, P 126^, R 28 (shallow, tachypnea), BP 102/52, PO 81 high flow 11Lnc Treatment: IV Ativan, IV Ms, IV Dextrose/Water, IV KCL, IV Rocephin, IV Lasix. Comfort care. In your professional opinion, can you please clarify if these findings signify one of the following conditions? Acute Respiratory Failure ruled out Acute Respiratory Failure Acute on Chronic Respiratory Failure Chronic Respiratory Failure Other Diagnosis, please specify Unable to determine (Last Query Form Revision: July 2019) MTDD
--- NOTE | 2019-10-28 16:02 | CDI ---
Documentation Clarification Form Date: 10/28/19 From: Nga Roger Phone: If you have a question about this query, please contact Katie Ford [employer] at [phone] between 8am and 5pm. Admit Date: 10/17/19 Discharge Date: 10/26/19 Patient Name: Ayde Millan Visit Number: [id number] ATTENTION: The Clinical Documentation Specialists (CDI) and [facility] Coding Staff appreciate your assistance in clarifying documentation. Please respond to the clarification below the line at the bottom and electronically sign. The CDI & [facility] Coding staff will review the response and follow-up if needed. Please note: Queries are made part of the Legal Health Record. If you have any questions, please contact the author of this message via ITS. Dear Dr. Harvinder Elizabeth, Can you please dictate the /Discharge Summary and include the likely/preliminary cause of ? Thank you for your assistance. MTDD
--- NOTE | 2019-10-30 07:41 | CDI ---
Documentation Clarification Form Date: 10/20/2019 12:26:00 PM From: Vidya DobbinsHargroveCONSTANTINE freeman, CCDS Admit Date: 10/17/2019 8:36:00 PM Patient Name: Ayde Millan Visit Number: [id number] Discharge Date: 10/26/2019 7:20:00 AM ATTENTION: The Clinical Documentation Specialists (CDI) and [facility] Coding Staff appreciate your assistance in clarifying documentation. Please respond to the clarification below the line at the bottom and electronically sign. The CDI & [facility] Coding staff will review the response and follow-up if needed. Please note: Queries are made part of the Legal Health Record. If you have any questions, please contact the author of this message via ITS. Dr. Maged Ann: Per the 10/18 History & Physical: " ? CHF." Per the 10/18 Pulmonary/Critical Care consult: "Obtain an echocardiogram, consider underlying CHF." History/Risk Factors: Hypertension, Frequent falls, Smoker, Drinks alcohol daily. Clinical Indicators: Presented with altered mental status changes & having frequent falls. Hgb low at 6.3, Na 118, troponins elevated 0.320 & UA positive. VS on admission: T 97.6, P 62, R 20 - 26^, BP 114/38, PO 91 RA. BNP: 8960 Echocardiogram Results 10/18: Systolic function normal w/EF 55-60%, Moderate AR, mild aortic stenosis, Mild mitral stenosis. No Pericardial effusion. RAD: CT brain: negative. CT chest 7 abdomen: Anasarca & small left side pleural effusion & mild upper lobe emphysematous changes. Treatment: IV fluids, 2 units PRBCs, INH Albuteraol, O2 4Lnc, IV fluid 100 - 75, IV Ativan, IM Thiamine, CIWA protocol, IV Lasix started 10/17, IV Rocephin, IV Dextrose/water, admitted to ICU. In your professional opinion, can you please clarify the acuity and type of CHF if known? CHF is ruled out CHF is ruled in: Diastolic Heart Failure: o Acute o Chronic o Acute on Chronic Unable to Determine Other, please specify____consulted for troponin elevation (Last Revision: February 2018) MTDD
--- NOTE | 2019-11-01 22:37 | P.DS ---
Providers Date of admission: 10/17/19 20:36 Expected date of discharge: 10/26/19 Attending physician: Harvinder Elizabeth Consults: 10/17/19 20:28 Consult Physician Routine Consulting Provider: Isaiah Izaguirre Consult Reason/Comments: GI bleed Do you want consulting provider notified?: Yes Consult Physician Stat Consulting Provider: Cynthia Cox Consult Reason/Comments: ICU management Do you want consulting provider notified?: Already Contacted Consult Physician Urgent Consulting Provider: Khoa Solano Consult Reason/Comments: Hyponatremia Do you want consulting provider notified?: Already Contacted 10/17/19 20:33 Consult Physician Routine Consulting Provider: Maged Ann Consult Reason/Comments: Elevated troponin Do you want consulting provider notified?: Yes 10/22/19 10:41 Consult Physician Routine Consulting Provider: Yumiko Alejandro Consult Reason/Comments: mental status changes Do you want consulting provider notified?: Yes Primary care physician: Harvinder Elizabeth - Discharge Diagnosis(es) (1) Acute on chronic congestive heart failure Status: Acute (2) Acute GI bleeding Status: Acute (3) Alcohol abuse Status: Acute (4) Bronchospasm Status: Acute (5) Elevated brain natriuretic peptide (BNP) level Status: Acute (6) Elevated troponin Status: Acute (7) Failure to thrive Status: Acute (8) Hyponatremia Status: Acute (9) Normocytic anemia Status: Acute (10) Positive occult stool blood test Status: Acute (11) Tobacco abuse Status: Acute Hospital Course: patient had a complicated course leading to cause of is atherosclerotic cardiovascular disease.#2 is hypertensive cardiac disease #3 is COPD. Patient 7:20 AM 10/26/2019. Patient Condition at Discharge: Serious Plan - Discharge Summary Discharge Rx Participant: No New Discharge Prescriptions: No Action amLODIPine BESYLATE/BENAZEPRIL [amLODIPine BESYLATE/BENAZEPRIL 5-20 MG] 1 cap PO DAILY Metoprolol Succinate (ER) [Toprol Xl] 50 mg PO BID Discharge Medication List Metoprolol Succinate (ER) [Toprol Xl] 50 mg PO BID 10/17/19 [History] amLODIPine BESYLATE/BENAZEPRIL [amLODIPine BESYLATE/BENAZEPRIL 5-20 MG] 1 cap PO DAILY 10/17/19 [History] Follow up Appointment(s)/Referral(s): None,Stated [REFERRING] - 1-2 days Discharge Disposition: - Preliminary Cause of Preliminary Cause of : preliminary cause of hypertensive cardiovascular disease. see report
--- NOTE | 2019-11-03 07:27 | CDI ---
Documentation Clarification Form Date: 10/20/2019 12:26:00 PM From: Vidya DobbinsHargroveCONSTANTINE freeman, CCDS Admit Date: 10/17/2019 8:36:00 PM Patient Name: Ayde Millan Visit Number: [id number] Discharge Date: 10/26/2019 7:20:00 AM, ATTENTION: The Clinical Documentation Specialists (CDI) and [facility] Coding Staff appreciate your assistance in clarifying documentation. Please respond to the clarification below the line at the bottom and electronically sign. The CDI & [facility] Coding staff will review the response and follow-up if needed. Please note: Queries are made part of the Legal Health Record. If you have any questions, please contact the author of this message via ITS. Dr. Harvinder Elizabeth: Per the 10/18 History & Physical: " ? CHF." Per the 10/18 Pulmonary/Critical Care consult: "Obtain an echocardiogram, consider underlying CHF." History/Risk Factors: Hypertension, Frequent falls, Smoker, Drinks alcohol daily. Clinical Indicators: Presented with altered mental status changes & having frequent falls. Hgb low at 6.3, Na 118, troponins elevated 0.320 & UA positive. VS on admission: T 97.6, P 62, R 20 - 26^, BP 114/38, PO 91 RA. BNP: 8960 Echocardiogram Results 10/18: Systolic function normal w/EF 55-60%, Moderate AR, mild aortic stenosis, Mild mitral stenosis. No Pericardial effusion. RAD: CT brain: negative. CT chest 7 abdomen: Anasarca & small left side pleural effusion & mild upper lobe emphysematous changes. Treatment: IV fluids, 2 units PRBCs, INH Albuterol, O2 4Lnc, IV fluid 100 - 75, IV Ativan, IM Thiamine, CIWA protocol, IV Lasix started 10/17, IV Rocephin, IV Dextrose/water, ICU. Cardiology was consulted regarding patient's elevated troponins. In your professional opinion, can you please clarify the acuity and type of CHF if known? CHF is ruled out CHF is ruled in: o Diastolic Heart Failure: Acute Chronic Acute on Chronic Unable to Determine Other, please specify (Last Revision: February 2018) MTDD
--- NOTE | 2019-11-09 07:23 | CDI ---
Documentation Clarification Form Date: 10/23/2019 10:23:00 AM From: Vidya DobbinsHargroveCONSTANTINE freeman, CCDS Admit Date: 10/17/2019 08:36:00 PM Patient Name: Adye Millan Visit Number: [id number] Discharge Date: 10/26/2019 07:20:00 AM ATTENTION: The Clinical Documentation Specialists (CDI) and [facility] Coding Staff appreciate your assistance in clarifying documentation. Please respond to the clarification below the line at the bottom and electronically sign. The CDI & [facility] Coding staff will review the response and follow-up if needed. Please note: Queries are made part of the Legal Health Record. If you have any questions, please contact the author of this message via ITS. Dr. Harvinder Elizabeth: Per the documentation beginning on 10/20: "Required multiple fluid boluses throughout the night, urine output remains marginal." Per nephrology, the patient is diagnosed with hypovolemic hyponatremia & metabolic acidosis. Patient history/risk factors: Frequent falls, smoker, COPD, alcohol abuse & hypertension. Clinical Indicators: Presented with altered mental status & having frequent falls. Diagnosed with Metabolic encephalopathy, possible alcohol withdrawal, Hypovolemic hyponatremia, possible UTI, elevated troponins, anemia & possible GI bleed & possible CHF. Admission Vitals: R 20 - 26^, PO 91 RA - 4Lnc VS on 10/20: P 107^, R 11-28, BP 96/46, PO 94 3Lnc LABs on 10/20: WBC 26.0^, Hgb 11.2 (status post transfusion), Pl Ct 524^, Neut 24.90^, Na 133*, Glucose 163^. Urine culture 10/17 positive for E Coli RAD: CXR112/17, 10/20: Chronic emphysematous & parenchymal changes & cardiomegaly with developing right basilar acute infiltrate and/or atelectasis noted. Treatment: INH Albuterol, IV fluid rate 100, IV Ativan x3, IV Lasix, IV Rocephin, IV Dextrose/Water bolus on 10/18, IV Kcl, IV fluid bolus on 10/19, admit to ICU. In your professional opinion, can you please specify the type of shock if known? Septic Shock, please specify if Sepsis is also present: o Suspected or known causative organism o Any associated organ failure Cardiogenic Shock o Cause Hypovolemic Shock o Cause Other, please specify Unable to determine (Last Revision: August 2017) Hypovolemic shock caused by dehydration and underperfusion MTDD
--- NOTE | 2019-11-09 07:26 | CDI ---
Documentation Clarification Form Date: 10/26/2019 08:24:00 AM From: Vidya Hargrove Admit Date: 10/17/2019 08:36:00 PM Patient Name: Ayde Millan Visit Number: [id number] Discharge Date: 10/26/2019 07:20:00 AM ATTENTION: The Clinical Documentation Specialists (CDI) and [facility] Coding Staff appreciate your assistance in clarifying documentation. Please respond to the clarification below the line at the bottom and electronically sign. The CDI & [facility] Coding staff will review the response and follow-up if needed. Please note: Queries are made part of the Legal Health Record. If you have any questions, please contact the author of this message via ITS. Dr. Harvinder Elizabeth: Per the 10/25 GI progress note: ".Acute respiratory distress, presently on O2 at 10 L/minute and barely saturating at 84%." Per the 10/25 Pulmonary progress note: "remains in the ICU, patient has been worsening since yesterday. She is now on high flow airvo, her O2 saturations are marginal. Chest x-ray is worsening, patient seemed to have developed an extensive left lower lobe airspace disease/pneumonia. Her white count is up to 28.4 her sodium is 149.BUN is 78." History/Risk Factors: Frequent falls, Smoker, COPD, alcohol abuse & Hypertension. Clinical Indicators: Presented with altered mental status & frequent falls, diagnosed with metabolic encephalopathy, possible alcohol withdrawal, hyponatremia, possible UTI, elevated troponins & anemia with possible GI bleed. Current VS: T 98.5, P 126^, R 28 (shallow, tachypnea), BP 102/52, PO 81 high flow 11Lnc Treatment: IV Ativan, IV Ms, IV Dextrose/Water, IV KCL, IV Rocephin, IV Lasix. Comfort care. In your professional opinion, can you please clarify if these findings signify one of the following conditions? Acute Respiratory Failure Acute on Chronic Respiratory Failure Chronic Respiratory Failure Other Diagnosis, please specify Unable to determine (Last Query Form Revision: July 2019) Acute [facility] failure. [facility]
--- NOTE | 2019-11-09 07:30 | CDI ---
Documentation Clarification Form Date: 10/20/2019 12:26:00 PM From: Vidya DobbinsHargroveCONSTANTINE, CCDS Admit Date: 10/17/2019 08:36:00 PM Patient Name: Ayde Millan Visit Number: [id number] Discharge Date: 10/26/2019 07:20:00 AM ATTENTION: The Clinical Documentation Specialists (CDI) and [facility] Coding Staff appreciate your assistance in clarifying documentation. Please respond to the clarification below the line at the bottom and electronically sign. The CDI & [facility] Coding staff will review the response and follow-up if needed. Please note: Queries are made part of the Legal Health Record. If you have any questions, please contact the author of this message via ITS. Dr. Harvinder Elizabeth: Per the 10/18 History & Physical: " ? CHF." Per the 10/18 Pulmonary/Critical Care consult: "Obtain an echocardiogram, consider underlying CHF." History/Risk Factors: Hypertension, Frequent falls, Smoker, Drinks alcohol daily. Clinical Indicators: Presented with altered mental status changes & having frequent falls. Hgb low at 6.3, Na 118, troponins elevated 0.320 & UA positive. VS on admission: T 97.6, P 62, R 20 - 26^, BP 114/38, PO 91 RA. BNP: 8960 Echocardiogram Results 10/18: Systolic function normal w/EF 55-60%, Moderate AR, mild aortic stenosis, Mild mitral stenosis. No Pericardial effusion. RAD: CT brain: negative. CT chest 7 abdomen: Anasarca & small left side pleural effusion & mild upper lobe emphysematous changes. Treatment: IV fluids, 2 units PRBCs, INH Albuteraol, O2 4Lnc, IV fluid 100 - 75, IV Ativan, IM Thiamine, CIWA protocol, IV Lasix started 10/17, IV Rocephin, IV Dextrose/water, admitted to ICU. In your professional opinion, can you please clarify the acuity and type of CHF if known? CHF is ruled out CHF is ruled in: o Diastolic Heart Failure: Acute Chronic Acute on Chronic o Unable to Determine o Other, please specify (Last Revision: February 2018) Congestive heart failure is ruled out at this time MTDD
--- NOTE | 2019-12-04 08:26 | CDI ---
Documentation Clarification Form Date: 12/04/19 From: Nga Duran Phone: If you have a question about this query, please contact Katie Ford, Medical Office Worker at [phone] between 8am and 5pm. Admit Date: 10/17/19 Discharge Date: 10/26/19 Patient Name: Ayde Millan Visit Number: [id number] ATTENTION: The Clinical Documentation Specialists (CDI) and [facility] Coding Staff appreciate your assistance in clarifying documentation. Please respond to the clarification below the line at the bottom and electronically sign. The CDI & [facility] Coding staff will review the response and follow-up if needed. Please note: Queries are made part of the Legal Health Record. If you have any questions, please contact the author of this message via ITS. Dear Dr. Harvinder Elizabeth, The diagnosis acute on chronic CHF was documented in the DS, but type of CHF is not noted in subsequent documentation. Clinical Indicators: Echocardiogram Results 10/18: Systolic function normal w/EF 55-60%, Moderate AR, mild aortic stenosis, Mild mitral stenosis.No Pericardial effusion. RAD: CT chest 7 abdomen: Anasarca small left side pleural effusion mild upper lobe emphysematous changes. Treatment:10/17- IV Lasix 40 mg once, 10/20-IV Lasix 40 mg once, 10/21-IV lasix 20 mg once, 10/22- IV Lasix 40 mg once then IV Lasix 20 mg IV daily, 10/23-IV Lasix 40 mg once, 10/24- IV Lasix 20 mg given twice, Please clarify if the type of CHF: Diastolic Systolic Diastolic and Systolic Other, please specify Clinically unable to determine diastolic MTDD
== END 2019-10-26 07:20 | disposition expired ==
LOC: SUPCPDRO 16:41 → EC 16:41 → 2SICU 20:36 → 4SSUR 10-25 20:42
PROVIDERS: ADMIT Family Medicine; ATTEND Family Medicine
PROC: 30230N1 Transfusion of Nonautologous Red Blood Cells into Peripheral Vein, Open Approach (ICD-10-PCS; 2019-10-17)
PROC: 02HV33Z Insertion of Infusion Device into Superior Vena Cava, Percutaneous Approach (ICD-10-PCS; principal; 2019-10-20 14:10)
PROC: 0DH67UZ Insertion of Feeding Device into Stomach, Via Natural or Artificial Opening (ICD-10-PCS; 2019-10-22)
PROC: 3E0G76Z Introduction of Nutritional Substance into Upper GI, Via Natural or Artificial Opening (ICD-10-PCS; 2019-10-22)
DX: I21.19 ST elevation (STEMI) myocardial infarction involving other coronary artery of inferior wall (principal); G93.41 Metabolic encephalopathy; I63.9 Cerebral infarction, unspecified; R40.2114 Coma scale, eyes open, never, 24 hours or more after hospital admission; J96.01 Acute respiratory failure with hypoxia; I50.33 Acute on chronic diastolic (congestive) heart failure; E87.1 Hypo-osmolality and hyponatremia; K92.2 Gastrointestinal hemorrhage, unspecified; F10.239 Alcohol dependence with withdrawal, unspecified; E87.4 Mixed disorder of acid-base balance; J44.1 Chronic obstructive pulmonary disease with (acute) exacerbation; N39.0 Urinary tract infection, site not specified; J98.11 Atelectasis; E87.0 Hyperosmolality and hypernatremia; R57.1 Hypovolemic shock; Z66 Do not resuscitate; Z51.5 Encounter for palliative care; I11.0 Hypertensive heart disease with heart failure; D63.8 Anemia in other chronic diseases classified elsewhere; R62.7 Adult failure to thrive; E87.8 Other disorders of electrolyte and fluid balance, not elsewhere classified; E86.1 Hypovolemia; I25.10 Atherosclerotic heart disease of native coronary artery without angina pectoris; I08.0 Rheumatic disorders of both mitral and aortic valves; D50.0 Iron deficiency anemia secondary to blood loss (chronic); E87.6 Hypokalemia; B96.20 Unspecified Escherichia coli [E. coli] as the cause of diseases classified elsewhere; S01.91XA Laceration without foreign body of unspecified part of head, initial encounter; R29.6 Repeated falls; M54.30 Sciatica, unspecified side; R40.2354 Coma scale, best motor response, localizes pain, 24 hours or more after hospital admission; R40.2134 Coma scale, eyes open, to sound, 24 hours or more after hospital admission; R40.2244 Coma scale, best verbal response, confused conversation, 24 hours or more after hospital admission; H91.90 Unspecified hearing loss, unspecified ear; T14.8XXA Other injury of unspecified body region, initial encounter; F17.210 Nicotine dependence, cigarettes, uncomplicated; Z71.6 Tobacco abuse counseling; Z79.899 Other long term (current) drug therapy; Z91.81 History of falling; Z85.828 Personal history of other malignant neoplasm of skin; Z98.890 Other specified postprocedural states
CPT/HCPCS: 36415; 36430; 36573; 36600; 70450; 70551; 71045; 71046; 71260; 72170; 74177; 80048; 80053; 80074; 81001; 82140; 82272; 82533; 82550; 82607; 82728; 82746; 82805; 83540; 83550; 83605; 83735; 83880; 83930; 83935; 84132; 84295; 84300; 84443; 84466; 84484; 85025; 85027; 85045; 85379; 85610; 85730; 86850; 86900; 86901; 86920; 87077; 87086; 87186; 93005; 93306; 94640; 95816; 96360; 96361; 96372; 99291